=== PATIENT | male | born 1950 | race Caucasian/White ===

== ENCOUNTER 2018-10-03 06:08 | Inpatient (IN) ==
[2018-10-03] MEDS ORDERED: Etomidate Inj 40 MG/20 ML Vial IV.PUSH ONE ×2 (07:08→08:00)
[2018-10-03] MEDS ORDERED: Midazolam Inj 5 MG/ML 1 ML Vial ONE (07:09)
[2018-10-03] MEDS ORDERED: Propofol Inj 500 MG/50 ML Vial ONE ×2 (07:14→08:13)
[2018-10-03] MEDS ORDERED: Labetalol HCl Inj 100 MG/20 ML Vial ONE (07:17)
[2018-10-03] MEDS ORDERED: Morphine Sulfate Inj 2 MG/ML Vial IV.PUSH PRN ×2 (07:50→13:34)
[2018-10-03] MEDS ORDERED: Acetaminophen 325 MG Tablet PO PRN (07:50)
[2018-10-03] MEDS ORDERED: Midazolam Inj 5 MG/ML 1 ML Vial IV.PUSH ONE (08:00)
--- NOTE | 2018-10-03 08:07 | P.HPCC ---
History of Present Illness Service: Critical care Primary Care Physician: UNKNOWN Chief Complaint: Headache, intraparenchymal hemorrhage History of Present Illness: Patient is a 68-year-old morbidly obese male with past medical history significant for hypertension, diabetes, dyslipidemia, morbid obesity, thyroid disease, history of colon resection and colostomy, who presented to the [facility] with left-sided headache and poorly controlled hypertension. Apparently he woke up with severe left-sided headache was moderately confused and family brought him to the emergency department. The patient did take aspirin for his headache prior to presentation. A stat CT of the head showed large 6.9 x 3.6 x 3.2 cm acute intraparenchymal hemorrhage in the right temporoparietal region with approximate blood volume of 40 mL. There was surrounding edema and 2-3 mm leftward midline shift. Neurosurgery Dr. Hills was contacted and patient was transferred to [facility]. PT/INR/ platelet count was normal in the outside hospital. BUN was 43 creatinine was 2 I evaluated the patient in the ICU. Patient is awake but somnolent oriented only to person. He drifts to sleep while talking. His systolic blood pressure was 200 on arrival. Because of questionable airway protection and need for further imaging studies patient was intubated and placed on mechanical ventilation. Dr. Hills had been informed. I will start Cardene to control blood pressure, repeat stat CT head also CT angiogram of brain and neck will be performed. Also give 25 g of IV mannitol, start on 2% saline to keep sodium more than 150-155, also placed on Keppra for seizure prophylaxis - Diagnosis (1) Intraparenchymal hemorrhage of brain (2) Midline shift of brain (3) Acute encephalopathy (4) Hypertensive emergency (5) LLL pneumonia (6) Acute kidney injury (7) History of hypertension (8) Type 2 diabetes mellitus (9) Dyslipidemia (10) Morbid obesity Inpatient Certification: I certify that the inpatient services were ordered in accordance with Medicare regulations governing the order. This includes certification that hospital inpatient services are reasonable and necessary and in the case of services not specified as inpatient-only under 42 CFR 419.22(n), that they are appropriately provided as inpatient services in accordance to with the 2-midnight benchmark under 43 CFR 412.3(e) Estimated Total Length of Stay (Days): 7 Plans for Post Hospital Care: Not yet determined Review of Systems unobtainable due to mental status [facility] - Medical History Medical History: Medical History (Last Reviewed 10/03/18 @ 08:04 by Yeison Mack MD) Diabetes mellitus Hyperlipemia Hypertension - Surgical History Surgical History: Surgical History (Last Reviewed 10/03/18 @ 08:03 by Yeison Mack MD) History of total right knee replacement (TKR) Medications and Allergies Active Medications: Active Medications Acetaminophen (Tylenol) 650 mg PO Q6H PRN PRN Reason: PAIN 1-10 AND/OR FEVER >101F Albuterol (Duoneb Neb (Prn)) 1 ampul NEB Q4HR NEB PRN PRN Reason: SHORTNESS OF BREATH Albuterol (Duoneb Neb (Jud)) 1 ampul NEB Q6HR NEB JUD Chlorhexidine Gluconate (Chlorhexidine 2% Cloth) 3 pack TOPICAL DAILY@0400 JUD Stop: 10/09/18 03:59 Chlorhexidine Gluconate (Chlorhexidine 2% Cloth) 3 pack TOPICAL DAILY@0400 PRN PRN Reason: Extra cloth needed Stop: 10/09/18 03:59 Chlorhexidine Gluconate (Peridex 0.12% Oral Kit) 15 ml OROPHARYNG BID@0800, 2000 JUD Famotidine (Pepcid Pf Inj) 20 mg IV.PUSH Q12HR JUD Sodium Chloride (Ns Inj) 1,000 mls @ 75 mls/hr IV.CONT .[id number] JUD Miscellaneous Medication () 1 each OROPHARYNG 0000,0400,1200,1600 JUD Morphine Sulfate (Morphine Inj) 2 mg IV.PUSH Q2H PRN PRN Reason: PAIN SCALE 6 TO 10 Allergies Allergy/AdvReac Type Severity Reaction Status Date / Time No Known Allergies Allergy Verified 10/03/18 07:37 Results - Labs CBC & Chem 7: 10/03/18 08:45 10/03/18 08:45 Exam Vital signs: Intake & Output 10/02/18 10/03/18 10/03/18 18:59 06:59 18:59 Weight 178 kg Other: Weight On Admission 178 kg Narrative: GEN: Morbidly obese male somnolent but wakes up easily, profoundly hypotensive HEENT: Extraocular movements are grossly intact, VANCE+, airway widely patent, large tongue iNECK: Supple. LUNGS: Bilateral diminished breath sounds, few crackles heard at left base HEART: S1 and S2 normal, heart sounds distant. Profoundly hypertensive systolic blood pressure in 200s ABDOMEN: Soft. Nontender. Obese. Well-healed vertical scar. Right lower quadrant colostomy bag in place with stool EXTREMITIES: No pedal edema. NEUROLOGIC: Patient is somnolent but wakes up easily. He is able to tell me his name not oriented to place or time. He drifts back to sleep while talking. Follows commands x4, muscle strength appeared normal while awake Septic Shock Reassessment Septic shock perfusion: reassessment completed Caprini VTE Risk Assessment Caprini VTE Risk Assessment: No/Low Risk (score <= 1) VTE Pharmacological Exception Reason: Hemorrhage Caprini Risk Assessment Model: Point Value = 1 Point Value = 2 Point Value = 3 Point Value = 5 Age 41-60 Minor surgery BMI > 25 kg/m2 Swollen legs Varicose veins or History of unexplained or recurrent spontaneous Oral contraceptives or hormone replacement Sepsis (< 1 month) Serious lung disease, including pneumonia (< 1 month) Abnormal pulmonary function Acute myocardial infarction Congestive heart failure (< 1 month) History of inflammatory bowel disease Medical patient at bed rest Age 61-74 Arthroscopic surgery Major open surgery (> 45 min) Laparoscopic surgery (> 45 min) Malignancy Confined to bed (> 72 hours) Immobilizing plaster cast Central venous access Age >= 75 History of VTE Family history of VTE Factor V Leiden Prothrombin [id number] Lupus anticoagulant Anticardiolipin antibodies Elevated serum homocysteine Heparin-induced thrombocytopenia Other congenital or acquired thrombophilia Stroke (< 1 month) Elective arthroplasty Hip, pelvis, or leg fracture Acute spinal cord injury (< 1 month) Prophylaxis Regimen: Total Risk Factor Score Risk Level Prophylaxis Regimen 0-1 Low Early ambulation 2 Moderate Order ONE of the following: *Sequential Compression Device (SCD) *Heparin 5000 units SQ BID 3-4 Higher Order ONE of the following medications: *Heparin 5000 units SQ TID *Enoxaparin/Lovenox 40 mg SQ daily (WT < 150 kg, CrCl > 30 mL/min) *Enoxaparin/Lovenox 30 mg SQ daily (WT < 150 kg, CrCl > 10-29 mL/min) *Enoxaparin/Lovenox 30 mg SQ BID (WT < 150 kg, CrCl > 30 mL/min) AND/OR *Sequential Compression Device (SCD) 5 or more Highest Order ONE of the following medications: *Heparin 5000 units SQ TID (Preferred with Epidurals) *Enoxaparin/Lovenox 40 mg SQ daily (WT < 150 kg, CrCl > 30 mL/min) *Enoxaparin/Lovenox 30 mg SQ daily (WT < 150 kg, CrCl > 10-29 mL/min) *Enoxaparin/Lovenox 30 mg SQ BID (WT < 150 kg, CrCl > 30 mL/min) AND *Sequential Compression Device (SCD) Assessment and Plan - Problem List (1) Intraparenchymal hemorrhage of brain Code(s): I61.9 - Nontraumatic intracerebral hemorrhage, unspecified Status: Acute (2) Midline shift of brain Code(s): G93.9 - Disorder of brain, unspecified Status: Acute (3) Acute encephalopathy Code(s): G93.40 - Encephalopathy, unspecified Status: Acute (4) Hypertensive emergency Code(s): I16.1 - Hypertensive emergency Status: Acute (5) LLL pneumonia Code(s): J18.1 - Lobar pneumonia, unspecified organism Status: Acute (6) Acute kidney injury Code(s): N17.9 - Acute kidney failure, unspecified Status: Acute (7) History of hypertension Code(s): Z86.79 - Personal history of other diseases of the circulatory system Status: Chronic (8) Type 2 diabetes mellitus Code(s): E11.9 - Type 2 diabetes mellitus without complications Status: Chronic (9) Dyslipidemia Code(s): E78.5 - Hyperlipidemia, unspecified Status: Chronic (10) Morbid obesity Code(s): E66.01 - Morbid (severe) obesity due to excess calories Status: Chronic - Assessment and Plan Plan: NEURO: Acute right temporoparietal intraparenchymal hemorrhage Midline shift Acute encephalopathy -Propofol and fentanyl for sedation and ventilator synchrony after intubation -Repeat stat CT head without contrast, also CT angiogram of the brain and neck to rule out aneurysm -Start 2% saline at 100 mL/h to keep sodium between 150 and 155 -Mannitol 25 g IV x1 -Keppra 500 mg IV every 12 hours -Discussed with neurosurgery Dr. Hills RESP: Acute respiratory failure Left lower lobe pneumonia -Patient was intubated for airway protection, placed on PRVC/AC -Ventilator bundle -DuoNeb every 6 hours scheduled and as needed -Sputum culture CV: Hypertensive emergency Dyslipidemia -Normal saline IV fluids 1 L bolus and maintenance IV fluid 2% saline at 100 mL/ h -Cardene infusion to keep systolic blood pressure less than 140 -Arterial line placement -IV labetalol as needed for SBP more than 140 GI: Morbid obesity History of colon resection, status post colostomy -N.p.o., IV famotidine -Routine colostomy care : Acute kidney injury -Monitor renal function closely. Place Mendieta catheter. -IV hydration as above -Unclear whether patient has chronic knee disease -Check renal ultrasound ID: Left lower lobe pneumonia -Antibiotics with Unasyn 1.5 g IV every 6 hours, IV azithromycin -Blood and sputum cultures HEME: -Monitor CBC, coags ENDO: Type 2 diabetes Hypothyroidism -Electrolyte replacement per protocol -Sliding scale insulin -Check TSH PROPH: -Bilateral lower extremity SCDs/HIRAL. Chemical DVT prophylaxis contraindicated -IV famotidine LINES: -Utilize peripheral IVs, central line if needed CC time 77 min excluding procedures Code Status: Full Discussed Condition With: Dr. Hills
--- NOTE | 2018-10-03 08:08 | XR ---
EXAM DATE: 10/03/2018 8:06 AM EST AGE/SEX: 68 years / Male INDICATIONS: Post ET tube placement CLINICAL DATA: This is the patient's initial encounter. Patient reports that signs and symptoms have been present for 1 day and indicates a pain score of Nonresponsive. MEDICAL/SURGICAL HISTORY: . brain bleed Non-responsive. COMPARISON: No prior exams available for comparison. FINDINGS: The heart is enlarged. There are atelectatic changes at the left lung base. There is no pneumothorax. The endotracheal tubes in good position. There is a nasogastric tube present as well. The bony structures are grossly intact. CONCLUSION: 1. ET tube in satisfactory position. 2. Atelectatic changes in the left lower lobe. Electronically signed by: Rob Delaney MD 10/03/2018 8:06 AM EST
[2018-10-03] MEDS ORDERED: Dextrose 50% in Water 50 ML Vial IV.PUSH PRN (08:17)
[2018-10-03 08:43] LABS: ABG Base Excess 7.4 mmol/L (-2-2); ABG PCO2 62 mmHg (38-42); ABG PO2 177 mmHg (61-120)
[2018-10-03 09:00] LABS: Hematocrit 34.7 % (39.0-51.0); Hemoglobin 11.5 gm/dL (13.0-17.0); Mean Corpuscular HGB Conc 33.1 % (32.0-36.0); Mean Corpuscular Hemoglobin 27.9 pg (27.0-34.0); Mean Corpuscular Volume 84.4 fL (80.0-100.0); Mean Platelet Volume 7.8 fL (7.0-11.0); Platelet Count 144 th/mm3 (150-450); Red Blood Count 4.11 mil/mm3 (4.50-5.90); Red Cell Distribution Width 15.2 % (11.6-17.2); White Blood Count 3.9 th/mm3 (4.0-11.0)
[2018-10-03] MEDS ORDERED: RASS Change Order OTHER ONE (09:00)
--- NOTE | 2018-10-03 09:08 | P.CONNS ---
History of Present Illness Service: Neurosurgery Consult date: 10/03/18 Requesting Physician: Yeison Mack Reason for Consult: [facility] Primary Care Provider: UNKNOWN Chief Complaint: Headache, intraparenchymal hemorrhage History of Present Illness: This is a 68-year-old morbidly obese male with past history of arterial hypertension, diabetes, dyslipidemia, morbid obesity, thyroid disease, history of colon resection and colostomy, who presented to the [facility] with left-sided headache and poorly controlled hypertension. Apparently he woke up with severe left-sided headache was moderately confused and family brought him to the emergency department. Apparently he took aspirin for severe headaches prior to presentation. A CT of the head showed large 6.9 x 3.6 x 3.2 cm acute intraparenchymal hemorrhage in the right temporoparietal region. There was surrounding edema and 2-3 mm leftward midline shift. He had evidence of renal failure with BUN 43 creatinine 2 he was stuporose, oriented only to person. His systolic blood pressure was over 200 on arrival. The patient was intubated and placed on mechanical ventilation for airway protection.Started on Cardene drip for blood pressure Neurosurgery consultation was requested His family history is unobtainable due to his condition Review of Systems unobtainable due to endotracheal tube PMFSH - Medical History Medical History: Medical History (Last Reviewed 10/08/18 @ 19:38 by Shivam Hills MD) Diabetes mellitus Hyperlipemia Hypertension On home O2 - Surgical History Surgical History: Surgical History (Last Reviewed 10/08/18 @ 19:38 by Shivam Hills MD) History of total right knee replacement (TKR) Medications and Allergies Active Medications: Active Medications Acetaminophen (Tylenol) 650 mg PO Q6H PRN PRN Reason: PAIN 1-10 AND/OR FEVER >101F Albuterol (Duoneb Neb (Prn)) 1 ampul NEB Q4HR NEB PRN PRN Reason: SHORTNESS OF BREATH Albuterol (Duoneb Neb (Jud)) 1 ampul NEB Q6HR NEB JUD Chlorhexidine Gluconate (Chlorhexidine 2% Cloth) 3 pack TOPICAL DAILY@0400 JUD Stop: 10/09/18 03:59 Chlorhexidine Gluconate (Chlorhexidine 2% Cloth) 3 pack TOPICAL DAILY@0400 PRN PRN Reason: Extra cloth needed Stop: 10/09/18 03:59 Chlorhexidine Gluconate (Peridex 0.12% Oral Kit) 15 ml OROPHARYNG BID@0800, 2000 JUD Dextrose (D50w Vial) 50 ml IV.PUSH UNSCH PRN PRN Reason: PER HYPOGLYCEMIA PROTOCOL Famotidine (Pepcid Pf Inj) 20 mg IV.PUSH Q12HR JUD Glucagon (Glucagon Inj) 1 mg OTHER PRN PRN PRN Reason: for Hypoglycemia Protocol Sodium Chloride (Ns Inj) 1,000 mls @ 75 mls/hr IV.CONT .[id number] JUD Sodium Chloride 188 meq/ (Sodium Chloride) 1,047 mls @ 100 mls/hr IV.CONT .[id number] JUD Propofol (Diprivan 1000 Mg/100 Ml Inj) 1,000 mg in 100 mls @ 5.34 mls/hr IV.CONT TITRATE PRN; Protocol PRN Reason: Per Protocol Levetiracetam 500 mg/ Sodium (Chloride) 105 mls @ 400 mls/hr IV.SIG Q12H JUD Ampicillin Sodium/Sulbactam Sodium 1,500 mg/ Sodium Chloride 100 mls @ 200 mls/ hr IV.SIG Q6H JUD Azithromycin 500 mg/ Sodium (Chloride) 250 mls @ 250 mls/hr IV.SIG Q24H JUD Insulin Aspart (Novolog Insulin [place] Sugar Inj) 0 unit SQ Q6HR JUD; Protocol Mannitol (Mannitol Inj) 25 gm IV.PUSH ONCE ONE Stop: 10/03/18 08:15 Miscellaneous Medication () 1 each OROPHARYNG 0000,0400,1200,1600 JUD Morphine Sulfate (Morphine Inj) 2 mg IV.PUSH Q2H PRN PRN Reason: PAIN SCALE 6 TO 10 Allergies Allergy/AdvReac Type Severity Reaction Status Date / Time clear tape,plastic tape Allergy Severe Blister Uncoded 10/04/18 18:47 Home Medications Medication Instructions Recorded Confirmed Type RX: amlodipine 10 mg PO DAILY 10/03/18 10/03/18 History RX: aspirin 81 mg PO DAILY 10/03/18 10/03/18 History RX: fenofibrate 120 mg PO DAILY 10/03/18 10/03/18 History RX: glipizide 10 mg BID 10/03/18 10/03/18 History RX: irbesartan-hydrochlorothiazide 1 tab PO DAILY 10/03/18 10/03/18 History RX: lorazepam 0.5 mg PO BID PRN 10/03/18 10/03/18 History RX: pioglitazone 15 mg PO DAILY 10/03/18 10/03/18 History Synthroid 112 mcg PO DAILY 10/03/18 10/03/18 History escitalopram oxalate [Lexapro] 10 mg PO DAILY 10/03/18 10/03/18 History febuxostat [Uloric] 40 mg PO DAILY 10/03/18 10/03/18 History insulin degludec [Tresiba 48 units SUBCUT DAILY 10/03/18 10/03/18 History FlexTouch U-100] nebivolol [Bystolic] 10 mg PO DAILY 10/03/18 10/03/18 History sitagliptin [Januvia] 50 mg PO DAILY 10/03/18 10/03/18 History Exam Vital signs: Intake & Output 10/02/18 10/03/18 10/03/18 18:59 06:59 18:59 Weight 178 kg Other: Weight On Admission 178 kg Narrative: The patient is intubated and sedated. GCS 7 Cranial Nerves: Pupils equal, 3 mm round, reactive to light. Eyes appear conjugated. There was no nystagmus, right papilledema. Face musculature appeared symmetrical at rest. Face sensation, olfaction, and hearing cannot be adequately assessed due to the patient's neurological condition. The patient has a corneal reflex. The patient has a gag reflex. The sternocleidomastoid and trapezius were symmetrical. Cervical Spine: The patient's neck is soft, supple, without nuchal rigidity. Motor: His muscle tone and bulk are normal. He moves purposefully all right upper and lower extremities with left hemiparesis. Reflexes: Deep tendon reflexes are 2+ and symmetrical in the biceps, triceps, and brachioradialis, bilaterally, in the upper extremities. In the lower extremities, the patellar and ankles are 2+, bilaterally. There is a bilateral plantar flexion response. There is no clonus or other abnormal reflexes noted. Sensory: On examination there there is response to painful stimuli, localizing with right upper and lower extremities. Cerebellar: Examination cannot be adequately assessed due to the patient's neurological condition. Lungs: clear Heart: Regular rhythm and rate Skin: warm and dry Results - Laboratory Findings CBC and BMP: 10/04/18 05:10 10/08/18 05:50 Assessment and Plan - Plan I have reviewed the clinical and radiological findings from [place] Neuro: neuro checks in a serial fashion.This could be a ruptured aneurysm. Recommend stat CT of the brain with CTA. if there is a ruptured aneurysm, he may need an angiography with endovascular treatment. Start mannitol, hypertonic solutions keppra for seizure prophylaxis Hypertensive crisis. On cardene drip for BP control Pulmonary: on full mechanical ventilation on assist control mode of ventilation ; aggressive pulmonary toilette, nasotracheal suction, and breathing treatments with nebulizers. Daily PT and OT Renal: Continue to monitor closely urine output, BUN and creatinine Endocrine: Continue to Monitor serial Acu checks and SSI as needed in detail ID continue to monitor for signs of infection Continue Protonix for stress ulcer prophylaxis Continue Rober hose and SCD's for DVT prophylaxis Further recommendations will be provided depending on the patient's clinical evaluation and follow up studies. Addendum. CTA was negative. his clinical condition is deteriorating. I discussed with his family trhe alternativ es of treatment, and I recommend a surgical decompression via a craniotomy, in a desperated attempt to save his life. Michelle discussed with his family the [id number] details of the surgical procedure, its indications, alternatives, risks, and potential complications. Risks and potential complications include, but are not limited to, infection, blood loss, CSF leak, partial or complete loss of sight in one or both eyes, paresis, paralysis, permanent pain or difficulty swallowing, loss of bowel or bladder function, complications from anesthesia, blood clot, stroke, myocardial infarction, or even . The possibility of nonoperative treatment has been offered. \Discussed with Dr Yeison Mack
[2018-10-03 09:21] LABS: Albumin 3.3 g/dL (3.4-5.0); Anion Gap 9 meq/L (5-15); Aspartate Aminotransferase 17 U/L (15-37); Blood Urea Nitrogen 42 mg/dL (7-18); Calcium 9.2 mg/dL (8.5-10.1); Carbon Dioxide 31.9 meq/L (21.0-32.0); Chloride 100 meq/L (98-107); Glomerular Filtration Rate 29 mL/min (>89); Glucose,Random 196 mg/dL (74-106); Magnesium 2.1 mg/dL (1.5-2.5); Potassium 3.8 meq/L (3.5-5.1); Sodium 141 meq/L (136-145)
[2018-10-03 09:22] LABS: Alanine Aminotransferase 21 U/L (12-78)
[2018-10-03 09:24] LABS: Alkaline Phosphatase 44 U/L (45-117); Total Protein 6.1 g/dL (6.4-8.2)
--- NOTE | 2018-10-03 10:05 | CT ---
EXAM DATE: 10/03/2018 9:59 AM EST AGE/SEX: 68 years / Male INDICATIONS: Hemorrhage CLINICAL DATA: This is the patient's initial encounter. Patient reports that signs and symptoms have been present for 1 day and indicates a pain score of Nonresponsive. MEDICAL/SURGICAL HISTORY: Diabetes. Hypertension. Colon resection. Colostomy. RADIATION DOSE: 28.78 CTDI (mGy) COMPARISON: [facility] [place], CT HEAD W/O CONTRAST, 10/03/2018. . TECHNIQUE: Volumetric scanning was performed using a multi-row detector CT scanner during bolus infu sameer of 100 ml Visipaque 320 (iodixanol) nonionic water-soluble contrast as a cumulative dose for mu ltiple exams. The data was post processed with a variety of visualization algorithms including full volume maximum intensity projection, multi-planar sliding thin slab reformation, curved planar refor mation, and surface rendering techniques. Using automated exposure control and adjustment of the mA and/or kV according to patient size, radiation dose was kept as low as reasonably achievable to obtai n optimal diagnostic quality images. DICOM format image data is available electronically for review and comparison. FINDINGS: There is excellent visualization of the major intracranial arteries out to the second-order branch ve ssels. There is no evidence for aneurysm, vessel truncation or stenosis, and no evidence for vascula r malformation. Origin of the posterior cerebral arteries is on both sides. CONCLUSION: No acute [place] vascular findings . Electronically signed by: Frederick Kay MD 10/03/2018 10:03 AM EST
--- NOTE | 2018-10-03 10:08 | CT ---
EXAM DATE: 10/03/2018 10:00 AM EST AGE/SEX: 68 years / Male INDICATIONS: Hemorrhage CLINICAL DATA: This is the patient's initial encounter. Patient reports that signs and symptoms have been present for 1 day and indicates a pain score of Nonresponsive. MEDICAL/SURGICAL HISTORY: Diabetes. Hypertension. Colon resection. Colostomy. RADIATION DOSE: 50.18 CTDI (mGy) COMPARISON: [facility], CTA HEAD W CONTRAST W 3D, 10/03/2018. . TECHNIQUE: CT of the head without contrast. Using automated exposure control and adjustment of the mA and/or kV according to patient size, radiation dose was kept as low as reasonably achievable to ob tain optimal diagnostic quality images. DICOM format image data is available electronically for revi ew and comparison. FINDINGS: There is a 6.5 cm parenchymal hematoma in the right temporoparietal region with mild surrounding brianna a. There is moderate regional mass effect present with effacement of the cortical sulci in the pariet al and occipital regions and compression of the adjacent lateral ventricle. Minimal subfalcine midlin e shift on the order of several millimeters. The basal cisterns and foramen magnum are patent. There is mild baseline cortical atrophy. No focal parenchymal abnormalities in the contralateral left hemis phere. Posterior fossa and brainstem structures are unremarkable. There is mild mucosal sinus disease present. CONCLUSION: Large right temporoparietal parenchymal hematoma. . Electronically signed by: Frederick Kay MD 10/03/2018 10:06 AM EST
--- NOTE | 2018-10-03 10:34 | CT ---
EXAM DATE: 10/03/2018 10:28 AM EST AGE/SEX: 68 years / Male INDICATIONS: Hemorrhage CLINICAL DATA: This is the patient's initial encounter. Patient reports that signs and symptoms have been present for 1 day and indicates a pain score of Nonresponsive. MEDICAL/SURGICAL HISTORY: Diabetes. Hypertension. Colon resection. Colostomy. RADIATION DOSE: 28.78 CTDI (mGy) ; Combined studies COMPARISON: No prior exams available for comparison. TECHNIQUE: Volumetric scanning was performed using a multirow detector CT scanner during bolus infus ion of 100 ml Visipaque 320 (iodixanol) nonionic water-soluble contrast as a cumulative dose for mul tiple exams. The data was postprocessed with a variety of visualization algorithms including full-v olume maximum intensity projection, multiplanar sliding thin-slab reformation, curved-planar reformat ion, and surface-rendering techniques. Using automated exposure control and adjustment of the mA and /or kV according to patient size, radiation dose was kept as low as reasonably achievable to obtain o ptimal diagnostic quality images. DICOM format image data is available electronically for review and comparison. Percent stenosis is calculated using the diameter of the stenotic region over the diameter of the nor mal distal internal carotid artery. FINDINGS: Aortic arch: The left vertebral originates directly from the arch. The origins of the great vessels a re widely patent. Right carotid: The right common carotid is widely patent. There is mild calcified atherosclerotic [place] at the bifurcation. This results in minimal stenosis in the origin of the right internal caroti d this is estimated to be in the range of 10% by NASCET criteria. The more cephalad portion of caroti d is widely patent. Left carotid: The left common carotid is widely patent. There is calcified atherosclerotic plaquing a t the bifurcation. There is soft plaque present as well. There is no hemodynamically significant tubbs tid artery stenosis identified. Vertebral circulation: The left vertebral originates directly from the arch. It is symmetric in size with the right. Both are widely patent. CT source data: Note is again made of a large parenchymal hemorrhage involving the temporal cortex on the right. This will be further assessed by CTA of the brain. The ET tube appears in good position. The visualized lung apex is clear. CONCLUSION: 1. The left vert originates directly from the arch. 2. Atherosclerotic plaquing at the carotid bifurcation but no hemodynamically significant carotid ar adama stenosis identified. 3. CTA of the brain pending. Electronically signed by: Rob Delaney MD 10/03/2018 10:33 AM EST
[2018-10-03] MEDS: Famotidine PF Inj 20 MG/2 ML Vial IV.PUSH SCH ×2 (10:51→20:14)
[2018-10-03] MEDS: Ampicillin/Sulbactam Inj 1,500 MG in Sodium Chloride 0.9% Inj 100 ML IV.SIG SCH ×3 (10:52→21:17)
--- NOTE | 2018-10-03 11:11 | P.PCN ---
Date of procedure: 10/03/18 Pre-op diagnosis: Need for central access for pressors and hypertonic saline Post-op diagnosis: same Procedure: US guided right IJ central line Central line checklist completed, timeout completed. I wore a surgical cap, mask with protective eyewear, full gown and sterile gloves throughout the procedure. Right neck region was prepped using chlorhexidine scrub and draped in sterile fashion. The right IJ was identified using the ultrasound. Anesthesia was achieved over the vein using 1% lidocaine. The introducer needle was inserted into the right IJ under direct ultrasound visualization. Venous blood was withdrawn. The syringe was removed and a guidewire was advanced into the introducer needle. A small incision was made at the skin surface with a scalpel and the introducer needle was exchanged for a dilator over the guidewire. After appropriate dilation was obtained, the dilator was exchanged over the wire for a triple lumen, 7F, antibiotic coated central venous catheter. The wire was removed and the catheter was sutured in place at 19 cm. A sterile central line dressing was placed over the catheter at the insertion site. The patient tolerated the procedure without any hemodynamic compromise. At time of procedure completion, all ports aspirated and flushed properly. Post- procedure chest x-ray is pending at this time. Anesthesia: local Surgeon: Yeison Mack Estimated blood loss (mL): 1 Pathology: none sent Condition: critical Disposition: ICU
[2018-10-03] MEDS: Azithromycin Inj 500 MG in Sodium Chlor 0.9% Inj 250 ML IV.SIG SCH (11:12)
[2018-10-03] MEDS: Propofol 1000 mg/100 ml Inj 1,000 MG/100 ML BOTTLE IV.CONT PRN ×5 (11:13→23:19)
--- NOTE | 2018-10-03 11:13 | P.PCN ---
Date of procedure: 10/03/18 Pre-op diagnosis: Altered mentation, inability to protect airway Post-op diagnosis: same Procedure: Endotracheal intubation Rapid Sequence Intubation was conducted. The patient received 20 mg of IV etomidate, 10 mg of IV Versed, 50 mg of IV rocuronium.. Cricoid pressure was maintained from time induction agent was given to time of cuff balloon inflation. Using a direct laryngoscope MAC 4 blade a grade 1 view was obtained, and a size 8.0 endotracheal tube with stylet, the patient was intubated on the first attempt. The stylet was removed and cuff balloon was inflated. Appropriate endotracheal tube position was confirmed by direct visualization of vocal cord passage, fogging of the tube, CO2 colometric indicator and symmetric breath sounds. The tube was secured at 24 cm at the lips. Anesthesia: local Surgeon: Yeison Mack Estimated blood loss (mL): 0 Pathology: other (sputum culture) Condition: critical Disposition: ICU
--- NOTE | 2018-10-03 12:00 | XR ---
EXAM DATE: 10/03/2018 11:42 AM EST AGE/SEX: 68 years / Male INDICATIONS: Status post central line. CLINICAL DATA: This is the patient's initial encounter. Patient reports that signs and symptoms have been present for 1 day and indicates a pain score of Nonresponsive. MEDICAL/SURGICAL HISTORY: . Diabetes. Hypertension. . Colon resection. Colostomy. COMPARISON: [facility] [place] 1V SINGLE AP, 10/03/2018. . FINDINGS: The ET tube is in satisfactory position. The right IJ lines in good position. There is a nasogastric tube present. The heart is enlarged. There is left basilar consolidation and effusion. The right lung is clear. The bony structures are intact. CONCLUSION: Left lower lobe atelectasis and probable left basilar effusion similar to previous. Stable appearance of the support equipment. Electronically signed by: Rob Delaney MD 10/03/2018 11:59 AM EST
[2018-10-03] MEDS ORDERED: Gelatin Size 100 Topical Foam ONE (12:37)
[2018-10-03] MEDS ORDERED: Thrombin Topical Soln 5,000 UNIT Vial TOPICAL ONE (12:37)
[2018-10-03] MEDS ORDERED: Lidocaine 1%/Epinephrine 1:100,000 Inj 30 ML Vial ONE (12:37)
[2018-10-03] MEDS: Insulin NovoLOG Aspart Correctional Sugar Inj SQ SCH ×2 (12:42→17:37)
[2018-10-03] MEDS ORDERED: Norepinephrine Inj 4 MG in Sodium Chlor 0.9% Inj 246 ML IV.SIG PRN (12:50)
[2018-10-03] MEDS ORDERED: ceFAZolin 2 GM Premix Inj 2 GM/50 ML PIGGYBACK IV.SIG ONE (12:52)
[2018-10-03] MEDS: Sod Chloride 0.9% Inj 1,000 ML IV.CONT SCH (13:04)
[2018-10-03] MEDS: Chlorhexidine 0.12% Oral Kit 15 ML UDC OROPHARYNG SCH ×2 (13:10→20:14)
[2018-10-03] MEDS: Sodium Chloride 23.4% Inj 188 MEQ in Sod Chloride 0.9% Inj 1,000 ML IV.CONT SCH ×2 (13:10→20:56)
[2018-10-03] MEDS: Oral Hygiene Kit OROPHARYNG SCH ×2 (13:10→16:57)
[2018-10-03] MEDS ORDERED: Bisacodyl 10 MG Supp RECTAL PRN (13:34)
[2018-10-03] MEDS ORDERED: ceFAZolin 1 GM Premix Inj 1 GM/50 ML FROZ.PIGGY IV.SIG ONE (13:44)
[2018-10-03] MEDS ORDERED: niCARdipine Inj 25 MG/10 ML Vial ONE (14:12)
--- NOTE | 2018-10-03 15:09 | P.OP ---
Preoperative Diagnosis: Right temporal lobe intracerebral hematoma Postoperative Diagnosis: Right temporal lobe intracerebral hematoma Date of procedure: 10/03/18 Procedure: Right posterior temporal craniotomy, evacuation of [id number] hematoma. Microsurgical dissection Surgeon: Shivam Hills MD Operation and Findings: DETAILS OF THE SURGICAL PROCEDURE The patient was endotracheally intubated and mechanically ventilated. A Mendieta catheter, bilateral HIRAL hose and sequential compression devices were placed and kept throughout the procedure. The patient was positioned supine on a 3080 table over a soft mattress. The head was placed on a horseshoe chiseler head. All pressure points were carefully padded with egg crate mattress. The eyes were tapped shut after ointment was applied by the anesthesiologist to prevent corneal abrasion. A Margo hugger was placed over the exposed lower body to maintain control of the core body temperature. The right parietal temporal area was shaved, prepped and draped in the usual sterile fashion. A standard horseshoe incision was outlined on the scalp and infiltrated with 1% lidocaine with epinephrine. The skin incision was made with a #10 blade down to the level of the temporalis fascia in the temporal region. Natalya clips were applied to the scalp. Using a Bovie, the temporalis fascia and muscle were incised and a subperiosteal dissection was performed reflecting the myofascial scalp flap in a single layer anteriorly. The scalp was covered with a moist sponge and held in position using fish hooks. The TPS drill was brought to the field and a bur hole was made in the temporal region using the craniotome attachment. Then, using the footplate attachment, a temporal craniotomy flap was elevated. The dura was bulging, very tense with severe pressure due to the underlying mass effect. The dura was opened with a 15 blade and metzembaun sissors and retracted with 4-0 Neurolon sutures attached to the fascia. A large intracerebral hematoma was localized as it had ruptued through the cortical surface. A small corticotomy was performed at the site where the hematoma ruptured with the bipolar and the hematoma was readily found, causing significant mass effect. At this point of the procedure the operative microscope was draped in the usual sterile fashion and brought to the field. The rest of the surgical procedure was performed using microdissection technique with the exception of the closure. The hematoma was evacuated using microsurgical dissection, with the micro- bipolar forceps, microscissors, micro-suction, and gentle irrigation. The specimen was sent to the lab for histological analysis. Appropriate hemostasis was then secured using the bipolar bibliographic services specialist. Then the incision was irrigated with saline solution. The dural edges were tacked to the bone and the dura reconstructed using Duragen. The craniotomy flap was then repositioned and secured in place using Titanium plates and screws. A 7 millimeter Shin- Guillermo drain was then left in the cavity of the hematoma and in the subgaleal space and externalized through a separate stab incision. The incision was then closed in layers. 0 Vicryl in interrupted sutures were used to close the temporalis fascia. The galea was closed with interrupted 3- 0 Vicryl. [place] were applied to the skin. The drain was secured with a 3-0 nylon. At the end of the procedure, the sponge, needle and instrument counts were all correct. Estimated blood loss was less than 100 cc. No blood transfusion was given. No intraoperative complications occurred. The patient received prophylactic antibiotics. The patient was then transferred to the recovery room in stable condition.
--- NOTE | 2018-10-03 15:13 | P.OP ---
Preoperative Diagnosis: Right temporal lobe intracerebral hematoma Postoperative Diagnosis: Right temporal lobe intracerebral hematoma Date of procedure: 10/03/18 Procedure: Frontal Jazzy hole, placement of intracranial pressure monitor Anesthesia: GETA Surgeon: Shivam Hills MD Websphere Portal Architect: GUIDO Pathology: none sent Operation and Findings: INTRAOPERATIVE FINDINGS Intracranial pressures of 2 mmHg. INDICATIONS FOR THE PROCEDURE Mr Fox is a 68 year old male who was brought to [facility] with a temporal lobe intraparenchymal hemorrhage. his condition deteriorated requering enfdotracheal intubation and mechanical ventilation. A surgical evacuation of the hematoma was necessary as the CT of the brain showed a large acute hematoma with mass effect and midline shift. Placement of ICP monitor was indicated as recommended by the [employer] of [employer] DETAILS OF THE SURGICAL PROCEDURE The right frontal area was shaved, prepped and draped in the usual sterile fashion. An entry point was selected behind the hairline, approximately 30 mm lateral to the midline. The incision was infiltrated with 1% lidocaine with epinephrine 1:100,000 dilution. A small incision was made with a 15 blade down to the level of the periosteum. Using a drill, a jazzy hole was made. The dura was opened with a blunt stylet, and a [place] bolt was secured to the bone. A fiberoptic transducer was calibrated according to the hopper filler's instructions, and advanced into the parenchyma of the frontal lobe through the bolt. An intracranial pressure of 2 mmHg was achieved with a good waveform. A Betadine sterile dressing was applied. The patient tolerated the procedure well. There were no intraoperative complications. Blood loss was minimal.
[2018-10-03] MEDS ORDERED: fentaNYL Citrate Inj 100 MCG/2 ML Ampul ONE (15:50)
[2018-10-03 17:24] LABS: Alanine Aminotransferase 16 U/L (12-78); Albumin 2.9 g/dL (3.4-5.0); Anion Gap 9 meq/L (5-15); Aspartate Aminotransferase 14 U/L (15-37); Blood Urea Nitrogen 43 mg/dL (7-18); Calcium 8.7 mg/dL (8.5-10.1); Carbon Dioxide 30.4 meq/L (21.0-32.0); Chloride 103 meq/L (98-107); Glomerular Filtration Rate 26 mL/min (>89); Glucose,Random 138 mg/dL (74-106); Potassium 3.7 meq/L (3.5-5.1); Sodium 142 meq/L (136-145)
[2018-10-03 17:34] LABS: Alkaline Phosphatase 38 U/L (45-117); Total Protein 5.3 g/dL (6.4-8.2)
--- NOTE | 2018-10-03 17:39 | P.PNWCN ---
Wound Care Nurse Consult Additional information: Spoke with REYES Lord regarding wound management consult for patient to have a larger bed due to patient's size and weight. Bariatric bed has been delivered.
[2018-10-03] MEDS: niCARdipine 20mg/NS Premix 20 MG/200 ML PIGGYBACK IV.SIG PRN ×3 (18:24→23:40)
[2018-10-03] MEDS: Senna/Docusate Sodium 8.6/50 MG Tablet PO SCH (20:14)
[2018-10-03] MEDS: ceFAZolin 2 GM Premix Inj 2 GM/50 ML PIGGYBACK IV.SIG SCH (21:18)
[2018-10-04] MEDS: Sod Chloride 0.9% Inj 1,000 ML IV.CONT SCH (00:06)
[2018-10-04] MEDS: Insulin NovoLOG Aspart Correctional Sugar Inj SQ SCH ×4 (00:06→18:50)
[2018-10-04] MEDS: Oral Hygiene Kit OROPHARYNG SCH ×4 (00:07→16:20)
[2018-10-04] MEDS: niCARdipine 20mg/NS Premix 20 MG/200 ML PIGGYBACK IV.SIG PRN ×7 (01:40→20:50)
[2018-10-04] MEDS: Propofol 1000 mg/100 ml Inj 1,000 MG/100 ML BOTTLE IV.CONT PRN ×9 (02:00→22:48)
[2018-10-04] MEDS: Chlorhexidine Gluconate 2% 1 Pack (2 Cloths) TOPICAL SCH (03:27)
[2018-10-04] MEDS: Ampicillin/Sulbactam Inj 1,500 MG in Sodium Chloride 0.9% Inj 100 ML IV.SIG SCH ×4 (03:28→21:03)
[2018-10-04] MEDS ORDERED: Chlorhexidine Gluconate 2% 1 Pack (2 Cloths) TOPICAL PRN (04:00)
[2018-10-04] MEDS: ceFAZolin 2 GM Premix Inj 2 GM/50 ML PIGGYBACK IV.SIG SCH ×2 (05:14→14:10)
[2018-10-04 05:24] LABS: Baso % (Auto) 0.2 % (0.0-2.0); Eos % (Auto) 0.1 % (0.0-4.0); Hematocrit 33.8 % (39.0-51.0); Hemoglobin 10.9 gm/dL (13.0-17.0); Lymph # (Auto) 0.3 th/mm3 (1.0-4.8); Lymph % (Auto) 4.6 % (9.0-44.0); Mean Corpuscular HGB Conc 32.3 % (32.0-36.0); Mean Corpuscular Hemoglobin 27.9 pg (27.0-34.0); Mean Corpuscular Volume 86.4 fL (80.0-100.0); Mean Platelet Volume 7.8 fL (7.0-11.0); Mono # (Auto) 0.2 th/mm3 (0.0-0.9); Mono % (Auto) 3.6 % (0.0-8.0); Neut # (Auto) 5.2 th/mm3 (1.8-7.7); Neut % (Auto) 91.5 % (16.0-70.0); Platelet Count 149 th/mm3 (150-450); Red Blood Count 3.91 mil/mm3 (4.50-5.90); Red Cell Distribution Width 15.7 % (11.6-17.2); White Blood Count 5.6 th/mm3 (4.0-11.0)
[2018-10-04 06:06] LABS: Alanine Aminotransferase 18 U/L (12-78); Albumin 3.1 g/dL (3.4-5.0); Alkaline Phosphatase 42 U/L (45-117); Anion Gap 10 meq/L (5-15); Aspartate Aminotransferase 11 U/L (15-37); Blood Urea Nitrogen 45 mg/dL (7-18); Calcium 8.4 mg/dL (8.5-10.1); Carbon Dioxide 25.6 meq/L (21.0-32.0); Chloride 109 meq/L (98-107); Glomerular Filtration Rate 23 mL/min (>89); Glucose,Random 288 mg/dL (74-106); Potassium 4.3 meq/L (3.5-5.1); Sodium 145 meq/L (136-145); Total Protein 6.1 g/dL (6.4-8.2)
[2018-10-04] MEDS: Sodium Chloride 23.4% Inj 188 MEQ in Sod Chloride 0.9% Inj 1,000 ML IV.CONT SCH ×3 (06:46→18:56)
[2018-10-04] MEDS: Chlorhexidine 0.12% Oral Kit 15 ML UDC OROPHARYNG SCH ×2 (07:58→20:07)
[2018-10-04] MEDS: Senna/Docusate Sodium 8.6/50 MG Tablet PO SCH ×2 (08:26→20:06)
[2018-10-04] MEDS: Famotidine PF Inj 20 MG/2 ML Vial IV.PUSH SCH ×2 (08:26→20:06)
[2018-10-04] MEDS: Azithromycin Inj 500 MG in Sodium Chlor 0.9% Inj 250 ML IV.SIG SCH (08:27)
--- NOTE | 2018-10-04 08:46 | US ---
EXAM DATE: 10/04/2018 8:38 AM EST AGE/SEX: 68 years / Male INDICATIONS: Increased BUN/Creatinine. CLINICAL DATA: This is the patient's initial encounter. Patient reports that signs and symptoms have been present for 1 day and indicates a pain score of 0/10. MEDICAL/SURGICAL HISTORY: Diabetes mellitus type II. Hypertension. Hyperlipidemia. Thyroid dis ease. Intraparenchymal hemorrhage. LLL Pneumonia. Total knee replacement, right. Colon resection. Co lostomy. COMPARISON: No prior exams available for comparison. MEASUREMENTS: Right Kidney:__13.2 x 5.9 x 6.5 cm Left Kidney:__14.3 x 6.6 x 5.9 cm FINDINGS: Right Kidney: No mass or hydronephrosis. Left Kidney: No mass or hydronephrosis. Bladder: Not seen. Mendieta catheter in place Other: None. CONCLUSION: No hydronephrosis Electronically signed by: Frederick Kay MD 10/04/2018 8:45 AM EST
--- NOTE | 2018-10-04 09:30 | P.PNCC ---
Subjective Subjective Remarks/Hospital Course: Patient is a 68-year-old morbidly obese male with past medical history significant for hypertension, diabetes, dyslipidemia, morbid obesity, thyroid disease, history of colon resection and colostomy, who presented to the [facility] with left-sided headache and poorly controlled hypertension. Apparently he woke up with severe left-sided headache was moderately confused and family brought him to the emergency department. The patient did take aspirin for his headache prior to presentation. A stat CT of the head showed large 6.9 x 3.6 x 3.2 cm acute intraparenchymal hemorrhage in the right temporoparietal region with approximate blood volume of 40 mL. There was surrounding edema and 2-3 mm leftward midline shift. Neurosurgery Dr. Hills was contacted and patient was transferred to [place] ICU. PT/INR/ platelet count was normal in the outside hospital. BUN was 43 creatinine was 2. I evaluated the patient in the ICU. Patient is awake but somnolent oriented only to person. He drifts to sleep while talking. His systolic blood pressure was 200 on arrival. Because of questionable airway protection and need for further imaging studies patient was intubated and placed on mechanical ventilation. Dr. Hills had been informed. I will start Cardene to control blood pressure, repeat stat CT head also CT angiogram of brain and neck will be performed. Also give 25 g of IV mannitol, start on 2% saline to keep sodium more than 150-155, also placed on Keppra for seizure prophylaxis. 10/04: Will start oral BP meds down NG tube and attempt to wean cardene. CKD persists as expected. Glucose swing expected. Keep intubated and sedated for now. - Diagnosis (1) Intraparenchymal hemorrhage of brain (2) Midline shift of brain (3) Acute encephalopathy (4) Hypertensive emergency (5) LLL pneumonia (6) Acute kidney injury (7) History of hypertension (8) Type 2 diabetes mellitus (9) Dyslipidemia (10) Morbid obesity Objective Vital Signs / I&O: Vital Signs 10/03/18 09:53 10/03/18 10:00 10/03/18 10:11 Temperature Pulse Rate 64 Respiratory Rate 16 Blood Pressure 127/73 Pulse Oximetry 100 100 100 10/03/18 10:14 10/03/18 10:23 10/03/18 10:35 Temperature Pulse Rate 78 71 Respiratory Rate 17 61 H 16 Blood Pressure 158/89 H Pulse Oximetry 100 100 10/03/18 11:00 10/03/18 12:00 10/03/18 12:29 Temperature 98.2 F Pulse Rate 64 62 Respiratory Rate 16 16 17 Blood Pressure Pulse Oximetry 100 100 100 10/03/18 13:00 10/03/18 14:00 10/03/18 15:00 Temperature 96.1 F L 95.9 F L Pulse Rate 64 51 L 56 L Respiratory Rate 16 Blood Pressure Pulse Oximetry 100 100 92 L 10/03/18 15:39 10/03/18 15:51 10/03/18 16:00 Temperature Pulse Rate 56 L 57 L Respiratory Rate 18 16 16 Blood Pressure Pulse Oximetry 97 99 10/03/18 17:00 10/03/18 17:15 10/03/18 17:30 Temperature 95.5 F L 95.5 F L 95.7 F L Pulse Rate 59 L 59 L 59 L Respiratory Rate 16 16 16 Blood Pressure Pulse Oximetry 95 95 94 L 10/03/18 17:45 10/03/18 18:00 10/03/18 18:15 Temperature 95.7 F L 95.7 F L 95.9 F L Pulse Rate 60 65 70 Respiratory Rate 16 16 16 Blood Pressure Pulse Oximetry 95 94 L 92 L 10/03/18 18:30 10/03/18 18:45 10/03/18 19:00 Temperature 96.1 F L 96.1 F L 96.3 F L Pulse Rate 69 72 67 Respiratory Rate 16 16 16 Blood Pressure Pulse Oximetry 91 L 92 L 95 10/03/18 19:15 10/03/18 19:27 10/03/18 19:30 Temperature 96.3 F L 96.4 F L Pulse Rate 66 69 Respiratory Rate 16 16 17 Blood Pressure Pulse Oximetry 95 95 96 10/03/18 19:45 10/03/18 20:00 10/03/18 20:15 Temperature 96.4 F L 96.4 F L 96.4 F L Pulse Rate 72 73 72 Respiratory Rate 16 16 16 Blood Pressure Pulse Oximetry 96 96 96 10/03/18 20:30 10/03/18 20:45 10/03/18 21:00 Temperature 96.4 F L 96.4 F L 96.4 F L Pulse Rate 73 75 75 Respiratory Rate 16 16 16 Blood Pressure Pulse Oximetry 96 96 96 10/03/18 21:15 10/03/18 21:23 10/03/18 21:30 Temperature 96.4 F L 96.4 F L Pulse Rate 77 71 77 Respiratory Rate 16 16 16 Blood Pressure Pulse Oximetry 96 96 10/03/18 21:45 10/03/18 22:00 10/03/18 22:15 Temperature 96.4 F L 96.4 F L 96.4 F L Pulse Rate 77 72 75 Respiratory Rate 16 18 16 Blood Pressure Pulse Oximetry 97 96 96 10/03/18 22:30 10/03/18 22:45 10/03/18 23:00 Temperature 96.4 F L 96.4 F L 96.4 F L Pulse Rate 74 80 79 Respiratory Rate 16 16 16 Blood Pressure Pulse Oximetry 96 96 96 10/03/18 23:15 10/03/18 23:30 10/03/18 23:45 Temperature 96.4 F L 96.4 F L 96.4 F L Pulse Rate 80 82 83 Respiratory Rate 16 17 17 Blood Pressure Pulse Oximetry 96 96 96 10/04/18 00:00 10/04/18 00:15 10/04/18 00:30 Temperature 96.4 F L 96.4 F L 96.4 F L Pulse Rate 82 85 83 Respiratory Rate 17 16 17 Blood Pressure Pulse Oximetry 96 96 97 10/04/18 00:45 10/04/18 01:00 10/04/18 01:15 Temperature 96.6 F L 96.6 F L 96.6 F L Pulse Rate 84 84 83 Respiratory Rate 17 17 17 Blood Pressure Pulse Oximetry 97 97 97 10/04/18 01:30 10/04/18 01:45 10/04/18 02:00 Temperature 96.6 F L 96.6 F L 96.6 F L Pulse Rate 80 83 82 Respiratory Rate 18 17 18 Blood Pressure Pulse Oximetry 97 97 97 10/04/18 02:15 10/04/18 02:30 10/04/18 02:45 Temperature 96.6 F L 96.6 F L 96.4 F L Pulse Rate 83 79 78 Respiratory Rate 25 H 17 16 Blood Pressure Pulse Oximetry 97 100 99 10/04/18 03:00 10/04/18 03:15 10/04/18 03:30 Temperature 96.4 F L 96.3 F L 96.3 F L Pulse Rate 79 82 83 Respiratory Rate 18 18 17 Blood Pressure Pulse Oximetry 99 99 99 10/04/18 03:45 10/04/18 03:49 10/04/18 04:00 Temperature 96.3 F L 96.3 F L Pulse Rate 84 86 85 Respiratory Rate 18 18 15 Blood Pressure Pulse Oximetry 99 99 10/04/18 04:15 10/04/18 04:20 10/04/18 04:30 Temperature 96.3 F L 96.3 F L Pulse Rate 82 79 Respiratory Rate 16 16 16 Blood Pressure Pulse Oximetry 99 99 98 10/04/18 04:45 10/04/18 05:00 10/04/18 05:15 Temperature 96.3 F L 96.3 F L 96.3 F L Pulse Rate 78 78 79 Respiratory Rate 16 16 16 Blood Pressure Pulse Oximetry 97 97 97 10/04/18 05:30 10/04/18 05:45 10/04/18 06:00 Temperature 96.1 F L 96.3 F L Pulse Rate 81 81 79 Respiratory Rate 18 17 16 Blood Pressure Pulse Oximetry 98 98 98 10/04/18 06:15 10/04/18 06:30 10/04/18 06:45 Temperature 96.1 F L 96.1 F L 96.1 F L Pulse Rate 71 71 72 Respiratory Rate 17 16 16 Blood Pressure Pulse Oximetry 97 97 97 10/04/18 08:20 Temperature Pulse Rate 82 Respiratory Rate 17 Blood Pressure Pulse Oximetry 98 Intake & Output 10/03/18 10/04/18 10/04/18 18:59 06:59 18:59 Intake Total 3055 / 3055 3805 / 3805 300 / 300 Output Total 1989 1245 / 1245 Balance 1065 / 1065 2560 / 2560 300 / 300 Weight 178 kg 203.1 kg Intake: IV 755 / 755 3805 / 3805 300 / 300 Diprivan 1000 mg/100 ml Inj 1, 100 / 100 400 / 400 100 / 100 000 mg In 100 ml @ 5 MCG/KG/MIN 5.34 mls/hr IV.CONT TITRATE PRN Rx#:[id number] Sodium Chloride 23.4% Inj 188 2000 / 2000 MEQ In NS Inj 1,000 ML @ 100 mls/hr IV.CONT .[id number] [facility] Rx# :[id number] Unasyn Inj 1,500 MG In NS Inj 200 / 200 200 / 200 100 ML @ 200 mls/hr IV.SIG Q6H [facility] Rx#:[id number] Azithromycin Inj 500 MG In NS 250 / 250 Inj 250 ML @ 250 mls/hr IV.SIG Q24H [facility] Rx#:[id number] Ancef 1 GM Premix Inj 1 gm In 50 / 50 50 ml @ 0 mls/hr IV.SIG .K- MED ONE Rx#:[id number] Ancef 2 GM Premix Inj 2 gm In 50 / 50 100 / 100 50 ml @ 100 mls/hr IV.SIG Q8H [facility] Rx#:[id number] Keppra Inj 500 MG In NS Inj 100 105 / 105 105 / 105 ML @ 400 mls/hr IV.SIG Q12H [facility] Rx#:[id number] Cardene 20 mg/NS 200 ml Premix 1000 / 1000 200 / 200 20 mg In 200 ml @ 5 MG/HR 50 mls/hr IV.SIG TITRATE PRN Rx#: [id number] Anesthesia Amount 2300 / 2300 Output: Estimated Blood Loss 100 / 100 Urine Amount (Catheter) 1550 / 1550 775 / 775 Indwelling Temp Sensing 775 / 775 Catheter Indwelling Urethral Catheter 1550 / 1550 Stool Amount (Stoma) 250 / 250 100 / 100 Pre-Hospital: 250 / 250 100 / 100 Gastric Drainage 0 / 0 125 / 125 Oral Orogastric Tube 0 / 0 125 / 125 Wound Drainage 90 / 90 245 / 245 # 1 Right Frontal CLARIBEL Drain 50 / 50 85 / 85 # 2 Right Frontal CLARIBEL Drain 40 / 40 160 / 160 Other: Date of Last Bowel Movement 10/03/18 10/03/18 Weight On Admission 178 kg Result Diagrams: 10/04/18 05:10 10/04/18 05:10 Objective Remarks: Narrative: GEN: Morbidly obese male somnolent but wakes up easily, profoundly hypotensive HEENT: Extraocular movements are grossly intact, VANCE+, airway widely patent, large tongue iNECK: Supple. LUNGS: Bilateral diminished breath sounds, few crackles heard at left base HEART: S1 and S2 normal, heart sounds distant. Profoundly hypertensive systolic blood pressure in 200s ABDOMEN: Soft. Nontender. Obese. Well-healed vertical scar. Right lower quadrant colostomy bag in place with stool EXTREMITIES: No pedal edema. NEUROLOGIC: Intubated, sedated. Breathes over vent. Assessment and Plan - Problem List (1) Intraparenchymal hemorrhage of brain Code(s): I61.9 - Nontraumatic intracerebral hemorrhage, unspecified Status: Acute (2) Midline shift of brain Code(s): G93.9 - Disorder of brain, unspecified Status: Acute (3) Acute encephalopathy Code(s): G93.40 - Encephalopathy, unspecified Status: Acute (4) Hypertensive emergency Code(s): I16.1 - Hypertensive emergency Status: Acute (5) LLL pneumonia Code(s): J18.1 - Lobar pneumonia, unspecified organism Status: Acute (6) Acute kidney injury Code(s): N17.9 - Acute kidney failure, unspecified Status: Acute (7) History of hypertension Code(s): Z86.79 - Personal history of other diseases of the circulatory system Status: Chronic (8) Type 2 diabetes mellitus Code(s): E11.9 - Type 2 diabetes mellitus without complications Status: Chronic (9) Dyslipidemia Code(s): E78.5 - Hyperlipidemia, unspecified Status: Chronic (10) Morbid obesity Code(s): E66.01 - Morbid (severe) obesity due to excess calories Status: Chronic - Assessment and Plan Plan: NEURO: Acute right temporoparietal intraparenchymal hemorrhage Midline shift Acute encephalopathy -Propofol and fentanyl for sedation and ventilator synchrony after intubation -Repeat stat CT head without contrast, also CT angiogram of the brain and neck to rule out aneurysm -Start 2% saline at 100 mL/h to keep sodium between 150 and 155 -Mannitol 25 g IV x1 -Keppra 500 mg IV every 12 hours -S/P crani and evacuation 10/03 RESP: Acute respiratory failure Left lower lobe pneumonia -Patient was intubated for airway protection, placed on PRVC/AC -Ventilator bundle -DuoNeb every 6 hours scheduled and as needed -Sputum culture -Remain CV: Hypertensive emergency Dyslipidemia -Normal saline IV fluids 1 L bolus and maintenance IV fluid 2% saline at 100 mL/ h -Cardene infusion to keep systolic blood pressure less than 140 -Arterial line placement -IV labetalol as needed for SBP more than 140 GI: Morbid obesity History of colon resection, status post colostomy -N.p.o., IV famotidine -Routine colostomy care : Acute kidney injury -Monitor renal function closely. Place Mendieta catheter. -IV hydration as above -Unclear whether patient has chronic knee disease -Check renal ultrasound ID: Left lower lobe pneumonia -Antibiotics with Unasyn 1.5 g IV every 6 hours, IV azithromycin -Blood and sputum cultures HEME: -Monitor CBC, coags ENDO: Type 2 diabetes Hypothyroidism -Electrolyte replacement per protocol -Sliding scale insulin -Check TSH PROPH: -Bilateral lower extremity SCDs/HIRAL. Chemical DVT prophylaxis contraindicated -IV famotidine LINES: -Utilize peripheral IVs, central line if needed Overall impression: Critically ill and neurologically unstable. ICP acceptable, will decrease 2% saline to 50/hr Critical Care 40 mins
[2018-10-04] MEDS: amLODIPine 10 MG Tablet PO SCH (09:43)
[2018-10-04] MEDS ORDERED: RASS Change Order MISCELLANE ONE (10:00)
[2018-10-04] MEDS: fentaNYL 10 mcg/mL Premix Drip 2,500 MCG/250 ML BAG IV.SIG PRN (10:05)
--- NOTE | 2018-10-04 12:08 | P.PNNS ---
Subjective Interval history: intubated, well sedated, had to increase diprivan rate this morning due to elevated BP, on cardene drip. ICPs controlled <Ale Weinberg - Last Filed: 10/04/18 12:00> Physical Exam Vital signs: Vital Signs 10/03/18 12:29 10/03/18 13:00 10/03/18 14:00 Temperature 96.1 F L Pulse Rate 64 51 L Respiratory Rate 17 16 Pulse Oximetry 100 100 100 10/03/18 15:00 10/03/18 15:39 10/03/18 15:51 Temperature 95.9 F L Pulse Rate 56 L 56 L Respiratory Rate 18 16 Pulse Oximetry 92 L 97 10/03/18 16:00 10/03/18 17:00 10/03/18 17:15 Temperature 95.5 F L 95.5 F L Pulse Rate 57 L 59 L 59 L Respiratory Rate 16 16 16 Pulse Oximetry 99 95 95 10/03/18 17:30 10/03/18 17:45 10/03/18 18:00 Temperature 95.7 F L 95.7 F L 95.7 F L Pulse Rate 59 L 60 65 Respiratory Rate 16 16 16 Pulse Oximetry 94 L 95 94 L 10/03/18 18:15 10/03/18 18:30 10/03/18 18:45 Temperature 95.9 F L 96.1 F L 96.1 F L Pulse Rate 70 69 72 Respiratory Rate 16 16 16 Pulse Oximetry 92 L 91 L 92 L 10/03/18 19:00 10/03/18 19:15 10/03/18 19:27 Temperature 96.3 F L 96.3 F L Pulse Rate 67 66 Respiratory Rate 16 16 16 Pulse Oximetry 95 95 95 10/03/18 19:30 10/03/18 19:45 10/03/18 20:00 Temperature 96.4 F L 96.4 F L 96.4 F L Pulse Rate 69 72 73 Respiratory Rate 17 16 16 Pulse Oximetry 96 96 96 10/03/18 20:15 10/03/18 20:30 10/03/18 20:45 Temperature 96.4 F L 96.4 F L 96.4 F L Pulse Rate 72 73 75 Respiratory Rate 16 16 16 Pulse Oximetry 96 96 96 10/03/18 21:00 10/03/18 21:15 10/03/18 21:23 Temperature 96.4 F L 96.4 F L Pulse Rate 75 77 71 Respiratory Rate 16 16 16 Pulse Oximetry 96 96 10/03/18 21:30 10/03/18 21:45 10/03/18 22:00 Temperature 96.4 F L 96.4 F L 96.4 F L Pulse Rate 77 77 72 Respiratory Rate 16 16 18 Pulse Oximetry 96 97 96 10/03/18 22:15 10/03/18 22:30 10/03/18 22:45 Temperature 96.4 F L 96.4 F L 96.4 F L Pulse Rate 75 74 80 Respiratory Rate 16 16 16 Pulse Oximetry 96 96 96 10/03/18 23:00 10/03/18 23:15 10/03/18 23:30 Temperature 96.4 F L 96.4 F L 96.4 F L Pulse Rate 79 80 82 Respiratory Rate 16 16 17 Pulse Oximetry 96 96 96 10/03/18 23:45 10/04/18 00:00 10/04/18 00:15 Temperature 96.4 F L 96.4 F L 96.4 F L Pulse Rate 83 82 85 Respiratory Rate 17 17 16 Pulse Oximetry 96 96 96 10/04/18 00:30 10/04/18 00:45 10/04/18 01:00 Temperature 96.4 F L 96.6 F L 96.6 F L Pulse Rate 83 84 84 Respiratory Rate 17 17 17 Pulse Oximetry 97 97 97 10/04/18 01:15 10/04/18 01:30 10/04/18 01:45 Temperature 96.6 F L 96.6 F L 96.6 F L Pulse Rate 83 80 83 Respiratory Rate 17 18 17 Pulse Oximetry 97 97 97 10/04/18 02:00 10/04/18 02:15 10/04/18 02:30 Temperature 96.6 F L 96.6 F L 96.6 F L Pulse Rate 82 83 79 Respiratory Rate 18 25 H 17 Pulse Oximetry 97 97 100 10/04/18 02:45 10/04/18 03:00 10/04/18 03:15 Temperature 96.4 F L 96.4 F L 96.3 F L Pulse Rate 78 79 82 Respiratory Rate 16 18 18 Pulse Oximetry 99 99 99 10/04/18 03:30 10/04/18 03:45 10/04/18 03:49 Temperature 96.3 F L 96.3 F L Pulse Rate 83 84 86 Respiratory Rate 17 18 18 Pulse Oximetry 99 99 10/04/18 04:00 10/04/18 04:15 10/04/18 04:20 Temperature 96.3 F L 96.3 F L Pulse Rate 85 82 Respiratory Rate 15 16 16 Pulse Oximetry 99 99 99 10/04/18 04:30 10/04/18 04:45 10/04/18 05:00 Temperature 96.3 F L 96.3 F L 96.3 F L Pulse Rate 79 78 78 Respiratory Rate 16 16 16 Pulse Oximetry 98 97 97 10/04/18 05:15 10/04/18 05:30 10/04/18 05:45 Temperature 96.3 F L 96.1 F L Pulse Rate 79 81 81 Respiratory Rate 16 18 17 Pulse Oximetry 97 98 98 10/04/18 06:00 10/04/18 06:15 10/04/18 06:30 Temperature 96.3 F L 96.1 F L 96.1 F L Pulse Rate 79 71 71 Respiratory Rate 16 17 16 Pulse Oximetry 98 97 97 10/04/18 06:45 10/04/18 08:20 Temperature 96.1 F L Pulse Rate 72 82 Respiratory Rate 16 17 Pulse Oximetry 97 98 Intake & Output 10/03/18 10/04/18 10/04/18 18:59 06:59 18:59 Intake Total 3055 / 3055 3805 / 3805 955 / 955 Output Total 1989 1245 / 1245 Balance 1065 / 1065 2560 / 2560 955 / 955 Weight 178 kg 203.1 kg Intake: IV 755 / 755 3805 / 3805 955 / 955 Diprivan 1000 mg/100 ml Inj 1, 100 / 100 400 / 400 200 / 200 000 mg In 100 ml @ 5 MCG/KG/MIN 5.34 mls/hr IV.CONT TITRATE PRN Rx#:[id number] Sodium Chloride 23.4% Inj 188 2000 / 2000 MEQ In NS Inj 1,000 ML @ 100 mls/hr IV.CONT .[id number] [facility] Rx# :[id number] Unasyn Inj 1,500 MG In NS Inj 200 / 200 200 / 200 100 ML @ 200 mls/hr IV.SIG Q6H [facility] Rx#:[id number] Azithromycin Inj 500 MG In NS 250 / 250 250 / 250 Inj 250 ML @ 250 mls/hr IV.SIG Q24H [facility] Rx#:[id number] Ancef 1 GM Premix Inj 1 gm In 50 / 50 50 ml @ 0 mls/hr IV.SIG .STK- [facility] Rx#:[id number] Ancef 2 GM Premix Inj 2 gm In 50 / 50 100 / 100 50 ml @ 100 mls/hr IV.SIG Q8H [facility] Rx#:[id number] Keppra Inj 500 MG In NS Inj 100 105 / 105 105 / 105 105 / 105 ML @ 400 mls/hr IV.SIG Q12H [facility] Rx#:[id number] Cardene 20 mg/NS 200 ml Premix 1000 / 1000 400 / 400 20 mg In 200 ml @ 5 MG/HR 50 mls/hr IV.SIG TITRATE PRN Rx#: [id number] Anesthesia Amount 2300 / 2300 Output: Estimated Blood Loss 100 / 100 Urine Amount (Catheter) 1550 / 1550 775 / 775 Indwelling Temp Sensing 775 / 775 Catheter Indwelling Urethral Catheter 1550 / 1550 Stool Amount (Stoma) 250 / 250 100 / 100 Pre-Hospital: 250 / 250 100 / 100 Gastric Drainage 0 / 0 125 / 125 Oral Orogastric Tube 0 / 0 125 / 125 Wound Drainage 90 / 90 245 / 245 # 1 Right Frontal CLARIBEL Drain 50 / 50 85 / 85 # 2 Right Frontal CLARIBEL Drain 40 / 40 160 / 160 Other: Date of Last Bowel Movement 10/03/18 10/03/18 10/03/18 Weight On Admission 178 kg Narrative: intubated, well sedated pupil left 5mm, pupil right 4 mm reactive conjugate gaze wound clean and dry, CLARIBEL drains ICP monitor in place, ICPs = -15 not following commands for testing slight withdrawal to pain in both feet - Urinary Catheter Management Indwelling Temp Sensing Catheter Cath placed during this visit: yes Reason for continuing: Hourly intake/output Insertion date: 10/03/18 Insertion time: 08:10 Indwelling Urethral Catheter Cath placed during this visit: no <Ale Weinberg - Last Filed: 10/04/18 12:00> Vital signs: Vital Signs 10/07/18 19:45 10/07/18 19:54 10/07/18 20:00 Temperature 97.7 F 97.7 F Pulse Rate 72 72 Respiratory Rate 16 Pulse Oximetry 93 L 93 L 93 L 10/07/18 20:15 10/07/18 20:30 10/07/18 20:45 Temperature 97.7 F 97.7 F 97.9 F Pulse Rate 69 69 68 Respiratory Rate Pulse Oximetry 93 L 93 L 93 L 10/07/18 21:00 10/07/18 21:15 10/07/18 21:30 Temperature 97.9 F 97.9 F 97.9 F Pulse Rate 68 68 67 Respiratory Rate Pulse Oximetry 93 L 94 L 94 L 10/07/18 21:45 10/07/18 22:00 10/07/18 22:15 Temperature 98.1 F 98.1 F 98.1 F Pulse Rate 67 65 66 Respiratory Rate Pulse Oximetry 94 L 94 L 94 L 10/07/18 22:30 10/07/18 22:45 10/07/18 23:00 Temperature 98.1 F 98.1 F 98.1 F Pulse Rate 65 64 65 Respiratory Rate Pulse Oximetry 94 L 94 L 94 L 10/07/18 23:15 10/07/18 23:30 10/07/18 23:45 Temperature 98.1 F 98.1 F 98.1 F Pulse Rate 65 64 64 Respiratory Rate Pulse Oximetry 94 L 94 L 95 10/07/18 23:47 10/08/18 00:00 10/08/18 00:15 Temperature 98.1 F 98.1 F Pulse Rate 64 64 Respiratory Rate 16 Pulse Oximetry 95 95 94 L 10/08/18 00:30 10/08/18 00:45 10/08/18 01:00 Temperature 98.1 F 98.1 F 98.1 F Pulse Rate 63 64 63 Respiratory Rate Pulse Oximetry 94 L 93 L 94 L 10/08/18 01:15 10/08/18 01:30 10/08/18 01:45 Temperature 98.1 F 98.1 F 98.1 F Pulse Rate 63 63 63 Respiratory Rate Pulse Oximetry 95 94 L 94 L 10/08/18 02:00 10/08/18 02:15 10/08/18 02:30 Temperature 98.1 F 98.1 F 98.1 F Pulse Rate 63 63 63 Respiratory Rate Pulse Oximetry 95 94 L 94 L 10/08/18 02:45 10/08/18 03:00 10/08/18 03:15 Temperature 98.1 F 98.1 F 98.1 F Pulse Rate 63 63 63 Respiratory Rate Pulse Oximetry 94 L 95 94 L 10/08/18 03:30 10/08/18 03:45 10/08/18 04:00 Temperature 98.1 F 98.1 F 98.1 F Pulse Rate 62 62 62 Respiratory Rate Pulse Oximetry 94 L 95 94 L 10/08/18 04:15 10/08/18 04:27 10/08/18 04:30 Temperature 98.1 F 98.1 F Pulse Rate 62 62 Respiratory Rate 16 Pulse Oximetry 94 L 94 L 94 L 10/08/18 04:45 10/08/18 05:00 10/08/18 05:15 Temperature 98.1 F 98.1 F 97.9 F Pulse Rate 62 63 63 Respiratory Rate Pulse Oximetry 94 L 91 L 91 L 10/08/18 05:30 10/08/18 05:45 10/08/18 05:57 Temperature 97.9 F 97.9 F Pulse Rate 63 67 67 Respiratory Rate Pulse Oximetry 92 L 94 L 10/08/18 06:00 10/08/18 06:15 10/08/18 06:30 Temperature 97.9 F 97.9 F 97.9 F Pulse Rate 64 65 66 Respiratory Rate Pulse Oximetry 91 L 94 L 93 L 10/08/18 06:45 10/08/18 07:00 10/08/18 07:15 Temperature 97.9 F 97.9 F 97.9 F Pulse Rate 64 64 64 Respiratory Rate Pulse Oximetry 95 91 L 91 L 10/08/18 07:30 10/08/18 07:45 10/08/18 08:00 Temperature 97.9 F 97.9 F 97.9 F Pulse Rate 66 64 70 Respiratory Rate Pulse Oximetry 90 L 92 L 91 L 10/08/18 08:15 10/08/18 08:24 10/08/18 08:30 Temperature 97.9 F 97.9 F Pulse Rate 64 64 Respiratory Rate 13 Pulse Oximetry 91 L 91 L 92 L 10/08/18 08:45 10/08/18 09:00 10/08/18 09:15 Temperature 97.9 F 97.9 F 97.9 F Pulse Rate 65 65 65 Respiratory Rate Pulse Oximetry 92 L 93 L 93 L 10/08/18 09:30 10/08/18 09:45 10/08/18 10:00 Temperature 98.1 F 98.1 F 98.1 F Pulse Rate 64 63 63 Respiratory Rate Pulse Oximetry 95 95 95 10/08/18 10:15 10/08/18 10:30 10/08/18 10:32 Temperature 98.1 F 98.1 F Pulse Rate 63 64 Respiratory Rate 16 Pulse Oximetry 96 98 10/08/18 10:45 10/08/18 10:59 10/08/18 11:00 Temperature 98.1 F 97.9 F Pulse Rate 65 65 Respiratory Rate 11 L Pulse Oximetry 99 99 99 10/08/18 11:15 10/08/18 11:30 10/08/18 11:45 Temperature 97.9 F 97.9 F 97.9 F Pulse Rate 66 67 66 Respiratory Rate Pulse Oximetry 98 98 98 10/08/18 12:00 10/08/18 12:15 10/08/18 12:30 Temperature 97.9 F 97.9 F 97.9 F Pulse Rate 67 66 65 Respiratory Rate Pulse Oximetry 97 96 96 10/08/18 12:45 10/08/18 13:00 10/08/18 13:15 Temperature 98.1 F 98.1 F 98.1 F Pulse Rate 63 62 62 Respiratory Rate Pulse Oximetry 95 94 L 94 L 10/08/18 13:30 10/08/18 13:45 10/08/18 14:00 Temperature 98.1 F 98.1 F 98.1 F Pulse Rate 62 63 62 Respiratory Rate Pulse Oximetry 94 L 95 96 10/08/18 14:15 10/08/18 14:30 10/08/18 14:45 Temperature 98.1 F 98.1 F 98.1 F Pulse Rate 62 62 62 Respiratory Rate Pulse Oximetry 97 97 97 10/08/18 15:00 10/08/18 15:15 10/08/18 15:30 Temperature 98.1 F 98.1 F 98.1 F Pulse Rate 62 62 62 Respiratory Rate Pulse Oximetry 96 96 95 10/08/18 15:31 10/08/18 15:45 10/08/18 16:00 Temperature 98.1 F 98.1 F Pulse Rate 62 62 Respiratory Rate 11 L Pulse Oximetry 96 96 96 10/08/18 16:15 10/08/18 16:30 10/08/18 16:45 Temperature 98.1 F 98.1 F 98.1 F Pulse Rate 62 63 63 Respiratory Rate Pulse Oximetry 97 97 97 10/08/18 17:00 10/08/18 17:15 10/08/18 17:30 Temperature 98.1 F 98.1 F 98.1 F Pulse Rate 63 64 63 Respiratory Rate Pulse Oximetry 97 97 97 10/08/18 17:45 10/08/18 18:00 10/08/18 18:15 Temperature 98.1 F 98.1 F 98.1 F Pulse Rate 64 63 62 Respiratory Rate Pulse Oximetry 97 97 97 10/08/18 18:30 Temperature 98.1 F Pulse Rate 62 Respiratory Rate Pulse Oximetry 96 Intake & Output 10/08/18 10/08/18 10/09/18 06:59 18:59 06:59 Intake Total 1755 / 1755 2675 / 2675 Output Total 1570 / 1570 1000 / 1000 Balance 185 / 185 1675 / 1675 Weight 209.3 kg Intake: IV 1755 / 1755 2675 / 2675 Lasix Inj 100 MG In NS Inj 90 100 / 100 ML @ 10 mls/hr IV.CONT .Q10H [facility] Rx#:[id number] Diprivan 1000 mg/100 ml Inj 1, 400 / 400 400 / 400 000 mg In 100 ml @ 5 MCG/KG/MIN 5.34 mls/hr IV.CONT TITRATE PRN Rx#:[id number] Maxipime Inj 2,000 MG In NS Inj 100 / 100 100 ML @ 200 mls/hr IV.SIG Q12H [facility] Rx#:[id number] Vancomycin Inj 2,000 MG In NS 520 / 520 Inj 500 ML @ 250 mls/hr IV.SIG ONCE ONE Rx#:[id number] fentaNYL 10 mcg/mL Premix Drip 250 / 250 250 / 250 2,500 mcg In 250 ml @ 50 MCG/HR 5 mls/hr IV.SIG TITRATE PRN Rx #:[id number] Keppra Inj 500 MG In NS Inj 100 105 / 105 105 / 105 ML @ 400 mls/hr IV.SIG Q12H [facility] Rx#:[id number] Cardene 20 mg/NS 200 ml Premix 1000 / 1000 1200 / 1200 20 mg In 200 ml @ 5 MG/HR 50 mls/hr IV.SIG TITRATE PRN Rx#: [id number] Output: Stool 50 / 50 Urine Amount (Catheter) 1500 / 1500 950 / 950 Indwelling Temp Sensing 1500 / 1500 950 / 950 Catheter Stool Amount (Stoma) 50 / 50 Pre-Hospital: 50 / 50 Gastric Drainage 20 / 20 Oral Orogastric Tube 20 / 20 Other: Date of Last Bowel Movement 10/06/18 10/06/18 - Urinary Catheter Management Indwelling Temp Sensing Catheter Cath placed during this visit: no Indwelling Urethral Catheter Cath placed during this visit: no <Shivam Hills - Last Filed: 10/08/18 19:44> Assessment and Plan - Plan 68 year old male transferred for intraparenchymal hematoma, most likely due to hypertensive crisis CTA Brain negative for aneurysm or vascular malformation pt underwent emergent right posterior temporal craniotomy, evacuation of intracerebral hematoma, and placement of ICP monitor 10/03/18 Plan: cont neuro checks cont ICP monitoring kera for sz prophylaxis nonchemical dvt prophylaxis due to ICH critical care mgt - blood pressure control monitor CLARIBEL drain output <Ale Weinberg - Last Filed: 10/04/18 12:00>
[2018-10-05] MEDS: Oral Hygiene Kit OROPHARYNG SCH ×4 (00:01→18:36)
[2018-10-05] MEDS: Insulin NovoLOG Aspart Correctional Sugar Inj SQ SCH ×4 (00:01→18:36)
[2018-10-05] MEDS: niCARdipine 20mg/NS Premix 20 MG/200 ML PIGGYBACK IV.SIG PRN ×8 (00:01→23:27)
[2018-10-05] MEDS: Propofol 1000 mg/100 ml Inj 1,000 MG/100 ML BOTTLE IV.CONT PRN ×10 (00:53→23:10)
[2018-10-05] MEDS: Ampicillin/Sulbactam Inj 1,500 MG in Sodium Chloride 0.9% Inj 100 ML IV.SIG SCH ×3 (03:22→15:08)
[2018-10-05] MEDS: Chlorhexidine Gluconate 2% 1 Pack (2 Cloths) TOPICAL SCH (03:22)
[2018-10-05] MEDS: fentaNYL 10 mcg/mL Premix Drip 2,500 MCG/250 ML BAG IV.SIG PRN ×2 (03:42→20:08)
[2018-10-05 05:23] LABS: Calcium 8.3 mg/dL (8.5-10.1); Carbon Dioxide 26.5 meq/L (21.0-32.0)
[2018-10-05] MEDS: Azithromycin Inj 500 MG in Sodium Chlor 0.9% Inj 250 ML IV.SIG SCH (08:50)
[2018-10-05] MEDS: Senna/Docusate Sodium 8.6/50 MG Tablet PO SCH ×2 (08:52→20:08)
[2018-10-05] MEDS: amLODIPine 10 MG Tablet PO SCH (08:52)
[2018-10-05] MEDS: Famotidine PF Inj 20 MG/2 ML Vial IV.PUSH SCH ×2 (09:07→20:08)
[2018-10-05] MEDS: Chlorhexidine 0.12% Oral Kit 15 ML UDC OROPHARYNG SCH ×2 (11:34→20:09)
--- NOTE | 2018-10-05 15:15 | XR ---
EXAM DATE: 10/05/2018 3:08 PM EST AGE/SEX: 68 years / Male INDICATIONS: Pulmonary failure. CLINICAL DATA: This is the patient's initial encounter. Patient reports that signs and symptoms have been present for 1 week and indicates a pain score of Nonresponsive. MEDICAL/SURGICAL HISTORY: Hypertension. diabetes . colon resection COMPARISON: No prior exams available for comparison. FINDINGS: Single AP view the chest. Endotracheal tube, nasogastric tube, right IJ central venous catheter remai n in place. Persistent left lower lobe consolidation versus atelectasis. No significant interval izaguirre ge. Cardiac silhouette is enlarged but unchanged. CONCLUSION: No significant interval change with persistent left lower lobe consolidation versus atelectasis. Electronically signed by: Martin Lowery MD 10/05/2018 3:14 PM EST
[2018-10-05] MEDS: Sodium Chloride 23.4% Inj 188 MEQ in Sod Chloride 0.9% Inj 1,000 ML IV.CONT SCH (15:32)
--- NOTE | 2018-10-05 16:37 | P.PNCC ---
Subjective Subjective Remarks/Hospital Course: Patient is a 68-year-old morbidly obese male with past medical history significant for hypertension, diabetes, dyslipidemia, morbid obesity, thyroid disease, history of colon resection and colostomy, who presented to the [facility] with left-sided headache and poorly controlled hypertension. Apparently he woke up with severe left-sided headache was moderately confused and family brought him to the emergency department. The patient did take aspirin for his headache prior to presentation. A stat CT of the head showed large 6.9 x 3.6 x 3.2 cm acute intraparenchymal hemorrhage in the right temporoparietal region with approximate blood volume of 40 mL. There was surrounding edema and 2-3 mm leftward midline shift. Neurosurgery Dr. Hills was contacted and patient was transferred to [facility]. PT/INR/ platelet count was normal in the outside hospital. BUN was 43 creatinine was 2. I evaluated the patient in the ICU. Patient is awake but somnolent oriented only to person. He drifts to sleep while talking. His systolic blood pressure was 200 on arrival. Because of questionable airway protection and need for further imaging studies patient was intubated and placed on mechanical ventilation. Dr. Hills had been informed. I will start Cardene to control blood pressure, repeat stat CT head also CT angiogram of brain and neck will be performed. Also give 25 g of IV mannitol, start on 2% saline to keep sodium more than 150-155, also placed on Keppra for seizure prophylaxis. 10/04: Will start oral BP meds down NG tube and attempt to wean cardene. CKD persists as expected. Glucose swing expected. Keep intubated and sedated for now. 10/05: Better blood pressure control with by systolic and amlodipine restarted. Increased difficulty with oxygenation today, now requiring 100% FiO2 and 12 PEEP. Chest x-ray shows atelectasis involving the whole left lower lobe, cultures all negative for significant organism, no white blood cells. Will get repeat head CAT scan today. - Diagnosis (1) Intraparenchymal hemorrhage of brain (2) Midline shift of brain (3) Acute encephalopathy (4) Hypertensive emergency (5) LLL pneumonia (6) Acute kidney injury (7) History of hypertension (8) Type 2 diabetes mellitus (9) Dyslipidemia (10) Morbid obesity Objective Vital Signs / I&O: Vital Signs 10/04/18 16:45 10/04/18 17:00 10/04/18 17:15 Temperature 97.2 F L 97.2 F L 97.2 F L Pulse Rate 61 62 62 Respiratory Rate 16 16 16 Pulse Oximetry 94 L 94 L 94 L 10/04/18 17:30 10/04/18 17:45 10/04/18 18:00 Temperature 97.3 F L 97.3 F L 97.5 F L Pulse Rate 62 62 61 Respiratory Rate 16 16 16 Pulse Oximetry 94 L 94 L 92 L 10/04/18 18:15 10/04/18 18:30 10/04/18 18:45 Temperature 97.3 F L 97.3 F L 97.3 F L Pulse Rate 61 61 61 Respiratory Rate Pulse Oximetry 93 L 93 L 93 L 10/04/18 19:00 10/04/18 19:15 10/04/18 19:30 Temperature 97.3 F L 97.3 F L 97.5 F L Pulse Rate 62 62 61 Respiratory Rate 16 Pulse Oximetry 92 L 92 L 93 L 10/04/18 19:45 10/04/18 19:50 10/04/18 19:58 Temperature 97.5 F L Pulse Rate 63 63 Respiratory Rate 16 16 Pulse Oximetry 89 L 95 10/04/18 20:00 10/04/18 20:15 10/04/18 20:30 Temperature 97.5 F L 97.7 F 97.7 F Pulse Rate 63 64 65 Respiratory Rate 17 Pulse Oximetry 95 94 L 96 10/04/18 20:45 10/04/18 21:00 10/04/18 21:15 Temperature 97.7 F 97.7 F 97.7 F Pulse Rate 65 64 64 Respiratory Rate 16 Pulse Oximetry 95 93 L 95 10/04/18 21:30 10/04/18 21:45 10/04/18 22:00 Temperature 97.7 F 97.7 F 97.9 F Pulse Rate 64 64 64 Respiratory Rate 16 Pulse Oximetry 95 95 92 L 10/04/18 22:15 10/04/18 22:30 10/04/18 22:45 Temperature 97.9 F 97.9 F 97.9 F Pulse Rate 63 63 61 Respiratory Rate Pulse Oximetry 93 L 93 L 93 L 10/04/18 23:00 10/04/18 23:15 10/04/18 23:30 Temperature 97.9 F 97.9 F 97.9 F Pulse Rate 62 63 62 Respiratory Rate 16 Pulse Oximetry 94 L 94 L 94 L 10/04/18 23:35 10/04/18 23:45 10/05/18 00:00 Temperature 97.9 F 97.9 F Pulse Rate 63 63 Respiratory Rate 16 16 Pulse Oximetry 93 L 94 L 94 L 10/05/18 00:15 10/05/18 00:30 10/05/18 00:45 Temperature 97.9 F 97.9 F 97.9 F Pulse Rate 64 66 63 Respiratory Rate Pulse Oximetry 95 94 L 96 10/05/18 01:00 10/05/18 01:15 10/05/18 01:30 Temperature 97.9 F 97.9 F 97.9 F Pulse Rate 62 62 61 Respiratory Rate 16 Pulse Oximetry 96 96 96 10/05/18 01:45 10/05/18 02:00 10/05/18 02:15 Temperature 97.9 F 97.7 F 97.7 F Pulse Rate 62 61 61 Respiratory Rate 16 Pulse Oximetry 96 96 96 10/05/18 02:30 10/05/18 02:45 10/05/18 03:00 Temperature 97.7 F 97.7 F 97.7 F Pulse Rate 60 60 60 Respiratory Rate 16 Pulse Oximetry 95 95 96 10/05/18 03:15 10/05/18 03:30 10/05/18 03:45 Temperature 97.5 F L 97.5 F L 97.5 F L Pulse Rate 60 60 60 Respiratory Rate Pulse Oximetry 95 95 95 10/05/18 03:46 10/05/18 04:00 10/05/18 04:15 Temperature 97.5 F L 97.5 F L Pulse Rate 60 61 61 Respiratory Rate 16 17 17 Pulse Oximetry 96 95 10/05/18 04:30 10/05/18 04:45 10/05/18 05:00 Temperature 97.5 F L 97.5 F L 97.5 F L Pulse Rate 61 60 60 Respiratory Rate 16 Pulse Oximetry 96 96 96 10/05/18 05:15 10/05/18 05:30 10/05/18 05:45 Temperature 97.5 F L 97.5 F L 97.5 F L Pulse Rate 60 59 L 58 L Respiratory Rate Pulse Oximetry 96 96 96 10/05/18 06:00 10/05/18 06:15 10/05/18 06:30 Temperature 97.5 F L 97.5 F L 97.5 F L Pulse Rate 59 L 59 L 59 L Respiratory Rate 16 Pulse Oximetry 95 95 94 L 10/05/18 06:45 10/05/18 07:00 10/05/18 07:15 Temperature 97.5 F L 97.5 F L 97.3 F L Pulse Rate 58 L 59 L 59 L Respiratory Rate Pulse Oximetry 95 95 95 10/05/18 07:30 10/05/18 07:45 10/05/18 07:50 Temperature 97.3 F L 97.3 F L Pulse Rate 59 L 58 L 72 Respiratory Rate 16 Pulse Oximetry 95 95 96 10/05/18 08:00 10/05/18 08:15 10/05/18 08:30 Temperature 97.2 F L 97.2 F L 97.2 F L Pulse Rate 57 L 58 L 58 L Respiratory Rate Pulse Oximetry 90 L 91 L 92 L 10/05/18 08:45 10/05/18 09:00 10/05/18 09:15 Temperature 97.2 F L 97.2 F L 97.2 F L Pulse Rate 58 L 58 L 58 L Respiratory Rate Pulse Oximetry 92 L 92 L 92 L 10/05/18 09:30 10/05/18 09:45 10/05/18 10:00 Temperature 97.2 F L 97.2 F L 97.2 F L Pulse Rate 60 59 L 59 L Respiratory Rate Pulse Oximetry 93 L 93 L 93 L 10/05/18 10:15 10/05/18 10:30 10/05/18 10:45 Temperature 97.2 F L 97.2 F L 97.2 F L Pulse Rate 57 L 56 L 56 L Respiratory Rate Pulse Oximetry 93 L 94 L 95 10/05/18 11:00 10/05/18 11:15 10/05/18 11:29 Temperature 97.2 F L 97.2 F L Pulse Rate 55 L 55 L Respiratory Rate 16 Pulse Oximetry 95 96 100 10/05/18 11:30 10/05/18 11:45 10/05/18 12:00 Temperature 97.0 F L 97.0 F L 97.0 F L Pulse Rate 54 L 55 L 54 L Respiratory Rate Pulse Oximetry 96 96 95 10/05/18 12:15 10/05/18 12:30 10/05/18 12:45 Temperature 97.0 F L 97.0 F L 97.0 F L Pulse Rate 54 L 55 L 55 L Respiratory Rate Pulse Oximetry 95 95 95 10/05/18 13:00 10/05/18 13:15 10/05/18 13:30 Temperature 97.0 F L 97.0 F L 97.0 F L Pulse Rate 55 L 55 L 55 L Respiratory Rate Pulse Oximetry 95 95 95 10/05/18 13:45 10/05/18 14:00 10/05/18 14:15 Temperature 97.0 F L 97.0 F L 97.0 F L Pulse Rate 55 L 55 L 55 L Respiratory Rate Pulse Oximetry 95 95 93 L 10/05/18 14:30 10/05/18 14:45 10/05/18 15:00 Temperature 97.0 F L 96.8 F L 96.8 F L Pulse Rate 55 L 55 L 55 L Respiratory Rate Pulse Oximetry 92 L 92 L 92 L 10/05/18 15:15 10/05/18 15:27 10/05/18 15:30 Temperature 97.0 F L 97.0 F L Pulse Rate 55 L 54 L Respiratory Rate 16 Pulse Oximetry 92 L 92 L 93 L 10/05/18 15:45 10/05/18 16:00 10/05/18 16:15 Temperature 97.0 F L 97.0 F L 97.0 F L Pulse Rate 54 L 55 L 55 L Respiratory Rate Pulse Oximetry 93 L 92 L 93 L Intake & Output 10/04/18 10/05/18 10/05/18 18:59 06:59 18:59 Intake Total 2775 / 2775 2702 / 2702 1455 / 1455 Output Total 965 / 965 960 / 960 Balance 1810 / 1810 1742 / 1742 1455 / 1455 Weight 208.3 kg Intake: IV 2655 / 2655 2702 / 2702 1455 / 1455 Diprivan 1000 mg/100 ml Inj 1, 500 / 500 500 / 500 400 / 400 000 mg In 100 ml @ 5 MCG/KG/MIN 5.34 mls/hr IV.CONT TITRATE PRN Rx#:[id number] Sodium Chloride 23.4% Inj 188 1000 / 1000 1047 / 1047 MEQ In NS Inj 1,000 ML @ 50 mls /hr IV.CONT .[id number] [facility] Rx#: [id number] Unasyn Inj 1,500 MG In NS Inj 200 / 200 200 / 200 100 / 100 100 ML @ 200 mls/hr IV.SIG Q6H [facility] Rx#:[id number] Azithromycin Inj 500 MG In NS 250 / 250 250 / 250 Inj 250 ML @ 250 mls/hr IV.SIG Q24H [facility] Rx#:[id number] fentaNYL 10 mcg/mL Premix Drip 250 / 250 2,500 mcg In 250 ml @ 50 MCG/HR 5 mls/hr IV.SIG TITRATE PRN Rx #:[id number] Keppra Inj 500 MG In NS Inj 100 105 / 105 105 / 105 105 / 105 ML @ 400 mls/hr IV.SIG Q12H [facility] Rx#:[id number] Cardene 20 mg/NS 200 ml Premix 600 / 600 600 / 600 600 / 600 20 mg In 200 ml @ 5 MG/HR 50 mls/hr IV.SIG TITRATE PRN Rx#: [id number] Water Bolus Amount 120 / 120 Output: Stool 25 / 25 Urine Amount (Catheter) 700 / 700 725 / 725 Indwelling Temp Sensing 700 / 700 725 / 725 Catheter Stool Amount (Stoma) 25 / 25 Pre-Hospital: 25 / 25 Gastric Drainage 0 / 0 25 / 25 Oral Orogastric Tube 0 / 0 25 / 25 Wound Drainage 240 / 240 185 / 185 # 1 Right Frontal CLARIBEL Drain 25 / 25 5 / 5 # 2 Right Frontal CLARIBEL Drain 215 / 215 180 / 180 Other: Date of Last Bowel Movement 10/04/18 10/04/18 10/04/18 Result Diagrams: 10/04/18 05:10 10/05/18 14:00 Objective Remarks: Narrative: GEN: Morbidly obese male, intubated on mechanical ventilation HEENT: Dry circumferential dressing in place iNECK: Supple. Orotracheal intubation LUNGS: Bilateral diminished breath sounds, few crackles persist at left base HEART: S1 and S2 normal, heart sounds distant. Neck veins full, not distended ABDOMEN: Soft. Nontender. Obese. Well-healed vertical scar. Right lower quadrant colostomy bag in place with stool EXTREMITIES: No pedal edema. Knee repair scar left side NEUROLOGIC: Intubated, heavily sedated. Breathes over vent. Assessment and Plan - Problem List (1) Intraparenchymal hemorrhage of brain Code(s): I61.9 - Nontraumatic intracerebral hemorrhage, unspecified Status: Acute (2) Midline shift of brain Code(s): G93.9 - Disorder of brain, unspecified Status: Acute (3) Acute encephalopathy Code(s): G93.40 - Encephalopathy, unspecified Status: Acute (4) Hypertensive emergency Code(s): I16.1 - Hypertensive emergency Status: Acute (5) LLL pneumonia Code(s): J18.1 - Lobar pneumonia, unspecified organism Status: Acute (6) Acute kidney injury Code(s): N17.9 - Acute kidney failure, unspecified Status: Acute (7) History of hypertension Code(s): Z86.79 - Personal history of other diseases of the circulatory system Status: Chronic (8) Type 2 diabetes mellitus Code(s): E11.9 - Type 2 diabetes mellitus without complications Status: Chronic (9) Dyslipidemia Code(s): E78.5 - Hyperlipidemia, unspecified Status: Chronic (10) Morbid obesity Code(s): E66.01 - Morbid (severe) obesity due to excess calories Status: Chronic - Assessment and Plan Plan: NEURO: Acute right temporoparietal intraparenchymal hemorrhage Midline shift Acute encephalopathy -Propofol and fentanyl for sedation and ventilator synchrony after intubation -Repeat stat CT head without contrast, also CT angiogram of the brain and neck to rule out aneurysm -Reduce 2% saline to 25 mL/h to keep sodium between 150 and 155 -Mannitol 25 g IV x1 -Keppra 500 mg IV every 12 hours -S/P crani and evacuation 10/03 RESP: Acute respiratory failure Left lower lobe pneumonia -Patient was intubated for airway protection, placed on PRVC/AC -Ventilator bundle -DuoNeb every 6 hours scheduled and as needed -Sputum culture negative -Worsening gas exchange, increased PEEP to 12 CV: Hypertensive emergency Dyslipidemia -Normal saline IV fluids 1 L bolus and maintenance IV fluid 2% saline at 100 mL/ h -Cardene infusion to keep systolic blood pressure less than 140 -Arterial line placement -IV labetalol as needed for SBP more than 140 -By systolic and amlodipine restarted down NG tube. GI: Morbid obesity History of colon resection, status post colostomy -N.p.o., IV famotidine -Routine colostomy care : Acute kidney injury -Monitor renal function closely. Place Mendieta catheter. -IV hydration as above -Unclear whether patient has chronic kidney disease -Check renal ultrasound ID: Left lower lobe pneumonia/atelectasis -Discontinue antibiotics, sputum culture benign -Blood and sputum cultures HEME: -Monitor CBC, coags ENDO: Type 2 diabetes Hypothyroidism -Electrolyte replacement per protocol -Sliding scale insulin PROPH: -Bilateral lower extremity SCDs/HIRAL. Chemical DVT prophylaxis contraindicated -IV famotidine LINES: -Utilize peripheral IVs, central line if needed Overall impression: Patient remains critically ill and neurologically unstable. ICP control acceptable, will decrease 2% saline to 25/hr. continue to follow ICP very closely and maintain elevated osmolality. Critical Care 44 mins
--- NOTE | 2018-10-05 16:41 | P.PNNS ---
Subjective Interval history: intubated, sedated. ICPs -7 <Ale Weinberg - Last Filed: 10/05/18 16:39> Physical Exam Vital signs: Vital Signs 10/04/18 16:45 10/04/18 17:00 10/04/18 17:15 Temperature 97.2 F L 97.2 F L 97.2 F L Pulse Rate 61 62 62 Respiratory Rate 16 16 16 Pulse Oximetry 94 L 94 L 94 L 10/04/18 17:30 10/04/18 17:45 10/04/18 18:00 Temperature 97.3 F L 97.3 F L 97.5 F L Pulse Rate 62 62 61 Respiratory Rate 16 16 16 Pulse Oximetry 94 L 94 L 92 L 10/04/18 18:15 10/04/18 18:30 10/04/18 18:45 Temperature 97.3 F L 97.3 F L 97.3 F L Pulse Rate 61 61 61 Respiratory Rate Pulse Oximetry 93 L 93 L 93 L 10/04/18 19:00 10/04/18 19:15 10/04/18 19:30 Temperature 97.3 F L 97.3 F L 97.5 F L Pulse Rate 62 62 61 Respiratory Rate 16 Pulse Oximetry 92 L 92 L 93 L 10/04/18 19:45 10/04/18 19:50 10/04/18 19:58 Temperature 97.5 F L Pulse Rate 63 63 Respiratory Rate 16 16 Pulse Oximetry 89 L 95 10/04/18 20:00 10/04/18 20:15 10/04/18 20:30 Temperature 97.5 F L 97.7 F 97.7 F Pulse Rate 63 64 65 Respiratory Rate 17 Pulse Oximetry 95 94 L 96 10/04/18 20:45 10/04/18 21:00 10/04/18 21:15 Temperature 97.7 F 97.7 F 97.7 F Pulse Rate 65 64 64 Respiratory Rate 16 Pulse Oximetry 95 93 L 95 10/04/18 21:30 10/04/18 21:45 10/04/18 22:00 Temperature 97.7 F 97.7 F 97.9 F Pulse Rate 64 64 64 Respiratory Rate 16 Pulse Oximetry 95 95 92 L 10/04/18 22:15 10/04/18 22:30 10/04/18 22:45 Temperature 97.9 F 97.9 F 97.9 F Pulse Rate 63 63 61 Respiratory Rate Pulse Oximetry 93 L 93 L 93 L 10/04/18 23:00 10/04/18 23:15 10/04/18 23:30 Temperature 97.9 F 97.9 F 97.9 F Pulse Rate 62 63 62 Respiratory Rate 16 Pulse Oximetry 94 L 94 L 94 L 10/04/18 23:35 10/04/18 23:45 10/05/18 00:00 Temperature 97.9 F 97.9 F Pulse Rate 63 63 Respiratory Rate 16 16 Pulse Oximetry 93 L 94 L 94 L 10/05/18 00:15 10/05/18 00:30 10/05/18 00:45 Temperature 97.9 F 97.9 F 97.9 F Pulse Rate 64 66 63 Respiratory Rate Pulse Oximetry 95 94 L 96 10/05/18 01:00 10/05/18 01:15 10/05/18 01:30 Temperature 97.9 F 97.9 F 97.9 F Pulse Rate 62 62 61 Respiratory Rate 16 Pulse Oximetry 96 96 96 10/05/18 01:45 10/05/18 02:00 10/05/18 02:15 Temperature 97.9 F 97.7 F 97.7 F Pulse Rate 62 61 61 Respiratory Rate 16 Pulse Oximetry 96 96 96 10/05/18 02:30 10/05/18 02:45 10/05/18 03:00 Temperature 97.7 F 97.7 F 97.7 F Pulse Rate 60 60 60 Respiratory Rate 16 Pulse Oximetry 95 95 96 10/05/18 03:15 10/05/18 03:30 10/05/18 03:45 Temperature 97.5 F L 97.5 F L 97.5 F L Pulse Rate 60 60 60 Respiratory Rate Pulse Oximetry 95 95 95 10/05/18 03:46 10/05/18 04:00 10/05/18 04:15 Temperature 97.5 F L 97.5 F L Pulse Rate 60 61 61 Respiratory Rate 16 17 17 Pulse Oximetry 96 95 10/05/18 04:30 10/05/18 04:45 10/05/18 05:00 Temperature 97.5 F L 97.5 F L 97.5 F L Pulse Rate 61 60 60 Respiratory Rate 16 Pulse Oximetry 96 96 96 10/05/18 05:15 10/05/18 05:30 10/05/18 05:45 Temperature 97.5 F L 97.5 F L 97.5 F L Pulse Rate 60 59 L 58 L Respiratory Rate Pulse Oximetry 96 96 96 10/05/18 06:00 10/05/18 06:15 10/05/18 06:30 Temperature 97.5 F L 97.5 F L 97.5 F L Pulse Rate 59 L 59 L 59 L Respiratory Rate 16 Pulse Oximetry 95 95 94 L 10/05/18 06:45 10/05/18 07:00 10/05/18 07:15 Temperature 97.5 F L 97.5 F L 97.3 F L Pulse Rate 58 L 59 L 59 L Respiratory Rate Pulse Oximetry 95 95 95 10/05/18 07:30 10/05/18 07:45 10/05/18 07:50 Temperature 97.3 F L 97.3 F L Pulse Rate 59 L 58 L 72 Respiratory Rate 16 Pulse Oximetry 95 95 96 10/05/18 08:00 10/05/18 08:15 10/05/18 08:30 Temperature 97.2 F L 97.2 F L 97.2 F L Pulse Rate 57 L 58 L 58 L Respiratory Rate Pulse Oximetry 90 L 91 L 92 L 10/05/18 08:45 10/05/18 09:00 10/05/18 09:15 Temperature 97.2 F L 97.2 F L 97.2 F L Pulse Rate 58 L 58 L 58 L Respiratory Rate Pulse Oximetry 92 L 92 L 92 L 10/05/18 09:30 10/05/18 09:45 10/05/18 10:00 Temperature 97.2 F L 97.2 F L 97.2 F L Pulse Rate 60 59 L 59 L Respiratory Rate Pulse Oximetry 93 L 93 L 93 L 10/05/18 10:15 10/05/18 10:30 10/05/18 10:45 Temperature 97.2 F L 97.2 F L 97.2 F L Pulse Rate 57 L 56 L 56 L Respiratory Rate Pulse Oximetry 93 L 94 L 95 10/05/18 11:00 10/05/18 11:15 10/05/18 11:29 Temperature 97.2 F L 97.2 F L Pulse Rate 55 L 55 L Respiratory Rate 16 Pulse Oximetry 95 96 100 10/05/18 11:30 10/05/18 11:45 10/05/18 12:00 Temperature 97.0 F L 97.0 F L 97.0 F L Pulse Rate 54 L 55 L 54 L Respiratory Rate Pulse Oximetry 96 96 95 10/05/18 12:15 10/05/18 12:30 10/05/18 12:45 Temperature 97.0 F L 97.0 F L 97.0 F L Pulse Rate 54 L 55 L 55 L Respiratory Rate Pulse Oximetry 95 95 95 10/05/18 13:00 10/05/18 13:15 10/05/18 13:30 Temperature 97.0 F L 97.0 F L 97.0 F L Pulse Rate 55 L 55 L 55 L Respiratory Rate Pulse Oximetry 95 95 95 10/05/18 13:45 10/05/18 14:00 10/05/18 14:15 Temperature 97.0 F L 97.0 F L 97.0 F L Pulse Rate 55 L 55 L 55 L Respiratory Rate Pulse Oximetry 95 95 93 L 10/05/18 14:30 10/05/18 14:45 10/05/18 15:00 Temperature 97.0 F L 96.8 F L 96.8 F L Pulse Rate 55 L 55 L 55 L Respiratory Rate Pulse Oximetry 92 L 92 L 92 L 10/05/18 15:15 10/05/18 15:27 10/05/18 15:30 Temperature 97.0 F L 97.0 F L Pulse Rate 55 L 54 L Respiratory Rate 16 Pulse Oximetry 92 L 92 L 93 L 10/05/18 15:45 10/05/18 16:00 10/05/18 16:15 Temperature 97.0 F L 97.0 F L 97.0 F L Pulse Rate 54 L 55 L 55 L Respiratory Rate Pulse Oximetry 93 L 92 L 93 L Intake & Output 10/04/18 10/05/18 10/05/18 18:59 06:59 18:59 Intake Total 2775 / 2775 2702 / 2702 1455 / 1455 Output Total 965 / 965 960 / 960 Balance 1810 / 1810 1742 / 1742 1455 / 1455 Weight 208.3 kg Intake: IV 2655 / 2655 2702 / 2702 1455 / 1455 Diprivan 1000 mg/100 ml Inj 1, 500 / 500 500 / 500 400 / 400 000 mg In 100 ml @ 5 MCG/KG/MIN 5.34 mls/hr IV.CONT TITRATE PRN Rx#:[id number] Sodium Chloride 23.4% Inj 188 1000 / 1000 1047 / 1047 MEQ In NS Inj 1,000 ML @ 50 mls /hr IV.CONT .[id number] [facility] Rx#: [id number] Unasyn Inj 1,500 MG In NS Inj 200 / 200 200 / 200 100 / 100 100 ML @ 200 mls/hr IV.SIG Q6H [facility] Rx#:[id number] Azithromycin Inj 500 MG In NS 250 / 250 250 / 250 Inj 250 ML @ 250 mls/hr IV.SIG Q24H [facility] Rx#:[id number] fentaNYL 10 mcg/mL Premix Drip 250 / 250 2,500 mcg In 250 ml @ 50 MCG/HR 5 mls/hr IV.SIG TITRATE PRN Rx #:[id number] Keppra Inj 500 MG In NS Inj 100 105 / 105 105 / 105 105 / 105 ML @ 400 mls/hr IV.SIG Q12H [facility] Rx#:[id number] Cardene 20 mg/NS 200 ml Premix 600 / 600 600 / 600 600 / 600 20 mg In 200 ml @ 5 MG/HR 50 mls/hr IV.SIG TITRATE PRN Rx#: [id number] Water Bolus Amount 120 / 120 Output: Stool 25 / 25 Urine Amount (Catheter) 700 / 700 725 / 725 Indwelling Temp Sensing 700 / 700 725 / 725 Catheter Stool Amount (Stoma) 25 / 25 Pre-Hospital: 25 / 25 Gastric Drainage 0 / 0 25 / 25 Oral Orogastric Tube 0 / 0 25 / 25 Wound Drainage 240 / 240 185 / 185 # 1 Right Frontal CLARIBEL Drain 25 / 25 5 / 5 # 2 Right Frontal CLARIBEL Drain 215 / 215 180 / 180 Other: Date of Last Bowel Movement 10/04/18 10/04/18 10/04/18 Narrative: intubated, well sedated pupil left 5mm, pupil right 4 mm reactive conjugate gaze wound clean and dry, CLARIBEL drains intact ICP monitor in place, ICPs = -7 not following commands for testing slight withdrawal to pain in both feet - Urinary Catheter Management Indwelling Temp Sensing Catheter Cath placed during this visit: yes Reason for continuing: Hourly intake/output Insertion date: 10/03/18 Insertion time: 08:10 Indwelling Urethral Catheter Cath placed during this visit: no <Ale Weinberg - Last Filed: 10/05/18 16:39> Vital signs: Vital Signs 10/07/18 19:45 10/07/18 19:54 10/07/18 20:00 Temperature 97.7 F 97.7 F Pulse Rate 72 72 Respiratory Rate 16 Pulse Oximetry 93 L 93 L 93 L 10/07/18 20:15 10/07/18 20:30 10/07/18 20:45 Temperature 97.7 F 97.7 F 97.9 F Pulse Rate 69 69 68 Respiratory Rate Pulse Oximetry 93 L 93 L 93 L 10/07/18 21:00 10/07/18 21:15 10/07/18 21:30 Temperature 97.9 F 97.9 F 97.9 F Pulse Rate 68 68 67 Respiratory Rate Pulse Oximetry 93 L 94 L 94 L 10/07/18 21:45 10/07/18 22:00 10/07/18 22:15 Temperature 98.1 F 98.1 F 98.1 F Pulse Rate 67 65 66 Respiratory Rate Pulse Oximetry 94 L 94 L 94 L 10/07/18 22:30 10/07/18 22:45 10/07/18 23:00 Temperature 98.1 F 98.1 F 98.1 F Pulse Rate 65 64 65 Respiratory Rate Pulse Oximetry 94 L 94 L 94 L 10/07/18 23:15 10/07/18 23:30 10/07/18 23:45 Temperature 98.1 F 98.1 F 98.1 F Pulse Rate 65 64 64 Respiratory Rate Pulse Oximetry 94 L 94 L 95 10/07/18 23:47 10/08/18 00:00 10/08/18 00:15 Temperature 98.1 F 98.1 F Pulse Rate 64 64 Respiratory Rate 16 Pulse Oximetry 95 95 94 L 10/08/18 00:30 10/08/18 00:45 10/08/18 01:00 Temperature 98.1 F 98.1 F 98.1 F Pulse Rate 63 64 63 Respiratory Rate Pulse Oximetry 94 L 93 L 94 L 10/08/18 01:15 10/08/18 01:30 10/08/18 01:45 Temperature 98.1 F 98.1 F 98.1 F Pulse Rate 63 63 63 Respiratory Rate Pulse Oximetry 95 94 L 94 L 10/08/18 02:00 10/08/18 02:15 10/08/18 02:30 Temperature 98.1 F 98.1 F 98.1 F Pulse Rate 63 63 63 Respiratory Rate Pulse Oximetry 95 94 L 94 L 10/08/18 02:45 10/08/18 03:00 10/08/18 03:15 Temperature 98.1 F 98.1 F 98.1 F Pulse Rate 63 63 63 Respiratory Rate Pulse Oximetry 94 L 95 94 L 10/08/18 03:30 10/08/18 03:45 10/08/18 04:00 Temperature 98.1 F 98.1 F 98.1 F Pulse Rate 62 62 62 Respiratory Rate Pulse Oximetry 94 L 95 94 L 10/08/18 04:15 10/08/18 04:27 10/08/18 04:30 Temperature 98.1 F 98.1 F Pulse Rate 62 62 Respiratory Rate 16 Pulse Oximetry 94 L 94 L 94 L 10/08/18 04:45 10/08/18 05:00 10/08/18 05:15 Temperature 98.1 F 98.1 F 97.9 F Pulse Rate 62 63 63 Respiratory Rate Pulse Oximetry 94 L 91 L 91 L 10/08/18 05:30 10/08/18 05:45 10/08/18 05:57 Temperature 97.9 F 97.9 F Pulse Rate 63 67 67 Respiratory Rate Pulse Oximetry 92 L 94 L 10/08/18 06:00 10/08/18 06:15 10/08/18 06:30 Temperature 97.9 F 97.9 F 97.9 F Pulse Rate 64 65 66 Respiratory Rate Pulse Oximetry 91 L 94 L 93 L 10/08/18 06:45 10/08/18 07:00 10/08/18 07:15 Temperature 97.9 F 97.9 F 97.9 F Pulse Rate 64 64 64 Respiratory Rate Pulse Oximetry 95 91 L 91 L 10/08/18 07:30 10/08/18 07:45 10/08/18 08:00 Temperature 97.9 F 97.9 F 97.9 F Pulse Rate 66 64 70 Respiratory Rate Pulse Oximetry 90 L 92 L 91 L 10/08/18 08:15 10/08/18 08:24 10/08/18 08:30 Temperature 97.9 F 97.9 F Pulse Rate 64 64 Respiratory Rate 13 Pulse Oximetry 91 L 91 L 92 L 10/08/18 08:45 10/08/18 09:00 10/08/18 09:15 Temperature 97.9 F 97.9 F 97.9 F Pulse Rate 65 65 65 Respiratory Rate Pulse Oximetry 92 L 93 L 93 L 10/08/18 09:30 10/08/18 09:45 10/08/18 10:00 Temperature 98.1 F 98.1 F 98.1 F Pulse Rate 64 63 63 Respiratory Rate Pulse Oximetry 95 95 95 10/08/18 10:15 10/08/18 10:30 10/08/18 10:32 Temperature 98.1 F 98.1 F Pulse Rate 63 64 Respiratory Rate 16 Pulse Oximetry 96 98 10/08/18 10:45 10/08/18 10:59 10/08/18 11:00 Temperature 98.1 F 97.9 F Pulse Rate 65 65 Respiratory Rate 11 L Pulse Oximetry 99 99 99 10/08/18 11:15 10/08/18 11:30 10/08/18 11:45 Temperature 97.9 F 97.9 F 97.9 F Pulse Rate 66 67 66 Respiratory Rate Pulse Oximetry 98 98 98 10/08/18 12:00 10/08/18 12:15 10/08/18 12:30 Temperature 97.9 F 97.9 F 97.9 F Pulse Rate 67 66 65 Respiratory Rate Pulse Oximetry 97 96 96 10/08/18 12:45 10/08/18 13:00 10/08/18 13:15 Temperature 98.1 F 98.1 F 98.1 F Pulse Rate 63 62 62 Respiratory Rate Pulse Oximetry 95 94 L 94 L 10/08/18 13:30 10/08/18 13:45 10/08/18 14:00 Temperature 98.1 F 98.1 F 98.1 F Pulse Rate 62 63 62 Respiratory Rate Pulse Oximetry 94 L 95 96 10/08/18 14:15 10/08/18 14:30 10/08/18 14:45 Temperature 98.1 F 98.1 F 98.1 F Pulse Rate 62 62 62 Respiratory Rate Pulse Oximetry 97 97 97 10/08/18 15:00 10/08/18 15:15 10/08/18 15:30 Temperature 98.1 F 98.1 F 98.1 F Pulse Rate 62 62 62 Respiratory Rate Pulse Oximetry 96 96 95 10/08/18 15:31 10/08/18 15:45 10/08/18 16:00 Temperature 98.1 F 98.1 F Pulse Rate 62 62 Respiratory Rate 11 L Pulse Oximetry 96 96 96 10/08/18 16:15 10/08/18 16:30 10/08/18 16:45 Temperature 98.1 F 98.1 F 98.1 F Pulse Rate 62 63 63 Respiratory Rate Pulse Oximetry 97 97 97 10/08/18 17:00 10/08/18 17:15 10/08/18 17:30 Temperature 98.1 F 98.1 F 98.1 F Pulse Rate 63 64 63 Respiratory Rate Pulse Oximetry 97 97 97 10/08/18 17:45 10/08/18 18:00 10/08/18 18:15 Temperature 98.1 F 98.1 F 98.1 F Pulse Rate 64 63 62 Respiratory Rate Pulse Oximetry 97 97 97 10/08/18 18:30 Temperature 98.1 F Pulse Rate 62 Respiratory Rate Pulse Oximetry 96 Intake & Output 10/08/18 10/08/18 10/09/18 06:59 18:59 06:59 Intake Total 1755 / 1755 2675 / 2675 200 / 200 Output Total 1570 / 1570 1000 / 1000 Balance 185 / 185 1675 / 1675 200 / 200 Weight 209.3 kg Intake: IV 1755 / 1755 2675 / 2675 200 / 200 Lasix Inj 100 MG In NS Inj 90 100 / 100 ML @ 10 mls/hr IV.CONT .Q10H [facility] Rx#:[id number] Diprivan 1000 mg/100 ml Inj 1, 400 / 400 400 / 400 000 mg In 100 ml @ 5 MCG/KG/MIN 5.34 mls/hr IV.CONT TITRATE PRN Rx#:[id number] Maxipime Inj 2,000 MG In NS Inj 100 / 100 100 ML @ 200 mls/hr IV.SIG Q12H [facility] Rx#:[id number] Vancomycin Inj 2,000 MG In NS 520 / 520 Inj 500 ML @ 250 mls/hr IV.SIG ONCE ONE Rx#:[id number] fentaNYL 10 mcg/mL Premix Drip 250 / 250 250 / 250 2,500 mcg In 250 ml @ 50 MCG/HR 5 mls/hr IV.SIG TITRATE PRN Rx #:[id number] Keppra Inj 500 MG In NS Inj 100 105 / 105 105 / 105 ML @ 400 mls/hr IV.SIG Q12H [facility] Rx#:[id number] Cardene 20 mg/NS 200 ml Premix 1000 / 1000 1200 / 1200 200 / 200 20 mg In 200 ml @ 5 MG/HR 50 mls/hr IV.SIG TITRATE PRN Rx#: [id number] Output: Stool 50 / 50 Urine Amount (Catheter) 1500 / 1500 950 / 950 Indwelling Temp Sensing 1500 / 1500 950 / 950 Catheter Stool Amount (Stoma) 50 / 50 Pre-Hospital: 50 / 50 Gastric Drainage 20 / 20 Oral Orogastric Tube Other: Date of Last Bowel Movement 10/06/18 10/06/18 - Urinary Catheter Management Indwelling Temp Sensing Catheter Cath placed during this visit: no Indwelling Urethral Catheter Cath placed during this visit: no <Shivam Hills - Last Filed: 10/08/18 19:44> Assessment and Plan - Plan 68 year old male transferred for intraparenchymal hematoma, most likely due to hypertensive crisis CTA Brain negative for aneurysm or vascular malformation pt underwent emergent right posterior temporal craniotomy, evacuation of intracerebral hematoma, and placement of ICP monitor 10/03/18 Plan: cont neuro checks cont ICP monitoring keppra for sz prophylaxis nonchemical dvt prophylaxis due to ICH critical care mgt - blood pressure control cont monitor CLARIBEL drain output f/u CT Brain today <Ale Weinberg - Last Filed: 10/05/18 16:39>
--- NOTE | 2018-10-05 16:51 | CT ---
EXAM DATE: 10/05/2018 4:48 PM EST AGE/SEX: 68 years / Male INDICATIONS: Post operative cranial bolt placement. CLINICAL DATA: This is the patient's initial encounter. Patient reports that signs and symptoms have been present for 2 days and indicates a pain score of Nonresponsive. MEDICAL/SURGICAL HISTORY: Diabetes. Hypertension. None. RADIATION DOSE: 53.22 CTDI (mGy) [place] [facility] [place] 10/03/2018. . TECHNIQUE: CT of the head without contrast. Using automated exposure control and adjustment of the mA and/or kV according to patient size, radiation dose was kept as low as reasonably achievable to ob tain optimal diagnostic quality images. DICOM format image data is available electronically for revi ew and comparison. FINDINGS: There is an ICP bolt is present in the right frontal region. There has been interval evacuation of a right temporoparietal hematoma with a surgical drain in the operative bed. Minimal residual spontaneo us hemorrhagic density remains. Mild cytotoxic edema. Mild hemispheric mass effect with effacement of cortical sulci, ventricular compression and minimal subfalcine shift. Contralateral left hemisphere is stable and benign. CONCLUSION: Satisfactory postop appearance . Electronically signed by: Frederick Kay MD 10/05/2018 4:50 PM EST
[2018-10-06] MEDS: Insulin NovoLOG Aspart Correctional Sugar Inj SQ SCH ×4 (00:45→17:44)
[2018-10-06] MEDS: Oral Hygiene Kit OROPHARYNG SCH ×4 (00:45→17:20)
[2018-10-06] MEDS: Propofol 1000 mg/100 ml Inj 1,000 MG/100 ML BOTTLE IV.CONT PRN ×8 (02:08→21:46)
[2018-10-06] MEDS: niCARdipine 20mg/NS Premix 20 MG/200 ML PIGGYBACK IV.SIG PRN ×3 (02:25→09:53)
[2018-10-06] MEDS: Chlorhexidine Gluconate 2% 1 Pack (2 Cloths) TOPICAL SCH (04:05)
[2018-10-06 05:48] LABS: Calcium 8.6 mg/dL (8.5-10.1); Potassium 3.7 meq/L (3.5-5.1)
[2018-10-06] MEDS: Famotidine PF Inj 20 MG/2 ML Vial IV.PUSH SCH ×2 (08:11→20:33)
[2018-10-06] MEDS: amLODIPine 10 MG Tablet PO SCH (08:11)
[2018-10-06] MEDS: Senna/Docusate Sodium 8.6/50 MG Tablet PO SCH ×2 (08:12→20:33)
[2018-10-06] MEDS: Chlorhexidine 0.12% Oral Kit 15 ML UDC OROPHARYNG SCH ×2 (08:12→20:21)
--- NOTE | 2018-10-06 10:11 | P.PNCC ---
Subjective Subjective Remarks/Hospital Course: Patient is a 68-year-old morbidly obese male with past medical history significant for hypertension, diabetes, dyslipidemia, morbid obesity, thyroid disease, history of colon resection and colostomy, who presented to the [facility] with left-sided headache and poorly controlled hypertension. Apparently he woke up with severe left-sided headache was moderately confused and family brought him to the emergency department. The patient did take aspirin for his headache prior to presentation. A stat CT of the head showed large 6.9 x 3.6 x 3.2 cm acute intraparenchymal hemorrhage in the right temporoparietal region with approximate blood volume of 40 mL. There was surrounding edema and 2-3 mm leftward midline shift. Neurosurgery Dr. Hills was contacted and patient was transferred to [facility]. PT/INR/ platelet count was normal in the outside hospital. BUN was 43 creatinine was 2. I evaluated the patient in the ICU. Patient is awake but somnolent oriented only to person. He drifts to sleep while talking. His systolic blood pressure was 200 on arrival. Because of questionable airway protection and need for further imaging studies patient was intubated and placed on mechanical ventilation. Dr. Hills had been informed. I will start Cardene to control blood pressure, repeat stat CT head also CT angiogram of brain and neck will be performed. Also give 25 g of IV mannitol, start on 2% saline to keep sodium more than 150-155, also placed on Keppra for seizure prophylaxis. 10/04: Will start oral BP meds down NG tube and attempt to wean cardene. CKD persists as expected. Glucose swing expected. Keep intubated and sedated for now. 10/05: Better blood pressure control with by systolic and amlodipine restarted. Increased difficulty with oxygenation today, now requiring 100% FiO2 and 12 PEEP. Chest x-ray shows atelectasis involving the whole left lower lobe, cultures all negative for significant organism, no white blood cells. Will get repeat head CAT scan today. 10/06: Repeat head CT look good. Worsening difficulties with oxygenation related to the left lower lobe atelectasis. Converted to airway pressure release ventilation this morning. ICP continues to be very well controlled. - Diagnosis (1) Intraparenchymal hemorrhage of brain (2) Midline shift of brain (3) Acute encephalopathy (4) Hypertensive emergency (5) LLL pneumonia (6) Acute kidney injury (7) History of hypertension (8) Type 2 diabetes mellitus (9) Dyslipidemia (10) Morbid obesity Objective Vital Signs / I&O: Vital Signs 10/05/18 10:15 10/05/18 10:30 10/05/18 10:45 Temperature 97.2 F L 97.2 F L 97.2 F L Pulse Rate 57 L 56 L 56 L Respiratory Rate Pulse Oximetry 93 L 94 L 95 10/05/18 11:00 10/05/18 11:15 10/05/18 11:29 Temperature 97.2 F L 97.2 F L Pulse Rate 55 L 55 L Respiratory Rate 16 Pulse Oximetry 95 96 100 10/05/18 11:30 10/05/18 11:45 10/05/18 12:00 Temperature 97.0 F L 97.0 F L 97.0 F L Pulse Rate 54 L 55 L 54 L Respiratory Rate Pulse Oximetry 96 96 95 10/05/18 12:15 10/05/18 12:30 10/05/18 12:45 Temperature 97.0 F L 97.0 F L 97.0 F L Pulse Rate 54 L 55 L 55 L Respiratory Rate Pulse Oximetry 95 95 95 10/05/18 13:00 10/05/18 13:15 10/05/18 13:30 Temperature 97.0 F L 97.0 F L 97.0 F L Pulse Rate 55 L 55 L 55 L Respiratory Rate Pulse Oximetry 95 95 95 10/05/18 13:45 10/05/18 14:00 10/05/18 14:15 Temperature 97.0 F L 97.0 F L 97.0 F L Pulse Rate 55 L 55 L 55 L Respiratory Rate Pulse Oximetry 95 95 93 L 10/05/18 14:30 10/05/18 14:45 10/05/18 15:00 Temperature 97.0 F L 96.8 F L 96.8 F L Pulse Rate 55 L 55 L 55 L Respiratory Rate Pulse Oximetry 92 L 92 L 92 L 10/05/18 15:15 10/05/18 15:27 10/05/18 15:30 Temperature 97.0 F L 97.0 F L Pulse Rate 55 L 54 L Respiratory Rate 16 Pulse Oximetry 92 L 92 L 93 L 10/05/18 15:45 10/05/18 16:00 10/05/18 16:15 Temperature 97.0 F L 97.0 F L 97.0 F L Pulse Rate 54 L 55 L 55 L Respiratory Rate Pulse Oximetry 93 L 92 L 93 L 10/05/18 16:30 10/05/18 16:45 10/05/18 17:00 Temperature 97.2 F L 97.0 F L Pulse Rate 67 57 L 63 Respiratory Rate Pulse Oximetry 90 L 91 L 92 L 10/05/18 17:15 10/05/18 17:30 10/05/18 17:45 Temperature 97.0 F L 97.0 F L 97.0 F L Pulse Rate 59 L 56 L 55 L Respiratory Rate Pulse Oximetry 96 95 95 10/05/18 18:00 10/05/18 18:15 10/05/18 18:30 Temperature 97.0 F L 97.0 F L 97.0 F L Pulse Rate 55 L 55 L 55 L Respiratory Rate Pulse Oximetry 95 96 95 10/05/18 18:45 10/05/18 19:00 10/05/18 19:15 Temperature 97.0 F L 97.0 F L 97.0 F L Pulse Rate 55 L 54 L 55 L Respiratory Rate 16 Pulse Oximetry 95 96 96 10/05/18 19:30 10/05/18 19:45 10/05/18 20:00 Temperature 97.0 F L 97.0 F L 97.0 F L Pulse Rate 55 L 56 L 57 L Respiratory Rate 16 Pulse Oximetry 96 95 93 L 10/05/18 20:13 10/05/18 20:15 10/05/18 20:30 Temperature 97.0 F L 97.0 F L Pulse Rate 64 55 L 56 L Respiratory Rate 16 Pulse Oximetry 96 96 95 10/05/18 20:45 10/05/18 21:00 10/05/18 21:15 Temperature 97.2 F L 97.2 F L 97.2 F L Pulse Rate 56 L 56 L 56 L Respiratory Rate 16 Pulse Oximetry 97 96 96 10/05/18 21:30 10/05/18 21:45 10/05/18 22:00 Temperature 97.2 F L 97.2 F L 97.3 F L Pulse Rate 56 L 57 L 58 L Respiratory Rate 16 Pulse Oximetry 97 95 96 10/05/18 22:15 10/05/18 22:30 10/05/18 22:45 Temperature 97.3 F L 97.3 F L 97.5 F L Pulse Rate 66 58 L 58 L Respiratory Rate Pulse Oximetry 97 96 97 10/05/18 23:00 10/05/18 23:15 10/05/18 23:30 Temperature 97.5 F L 97.5 F L 97.7 F Pulse Rate 59 L 59 L 60 Respiratory Rate 16 Pulse Oximetry 97 97 97 10/05/18 23:45 10/06/18 00:00 10/06/18 00:15 Temperature 97.7 F 97.7 F 97.7 F Pulse Rate 61 62 62 Respiratory Rate 16 Pulse Oximetry 97 97 97 10/06/18 00:20 10/06/18 00:30 10/06/18 00:45 Temperature 97.7 F 97.5 F L Pulse Rate 62 59 L Respiratory Rate 16 Pulse Oximetry 97 96 97 10/06/18 01:00 10/06/18 01:15 10/06/18 01:30 Temperature 97.7 F 97.7 F 97.7 F Pulse Rate 58 L 58 L 57 L Respiratory Rate 16 Pulse Oximetry 97 97 97 10/06/18 01:45 10/06/18 02:00 10/06/18 02:15 Temperature 97.7 F 97.7 F 97.7 F Pulse Rate 57 L 63 58 L Respiratory Rate Pulse Oximetry 97 96 98 10/06/18 02:30 10/06/18 02:45 10/06/18 03:00 Temperature 97.7 F 97.5 F L 97.5 F L Pulse Rate 58 L 58 L 58 L Respiratory Rate 16 Pulse Oximetry 98 98 99 10/06/18 03:15 10/06/18 03:30 10/06/18 03:45 Temperature 97.5 F L 97.5 F L 97.5 F L Pulse Rate 58 L 58 L 57 L Respiratory Rate Pulse Oximetry 99 99 99 10/06/18 03:57 10/06/18 04:00 10/06/18 04:15 Temperature 97.5 F L 97.5 F L Pulse Rate 58 L 59 L 59 L Respiratory Rate 16 16 Pulse Oximetry 99 97 96 10/06/18 04:30 10/06/18 04:45 10/06/18 05:00 Temperature 97.3 F L 97.3 F L 97.3 F L Pulse Rate 61 59 L 59 L Respiratory Rate 16 Pulse Oximetry 94 L 96 96 10/06/18 05:15 10/06/18 05:30 10/06/18 05:45 Temperature 97.3 F L 97.3 F L 97.3 F L Pulse Rate 58 L 58 L 57 L Respiratory Rate Pulse Oximetry 96 96 96 10/06/18 06:00 10/06/18 06:15 10/06/18 06:30 Temperature 97.2 F L 97.2 F L 97.2 F L Pulse Rate 57 L 56 L 56 L Respiratory Rate 16 Pulse Oximetry 96 96 96 10/06/18 06:45 10/06/18 07:00 10/06/18 07:15 Temperature 97.2 F L 97.0 F L 97.0 F L Pulse Rate 56 L 56 L 56 L Respiratory Rate Pulse Oximetry 96 96 96 10/06/18 07:30 10/06/18 07:45 10/06/18 08:00 Temperature 97.0 F L 97.0 F L 97.0 F L Pulse Rate 58 L 57 L 60 Respiratory Rate Pulse Oximetry 95 96 97 10/06/18 08:15 10/06/18 08:30 10/06/18 08:45 Temperature 97.0 F L 97.2 F L 97.2 F L Pulse Rate 59 L 59 L 66 Respiratory Rate Pulse Oximetry 97 97 97 10/06/18 09:00 10/06/18 09:15 10/06/18 09:25 Temperature 97.0 F L 97.0 F L Pulse Rate 63 60 59 L Respiratory Rate 12 Pulse Oximetry 98 98 97 10/06/18 09:30 Temperature 97.0 F L Pulse Rate 58 L Respiratory Rate Pulse Oximetry 97 Intake & Output 10/05/18 10/06/18 10/06/18 18:59 06:59 18:59 Intake Total 1904 / 5 1715 / 1715 405 / 405 Output Total 895 / 895 835 / 835 Balance 1010 / 1010 880 / 880 405 / 405 Weight 206.6 kg Intake: IV 1904 / 1904 1655 / 1655 405 / 405 Diprivan 1000 mg/100 ml Inj 1, 500 / 500 500 / 500 100 / 100 000 mg In 100 ml @ 5 MCG/KG/MIN 5.34 mls/hr IV.CONT TITRATE PRN Rx#:[id number] Unasyn Inj 1,500 MG In NS Inj 200 / 200 100 ML @ 200 mls/hr IV.SIG Q6H ISABEL Rx#:[id number] Azithromycin Inj 500 MG In NS 250 / 250 Inj 250 ML @ 250 mls/hr IV.SIG Q24H ISABEL Rx#:[id number] fentaNYL 10 mcg/mL Premix Drip 250 / 250 2,500 mcg In 250 ml @ 50 MCG/HR 5 mls/hr IV.SIG TITRATE PRN Rx #:[id number] Keppra Inj 500 MG In NS Inj 100 105 / 105 105 / 105 105 / 105 ML @ 400 mls/hr IV.SIG Q12H ISABEL Rx#:[id number] Cardene 20 mg/NS 200 ml Premix 800 / 800 800 / 800 200 / 200 20 mg In 200 ml @ 5 MG/HR 50 mls/hr IV.SIG TITRATE PRN Rx#: [id number] Tube Irrigant 60 / 60 Output: Stool 20 / 20 Urine Amount (Catheter) 750 / 750 625 / 625 Indwelling Temp Sensing 750 / 750 625 / 625 Catheter Stool Amount (Stoma) 50 / 50 Pre-Hospital: 50 / 50 Gastric Drainage 0 / 0 Oral Orogastric Tube 0 / 0 Wound Drainage 125 / 125 160 / 160 # 1 Right Frontal CLARIBEL Drain 5 / 5 0 / 0 # 2 Right Frontal CLARIBEL Drain 120 / 120 160 / 160 Other: Date of Last Bowel Movement 10/04/18 10/05/18 10/05/18 Result Diagrams: 10/04/18 05:10 10/06/18 05:00 Objective Remarks: Narrative: GEN: Morbidly obese male, intubated on mechanical ventilation HEENT: Dry circumferential dressing in place iNECK: Supple. Orotracheal intubation LUNGS: Improved bilateral breath sounds, weak sounds persist at left base HEART: S1 and S2 normal, heart sounds distant. Neck veins full, not distended ABDOMEN: Soft. Nontender. Obese. Well-healed vertical scar. Right lower quadrant colostomy bag in place with stool EXTREMITIES: No pedal edema. Knee repair scar left side NEUROLOGIC: Intubated, heavily sedated. Breathes over vent. Assessment and Plan - Problem List (1) Intraparenchymal hemorrhage of brain Code(s): I61.9 - Nontraumatic intracerebral hemorrhage, unspecified Status: Acute (2) Midline shift of brain Code(s): G93.9 - Disorder of brain, unspecified Status: Acute (3) Acute encephalopathy Code(s): G93.40 - Encephalopathy, unspecified Status: Acute (4) Hypertensive emergency Code(s): I16.1 - Hypertensive emergency Status: Acute (5) LLL pneumonia Code(s): J18.1 - Lobar pneumonia, unspecified organism Status: Acute (6) Acute kidney injury Code(s): N17.9 - Acute kidney failure, unspecified Status: Acute (7) History of hypertension Code(s): Z86.79 - Personal history of other diseases of the circulatory system Status: Chronic (8) Type 2 diabetes mellitus Code(s): E11.9 - Type 2 diabetes mellitus without complications Status: Chronic (9) Dyslipidemia Code(s): E78.5 - Hyperlipidemia, unspecified Status: Chronic (10) Morbid obesity Code(s): E66.01 - Morbid (severe) obesity due to excess calories Status: Chronic - Assessment and Plan Plan: NEURO: Acute right temporoparietal intraparenchymal hemorrhage Midline shift Acute encephalopathy -Propofol and fentanyl for sedation and ventilator synchrony after intubation -Repeat stat CT head without contrast, also CT angiogram of the brain and neck to rule out aneurysm -Reduce 2% saline to 25 mL/h to keep sodium between 150 and 155 -Mannitol 25 g IV x1 -Keppra 500 mg IV every 12 hours -S/P crani and evacuation 10/03 -Repeat CAT scan of head with minimal edema and no shift 10/05 RESP: Acute respiratory failure Left lower lobe pneumonia -Patient was intubated for airway protection, placed on PRVC/AC -Ventilator bundle -DuoNeb every 6 hours scheduled and as needed -Sputum culture negative -Converted to airway pressure release ventilation CV: Hypertensive emergency Dyslipidemia -Normal saline IV fluids 1 L bolus and maintenance IV fluid 2% saline at 25 mL/h -Cardene infusion to keep systolic blood pressure less than 140 -Arterial line placement -IV labetalol as needed for SBP more than 140 -Bysystolic and amlodipine restarted down NG tube. -Still requiring Cardene drip, will add third oral agent down the NG tube. GI: Morbid obesity History of colon resection, status post colostomy -N.p.o., IV famotidine -Routine colostomy care : Acute kidney injury -Monitor renal function closely. Place Mendi[place] catheter. -IV hydration as above -Unclear whether patient has chronic kidney disease -Check renal ultrasound ID: Left lower lobe pneumonia/atelectasis -Discontinue antibiotics, sputum culture benign -Blood and sputum cultures HEME: -Monitor CBC, coags ENDO: Type 2 diabetes Hypothyroidism -Electrolyte replacement per protocol -Sliding scale insulin PROPH: -Bilateral lower extremity SCDs/HIRAL. Chemical DVT prophylaxis contraindicated -IV famotidine LINES: -Utilize peripheral IVs, central line if needed Overall impression: Patient remains critically ill and neurologically unstable. ICP control acceptable. Persistent respiratory problems with large oxygen gradients. Now requiring 100% FiO2 and I have had to convert to airway pressure release ventilation for recruitment. He remains critically ill. Critical care time 40 minutes aside from procedures.
--- NOTE | 2018-10-06 10:41 | P.PNNS ---
Subjective Interval history: intubated, sedated. f/u CT Brain completed yesterday with evacuation of IPH, no mass effect or midline shift. ICPs controlled overnight. <Ale Weinberg - Last Filed: 10/06/18 12:30> Physical Exam Vital signs: Vital Signs 10/05/18 10:45 10/05/18 11:00 10/05/18 11:15 Temperature 97.2 F L 97.2 F L 97.2 F L Pulse Rate 56 L 55 L 55 L Respiratory Rate Pulse Oximetry 95 95 96 10/05/18 11:29 10/05/18 11:30 10/05/18 11:45 Temperature 97.0 F L 97.0 F L Pulse Rate 54 L 55 L Respiratory Rate 16 Pulse Oximetry 100 96 96 10/05/18 12:00 10/05/18 12:15 10/05/18 12:30 Temperature 97.0 F L 97.0 F L 97.0 F L Pulse Rate 54 L 54 L 55 L Respiratory Rate Pulse Oximetry 95 95 95 10/05/18 12:45 10/05/18 13:00 10/05/18 13:15 Temperature 97.0 F L 97.0 F L 97.0 F L Pulse Rate 55 L 55 L 55 L Respiratory Rate Pulse Oximetry 95 95 95 10/05/18 13:30 10/05/18 13:45 10/05/18 14:00 Temperature 97.0 F L 97.0 F L 97.0 F L Pulse Rate 55 L 55 L 55 L Respiratory Rate Pulse Oximetry 95 95 95 10/05/18 14:15 10/05/18 14:30 10/05/18 14:45 Temperature 97.0 F L 97.0 F L 96.8 F L Pulse Rate 55 L 55 L 55 L Respiratory Rate Pulse Oximetry 93 L 92 L 92 L 10/05/18 15:00 10/05/18 15:15 10/05/18 15:27 Temperature 96.8 F L 97.0 F L Pulse Rate 55 L 55 L Respiratory Rate 16 Pulse Oximetry 92 L 92 L 92 L 10/05/18 15:30 10/05/18 15:45 10/05/18 16:00 Temperature 97.0 F L 97.0 F L 97.0 F L Pulse Rate 54 L 54 L 55 L Respiratory Rate Pulse Oximetry 93 L 93 L 92 L 11/15/18 16:15 10/05/18 16:30 10/05/18 16:45 Temperature 97.0 F L 97.2 F L Pulse Rate 55 L 67 57 L Respiratory Rate Pulse Oximetry 93 L 90 L 91 L 10/05/18 17:00 10/05/18 17:15 10/05/18 17:30 Temperature 97.0 F L 97.0 F L 97.0 F L Pulse Rate 63 59 L 56 L Respiratory Rate Pulse Oximetry 92 L 96 95 10/05/18 17:45 10/05/18 18:00 10/05/18 18:15 Temperature 97.0 F L 97.0 F L 97.0 F L Pulse Rate 55 L 55 L 55 L Respiratory Rate Pulse Oximetry 95 95 96 10/05/18 18:30 10/05/18 18:45 10/05/18 19:00 Temperature 97.0 F L 97.0 F L 97.0 F L Pulse Rate 55 L 55 L 54 L Respiratory Rate 16 Pulse Oximetry 95 95 96 10/05/18 19:15 10/05/18 19:30 10/05/18 19:45 Temperature 97.0 F L 97.0 F L 97.0 F L Pulse Rate 55 L 55 L 56 L Respiratory Rate Pulse Oximetry 96 96 95 10/05/18 20:00 10/05/18 20:13 10/05/18 20:15 Temperature 97.0 F L 97.0 F L Pulse Rate 57 L 64 55 L Respiratory Rate 16 16 Pulse Oximetry 93 L 96 96 10/05/18 20:30 10/05/18 20:45 10/05/18 21:00 Temperature 97.0 F L 97.2 F L 97.2 F L Pulse Rate 56 L 56 L 56 L Respiratory Rate 16 Pulse Oximetry 95 97 96 10/05/18 21:15 10/05/18 21:30 10/05/18 21:45 Temperature 97.2 F L 97.2 F L 97.2 F L Pulse Rate 56 L 56 L 57 L Respiratory Rate Pulse Oximetry 96 97 95 10/05/18 22:00 10/05/18 22:15 10/05/18 22:30 Temperature 97.3 F L 97.3 F L 97.3 F L Pulse Rate 58 L 66 58 L Respiratory Rate 16 Pulse Oximetry 96 97 96 10/05/18 22:45 10/05/18 23:00 10/05/18 23:15 Temperature 97.5 F L 97.5 F L 97.5 F L Pulse Rate 58 L 59 L 59 L Respiratory Rate 16 Pulse Oximetry 97 97 97 10/05/18 23:30 10/05/18 23:45 10/06/18 00:00 Temperature 97.7 F 97.7 F 97.7 F Pulse Rate 60 61 62 Respiratory Rate 16 Pulse Oximetry 97 97 97 10/06/18 00:15 10/06/18 00:20 10/06/18 00:30 Temperature 97.7 F 97.7 F Pulse Rate 62 62 Respiratory Rate 16 Pulse Oximetry 97 97 96 10/06/18 00:45 10/06/18 01:00 10/06/18 01:15 Temperature 97.5 F L 97.7 F 97.7 F Pulse Rate 59 L 58 L 58 L Respiratory Rate 16 Pulse Oximetry 97 97 97 10/06/18 01:30 10/06/18 01:45 10/06/18 02:00 Temperature 97.7 F 97.7 F 97.7 F Pulse Rate 57 L 57 L 63 Respiratory Rate Pulse Oximetry 97 97 96 10/06/18 02:15 10/06/18 02:30 10/06/18 02:45 Temperature 97.7 F 97.7 F 97.5 F L Pulse Rate 58 L 58 L 58 L Respiratory Rate Pulse Oximetry 98 98 98 10/06/18 03:00 10/06/18 03:15 10/06/18 03:30 Temperature 97.5 F L 97.5 F L 97.5 F L Pulse Rate 58 L 58 L 58 L Respiratory Rate 16 Pulse Oximetry 99 99 99 10/06/18 03:45 10/06/18 03:57 10/06/18 04:00 Temperature 97.5 F L 97.5 F L Pulse Rate 57 L 58 L 59 L Respiratory Rate 16 16 Pulse Oximetry 99 99 97 10/06/18 04:15 10/06/18 04:30 10/06/18 04:45 Temperature 97.5 F L 97.3 F L 97.3 F L Pulse Rate 59 L 61 59 L Respiratory Rate Pulse Oximetry 96 94 L 96 10/06/18 05:00 10/06/18 05:15 10/06/18 05:30 Temperature 97.3 F L 97.3 F L 97.3 F L Pulse Rate 59 L 58 L 58 L Respiratory Rate 16 Pulse Oximetry 96 96 96 10/06/18 05:45 10/06/18 06:00 10/06/18 06:15 Temperature 97.3 F L 97.2 F L 97.2 F L Pulse Rate 57 L 57 L 56 L Respiratory Rate 16 Pulse Oximetry 96 96 96 10/06/18 06:30 10/06/18 06:45 10/06/18 07:00 Temperature 97.2 F L 97.2 F L 97.0 F L Pulse Rate 56 L 56 L 56 L Respiratory Rate Pulse Oximetry 96 96 96 10/06/18 07:15 10/06/18 07:30 10/06/18 07:45 Temperature 97.0 F L 97.0 F L 97.0 F L Pulse Rate 56 L 58 L 57 L Respiratory Rate Pulse Oximetry 96 95 96 10/06/18 08:00 10/06/18 08:15 10/06/18 08:30 Temperature 97.0 F L 97.0 F L 97.2 F L Pulse Rate 60 59 L 59 L Respiratory Rate Pulse Oximetry 97 97 97 10/06/18 08:45 10/06/18 09:00 10/06/18 09:15 Temperature 97.2 F L 97.0 F L 97.0 F L Pulse Rate 66 63 60 Respiratory Rate Pulse Oximetry 97 98 98 10/06/18 09:25 10/06/18 09:30 Temperature 97.0 F L Pulse Rate 59 L 58 L Respiratory Rate 12 Pulse Oximetry 97 97 Intake & Output 10/05/18 10/06/18 10/06/18 18:59 06:59 18:59 Intake Total 1905 / 1905 1715 / 1715 405 / 405 Output Total 895 / 895 835 / 835 Balance 1010 / 1010 880 / 880 405 / 405 Weight 206.6 kg Intake: IV 1905 / 1905 1655 / 1655 405 / 405 Diprivan 1000 mg/100 ml Inj 1, 500 / 500 500 / 500 100 / 100 000 mg In 100 ml @ 5 MCG/KG/MIN 5.34 mls/hr IV.CONT TITRATE PRN Rx#:[id number] Unasyn Inj 1,500 MG In NS Inj 200 / 200 100 ML @ 200 mls/hr IV.SIG Q6H ISABEL Rx#:[id number] Azithromycin Inj 500 MG In NS 250 / 250 Inj 250 ML @ 250 mls/hr IV.SIG Q24H ISABEL Rx#:[id number] fentaNYL 10 mcg/mL Premix Drip 250 / 250 2,500 mcg In 250 ml @ 50 MCG/HR 5 mls/hr IV.SIG TITRATE PRN Rx #:[id number] Keppra Inj 500 MG In NS Inj 100 105 / 105 105 / 105 105 / 105 ML @ 400 mls/hr IV.SIG Q12H ISABEL Rx#:[id number] Cardene 20 mg/NS 200 ml Premix 800 / 800 800 / 800 200 / 200 20 mg In 200 ml @ 5 MG/HR 50 mls/hr IV.SIG TITRATE PRN Rx#: [id number] Tube Irrigant 60 / 60 Output: Stool 20 / 20 Urine Amount (Catheter) 750 / 750 625 / 625 Indwelling Temp Sensing 750 / 750 625 / 625 Catheter Stool Amount (Stoma) 50 / 50 Pre-Hospital: 50 / 50 Gastric Drainage 0 / 0 Oral Orogastric Tube 0 / 0 Wound Drainage 125 / 125 160 / 160 # 1 Right Frontal CLARIBEL Drain 5 / 5 0 / 0 # 2 Right Frontal CLARIBEL Drain 120 / 120 160 / 160 Other: Date of Last Bowel Movement 10/04/18 10/05/18 10/05/18 Narrative: intubated, well sedated pupil left 5mm, pupil right 4 mm reactive conjugate gaze wound healing well, clean and dry, CLARIBEL drains intact ICP monitor in place not following commands for testing slight withdrawal to pain in both feet - Urinary Catheter Management Indwelling Temp Sensing Catheter Cath placed during this visit: yes Reason for continuing: Hourly intake/output Insertion date: 10/03/18 Insertion time: 08:10 Indwelling Urethral Catheter Cath placed during this visit: no <Ale Weinberg - Last Filed: 10/06/18 12:30> Vital signs: Vital Signs 10/07/18 19:45 10/07/18 19:54 10/07/18 20:00 Temperature 97.7 F 97.7 F Pulse Rate 72 72 Respiratory Rate 16 Pulse Oximetry 93 L 93 L 93 L 10/07/18 20:15 10/07/18 20:30 10/07/18 20:45 Temperature 97.7 F 97.7 F 97.9 F Pulse Rate 69 69 68 Respiratory Rate Pulse Oximetry 93 L 93 L 93 L 10/07/18 21:00 10/07/18 21:15 10/07/18 21:30 Temperature 97.9 F 97.9 F 97.9 F Pulse Rate 68 68 67 Respiratory Rate Pulse Oximetry 93 L 94 L 94 L 10/07/18 21:45 10/07/18 22:00 10/07/18 22:15 Temperature 98.1 F 98.1 F 98.1 F Pulse Rate 67 65 66 Respiratory Rate Pulse Oximetry 94 L 94 L 94 L 10/07/18 22:30 10/07/18 22:45 10/07/18 23:00 Temperature 98.1 F 98.1 F 98.1 F Pulse Rate 65 64 65 Respiratory Rate Pulse Oximetry 94 L 94 L 94 L 10/07/18 23:15 10/07/18 23:30 10/07/18 23:45 Temperature 98.1 F 98.1 F 98.1 F Pulse Rate 65 64 64 Respiratory Rate Pulse Oximetry 94 L 94 L 95 10/07/18 23:47 10/08/18 00:00 10/08/18 00:15 Temperature 98.1 F 98.1 F Pulse Rate 64 64 Respiratory Rate 16 Pulse Oximetry 95 95 94 L 10/08/18 00:30 10/08/18 00:45 10/08/18 01:00 Temperature 98.1 F 98.1 F 98.1 F Pulse Rate 63 64 63 Respiratory Rate Pulse Oximetry 94 L 93 L 94 L 10/08/18 01:15 10/08/18 01:30 10/08/18 01:45 Temperature 98.1 F 98.1 F 98.1 F Pulse Rate 63 63 63 Respiratory Rate Pulse Oximetry 95 94 L 94 L 10/08/18 02:00 10/08/18 02:15 10/08/18 02:30 Temperature 98.1 F 98.1 F 98.1 F Pulse Rate 63 63 63 Respiratory Rate Pulse Oximetry 95 94 L 94 L 10/08/18 02:45 10/08/18 03:00 10/08/18 03:15 Temperature 98.1 F 98.1 F 98.1 F Pulse Rate 63 63 63 Respiratory Rate Pulse Oximetry 94 L 95 94 L 10/08/18 03:30 10/08/18 03:45 10/08/18 04:00 Temperature 98.1 F 98.1 F 98.1 F Pulse Rate 62 62 62 Respiratory Rate Pulse Oximetry 94 L 95 94 L 10/08/18 04:15 10/08/18 04:27 10/08/18 04:30 Temperature 98.1 F 98.1 F Pulse Rate 62 62 Respiratory Rate 16 Pulse Oximetry 94 L 94 L 94 L 10/08/18 04:45 10/08/18 05:00 10/08/18 05:15 Temperature 98.1 F 98.1 F 97.9 F Pulse Rate 62 63 63 Respiratory Rate Pulse Oximetry 94 L 91 L 91 L 10/08/18 05:30 10/08/18 05:45 10/08/18 05:57 Temperature 97.9 F 97.9 F Pulse Rate 63 67 67 Respiratory Rate Pulse Oximetry 92 L 94 L 10/08/18 06:00 10/08/18 06:15 10/08/18 06:30 Temperature 97.9 F 97.9 F 97.9 F Pulse Rate 64 65 66 Respiratory Rate Pulse Oximetry 91 L 94 L 93 L 10/08/18 06:45 10/08/18 07:00 10/08/18 07:15 Temperature 97.9 F 97.9 F 97.9 F Pulse Rate 64 64 64 Respiratory Rate Pulse Oximetry 95 91 L 91 L 10/08/18 07:30 10/08/18 07:45 10/08/18 08:00 Temperature 97.9 F 97.9 F 97.9 F Pulse Rate 66 64 70 Respiratory Rate Pulse Oximetry 90 L 92 L 91 L 10/08/18 08:15 10/08/18 08:24 10/08/18 08:30 Temperature 97.9 F 97.9 F Pulse Rate 64 64 Respiratory Rate 13 Pulse Oximetry 91 L 91 L 92 L 10/08/18 08:45 10/08/18 09:00 10/08/18 09:15 Temperature 97.9 F 97.9 F 97.9 F Pulse Rate 65 65 65 Respiratory Rate Pulse Oximetry 92 L 93 L 93 L 10/08/18 09:30 10/08/18 09:45 10/08/18 10:00 Temperature 98.1 F 98.1 F 98.1 F Pulse Rate 64 63 63 Respiratory Rate Pulse Oximetry 95 95 95 10/08/18 10:15 10/08/18 10:30 10/08/18 10:32 Temperature 98.1 F 98.1 F Pulse Rate 63 64 Respiratory Rate 16 Pulse Oximetry 96 98 10/08/18 10:45 10/08/18 10:59 10/08/18 11:00 Temperature 98.1 F 97.9 F Pulse Rate 65 65 Respiratory Rate 11 L Pulse Oximetry 99 99 99 10/08/18 11:15 10/08/18 11:30 10/08/18 11:45 Temperature 97.9 F 97.9 F 97.9 F Pulse Rate 66 67 66 Respiratory Rate Pulse Oximetry 98 98 98 10/08/18 12:00 10/08/18 12:15 10/08/18 12:30 Temperature 97.9 F 97.9 F 97.9 F Pulse Rate 67 66 65 Respiratory Rate Pulse Oximetry 97 96 96 10/08/18 12:45 10/08/18 13:00 10/08/18 13:15 Temperature 98.1 F 98.1 F 98.1 F Pulse Rate 63 62 62 Respiratory Rate Pulse Oximetry 95 94 L 94 L 10/08/18 13:30 10/08/18 13:45 10/08/18 14:00 Temperature 98.1 F 98.1 F 98.1 F Pulse Rate 62 63 62 Respiratory Rate Pulse Oximetry 94 L 95 96 10/08/18 14:15 10/08/18 14:30 10/08/18 14:45 Temperature 98.1 F 98.1 F 98.1 F Pulse Rate 62 62 62 Respiratory Rate Pulse Oximetry 97 97 97 10/08/18 15:00 10/08/18 15:15 10/08/18 15:30 Temperature 98.1 F 98.1 F 98.1 F Pulse Rate 62 62 62 Respiratory Rate Pulse Oximetry 96 96 95 10/08/18 15:31 10/08/18 15:45 10/08/18 16:00 Temperature 98.1 F 98.1 F Pulse Rate 62 62 Respiratory Rate 11 L Pulse Oximetry 96 96 96 10/08/18 16:15 10/08/18 16:30 10/08/18 16:45 Temperature 98.1 F 98.1 F 98.1 F Pulse Rate 62 63 63 Respiratory Rate Pulse Oximetry 97 97 97 10/08/18 17:00 10/08/18 17:15 10/08/18 17:30 Temperature 98.1 F 98.1 F 98.1 F Pulse Rate 63 64 63 Respiratory Rate Pulse Oximetry 97 97 97 10/08/18 17:45 10/08/18 18:00 10/08/18 18:15 Temperature 98.1 F 98.1 F 98.1 F Pulse Rate 64 63 62 Respiratory Rate Pulse Oximetry 97 97 97 10/08/18 18:30 Temperature 98.1 F Pulse Rate 62 Respiratory Rate Pulse Oximetry 96 Intake & Output 10/08/18 10/08/18 10/09/18 06:59 18:59 06:59 Intake Total 1755 / 1755 2675 / 2675 200 / 200 Output Total 1570 / 1570 1000 / 1000 Balance 185 / 185 1675 / 1675 200 / 200 Weight 209.3 kg Intake: IV 1755 / 1755 2675 / 2675 200 / 200 Lasix Inj 100 MG In NS Inj 90 100 / 100 ML @ 10 mls/hr IV.CONT .Q10H ISABEL Rx#:[id number] Diprivan 1000 mg/100 ml Inj 1, 400 / 400 400 / 400 000 mg In 100 ml @ 5 MCG/KG/MIN 5.34 mls/hr IV.CONT TITRATE PRN Rx#:[id number] Maxipime Inj 2,000 MG In NS Inj 100 / 100 100 ML @ 200 mls/hr IV.SIG Q12H ISABEL Rx#:[id number] Vancomycin Inj 2,000 MG In NS 520 / 520 Inj 500 ML @ 250 mls/hr IV.SIG ONCE ONE Rx#:[id number] fentaNYL 10 mcg/mL Premix Drip 250 / 250 250 / 250 2,500 mcg In 250 ml @ 50 MCG/HR 5 mls/hr IV.SIG TITRATE PRN Rx #:[id number] Keppra Inj 500 MG In NS Inj 100 105 / 105 105 / 105 ML @ 400 mls/hr IV.SIG Q12H ISABEL Rx#:[id number] Cardene 20 mg/NS 200 ml Premix 1000 / 1000 1200 / 1200 200 / 200 20 mg In 200 ml @ 5 MG/HR 50 mls/hr IV.SIG TITRATE PRN Rx#: [id number] Output: Stool 50 / 50 Urine Amount (Catheter) 1500 / 1500 950 / 950 Indwelling Temp Sensing 1500 / 1500 950 / 950 Catheter Stool Amount (Stoma) 50 / 50 Pre-Hospital: 50 / 50 Gastric Drainage Oral Orogastric Tube Other: Date of Last Bowel Movement 10/06/18 10/06/18 - Urinary Catheter Management Indwelling Temp Sensing Catheter Cath placed during this visit: no Indwelling Urethral Catheter Cath placed during this visit: no <Shivam Hills - Last Filed: 10/08/18 19:45> Assessment and Plan - Plan 68 year old male transferred for intraparenchymal hematoma, most likely due to hypertensive crisis CTA Brain negative for aneurysm or vascular malformation pt underwent emergent right posterior temporal craniotomy, evacuation of intracerebral hematoma, and placement of ICP monitor 10/03/18 Plan: Dr. Hills reviewed f/u CT Brain, dw family members today ICP monitor and CLARIBEL drains x 2 removed CLARIBEL drain site requiring placement of stitch due to CSF leaking- using sterile techniques single stitch placed on both CLARIBEL drain site using 4-0 silk suture. steri-strips placed over bolt site. cont sedation weaning as tolerated and f/u exam cont critical care mgt barrett for sz prophylaxis nonchemical dvt prophylaxis due to ICH <Ale Weinberg - Last Filed: 10/06/18 12:30> - Plan The exam, history, and the medical decision-making described in the above note were completed with the assistance of the mid-level provider. I reviewed and agree with the findings presented. I attest that I had a [id number] encounter with the patient on the same day, and personally performed and documented my assessment and findings in the medical record. <Shivam Hills - Last Filed: 10/08/18 19:45>
[2018-10-06] MEDS: fentaNYL 10 mcg/mL Premix Drip 2,500 MCG/250 ML BAG IV.SIG PRN (11:48)
[2018-10-06 12:10] LABS: ABG Base Excess -1.6 mmol/L (-2-2); ABG PCO2 43 mmHg (38-42); ABG PO2 199 mmHg (61-120)
[2018-10-06] MEDS: Sodium Chloride 23.4% Inj 188 MEQ in Sod Chloride 0.9% Inj 1,000 ML IV.CONT SCH (13:40)
--- NOTE | 2018-10-06 14:01 | P.DIET ---
Nutritional Evaluation Type of nutrition evaluation: initial Screening comments: NPO Alert. Pt NPO x 3 days. TFing recommendations provided. Pt assessed per [employer] and ASPEN guidelines ofr critically ill pts with a BMI >50. Objective - Diagnosis Brain Bleed - Objective Body Mass Index: 65.4 % IBW: 284 (IBW = 166#) Body Weight Used for Calculations: IBW (75.5 kg) Energy Needs - Lower Range (kCal/kg): 22 Energy Needs - Upper Range (kCal/kg): 25 Lower Limit kCal/kg (kCals): 1,661 Upper Limit kCal/kg (kCals): 1,888 Lower Limit Protein Factor (Grams per Kg): 2.0 Upper Limit Protein Factor (Grams per Kg): 2.5 Lower Protein Needs (Protein): 151 Upper Protein Needs (Protein): 189 Dietitian Reviewed in Medical Record: Curent medications, Intake & Output, Labs , Medical history Diet Order: NPO Assessment Assessment: Pt is intubated and sedated with high rate propofol. If TF is needed, recommend Vital High Protein @ 55 mls/hr goal to provide 1320 kcals, 116 gms protein and 1104 mls of free water. Also recommend the addition of Beneprotein 2 packs tid for an additional 32 gms of protein. Additional kcals will come from propofol ( 1.1 kcal/ml and currently providing 1183 kcals/day). Recommendations: Vital High Protein @ 55 mls/hr goal Beneprotein 2 packs tid Dietitian to Monitor: Lab values, Intake & Output, Tube feeding tolerance, Weight change, Medical course
[2018-10-06] MEDS ORDERED: Sod Chloride 0.9% Inj 1,000 ML IV.SIG SCH (19:30)
[2018-10-07] MEDS: Oral Hygiene Kit OROPHARYNG SCH ×4 (00:05→15:04)
[2018-10-07] MEDS: Propofol 1000 mg/100 ml Inj 1,000 MG/100 ML BOTTLE IV.CONT PRN ×8 (01:17→23:38)
[2018-10-07] MEDS: Insulin NovoLOG Aspart Correctional Sugar Inj SQ SCH ×4 (01:19→17:54)
[2018-10-07] MEDS: Chlorhexidine Gluconate 2% 1 Pack (2 Cloths) TOPICAL SCH (03:47)
[2018-10-07] MEDS: fentaNYL 10 mcg/mL Premix Drip 2,500 MCG/250 ML BAG IV.SIG PRN ×2 (03:47→20:10)
[2018-10-07 04:26] LABS: ABG Base Excess -2.9 mmol/L (-2-2); ABG PCO2 48 mmHg (38-42); ABG PO2 103 mmHg (61-120)
[2018-10-07 06:26] LABS: Calcium 8.7 mg/dL (8.5-10.1); Carbon Dioxide 24.9 meq/L (21.0-32.0); Potassium 4.1 meq/L (3.5-5.1)
[2018-10-07] MEDS: Chlorhexidine 0.12% Oral Kit 15 ML UDC OROPHARYNG SCH (08:16)
[2018-10-07] MEDS: Senna/Docusate Sodium 8.6/50 MG Tablet PO SCH ×2 (08:16→20:40)
[2018-10-07] MEDS: Famotidine PF Inj 20 MG/2 ML Vial IV.PUSH SCH ×2 (08:17→20:39)
[2018-10-07] MEDS: amLODIPine 10 MG Tablet PO SCH (08:17)
--- NOTE | 2018-10-07 08:48 | P.PNCC ---
Subjective Subjective Remarks/Hospital Course: Patient is a 68-year-old morbidly obese male with past medical history significant for hypertension, diabetes, dyslipidemia, morbid obesity, thyroid disease, history of colon resection and colostomy, who presented to the [facility] with left-sided headache and poorly controlled hypertension. Apparently he woke up with severe left-sided headache was moderately confused and family brought him to the emergency department. The patient did take aspirin for his headache prior to presentation. A stat CT of the head showed large 6.9 x 3.6 x 3.2 cm acute intraparenchymal hemorrhage in the right temporoparietal region with approximate blood volume of 40 mL. There was surrounding edema and 2-3 mm leftward midline shift. Neurosurgery Dr. Hills was contacted and patient was transferred to [place] ICU. PT/INR/ platelet count was normal in the outside hospital. BUN was 43 creatinine was 2. I evaluated the patient in the ICU. Patient is awake but somnolent oriented only to person. He drifts to sleep while talking. His systolic blood pressure was 200 on arrival. Because of questionable airway protection and need for further imaging studies patient was intubated and placed on mechanical ventilation. Dr. Hills had been informed. I will start Cardene to control blood pressure, repeat stat CT head also CT angiogram of brain and neck will be performed. Also give 25 g of IV mannitol, start on 2% saline to keep sodium more than 150-155, also placed on Keppra for seizure prophylaxis. 10/04: Will start oral BP meds down NG tube and attempt to wean cardene. CKD persists as expected. Glucose swing expected. Keep intubated and sedated for now. 10/05: Better blood pressure control with by systolic and amlodipine restarted. Increased difficulty with oxygenation today, now requiring 100% FiO2 and 12 PEEP. Chest x-ray shows atelectasis involving the whole left lower lobe, cultures all negative for significant organism, no white blood cells. Will get repeat head CAT scan today. 10/06: Repeat head CT look good. Worsening difficulties with oxygenation related to the left lower lobe atelectasis. Converted to airway pressure release ventilation this morning. ICP continues to be very well controlled. 10/07: Lightening sedation today. ICP bolt has been removed. Oxygenation has improved. Continue airway pressure release ventilation. Renal function worse today, hydrate gently with isotonic saline and follow closely. - Diagnosis (1) Intraparenchymal hemorrhage of brain (2) Midline shift of brain (3) Acute encephalopathy (4) Hypertensive emergency (5) LLL pneumonia (6) Acute kidney injury (7) History of hypertension (8) Type 2 diabetes mellitus (9) Dyslipidemia (10) Morbid obesity Objective Vital Signs / I&O: Vital Signs 10/06/18 08:45 10/06/18 09:00 10/06/18 09:15 Temperature 97.2 F L 97.0 F L 97.0 F L Pulse Rate 66 63 60 Respiratory Rate Pulse Oximetry 97 98 98 10/06/18 09:25 10/06/18 09:30 10/06/18 09:45 Temperature 97.0 F L 97.0 F L Pulse Rate 59 L 58 L 57 L Respiratory Rate 12 Pulse Oximetry 97 97 97 10/06/18 10:00 10/06/18 10:15 10/06/18 10:30 Temperature 97.0 F L 97.2 F L 97.2 F L Pulse Rate 56 L 57 L 57 L Respiratory Rate Pulse Oximetry 99 98 98 10/06/18 10:45 10/06/18 11:00 10/06/18 11:15 Temperature 97.2 F L 97.2 F L 97.2 F L Pulse Rate 57 L 56 L 56 L Respiratory Rate Pulse Oximetry 98 98 98 10/06/18 11:30 10/06/18 11:45 10/06/18 12:00 Temperature 97.2 F L 97.2 F L 97.2 F L Pulse Rate 55 L 54 L 55 L Respiratory Rate Pulse Oximetry 98 98 98 10/06/18 12:15 10/06/18 12:30 10/06/18 12:45 Temperature 97.2 F L 97.2 F L 97.2 F L Pulse Rate 54 L 55 L 55 L Respiratory Rate Pulse Oximetry 98 98 96 10/06/18 13:00 10/06/18 13:15 10/06/18 13:21 Temperature 97.2 F L 97.3 F L Pulse Rate 56 L 56 L Respiratory Rate Pulse Oximetry 96 97 97 10/06/18 13:30 10/06/18 13:45 10/06/18 14:00 Temperature 97.3 F L 97.3 F L 97.3 F L Pulse Rate 57 L 57 L 56 L Respiratory Rate Pulse Oximetry 97 97 97 10/06/18 14:15 10/06/18 14:30 10/06/18 14:45 Temperature 97.3 F L 97.5 F L 97.5 F L Pulse Rate 58 L 57 L 56 L Respiratory Rate Pulse Oximetry 97 98 96 10/06/18 15:00 10/06/18 15:15 10/06/18 15:30 Temperature 97.5 F L 97.5 F L 97.5 F L Pulse Rate 56 L 56 L 57 L Respiratory Rate Pulse Oximetry 97 96 97 10/06/18 15:45 10/06/18 16:00 10/06/18 16:15 Temperature 97.5 F L 97.5 F L 97.5 F L Pulse Rate 56 L 57 L 59 L Respiratory Rate Pulse Oximetry 97 97 95 10/06/18 16:16 10/06/18 16:30 10/06/18 16:45 Temperature 97.5 F L 97.5 F L Pulse Rate 59 L 59 L 59 L Respiratory Rate 11 L Pulse Oximetry 95 95 94 L 10/06/18 17:00 10/06/18 17:15 10/06/18 17:30 Temperature 97.7 F 97.7 F 97.7 F Pulse Rate 60 61 62 Respiratory Rate Pulse Oximetry 94 L 94 L 94 L 10/06/18 17:45 10/06/18 18:00 10/06/18 18:15 Temperature 97.5 F L 97.5 F L 97.5 F L Pulse Rate 61 62 62 Respiratory Rate Pulse Oximetry 95 95 95 10/06/18 18:30 10/06/18 18:45 10/06/18 19:00 Temperature 97.5 F L 97.5 F L 97.5 F L Pulse Rate 62 63 63 Respiratory Rate Pulse Oximetry 95 95 95 10/06/18 19:15 10/06/18 19:30 10/06/18 19:45 Temperature 97.5 F L 97.5 F L 97.7 F Pulse Rate 63 63 63 Respiratory Rate Pulse Oximetry 95 95 95 10/06/18 20:00 10/06/18 20:15 10/06/18 20:30 Temperature 97.7 F 97.7 F 97.7 F Pulse Rate 63 63 63 Respiratory Rate 16 Pulse Oximetry 95 94 L 95 10/06/18 20:35 10/06/18 20:45 10/06/18 21:00 Temperature 97.7 F 97.7 F Pulse Rate 63 63 66 Respiratory Rate 11 L Pulse Oximetry 96 95 95 10/06/18 21:15 10/06/18 21:30 10/06/18 21:45 Temperature 97.5 F L 97.5 F L 97.5 F L Pulse Rate 68 72 71 Respiratory Rate Pulse Oximetry 95 94 L 94 L 10/06/18 22:00 10/06/18 22:15 10/06/18 22:30 Temperature 97.5 F L 97.5 F L 97.5 F L Pulse Rate 69 69 68 Respiratory Rate Pulse Oximetry 94 L 94 L 94 L 10/06/18 22:45 10/06/18 23:00 10/06/18 23:15 Temperature 97.5 F L 97.5 F L 97.5 F L Pulse Rate 66 65 64 Respiratory Rate Pulse Oximetry 94 L 95 93 L 10/06/18 23:30 10/06/18 23:45 10/06/18 23:58 Temperature 97.5 F L 97.5 F L Pulse Rate 63 63 Respiratory Rate 11 L Pulse Oximetry 94 L 94 L 94 L 10/07/18 00:00 10/07/18 00:15 10/07/18 00:30 Temperature 97.5 F L 97.7 F 97.7 F Pulse Rate 62 62 62 Respiratory Rate Pulse Oximetry 94 L 93 L 94 L 10/07/18 00:45 10/07/18 01:00 10/07/18 01:15 Temperature 97.7 F 97.5 F L 97.5 F L Pulse Rate 62 62 62 Respiratory Rate Pulse Oximetry 94 L 95 95 10/07/18 01:30 10/07/18 01:45 10/07/18 02:00 Temperature 97.5 F L 97.5 F L 97.5 F L Pulse Rate 62 62 62 Respiratory Rate Pulse Oximetry 95 95 95 10/07/18 02:15 10/07/18 02:30 10/07/18 02:45 Temperature 97.5 F L 97.5 F L 97.5 F L Pulse Rate 60 60 59 L Respiratory Rate Pulse Oximetry 94 L 98 100 10/07/18 03:00 10/07/18 03:08 10/07/18 03:38 Temperature 97.5 F L Pulse Rate 61 61 Respiratory Rate 11 L 11 L Pulse Oximetry 97 96 10/07/18 04:00 10/07/18 05:00 10/07/18 05:15 Temperature 97.5 F L 97.3 F L 97.3 F L Pulse Rate 62 63 61 Respiratory Rate Pulse Oximetry 97 96 96 10/07/18 05:30 10/07/18 05:45 10/07/18 06:00 Temperature 97.2 F L 97.2 F L 97.2 F L Pulse Rate 60 61 62 Respiratory Rate Pulse Oximetry 95 95 95 10/07/18 06:15 10/07/18 06:30 10/07/18 06:45 Temperature 97.2 F L 97.2 F L 97.2 F L Pulse Rate 61 61 61 Respiratory Rate 11 L Pulse Oximetry 95 97 10/07/18 07:00 10/07/18 07:15 10/07/18 07:30 Temperature 97.0 F L 97.2 F L 97.2 F L Pulse Rate 61 60 60 Respiratory Rate Pulse Oximetry 97 98 98 10/07/18 07:38 10/07/18 07:45 Temperature 97.2 F L Pulse Rate 62 63 Respiratory Rate 13 Pulse Oximetry 98 99 Intake & Output 10/06/18 10/07/18 10/07/18 18:59 06:59 18:59 Intake Total 955 / 955 655 / 655 100 / 100 Output Total 455 / 455 345 / 345 Balance 500 / 500 310 / 310 100 / 100 Weight 201.8 kg Intake: IV 955 / 955 655 / 655 100 / 100 Diprivan 1000 mg/100 ml Inj 1, 400 / 400 300 / 300 100 / 100 000 mg In 100 ml @ 5 MCG/KG/MIN 5.34 mls/hr IV.CONT TITRATE PRN Rx#:[id number] fentaNYL 10 mcg/mL Premix Drip 250 / 250 250 / 250 2,500 mcg In 250 ml @ 50 MCG/HR 5 mls/hr IV.SIG TITRATE PRN Rx #:[id number] Keppra Inj 500 MG In NS Inj 100 105 / 105 105 / 105 ML @ 400 mls/hr IV.SIG Q12H ISABEL Rx#:[id number] Cardene 20 mg/NS 200 ml Premix 200 / 200 20 mg In 200 ml @ 5 MG/HR 50 mls/hr IV.SIG TITRATE PRN Rx#: [id number] Output: Stool 50 / 50 Urine Amount (Catheter) 350 / 350 300 / 300 Indwelling Temp Sensing 350 / 350 300 / 300 Catheter Stool Amount (Stoma) 45 / 45 Pre-Hospital: 45 / 45 Wound Drainage 55 / 55 # 1 Right Frontal CLARIBEL Drain 5 / 5 # 2 Right Frontal CLARIBEL Drain 50 / 50 Other: Date of Last Bowel Movement 10/05/18 10/07/18 Result Diagrams: 10/04/18 05:10 10/07/18 05:30 Objective Remarks: Narrative: GEN: Morbidly obese male, intubated, on mechanical ventilation HEENT: Scalp incision open to air, dry and clean. iNECK: Supple. Orotracheal intubation LUNGS: Improved bilateral breath sounds, especially in the left base. HEART: S1 and S2 normal, heart sounds distant. No JVD. ABDOMEN: Soft. Nontender. Obese. Well-healed vertical scar. Right lower quadrant colostomy bag in place with dark stool EXTREMITIES: No pedal edema. Knee repair scar left side NEUROLOGIC: Intubated, lightly sedated. Breathes over vent. Assessment and Plan - Problem List (1) Intraparenchymal hemorrhage of brain Code(s): I61.9 - Nontraumatic intracerebral hemorrhage, unspecified Status: Acute (2) Midline shift of brain Code(s): G93.9 - Disorder of brain, unspecified Status: Acute (3) Acute encephalopathy Code(s): G93.40 - Encephalopathy, unspecified Status: Acute (4) Hypertensive emergency Code(s): I16.1 - Hypertensive emergency Status: Acute (5) LLL pneumonia Code(s): J18.1 - Lobar pneumonia, unspecified organism Status: Acute (6) Acute kidney injury Code(s): N17.9 - Acute kidney failure, unspecified Status: Acute (7) History of hypertension Code(s): Z86.79 - Personal history of other diseases of the circulatory system Status: Chronic (8) Type 2 diabetes mellitus Code(s): E11.9 - Type 2 diabetes mellitus without complications Status: Chronic (9) Dyslipidemia Code(s): E78.5 - Hyperlipidemia, unspecified Status: Chronic (10) Morbid obesity Code(s): E66.01 - Morbid (severe) obesity due to excess calories Status: Chronic - Assessment and Plan Plan: NEURO: Acute right temporoparietal intraparenchymal hemorrhage Midline shift Acute encephalopathy -Propofol and fentanyl for sedation and ventilator synchrony after intubation -Repeat stat CT head without contrast, also CT angiogram of the brain and neck to rule out aneurysm -Reduce 2% saline to 25 mL/h to keep sodium between 150 and 155 -Mannitol 25 g IV x1 -Keppra 500 mg IV every 12 hours -S/P crani and evacuation 10/03 -Repeat CAT scan of head with minimal edema and no shift 10/05 -Osmolality elevated nicely but renal function worse. We will have to hydrate gently with isotonic crystalloid RESP: Acute respiratory failure Left lower lobe pneumonia -Patient was intubated for airway protection, placed on PRVC/AC -Ventilator bundle -DuoNeb every 6 hours scheduled and as needed -Sputum culture negative -Converted to airway pressure release ventilation, after 24 hours FiO2 is reduced from 100% -> 40% CV: Hypertensive emergency Dyslipidemia -Normal saline IV fluids 1 L bolus and maintenance IV fluid 2% saline at 25 mL/h -Cardene infusion to keep systolic blood pressure less than 140 -Arterial line placement -IV labetalol as needed for SBP more than 140 -Bysystolic and amlodipine restarted down NG tube. -Still requiring Cardene drip, will add third oral agent down the NG tube. -May need to hold losartan if renal function deteriorates anymore GI: Morbid obesity History of colon resection, status post colostomy -N.p.o., IV famotidine -Routine colostomy care : Acute kidney injury -Monitor renal function closely. Place Mendieta catheter. -IV hydration as above -Unclear whether patient has chronic kidney disease ID: Left lower lobe pneumonia/atelectasis -Discontinue antibiotics, sputum culture benign -Blood and sputum cultures HEME: -Monitor CBC, coags ENDO: Type 2 diabetes Hypothyroidism -Electrolyte replacement per protocol -Sliding scale insulin PROPH: -Bilateral lower extremity SCDs/HIRAL. Chemical DVT prophylaxis contraindicated -IV famotidine LINES: -Utilize peripheral IVs, central line if needed Overall impression: Patient remains critically ill and neurologically unstable. Persistent respiratory problems due to morbid obesity and supine position. Now requiring airway pressure release ventilation for recruitment. He remains critically ill. Critical care time 38 minutes aside from procedures.
[2018-10-07] MEDS: niCARdipine 20mg/NS Premix 20 MG/200 ML PIGGYBACK IV.SIG PRN ×5 (14:00→23:03)
[2018-10-07] MEDS ORDERED: niCARdipine 20mg/NS Premix 20 MG/200 ML PIGGYBACK IV.SIG PRN (15:49)
[2018-10-08] MEDS: niCARdipine 20mg/NS Premix 20 MG/200 ML PIGGYBACK IV.SIG PRN ×9 (02:18→19:43)
[2018-10-08] MEDS: Chlorhexidine 0.12% Oral Kit 15 ML UDC OROPHARYNG SCH ×2 (02:19→07:39)
[2018-10-08] MEDS: Insulin NovoLOG Aspart Correctional Sugar Inj SQ SCH ×4 (02:59→17:31)
[2018-10-08] MEDS: Propofol 1000 mg/100 ml Inj 1,000 MG/100 ML BOTTLE IV.CONT PRN ×7 (03:15→22:19)
[2018-10-08] MEDS: Oral Hygiene Kit OROPHARYNG SCH ×4 (03:20→16:08)
[2018-10-08] MEDS: Chlorhexidine Gluconate 2% 1 Pack (2 Cloths) TOPICAL SCH (05:34)
[2018-10-08 06:31] LABS: Calcium 8.7 mg/dL (8.5-10.1); Carbon Dioxide 25.2 meq/L (21.0-32.0); Magnesium 2.2 mg/dL (1.5-2.5); Potassium 3.7 meq/L (3.5-5.1)
--- NOTE | 2018-10-08 06:36 | XR ---
EXAM DATE: 10/08/2018 5:56 AM EST AGE/SEX: 68 years / Male INDICATIONS: Hypoxemia. CLINICAL DATA: This is the patient's subsequent encounter. Patient reports that signs and symptoms h ave been present for 4 - 6 days and indicates a pain score of Nonresponsive. MEDICAL/SURGICAL HISTORY: Diabetes mellitus type II. Hypertension. Intraparenchymal hemorrhage Colon resection. COMPARISON: [facility] [place], CHEST 1V SINGLE AP, 10/05/2018. . FINDINGS: Single view the chest demonstrates the ET tube, NG tube and right IJ central venous catheter in excel lent position. There is bilateral perihilar vascular congestion. There are bilateral pleural effusion s present. Small lung volumes. Heart is borderline enlarged. CONCLUSION: Stable single view the chest. Small lung volumes with pulmonary vascular congestion and pleural effus ions. Electronically signed by: Kilo Cedeno MD 10/08/2018 6:35 AM EST
[2018-10-08] MEDS: Senna/Docusate Sodium 8.6/50 MG Tablet PO SCH ×2 (08:25→20:14)
[2018-10-08] MEDS: Famotidine PF Inj 20 MG/2 ML Vial IV.PUSH SCH ×2 (08:26→20:14)
[2018-10-08] MEDS: amLODIPine 10 MG Tablet PO SCH (08:26)
[2018-10-08] MEDS ORDERED: Vancomycin Consult Pharmacy OTHER PRN (08:29)
--- NOTE | 2018-10-08 08:29 | P.PNCC ---
Subjective Subjective Remarks/Hospital Course: Patient is a 68-year-old morbidly obese male with past medical history significant for hypertension, diabetes, dyslipidemia, morbid obesity, thyroid disease, history of colon resection and colostomy, who presented to the [facility] with left-sided headache and poorly controlled hypertension. Apparently he woke up with severe left-sided headache was moderately confused and family brought him to the emergency department. The patient did take aspirin for his headache prior to presentation. A stat CT of the head showed large 6.9 x 3.6 x 3.2 cm acute intraparenchymal hemorrhage in the right temporoparietal region with approximate blood volume of 40 mL. There was surrounding edema and 2-3 mm leftward midline shift. Neurosurgery Dr. Hills was contacted and patient was transferred to [facility]. PT/INR/ platelet count was normal in the outside hospital. BUN was 43 creatinine was 2. I evaluated the patient in the ICU. Patient is awake but somnolent oriented only to person. He drifts to sleep while talking. His systolic blood pressure was 200 on arrival. Because of questionable airway protection and need for further imaging studies patient was intubated and placed on mechanical ventilation. Dr. Hills had been informed. I will start Cardene to control blood pressure, repeat stat CT head also CT angiogram of brain and neck will be performed. Also give 25 g of IV mannitol, start on 2% saline to keep sodium more than 150-155, also placed on Keppra for seizure prophylaxis. 10/04: Will start oral BP meds down NG tube and attempt to wean cardene. CKD persists as expected. Glucose swing expected. Keep intubated and sedated for now. 10/05: Better blood pressure control with by systolic and amlodipine restarted. Increased difficulty with oxygenation today, now requiring 100% FiO2 and 12 PEEP. Chest x-ray shows atelectasis involving the whole left lower lobe, cultures all negative for significant organism, no white blood cells. Will get repeat head CAT scan today. 10/06: Repeat head CT look good. Worsening difficulties with oxygenation related to the left lower lobe atelectasis. Converted to airway pressure release ventilation this morning. ICP continues to be very well controlled. 10/07: Lightening sedation today. ICP bolt has been removed. Oxygenation has improved. Continue airway pressure release ventilation. Renal function worse today, hydrate gently with isotonic saline and follow closely. 10/08: Continued difficulties with oxygenation related to preoperative lung injury from his pneumonia, body habitus, fluid overload associated with his chronic kidney disease. We will be forced to go back to airway pressure release ventilation because he de-recruited severely after converting to conventional ventilation yesterday despite PEEP of 18. - Diagnosis (1) Intraparenchymal hemorrhage of brain (2) Midline shift of brain (3) Acute encephalopathy (4) Hypertensive emergency (5) LLL pneumonia (6) Acute kidney injury (7) History of hypertension (8) Type 2 diabetes mellitus (9) Dyslipidemia (10) Morbid obesity Objective Vital Signs / I&O: Vital Signs 10/07/18 09:00 10/07/18 10:00 10/07/18 10:43 Temperature 97.2 F L 97.3 F L Pulse Rate 71 65 Respiratory Rate Pulse Oximetry 98 97 97 10/07/18 11:00 10/07/18 12:00 10/07/18 12:15 Temperature 97.2 F L 97.0 F L 97.0 F L Pulse Rate 69 81 87 Respiratory Rate 16 Pulse Oximetry 92 L 93 L 93 L 10/07/18 12:30 10/07/18 12:45 10/07/18 13:00 Temperature 97.0 F L 97.0 F L 97.0 F L Pulse Rate 83 80 81 Respiratory Rate Pulse Oximetry 93 L 93 L 93 L 10/07/18 13:15 10/07/18 13:30 10/07/18 13:45 Temperature 97.0 F L 97.0 F L 97.0 F L Pulse Rate 80 81 80 Respiratory Rate Pulse Oximetry 93 L 92 L 92 L 10/07/18 14:00 10/07/18 14:15 10/07/18 14:30 Temperature 96.8 F L 96.8 F L 96.8 F L Pulse Rate 77 80 79 Respiratory Rate Pulse Oximetry 92 L 92 L 91 L 10/07/18 14:45 10/07/18 15:00 10/07/18 15:15 Temperature 96.8 F L 96.8 F L 96.8 F L Pulse Rate 76 77 77 Respiratory Rate Pulse Oximetry 97 97 98 10/07/18 15:30 10/07/18 15:39 10/07/18 15:45 Temperature 97.0 F L 97.0 F L Pulse Rate 70 76 Respiratory Rate 17 Pulse Oximetry 97 96 100 10/07/18 16:00 10/07/18 16:15 10/07/18 16:30 Temperature 97.0 F L 97.2 F L 97.2 F L Pulse Rate 69 68 69 Respiratory Rate 17 18 Pulse Oximetry 94 L 94 L 95 10/07/18 16:45 10/07/18 17:00 10/07/18 17:15 Temperature 97.2 F L 97.3 F L 97.3 F L Pulse Rate 69 70 70 Respiratory Rate 16 18 17 Pulse Oximetry 94 L 94 L 95 10/07/18 17:30 10/07/18 17:45 10/07/18 18:00 Temperature 97.3 F L 97.5 F L 97.5 F L Pulse Rate 72 70 69 Respiratory Rate Pulse Oximetry 96 93 L 91 L 10/07/18 18:15 10/07/18 18:30 18 18:45 Temperature 97.5 F L 97.5 F L 97.5 F L Pulse Rate 67 66 66 Respiratory Rate Pulse Oximetry 90 L 90 L 95 10/07/18 19:00 10/07/18 19:15 10/07/18 19:30 Temperature 97.7 F 97.7 F 97.7 F Pulse Rate 66 66 69 Respiratory Rate Pulse Oximetry 93 L 93 L 93 L 10/07/18 19:45 18 19:54 10/07/18 20:00 Temperature 97.7 F 97.7 F Pulse Rate 72 72 Respiratory Rate 16 Pulse Oximetry 93 L 93 L 93 L 10/07/18 20:15 10/07/18 20:30 10/07/18 20:45 Temperature 97.7 F 97.7 F 97.9 F Pulse Rate 69 69 68 Respiratory Rate Pulse Oximetry 93 L 93 L 93 L 10/07/18 21:00 10/07/18 21:15 10/07/18 21:30 Temperature 97.9 F 97.9 F 97.9 F Pulse Rate 68 68 67 Respiratory Rate Pulse Oximetry 93 L 94 L 94 L 10/07/18 21:45 10/07/18 22:00 10/07/18 22:15 Temperature 98.1 F 98.1 F 98.1 F Pulse Rate 67 65 66 Respiratory Rate Pulse Oximetry 94 L 94 L 94 L 10/07/18 22:30 10/07/18 22:45 10/07/18 23:00 Temperature 98.1 F 98.1 F 98.1 F Pulse Rate 65 64 65 Respiratory Rate Pulse Oximetry 94 L 94 L 94 L 10/07/18 23:15 10/07/18 23:30 10/07/18 23:45 Temperature 98.1 F 98.1 F 98.1 F Pulse Rate 65 64 64 Respiratory Rate Pulse Oximetry 94 L 94 L 95 10/07/18 23:47 10/08/18 00:00 10/08/18 00:15 Temperature 98.1 F 98.1 F Pulse Rate 64 64 Respiratory Rate 16 Pulse Oximetry 95 95 94 L 10/08/18 00:30 10/08/18 00:45 10/08/18 01:00 Temperature 98.1 F 98.1 F 98.1 F Pulse Rate 63 64 63 Respiratory Rate Pulse Oximetry 94 L 93 L 94 L 10/08/18 01:15 10/08/18 01:30 10/08/18 01:45 Temperature 98.1 F 98.1 F 98.1 F Pulse Rate 63 63 63 Respiratory Rate Pulse Oximetry 95 94 L 94 L 10/08/18 02:00 10/08/18 02:15 10/08/18 02:30 Temperature 98.1 F 98.1 F 98.1 F Pulse Rate 63 63 63 Respiratory Rate Pulse Oximetry 95 94 L 94 L 10/08/18 02:45 10/08/18 03:00 10/08/18 03:15 Temperature 98.1 F 98.1 F 98.1 F Pulse Rate 63 63 63 Respiratory Rate Pulse Oximetry 94 L 95 94 L 10/08/18 03:30 10/08/18 03:45 10/08/18 04:00 Temperature 98.1 F 98.1 F 98.1 F Pulse Rate 62 62 62 Respiratory Rate Pulse Oximetry 94 L 95 94 L 10/08/18 04:15 10/08/18 04:27 10/08/18 04:30 Temperature 98.1 F 98.1 F Pulse Rate 62 62 Respiratory Rate 16 Pulse Oximetry 94 L 94 L 94 L 10/08/18 04:45 10/08/18 05:00 10/08/18 05:15 Temperature 98.1 F 98.1 F 97.9 F Pulse Rate 62 63 63 Respiratory Rate Pulse Oximetry 94 L 91 L 91 L 10/08/18 05:30 10/08/18 05:45 10/08/18 05:57 Temperature 97.9 F 97.9 F Pulse Rate 63 67 67 Respiratory Rate Pulse Oximetry 92 L 94 L 10/08/18 06:00 10/08/18 06:15 10/08/18 06:30 Temperature 97.9 F 97.9 F 97.9 F Pulse Rate 64 65 66 Respiratory Rate Pulse Oximetry 91 L 94 L 93 L 10/08/18 06:45 10/08/18 07:00 10/08/18 07:15 Temperature 97.9 F 97.9 F 97.9 F Pulse Rate 64 64 64 Respiratory Rate Pulse Oximetry 95 91 L 91 L 10/08/18 07:30 10/08/18 07:45 10/08/18 08:00 Temperature 97.9 F 97.9 F 97.9 F Pulse Rate 66 64 70 Respiratory Rate Pulse Oximetry 90 L 92 L 91 L Intake & Output 10/07/18 10/08/18 10/08/18 18:59 06:59 18:59 Intake Total 705 / 705 1755 / 1755 200 / 200 Output Total 1055 / 1055 1570 / 1570 Balance -350 / -350 185 / 185 200 / 200 Weight 209.3 kg Intake: IV 705 / 705 1755 / 1755 200 / 200 Diprivan 1000 mg/100 ml Inj 1, 400 / 400 400 / 400 000 mg In 100 ml @ 5 MCG/KG/MIN 5.34 mls/hr IV.CONT TITRATE PRN Rx#:[id number] fentaNYL 10 mcg/mL Premix Drip 250 / 250 2,500 mcg In 250 ml @ 50 MCG/HR 5 mls/hr IV.SIG TITRATE PRN Rx #:[id number] Keppra Inj 500 MG In NS Inj 100 105 / 105 105 / 105 ML @ 400 mls/hr IV.SIG Q12H ISABEL Rx#:[id number] Cardene 20 mg/NS 200 ml Premix 200 / 200 1000 / 1000 200 / 200 20 mg In 200 ml @ 5 MG/HR 50 mls/hr IV.SIG TITRATE PRN Rx#: [id number] Output: Stool 50 / 50 Urine Amount (Catheter) 1000 / 1000 1500 / 1500 Indwelling Temp Sensing 1000 / 1000 1500 / 1500 Catheter Stool Amount (Stoma) Pre-Hospital: Gastric Drainage Oral Orogastric Tube Other: Date of Last Bowel Movement 10/06/18 10/06/18 10/06/18 Result Diagrams: 10/04/18 05:10 10/08/18 05:50 Objective Remarks: Narrative: GEN: Morbidly obese male, intubated, on mechanical ventilation. Generally edematous. HEENT: Scalp incision open to air, dry and clean. iNECK: Supple. Orotracheal intubation LUNGS: Decreased basal bilateral breath sounds. HEART: S1 and S2 normal, heart sounds distant. No JVD. ABDOMEN: Soft. Nontender. Obese. Well-healed vertical scar. Right lower quadrant colostomy bag in place with dark stool EXTREMITIES: No pedal edema. Knee repair scar left side NEUROLOGIC: Intubated, lightly sedated. Breathes over vent. Assessment and Plan - Problem List (1) Intraparenchymal hemorrhage of brain Code(s): I61.9 - Nontraumatic intracerebral hemorrhage, unspecified Status: Acute (2) Midline shift of brain Code(s): G93.9 - Disorder of brain, unspecified Status: Acute (3) Acute encephalopathy Code(s): G93.40 - Encephalopathy, unspecified Status: Acute (4) Hypertensive emergency Code(s): I16.1 - Hypertensive emergency Status: Acute (5) LLL pneumonia Code(s): J18.1 - Lobar pneumonia, unspecified organism Status: Acute (6) Acute kidney injury Code(s): N17.9 - Acute kidney failure, unspecified Status: Acute (7) History of hypertension Code(s): Z86.79 - Personal history of other diseases of the circulatory system Status: Chronic (8) Type 2 diabetes mellitus Code(s): E11.9 - Type 2 diabetes mellitus without complications Status: Chronic (9) Dyslipidemia Code(s): E78.5 - Hyperlipidemia, unspecified Status: Chronic (10) Morbid obesity Code(s): E66.01 - Morbid (severe) obesity due to excess calories Status: Chronic - Assessment and Plan Plan: NEURO: Acute right temporoparietal intraparenchymal hemorrhage Midline shift Acute encephalopathy -Propofol and fentanyl for sedation and ventilator synchrony after intubation -Repeat stat CT head without contrast, also CT angiogram of the brain and neck to rule out aneurysm -Reduce 2% saline to 25 mL/h to keep sodium between 150 and 155 -Mannitol 25 g IV x1 -Keppra 500 mg IV every 12 hours -S/P crani and evacuation 10/03 -Repeat CAT scan of head with minimal edema and no shift 10/05 -Osmolality elevated nicely but renal function worse. We will have to hydrate gently with isotonic crystalloid RESP: Acute respiratory failure Left lower lobe pneumonia -Patient was intubated for airway protection, placed on PRVC/AC -Ventilator bundle -DuoNeb every 6 hours scheduled and as needed -Sputum culture negative -Converted to airway pressure release ventilation, after 24 hours FiO2 is reduced from 100% -> 40% -Back up to 80% oxygen requirements and will need to convert back to airway pressure release ventilation. -Left lower lobe infiltrate possibly related to his pre-existing pneumonia before surgery CV: Hypertensive emergency Dyslipidemia -Normal saline IV fluids 1 L bolus and maintenance IV fluid 2% saline at 25 mL/h -Cardene infusion to keep systolic blood pressure less than 140 -Arterial line placement -IV labetalol as needed for SBP more than 140 -Bysystolic and amlodipine restarted down NG tube. -Still requiring Cardene drip, will add third oral agent down the NG tube. -May need to hold losartan if renal function deteriorates anymore GI: Morbid obesity History of colon resection, status post colostomy -N.p.o., IV famotidine -Routine colostomy care : Acute kidney injury -Monitor renal function closely. Place Mendieta catheter. -IV hydration as above -Unclear whether patient has chronic kidney disease ID: Left lower lobe pneumonia/atelectasis -Discontinue antibiotics, sputum culture benign -Blood and sputum cultures -Repeat sputum cultures. HEME: -Monitor CBC, coags ENDO: Type 2 diabetes Hypothyroidism -Electrolyte replacement per protocol -Sliding scale insulin PROPH: -Bilateral lower extremity SCDs/HIRAL. Chemical DVT prophylaxis contraindicated -IV famotidine LINES: -Utilize peripheral IVs, central line if needed Overall impression: Patient remains critically ill and neurologically unstable. Persistent respiratory problems due to morbid obesity and supine position. Chronic kidney disease is hampering our attempts at fluid removal. Now again requiring airway pressure release ventilation for recruitment. He remains critically ill and his respiratory status has deteriorated overnight. Critical care time 45 minutes aside from procedures.
[2018-10-08] MEDS: Furosemide Inj 100 MG in Sodium Chlor 0.9% Inj 90 ML IV.CONT SCH ×2 (09:57→18:47)
[2018-10-08] MEDS: fentaNYL 10 mcg/mL Premix Drip 2,500 MCG/250 ML BAG IV.SIG PRN (10:05)
--- NOTE | 2018-10-08 11:15 | P.PNNS ---
Subjective Interval history: == Physical Exam Vital signs: Vital Signs 10/07/18 12:00 10/07/18 12:15 10/07/18 12:30 Temperature 97.0 F L 97.0 F L 97.0 F L Pulse Rate 81 87 83 Respiratory Rate 16 Pulse Oximetry 93 L 93 L 93 L 10/07/18 12:45 10/07/18 13:00 10/07/18 13:15 Temperature 97.0 F L 97.0 F L 97.0 F L Pulse Rate 80 81 80 Respiratory Rate Pulse Oximetry 93 L 93 L 93 L 10/07/18 13:30 10/07/18 13:45 10/07/18 14:00 Temperature 97.0 F L 97.0 F L 96.8 F L Pulse Rate 81 80 77 Respiratory Rate Pulse Oximetry 92 L 92 L 92 L 10/07/18 14:15 10/07/18 14:30 10/07/18 14:45 Temperature 96.8 F L 96.8 F L 96.8 F L Pulse Rate 80 79 76 Respiratory Rate Pulse Oximetry 92 L 91 L 97 10/07/18 15:00 10/07/18 15:15 10/07/18 15:30 Temperature 96.8 F L 96.8 F L 97.0 F L Pulse Rate 77 77 70 Respiratory Rate Pulse Oximetry 97 98 97 10/07/18 15:39 10/07/18 15:45 10/07/18 16:00 Temperature 97.0 F L 97.0 F L Pulse Rate 76 69 Respiratory Rate 17 Pulse Oximetry 96 100 94 L 10/07/18 16:15 10/07/18 16:30 10/07/18 16:45 Temperature 97.2 F L 97.2 F L 97.2 F L Pulse Rate 68 69 69 Respiratory Rate 17 18 16 Pulse Oximetry 94 L 95 94 L 10/07/18 17:00 10/07/18 17:15 10/07/18 17:30 Temperature 97.3 F L 97.3 F L 97.3 F L Pulse Rate 70 70 72 Respiratory Rate 18 17 Pulse Oximetry 94 L 95 96 10/07/18 17:45 10/07/18 18:00 10/07/18 18:15 Temperature 97.5 F L 97.5 F L 97.5 F L Pulse Rate 70 69 67 Respiratory Rate Pulse Oximetry 93 L 91 L 90 L 11/17/18 18:30 10/07/18 18:45 10/07/18 19:00 Temperature 97.5 F L 97.5 F L 97.7 F Pulse Rate 66 66 66 Respiratory Rate Pulse Oximetry 90 L 95 93 L 10/07/18 19:15 10/07/18 19:30 10/07/18 19:45 Temperature 97.7 F 97.7 F 97.7 F Pulse Rate 66 69 72 Respiratory Rate Pulse Oximetry 93 L 93 L 93 L 10/07/18 19:54 10/07/18 20:00 10/07/18 20:15 Temperature 97.7 F 97.7 F Pulse Rate 72 69 Respiratory Rate 16 Pulse Oximetry 93 L 93 L 93 L 10/07/18 20:30 10/07/18 20:45 10/07/18 21:00 Temperature 97.7 F 97.9 F 97.9 F Pulse Rate 69 68 68 Respiratory Rate Pulse Oximetry 93 L 93 L 93 L 10/07/18 21:15 10/07/18 21:30 10/07/18 21:45 Temperature 97.9 F 97.9 F 98.1 F Pulse Rate 68 67 67 Respiratory Rate Pulse Oximetry 94 L 94 L 94 L 10/07/18 22:00 10/07/18 22:15 10/07/18 22:30 Temperature 98.1 F 98.1 F 98.1 F Pulse Rate 65 66 65 Respiratory Rate Pulse Oximetry 94 L 94 L 94 L 10/07/18 22:45 10/07/18 23:00 10/07/18 23:15 Temperature 98.1 F 98.1 F 98.1 F Pulse Rate 64 65 65 Respiratory Rate Pulse Oximetry 94 L 94 L 94 L 10/07/18 23:30 10/07/18 23:45 10/07/18 23:47 Temperature 98.1 F 98.1 F Pulse Rate 64 64 Respiratory Rate 16 Pulse Oximetry 94 L 95 95 10/08/18 00:00 10/08/18 00:15 10/08/18 00:30 Temperature 98.1 F 98.1 F 98.1 F Pulse Rate 64 64 63 Respiratory Rate Pulse Oximetry 95 94 L 94 L 10/08/18 00:45 10/08/18 01:00 10/08/18 01:15 Temperature 98.1 F 98.1 F 98.1 F Pulse Rate 64 63 63 Respiratory Rate Pulse Oximetry 93 L 94 L 95 10/08/18 01:30 10/08/18 01:45 10/08/18 02:00 Temperature 98.1 F 98.1 F 98.1 F Pulse Rate 63 63 63 Respiratory Rate Pulse Oximetry 94 L 94 L 95 10/08/18 02:15 10/08/18 02:30 10/08/18 02:45 Temperature 98.1 F 98.1 F 98.1 F Pulse Rate 63 63 63 Respiratory Rate Pulse Oximetry 94 L 94 L 94 L 10/08/18 03:00 10/08/18 03:15 10/08/18 03:30 Temperature 98.1 F 98.1 F 98.1 F Pulse Rate 63 63 62 Respiratory Rate Pulse Oximetry 95 94 L 94 L 10/08/18 03:45 10/08/18 04:00 10/08/18 04:15 Temperature 98.1 F 98.1 F 98.1 F Pulse Rate 62 62 62 Respiratory Rate Pulse Oximetry 95 94 L 94 L 10/08/18 04:27 10/08/18 04:30 10/08/18 04:45 Temperature 98.1 F 98.1 F Pulse Rate 62 62 Respiratory Rate 16 Pulse Oximetry 94 L 94 L 94 L 10/08/18 05:00 10/08/18 05:15 10/08/18 05:30 Temperature 98.1 F 97.9 F 97.9 F Pulse Rate 63 63 63 Respiratory Rate Pulse Oximetry 91 L 91 L 92 L 10/08/18 05:45 10/08/18 05:57 10/08/18 06:00 Temperature 97.9 F 97.9 F Pulse Rate 67 67 64 Respiratory Rate Pulse Oximetry 94 L 91 L 10/08/18 06:15 10/08/18 06:30 10/08/18 06:45 Temperature 97.9 F 97.9 F 97.9 F Pulse Rate 65 66 64 Respiratory Rate Pulse Oximetry 94 L 93 L 95 10/08/18 07:00 10/08/18 07:15 10/08/18 07:30 Temperature 97.9 F 97.9 F 97.9 F Pulse Rate 64 64 66 Respiratory Rate Pulse Oximetry 91 L 91 L 90 L 10/08/18 07:45 10/08/18 08:00 10/08/18 08:15 Temperature 97.9 F 97.9 F 97.9 F Pulse Rate 64 70 64 Respiratory Rate Pulse Oximetry 92 L 91 L 91 L 10/08/18 08:24 10/08/18 08:30 10/08/18 08:45 Temperature 97.9 F 97.9 F Pulse Rate 64 65 Respiratory Rate 13 Pulse Oximetry 91 L 92 L 92 L 10/08/18 09:00 10/08/18 09:15 10/08/18 09:30 Temperature 97.9 F 97.9 F 98.1 F Pulse Rate 65 65 64 Respiratory Rate Pulse Oximetry 93 L 93 L 95 10/08/18 09:45 10/08/18 10:00 10/08/18 10:15 Temperature 98.1 F 98.1 F 98.1 F Pulse Rate 63 63 63 Respiratory Rate Pulse Oximetry 95 95 96 10/08/18 10:30 10/08/18 10:32 10/08/18 10:45 Temperature 98.1 F 98.1 F Pulse Rate 64 65 Respiratory Rate 16 Pulse Oximetry 98 99 10/08/18 10:59 10/08/18 11:00 Temperature 97.9 F Pulse Rate 65 Respiratory Rate 11 L Pulse Oximetry 99 99 Intake & Output 10/07/18 10/08/18 10/08/18 18:59 06:59 18:59 Intake Total 705 / 705 1755 / 1755 955 / 955 Output Total 1055 / 1055 1570 / 1570 Balance -350 / -350 185 / 185 955 / 955 Weight 209.3 kg Intake: IV 705 / 705 1755 / 1755 955 / 955 Diprivan 1000 mg/100 ml Inj 1, 400 / 400 400 / 400 100 / 100 000 mg In 100 ml @ 5 MCG/KG/MIN 5.34 mls/hr IV.CONT TITRATE PRN Rx#:[id number] Maxipime Inj 2,000 MG In NS Inj 100 / 100 100 ML @ 200 mls/hr IV.SIG Q12H ISABEL Rx#:[id number] fentaNYL 10 mcg/mL Premix Drip 250 / 250 250 / 250 2,500 mcg In 250 ml @ 50 MCG/HR 5 mls/hr IV.SIG TITRATE PRN Rx #:[id number] Keppra Inj 500 MG In NS Inj 100 105 / 105 105 / 105 105 / 105 ML @ 400 mls/hr IV.SIG Q12H ISABEL Rx#:[id number] Cardene 20 mg/NS 200 ml Premix 200 / 200 1000 / 1000 400 / 400 20 mg In 200 ml @ 5 MG/HR 50 mls/hr IV.SIG TITRATE PRN Rx#: [id number] Output: Stool 50 / 50 Urine Amount (Catheter) 1000 / 1000 1500 / 1500 Indwelling Temp Sensing 1000 / 1000 1500 / 1500 Catheter Stool Amount (Stoma) Pre-Hospital: Gastric Drainage Oral Orogastric Tube Other: Date of Last Bowel Movement 10/06/18 10/06/18 10/06/18 Narrative: intubated, well sedated pupil left 5mm, pupil right 4 mm reactive conjugate gaze wound healing well, clean and dry, CLARIBEL drains intact ICP monitor in place not following commands for testing slight withdrawal to pain in both feet not really moving upper extremities at all - Urinary Catheter Management Indwelling Temp Sensing Catheter Cath placed during this visit: yes Reason for continuing: Hourly intake/output Insertion date: 10/03/18 Insertion time: 08:10 Indwelling Urethral Catheter Cath placed during this visit: no Assessment and Plan - Plan 68 year old male transferred for intraparenchymal hematoma, most likely due to hypertensive crisis CTA Brain negative for aneurysm or vascular malformation pt underwent emergent right posterior temporal craniotomy, evacuation of intracerebral hematoma, and placement of ICP monitor 10/03/18 Plan: Dr. Hills reviewed f/u CT Brain, dw family members today ICP monitor and CLARIBEL drains x 2 removed CLARIBEL drain site requiring placement of stitch due to CSF leaking- using sterile techniques single stitch placed on both CLARIBEL drain site using 4-0 silk suture. steri-strips placed over bolt site. cont sedation weaning as tolerated and f/u exam cont critical care mgt keppra for sz prophylaxis nonchemical dvt prophylaxis due to ICH 10/[address] Liu, patient fluid up/pulmonary but difficult to diurese neuro stable
[2018-10-08] MEDS ORDERED: Oral Hygiene Kit OROPHARYNG SCH (12:00)
[2018-10-08] MEDS ORDERED: Vancomycin Inj 2,000 MG in Sodium Chlor 0.9% Inj 500 ML IV.SIG ONE (14:00)
[2018-10-08 15:30] LABS: ABG Base Excess -4.5 mmol/L (-2-2); ABG PCO2 39 mmHg (38-42); ABG PO2 101 mmHg (61-120)
--- NOTE | 2018-10-08 15:34 | P.PCN ---
Procedure: Diagnosis: Hypoxemic respiratory failure Procedure: Insertion right radial artery monitoring line Narrative: Timeout performed patient properly identified. Indwelling radial artery line in place and not working. Hand is warm and viable. Unable to perform Clark test completely but with compression of the ulnar artery the hand remains well-perfused. Dressing removed from the indwelling arterial. Prepped with Chloraseptic. A floppy wire was delivered through the indwelling arterial line and brisk bleeding was observed. The indwelling catheter was removed and a new 10 cm 20-gauge arterial line was placed over the wire. A good waveform was observed in the line aspirated blood easily. A sterile dressing was applied. Perfusion to the right hand was intact following the procedure.
[2018-10-08] MEDS ORDERED: Chlorhexidine 0.12% Oral Kit 15 ML UDC OROPHARYNG SCH (20:00)
[2018-10-09] MEDS: Propofol 1000 mg/100 ml Inj 1,000 MG/100 ML BOTTLE IV.CONT PRN ×4 (00:46→22:43)
[2018-10-09] MEDS: Furosemide Inj 100 MG in Sodium Chlor 0.9% Inj 90 ML IV.CONT SCH ×2 (04:35→15:33)
[2018-10-09] MEDS: Chlorhexidine 0.12% Oral Kit 15 ML UDC OROPHARYNG SCH ×3 (04:35→21:59)
[2018-10-09] MEDS: Oral Hygiene Kit OROPHARYNG SCH ×4 (04:35→15:34)
[2018-10-09] MEDS: Insulin NovoLOG Aspart Correctional Sugar Inj SQ SCH ×4 (04:39→17:45)
--- NOTE | 2018-10-09 04:49 | XR ---
EXAM DATE: 10/09/2018 4:16 AM EST AGE/SEX: 68 years / Male INDICATIONS: Hypoxemia. CLINICAL DATA: This is the patient's subsequent encounter. Patient reports that signs and symptoms h ave been present for 1 week and indicates a pain score of Nonresponsive. MEDICAL/SURGICAL HISTORY: Diabetes. Hypertension. Intraparenchymal hemorrhage. . Colon resect ion. COMPARISON: [facility], CHEST 1V SINGLE AP, 10/08/2018. . FINDINGS: 2 AP views of the chest. Endotracheal tube, nasogastric tube, right IJ central venous catheter remain in place. Persistent bilateral pulmonary patchy with lower lung zone predominance. Persistent cardia c silhouette enlargement. No significant interval change. No evidence of pneumothorax. CONCLUSION: No significant interval change with persistent prominent bilateral lower lung zone pulmonary parenchy mal opacity and likely bilateral pleural effusions. Electronically signed by: Martin Lowery MD 10/09/2018 4:48 AM EST
[2018-10-09 06:07] LABS: Calcium 8.9 mg/dL (8.5-10.1); Carbon Dioxide 22.5 meq/L (21.0-32.0); Potassium 3.7 meq/L (3.5-5.1); Vancomycin,Random 15.2 Comment
--- NOTE | 2018-10-09 07:23 | P.PNCC ---
Subjective Subjective Remarks/Hospital Course: Patient is a 68-year-old morbidly obese male with past medical history significant for hypertension, diabetes, dyslipidemia, morbid obesity, thyroid disease, history of colon resection and colostomy, who presented to the [facility] with left-sided headache and poorly controlled hypertension. Apparently he woke up with severe left-sided headache was moderately confused and family brought him to the emergency department. The patient did take aspirin for his headache prior to presentation. A stat CT of the head showed large 6.9 x 3.6 x 3.2 cm acute intraparenchymal hemorrhage in the right temporoparietal region with approximate blood volume of 40 mL. There was surrounding edema and 2-3 mm leftward midline shift. Neurosurgery Dr. Hills was contacted and patient was transferred to [place] ICU. PT/INR/ platelet count was normal in the outside hospital. BUN was 43 creatinine was 2. I evaluated the patient in the ICU. Patient is awake but somnolent oriented only to person. He drifts to sleep while talking. His systolic blood pressure was 200 on arrival. Because of questionable airway protection and need for further imaging studies patient was intubated and placed on mechanical ventilation. Dr. Hills had been informed. I will start Cardene to control blood pressure, repeat stat CT head also CT angiogram of brain and neck will be performed. Also give 25 g of IV mannitol, start on 2% saline to keep sodium more than 150-155, also placed on Keppra for seizure prophylaxis. 10/04: Will start oral BP meds down NG tube and attempt to wean cardene. CKD persists as expected. Glucose swing expected. Keep intubated and sedated for now. 10/05: Better blood pressure control with by systolic and amlodipine restarted. Increased difficulty with oxygenation today, now requiring 100% FiO2 and 12 PEEP. Chest x-ray shows atelectasis involving the whole left lower lobe, cultures all negative for significant organism, no white blood cells. Will get repeat head CAT scan today. 10/06: Repeat head CT look good. Worsening difficulties with oxygenation related to the left lower lobe atelectasis. Converted to airway pressure release ventilation this morning. ICP continues to be very well controlled. 10/07: Lightening sedation today. ICP bolt has been removed. Oxygenation has improved. Continue airway pressure release ventilation. Renal function worse today, hydrate gently with isotonic saline and follow closely. 10/08: Continued difficulties with oxygenation related to preoperative lung injury from his pneumonia, body habitus, fluid overload associated with his chronic kidney disease. We will be forced to go back to airway pressure release ventilation because he de-recruited severely after converting to conventional ventilation yesterday despite PEEP of 18. 10/09: Starting to claw our way back to better oxygenation. He recruited severely on conventional ventilation despite markedly elevated PEEP. Hefty diuresis accomplished with Lasix drip however volume load from vancomycin and Cardene infusions makes it hard to get a significant reduction in total body water. This gentleman had pneumonia prior to his surgery and his persistent left lower lobe infiltrate impaired oxygenation early on. His chest x-ray still demonstrates consolidated areas in the left lower lung. - Diagnosis (1) Intraparenchymal hemorrhage of brain (2) Midline shift of brain (3) Acute encephalopathy (4) Hypertensive emergency (5) LLL pneumonia (6) Acute kidney injury (7) History of hypertension (8) Type 2 diabetes mellitus (9) Dyslipidemia (10) Morbid obesity Objective Vital Signs / I&O: Vital Signs 10/08/18 07:30 10/08/18 07:45 10/08/18 08:00 Temperature 97.9 F 97.9 F 97.9 F Pulse Rate 66 64 70 Respiratory Rate Pulse Oximetry 90 L 92 L 91 L 10/08/18 08:15 10/08/18 08:24 10/08/18 08:30 Temperature 97.9 F 97.9 F Pulse Rate 64 64 Respiratory Rate 13 Pulse Oximetry 91 L 91 L 92 L 10/08/18 08:45 10/08/18 09:00 10/08/18 09:15 Temperature 97.9 F 97.9 F 97.9 F Pulse Rate 65 65 65 Respiratory Rate Pulse Oximetry 92 L 93 L 93 L 10/08/18 09:30 10/08/18 09:45 10/08/18 10:00 Temperature 98.1 F 98.1 F 98.1 F Pulse Rate 64 63 63 Respiratory Rate Pulse Oximetry 95 95 95 10/08/18 10:15 10/08/18 10:30 10/08/18 10:32 Temperature 98.1 F 98.1 F Pulse Rate 63 64 Respiratory Rate 16 Pulse Oximetry 96 98 10/08/18 10:45 10/08/18 10:59 10/08/18 11:00 Temperature 98.1 F 97.9 F Pulse Rate 65 65 Respiratory Rate 11 L Pulse Oximetry 99 99 99 10/08/18 11:15 10/08/18 11:30 10/08/18 11:45 Temperature 97.9 F 97.9 F 97.9 F Pulse Rate 66 67 66 Respiratory Rate Pulse Oximetry 98 98 98 10/08/18 12:00 10/08/18 12:15 10/08/18 12:30 Temperature 97.9 F 97.9 F 97.9 F Pulse Rate 67 66 65 Respiratory Rate Pulse Oximetry 97 96 96 10/08/18 12:45 10/08/18 13:00 10/08/18 13:15 Temperature 98.1 F 98.1 F 98.1 F Pulse Rate 63 62 62 Respiratory Rate Pulse Oximetry 95 94 L 94 L 10/08/18 13:30 10/08/18 13:45 10/08/18 14:00 Temperature 98.1 F 98.1 F 98.1 F Pulse Rate 62 63 62 Respiratory Rate Pulse Oximetry 94 L 95 96 10/08/18 14:15 10/08/18 14:30 10/08/18 14:45 Temperature 98.1 F 98.1 F 98.1 F Pulse Rate 62 62 62 Respiratory Rate Pulse Oximetry 97 97 97 10/08/18 15:00 10/08/18 15:15 10/08/18 15:30 Temperature 98.1 F 98.1 F 98.1 F Pulse Rate 62 62 62 Respiratory Rate Pulse Oximetry 96 96 95 10/08/18 15:31 10/08/18 15:45 10/08/18 16:00 Temperature 98.1 F 98.1 F Pulse Rate 62 62 Respiratory Rate 11 L Pulse Oximetry 96 96 96 10/08/18 16:15 10/08/18 16:30 10/08/18 16:45 Temperature 98.1 F 98.1 F 98.1 F Pulse Rate 62 63 63 Respiratory Rate Pulse Oximetry 97 97 97 10/08/18 17:00 10/08/18 17:15 10/08/18 17:30 Temperature 98.1 F 98.1 F 98.1 F Pulse Rate 63 64 63 Respiratory Rate Pulse Oximetry 97 97 97 10/08/18 17:45 10/08/18 18:00 10/08/18 18:15 Temperature 98.1 F 98.1 F 98.1 F Pulse Rate 64 63 62 Respiratory Rate Pulse Oximetry 97 97 97 10/08/18 18:30 10/08/18 18:45 10/08/18 19:00 Temperature 98.1 F 98.1 F 98.1 F Pulse Rate 62 64 64 Respiratory Rate Pulse Oximetry 96 99 99 10/08/18 19:15 10/08/18 19:30 10/08/18 19:45 Temperature 98.1 F 97.9 F 97.9 F Pulse Rate 64 65 66 Respiratory Rate Pulse Oximetry 99 100 99 10/08/18 20:00 10/08/18 20:05 10/08/18 20:15 Temperature 97.9 F 97.9 F Pulse Rate 65 64 Respiratory Rate 11 L Pulse Oximetry 99 98 97 10/08/18 20:30 10/08/18 20:45 10/08/18 21:00 Temperature 97.9 F 97.9 F 97.9 F Pulse Rate 64 63 63 Respiratory Rate Pulse Oximetry 96 96 97 10/08/18 21:15 10/08/18 21:30 10/08/18 21:45 Temperature 97.9 F 97.9 F 97.9 F Pulse Rate 65 65 64 Respiratory Rate Pulse Oximetry 98 98 97 10/08/18 22:00 10/08/18 22:15 10/08/18 22:30 Temperature 97.9 F 97.7 F 97.7 F Pulse Rate 64 65 65 Respiratory Rate Pulse Oximetry 97 97 98 10/08/18 22:45 10/08/18 23:00 10/08/18 23:04 Temperature 97.7 F 97.5 F L Pulse Rate 65 66 Respiratory Rate 11 L Pulse Oximetry 98 98 98 10/08/18 23:15 10/08/18 23:30 10/08/18 23:45 Temperature 97.5 F L 97.7 F 97.7 F Pulse Rate 67 68 69 Respiratory Rate Pulse Oximetry 97 97 96 10/09/18 00:00 10/09/18 00:15 10/09/18 00:30 Temperature 97.7 F 97.9 F 97.9 F Pulse Rate 68 70 68 Respiratory Rate Pulse Oximetry 97 97 96 10/09/18 00:45 10/09/18 01:00 10/09/18 01:15 Temperature 97.9 F 98.1 F 98.2 F Pulse Rate 69 68 69 Respiratory Rate Pulse Oximetry 95 95 94 L 10/09/18 01:30 10/09/18 01:45 10/09/18 02:00 Temperature 98.2 F 98.2 F 98.2 F Pulse Rate 66 67 66 Respiratory Rate 11 L Pulse Oximetry 95 95 95 10/09/18 02:15 10/09/18 02:30 10/09/18 02:45 Temperature 98.2 F 98.2 F 98.2 F Pulse Rate 66 65 66 Respiratory Rate Pulse Oximetry 96 96 95 10/09/18 03:00 10/09/18 03:15 10/09/18 03:30 Temperature 98.2 F 98.2 F 98.2 F Pulse Rate 65 65 65 Respiratory Rate Pulse Oximetry 97 96 96 10/09/18 03:45 10/09/18 04:00 10/09/18 04:07 Temperature 98.2 F 98.2 F Pulse Rate 65 66 Respiratory Rate 11 L Pulse Oximetry 96 95 96 10/09/18 04:15 10/09/18 04:30 10/09/18 04:45 Temperature 98.4 F 98.4 F 98.4 F Pulse Rate 66 66 66 Respiratory Rate Pulse Oximetry 94 L 93 L 92 L 10/09/18 05:00 10/09/18 05:15 10/09/18 05:30 Temperature 98.4 F 98.4 F 98.4 F Pulse Rate 65 65 65 Respiratory Rate Pulse Oximetry 92 L 92 L 94 L 10/09/18 05:45 10/09/18 06:00 Temperature 98.4 F 98.4 F Pulse Rate 65 65 Respiratory Rate Pulse Oximetry 94 L 94 L Intake & Output 10/08/18 10/09/18 10/09/18 18:59 06:59 18:59 Intake Total 2675 / 2675 1005 / 1005 Output Total 1000 / 1000 1999 / 1999 Balance 1675 / 1675 -995 / -995 Weight 211.7 kg Intake: IV 2675 / 2675 1005 / 1005 Lasix Inj 100 MG In NS Inj 90 100 / 100 100 / 100 ML @ 10 mls/hr IV.CONT .Q10H [facility] Rx#:[id number] Diprivan 1000 mg/100 ml Inj 1, 400 / 400 300 / 300 000 mg In 100 ml @ 5 MCG/KG/MIN 5.34 mls/hr IV.CONT TITRATE PRN Rx#:[id number] Maxipime Inj 2,000 MG In NS Inj 100 / 100 100 / 100 100 ML @ 200 mls/hr IV.SIG Q12H [facility] Rx#:[id number] Vancomycin Inj 2,000 MG In NS 520 / 520 Inj 500 ML @ 250 mls/hr IV.SIG ONCE ONE Rx#:[id number] fentaNYL 10 mcg/mL Premix Drip 250 / 250 2,500 mcg In 250 ml @ 50 MCG/HR 5 mls/hr IV.SIG TITRATE PRN Rx #:[id number] Keppra Inj 500 MG In NS Inj 100 105 / 105 105 / 105 ML @ 400 mls/hr IV.SIG Q12H [facility] Rx#:[id number] Cardene 20 mg/NS 200 ml Premix 1200 / 1200 400 / 400 20 mg In 200 ml @ 5 MG/HR 50 mls/hr IV.SIG TITRATE PRN Rx#: [id number] Output: Urine Amount (Catheter) 950 / 950 1999 / 2000 Indwelling Temp Sensing 950 / 950 1999 / 2000 Catheter Stool Amount (Stoma) 50 / 50 Pre-Hospital: 50 / 50 Other: Date of Last Bowel Movement 10/06/18 10/06/18 Result Diagrams: 10/04/18 05:10 10/09/18 05:20 Objective Remarks: Narrative: GEN: Morbidly obese male, intubated, on mechanical ventilation. Generally edematous. HEENT: Scalp incision open to air, dry and clean. NECK: Supple. Orotracheal intubation. Orogastric tube in place LUNGS: Decreased basal bilateral breath sounds. Muffled sounds posteriorly both bases. Good chest wall movement. HEART: S1 and S2 normal, heart sounds distant. No JVD. ABDOMEN: Soft. Nontender. Obese. Well-healed vertical scar. Right lower quadrant colostomy bag in place with dark stool EXTREMITIES: No pedal edema. Knee repair scar left side. Limbs generally edematous. NEUROLOGIC: Intubated, lightly sedated. Breathes over vent. Assessment and Plan - Problem List (1) Intraparenchymal hemorrhage of brain Code(s): I61.9 - Nontraumatic intracerebral hemorrhage, unspecified Status: Acute (2) Midline shift of brain Code(s): G93.9 - Disorder of brain, unspecified Status: Acute (3) Acute encephalopathy Code(s): G93.40 - Encephalopathy, unspecified Status: Acute (4) Hypertensive emergency Code(s): I16.1 - Hypertensive emergency Status: Acute (5) LLL pneumonia Code(s): J18.1 - Lobar pneumonia, unspecified organism Status: Acute (6) Acute kidney injury Code(s): N17.9 - Acute kidney failure, unspecified Status: Acute (7) History of hypertension Code(s): Z86.79 - Personal history of other diseases of the circulatory system Status: Chronic (8) Type 2 diabetes mellitus Code(s): E11.9 - Type 2 diabetes mellitus without complications Status: Chronic (9) Dyslipidemia Code(s): E78.5 - Hyperlipidemia, unspecified Status: Chronic (10) Morbid obesity Code(s): E66.01 - Morbid (severe) obesity due to excess calories Status: Chronic - Assessment and Plan Plan: NEURO: Acute right temporoparietal intraparenchymal hemorrhage Midline shift Acute encephalopathy -Propofol and fentanyl for sedation and ventilator synchrony after intubation -Repeat stat CT head without contrast, also CT angiogram of the brain and neck to rule out aneurysm -Reduce 2% saline to 25 mL/h to keep sodium between 150 and 155 -Mannitol 25 g IV x1 -Keppra 500 mg IV every 12 hours -S/P crani and evacuation 10/03 -Repeat CAT scan of head with minimal edema and no shift 10/05 -Osmolality elevated nicely but renal function worse. -Discontinued 2% saline, continue Lasix drip. RESP: Acute respiratory failure Left lower lobe pneumonia -Patient was intubated for airway protection, placed on PRVC/AC -Ventilator bundle -DuoNeb every 6 hours scheduled and as needed -Sputum culture negative -Converted to airway pressure release ventilation, after 24 hours FiO2 is reduced from 100% -> 40% -Back up to 80% oxygen requirements and will need to convert back to airway pressure release ventilation. -Left lower lobe infiltrate has persisted, related to his pre-existing pneumonia before surgery CV: Hypertensive emergency Dyslipidemia -Normal saline IV fluids 1 L bolus and maintenance IV fluid 2% saline at 25 mL/h -Cardene infusion to keep systolic blood pressure less than 140 -Arterial line placement -IV labetalol as needed for SBP more than 140 -Bysystolic and amlodipine restarted down NG tube. -Still requiring Cardene drip, will add third oral agent down the NG tube. -May need to hold losartan if renal function deteriorates anymore GI: Morbid obesity History of colon resection, status post colostomy -N.p.o., IV famotidine -Routine colostomy care : Acute kidney injury -Monitor renal function closely. Place Mendieta catheter. -IV hydration as above -Unclear whether patient has chronic kidney disease ID: Left lower lobe pneumonia/atelectasis -Discontinue antibiotics, sputum culture benign -Blood and sputum cultures -Repeat sputum cultures. HEME: -Monitor CBC, coags ENDO: Type 2 diabetes Hypothyroidism -Electrolyte replacement per protocol -Sliding scale insulin PROPH: -Bilateral lower extremity SCDs/HIRAL. Chemical DVT prophylaxis contraindicated status post parenchymal brain bleed -IV famotidine LINES: -Utilize peripheral IVs, central line if needed Overall impression: Patient remains critically ill and pulmonary status is unstable. Persistent respiratory problems due to morbid obesity, pre-existing pneumonia, and supine position. Chronic kidney disease is hampering our attempts at fluid removal. Now again requiring airway pressure release ventilation for recruitment. He remains critically ill. Discussed with his on several occasions. Critical care time 40 minutes aside from procedures.
[2018-10-09 07:52] LABS: ABG Base Excess -3.6 mmol/L (-2-2); ABG PCO2 48 mmHg (38-42); ABG PO2 93 mmHg (61-120)
[2018-10-09 08:19] LABS: Baso % (Auto) 0.7 % (0.0-2.0); Eos # (Auto) 0.2 th/mm3 (0.0-0.4); Eos % (Auto) 5.4 % (0.0-4.0); Hematocrit 33.9 % (39.0-51.0); Hemoglobin 10.7 gm/dL (13.0-17.0); Lymph # (Auto) 0.7 th/mm3 (1.0-4.8); Lymph % (Auto) 18.8 % (9.0-44.0); Mean Corpuscular HGB Conc 31.7 % (32.0-36.0); Mean Corpuscular Hemoglobin 27.8 pg (27.0-34.0); Mean Corpuscular Volume 87.7 fL (80.0-100.0); Mean Platelet Volume 8.7 fL (7.0-11.0); Mono # (Auto) 0.3 th/mm3 (0.0-0.9); Mono % (Auto) 8.7 % (0.0-8.0); Neut # (Auto) 2.5 th/mm3 (1.8-7.7); Neut % (Auto) 66.4 % (16.0-70.0); Platelet Count 165 th/mm3 (150-450); Red Blood Count 3.86 mil/mm3 (4.50-5.90); Red Cell Distribution Width 16.1 % (11.6-17.2); White Blood Count 3.8 th/mm3 (4.0-11.0)
[2018-10-09] MEDS: fentaNYL 10 mcg/mL Premix Drip 2,500 MCG/250 ML BAG IV.SIG PRN (08:53)
[2018-10-09] MEDS: Famotidine PF Inj 20 MG/2 ML Vial IV.PUSH SCH ×2 (08:55→21:59)
[2018-10-09] MEDS: amLODIPine 10 MG Tablet PO SCH (08:55)
[2018-10-09] MEDS: Senna/Docusate Sodium 8.6/50 MG Tablet PO SCH ×2 (08:57→22:00)
[2018-10-09] MEDS: Norepinephrine Inj 4 MG in Sodium Chlor 0.9% Inj 246 ML IV.SIG PRN ×2 (09:00→19:11)
[2018-10-09 09:08] LABS: Ovalocytes 1+; Platelet Estimate Normal (Normal); Platelet Morphology Normal (Normal)
[2018-10-09] MEDS ORDERED: Vancomycin Inj 2,000 MG in Sodium Chlor 0.9% Inj 500 ML IV.SIG ONE (11:00)
--- NOTE | 2018-10-09 11:47 | P.PNNS ---
Subjective Interval history: intubated, sedated. on caredene for bp control Physical Exam Vital signs: Vital Signs 10/08/18 11:30 10/08/18 11:45 10/08/18 12:00 Temperature 97.9 F 97.9 F 97.9 F Pulse Rate 67 66 67 Respiratory Rate Pulse Oximetry 98 98 97 10/08/18 12:15 10/08/18 12:30 10/08/18 12:45 Temperature 97.9 F 97.9 F 98.1 F Pulse Rate 66 65 63 Respiratory Rate Pulse Oximetry 96 96 95 10/08/18 13:00 10/08/18 13:15 10/08/18 13:30 Temperature 98.1 F 98.1 F 98.1 F Pulse Rate 62 62 62 Respiratory Rate Pulse Oximetry 94 L 94 L 94 L 10/08/18 13:45 10/08/18 14:00 10/08/18 14:15 Temperature 98.1 F 98.1 F 98.1 F Pulse Rate 63 62 62 Respiratory Rate Pulse Oximetry 95 96 97 10/08/18 14:30 10/08/18 14:45 10/08/18 15:00 Temperature 98.1 F 98.1 F 98.1 F Pulse Rate 62 62 62 Respiratory Rate Pulse Oximetry 97 97 96 10/08/18 15:15 10/08/18 15:30 10/08/18 15:31 Temperature 98.1 F 98.1 F Pulse Rate 62 62 Respiratory Rate 11 L Pulse Oximetry 96 95 96 10/08/18 15:45 10/08/18 16:00 10/08/18 16:15 Temperature 98.1 F 98.1 F 98.1 F Pulse Rate 62 62 62 Respiratory Rate Pulse Oximetry 96 96 97 10/08/18 16:30 10/08/18 16:45 10/08/18 17:00 Temperature 98.1 F 98.1 F 98.1 F Pulse Rate 63 63 63 Respiratory Rate Pulse Oximetry 97 97 97 10/08/18 17:15 10/08/18 17:30 10/08/18 17:45 Temperature 98.1 F 98.1 F 98.1 F Pulse Rate 64 63 64 Respiratory Rate Pulse Oximetry 97 97 97 10/08/18 18:00 10/08/18 18:15 10/08/18 18:30 Temperature 98.1 F 98.1 F 98.1 F Pulse Rate 63 62 62 Respiratory Rate Pulse Oximetry 97 97 96 10/08/18 18:45 10/08/18 19:00 10/08/18 19:15 Temperature 98.1 F 98.1 F 98.1 F Pulse Rate 64 64 64 Respiratory Rate Pulse Oximetry 99 99 99 10/08/18 19:30 10/08/18 19:45 10/08/18 20:00 Temperature 97.9 F 97.9 F 97.9 F Pulse Rate 65 66 65 Respiratory Rate Pulse Oximetry 100 99 99 10/08/18 20:05 10/08/18 20:15 10/08/18 20:30 Temperature 97.9 F 97.9 F Pulse Rate 64 64 Respiratory Rate 11 L Pulse Oximetry 98 97 96 10/08/18 20:45 10/08/18 21:00 10/08/18 21:15 Temperature 97.9 F 97.9 F 97.9 F Pulse Rate 63 63 65 Respiratory Rate Pulse Oximetry 96 97 98 10/08/18 21:30 10/08/18 21:45 10/08/18 22:00 Temperature 97.9 F 97.9 F 97.9 F Pulse Rate 65 64 64 Respiratory Rate Pulse Oximetry 98 97 97 10/08/18 22:15 10/08/18 22:30 10/08/18 22:45 Temperature 97.7 F 97.7 F 97.7 F Pulse Rate 65 65 65 Respiratory Rate Pulse Oximetry 97 98 98 10/08/18 23:00 10/08/18 23:04 10/08/18 23:15 Temperature 97.5 F L 97.5 F L Pulse Rate 66 67 Respiratory Rate 11 L Pulse Oximetry 98 98 97 10/08/18 23:30 10/08/18 23:45 10/09/18 00:00 Temperature 97.7 F 97.7 F 97.7 F Pulse Rate 68 69 68 Respiratory Rate Pulse Oximetry 97 96 97 10/09/18 00:15 10/09/18 00:30 10/09/18 00:45 Temperature 97.9 F 97.9 F 97.9 F Pulse Rate 70 68 69 Respiratory Rate Pulse Oximetry 97 96 95 10/09/18 01:00 10/09/18 01:15 10/09/18 01:30 Temperature 98.1 F 98.2 F 98.2 F Pulse Rate 68 69 66 Respiratory Rate Pulse Oximetry 95 94 L 95 10/09/18 01:45 10/09/18 02:00 10/09/18 02:15 Temperature 98.2 F 98.2 F 98.2 F Pulse Rate 67 66 66 Respiratory Rate 11 L Pulse Oximetry 95 95 96 10/09/18 02:30 10/09/18 02:45 10/09/18 03:00 Temperature 98.2 F 98.2 F 98.2 F Pulse Rate 65 66 65 Respiratory Rate Pulse Oximetry 96 95 97 10/09/18 03:15 10/09/18 03:30 10/09/18 03:45 Temperature 98.2 F 98.2 F 98.2 F Pulse Rate 65 65 65 Respiratory Rate Pulse Oximetry 96 96 96 10/09/18 04:00 10/09/18 04:07 10/09/18 04:15 Temperature 98.2 F 98.4 F Pulse Rate 66 66 Respiratory Rate 11 L Pulse Oximetry 95 96 94 L 10/09/18 04:30 10/09/18 04:45 10/09/18 05:00 Temperature 98.4 F 98.4 F 98.4 F Pulse Rate 66 66 65 Respiratory Rate Pulse Oximetry 93 L 92 L 92 L 10/09/18 05:15 10/09/18 05:30 10/09/18 05:45 Temperature 98.4 F 98.4 F 98.4 F Pulse Rate 65 65 65 Respiratory Rate Pulse Oximetry 92 L 94 L 94 L 10/09/18 06:00 10/09/18 06:15 10/09/18 06:30 Temperature 98.4 F 98.4 F 98.4 F Pulse Rate 65 65 65 Respiratory Rate Pulse Oximetry 94 L 94 L 94 L 10/09/18 06:45 10/09/18 07:00 10/09/18 07:15 Temperature 98.4 F 98.4 F 98.4 F Pulse Rate 66 67 66 Respiratory Rate Pulse Oximetry 94 L 94 L 94 L 10/09/18 07:30 10/09/18 07:45 10/09/18 08:00 Temperature 98.4 F 98.4 F 98.2 F Pulse Rate 67 78 78 Respiratory Rate Pulse Oximetry 94 L 93 L 93 L 10/09/18 08:15 10/09/18 08:22 10/09/18 08:30 Temperature 98.2 F 98.2 F Pulse Rate 84 77 Respiratory Rate 13 Pulse Oximetry 92 L 93 L 94 L 10/09/18 08:45 10/09/18 09:00 10/09/18 09:15 Temperature 98.4 F 98.4 F 98.4 F Pulse Rate 79 74 72 Respiratory Rate Pulse Oximetry 92 L 92 L 89 L Intake & Output 10/08/18 10/09/18 10/09/18 18:59 06:59 18:59 Intake Total 2675 / 2675 1255 / 1255 100 / 100 Output Total 1000 / 1000 1999 Balance 1675 / 1675 -745 / -745 100 / 100 Weight 211.7 kg Intake: IV 2675 / 2675 1255 / 1255 100 / 100 Lasix Inj 100 MG In NS Inj 90 100 / 100 100 / 100 ML @ 10 mls/hr IV.CONT .Q10H [facility] Rx#:[id number] Diprivan 1000 mg/100 ml Inj 1, 400 / 400 300 / 300 100 / 100 000 mg In 100 ml @ 5 MCG/KG/MIN 5.34 mls/hr IV.CONT TITRATE PRN Rx#:[id number] Maxipime Inj 2,000 MG In NS Inj 100 / 100 100 / 100 100 ML @ 200 mls/hr IV.SIG Q12H [facility] Rx#:[id number] Vancomycin Inj 2,000 MG In NS 520 / 520 Inj 500 ML @ 250 mls/hr IV.SIG ONCE ONE Rx#:[id number] fentaNYL 10 mcg/mL Premix Drip 250 / 250 250 / 250 2,500 mcg In 250 ml @ 50 MCG/HR 5 mls/hr IV.SIG TITRATE PRN Rx #:[id number] Keppra Inj 500 MG In NS Inj 100 105 / 105 105 / 105 ML @ 400 mls/hr IV.SIG Q12H [facility] Rx#:[id number] Cardene 20 mg/NS 200 ml Premix 1200 / 1200 400 / 400 20 mg In 200 ml @ 5 MG/HR 50 mls/hr IV.SIG TITRATE PRN Rx#: [id number] Output: Urine Amount (Catheter) 950 / 950 1999 Indwelling Temp Sensing 950 / 950 1999 Catheter Stool Amount (Stoma) 50 / 50 Pre-Hospital: 50 / 50 Other: Date of Last Bowel Movement 10/06/18 10/06/18 Narrative: intubated, well sedated pupil left 5mm, pupil right 4 mm reactive conjugate gaze wound healing well, clean and dry not following commands for testing slight withdrawal to pain in both feet not really moving upper extremities at all - Urinary Catheter Management Indwelling Temp Sensing Catheter Cath placed during this visit: yes Reason for continuing: Hourly intake/output Insertion date: 10/03/18 Insertion time: 08:10 Indwelling Urethral Catheter Cath placed during this visit: no Assessment and Plan - Plan 68 year old male transferred for intraparenchymal hematoma, most likely due to hypertensive crisis CTA Brain negative for aneurysm or vascular malformation pt underwent emergent right posterior temporal craniotomy, evacuation of intracerebral hematoma, and placement of ICP monitor 10/03/18 Plan: Dr. Hills reviewed f/u CT Brain, dw family members today ICP monitor and CLARIBEL drains x 2 removed CLARIBEL drain site requiring placement of stitch due to CSF leaking- using sterile techniques single stitch placed on both CLARIBEL drain site using 4-0 silk suture. steri-strips placed over bolt site. cont sedation weaning as tolerated and f/u exam cont critical care mgt barrett for sz prophylaxis nonchemical dvt prophylaxis due to ICH 10/[address] Liu, patient fluid up/pulmonary but difficult to diurese neuro stable 10/09: cont sedation and vent weaning per critical care follow up neuro exam
--- NOTE | 2018-10-09 15:38 | MB ---
cc: Varun Ayala MD DATE: 10/09/2018 REQUESTING PHYSICIAN: Fercho Liu MD REASON FOR CONSULTATION: This is a 68-year-old man with pneumonia 2 weeks prior to admission and left lung infiltrate on admission. Now with respiratory failure after craniotomy. Left consolidation persists. HISTORY OF PRESENT ILLNESS: This is a 68-year-old white male who was admitted to the hospital 10/03/2018 on transfer from [facility] with headache. The patient was noted to have an acute intraparenchymal hemorrhage in the right temporal region. He underwent surgery in the form of right posterior temporal craniotomy and evacuation of intracerebral hematoma. A Shin-Guillermo drain was left in the cavity of the hematoma in the subgaleal space. The patient is noted to have bilateral lung infiltrates on chest x-ray performed today. On admission, he had left lung infiltrate. He has had sputum culture on 10/05/2018 which showed normal joselin. Because of the persistence of the lung infiltrates and continuation of ventilation with difficulty weaning off the ventilator, this consultation is requested for infectious disease evaluation. The patient has been afebrile since admission. His white blood cell count has been normal, but on the low side. He is unresponsive on the ventilator. He is on 4 mcg of Levophed and the blood pressure is currently 92 systolic. Information is obtained from the medical record since the patient is unresponsive on the ventilator. Patient has beige secretions suctioned via the endotracheal tube. PAST MEDICAL HISTORY: Hypertension, hyperlipidemia, diabetes mellitus. Total right knee replacement. ALLERGIES: CLEAR TAPE AND PLASTIC TAPE. NO KNOWN DRUG ALLERGIES. MEDICATIONS: 1. Vancomycin. 2. Norepinephrine. 3. Nicardipine. 4. Cozaar. 5. Apresoline. 6. Pepcid. 7. Cefepime. 8. Norvasc. SOCIAL HISTORY: Unable to obtain. REVIEW OF SYSTEMS: Unable to obtain. FAMILY HISTORY: Unable to obtain. PHYSICAL EXAMINATION: GENERAL: This is a morbidly obese male who is on the ventilator and he is unresponsive. VITAL SIGNS: Includes temperature 98.4, BP 99/68, heart rate 72. HEENT: Unable to fully assess. There is a dressing at the vertex of the head where the CLARIBEL drain was located. The area is dry. Conjunctivae have edema. Oropharynx is intubated. NECK: No adenopathy. LUNGS: Markedly diminished breath sounds. HEART: Regular S1, S2, without murmurs. ABDOMEN: Bowel sounds diminished, obese, unable to appreciate tenderness. RECTAL: Not performed. EXTREMITIES: No clubbing or cyanosis. There is 2+ nonpitting edema. SKIN: No diffuse rash. NEUROLOGIC: Unable to assess because the patient is unresponsive and intubated. PSYCHIATRIC: Unable to assess. LABORATORY DATA: WBC 3.8 with 66% neutrophils, hemoglobin 10.7, platelet count 165. Creatinine 2.40, BUN 56, sodium 156. Estimated GFR 27. RADIOGRAPHIC STUDIES: Chest x-ray showing bilateral lower lung zone pulmonary parenchymal opacity. IMPRESSION: 1. Pneumonia versus atelectasis in a patient with persistent infiltrates despite diuresis. 2. Acute respiratory failure. 3. Intraparenchymal hematoma, status post intracranial pressure monitor and evacuation. RECOMMENDATIONS: 1. Continue vancomycin. 2. Continue cefepime. 3. Follow repeat sputum culture. 4. Monitor clinical response. 5. If the sputum culture is positive, then we will have a bacterial organism for focused antibiotic treatment. It is difficult to tell whether this is purely pneumonia versus combination of atelectasis and infection; however, the patient did have an infiltrate only in the left lung on admission and now he has both lungs involved. Thank you for this consultation. I will follow the patient's progress with you and will make further recommendations upon followup if necessary. MD SEMAJ Gong/bharati , 02:51 PM , 03:03 PM CESILIA
[2018-10-09] MEDS ORDERED: Artificial Tears Opth Drops 15 ML Bottle EACH EYE PRN (17:58)
[2018-10-09 18:09] LABS: ABG Base Excess -4.3 mmol/L (-2-2); ABG PCO2 44 mmHg (38-42); ABG PO2 70 mmHg (61-120)
[2018-10-09] MEDS: Albumin Human 25% Inj 100 ML IV.SIG SCH (22:02)
[2018-10-10] MEDS: fentaNYL 10 mcg/mL Premix Drip 2,500 MCG/250 ML BAG IV.SIG PRN ×2 (01:30→17:00)
[2018-10-10] MEDS: Furosemide Inj 100 MG in Sodium Chlor 0.9% Inj 90 ML IV.CONT SCH ×2 (01:33→12:00)
[2018-10-10] MEDS: Insulin NovoLOG Aspart Correctional Sugar Inj SQ SCH ×4 (01:46→17:03)
[2018-10-10] MEDS: Oral Hygiene Kit OROPHARYNG SCH ×4 (01:47→16:30)
[2018-10-10] MEDS: Propofol 1000 mg/100 ml Inj 1,000 MG/100 ML BOTTLE IV.CONT PRN ×4 (03:49→21:22)
[2018-10-10] MEDS: Albumin Human 25% Inj 100 ML IV.SIG SCH ×3 (06:13→20:05)
[2018-10-10 06:19] LABS: Baso % (Auto) 0.7 % (0.0-2.0); Eos # (Auto) 0.2 th/mm3 (0.0-0.4); Eos % (Auto) 5.1 % (0.0-4.0); Hematocrit 31.7 % (39.0-51.0); Hemoglobin 10.2 gm/dL (13.0-17.0); Lymph # (Auto) 0.4 th/mm3 (1.0-4.8); Lymph % (Auto) 11.8 % (9.0-44.0); Mean Corpuscular HGB Conc 32.2 % (32.0-36.0); Mean Corpuscular Hemoglobin 28.1 pg (27.0-34.0); Mean Platelet Volume 8.8 fL (7.0-11.0); Mono # (Auto) 0.4 th/mm3 (0.0-0.9); Mono % (Auto) 11.3 % (0.0-8.0); Neut # (Auto) 2.4 th/mm3 (1.8-7.7); Neut % (Auto) 71.1 % (16.0-70.0); Platelet Count 173 th/mm3 (150-450); Red Blood Count 3.65 mil/mm3 (4.50-5.90); White Blood Count 3.4 th/mm3 (4.0-11.0)
[2018-10-10 06:49] LABS: Calcium 9.4 mg/dL (8.5-10.1); Carbon Dioxide 22.2 meq/L (21.0-32.0); Potassium 3.9 meq/L (3.5-5.1)
[2018-10-10 07:52] LABS: ABG Base Excess -4.5 mmol/L (-2-2); ABG PCO2 42 mmHg (38-42); ABG PO2 68 mmHg (61-120)
[2018-10-10] MEDS: Chlorhexidine 0.12% Oral Kit 15 ML UDC OROPHARYNG SCH ×2 (09:09→20:26)
[2018-10-10] MEDS: Famotidine PF Inj 20 MG/2 ML Vial IV.PUSH SCH ×2 (09:21→20:07)
[2018-10-10] MEDS: Senna/Docusate Sodium 8.6/50 MG Tablet PO SCH (09:21)
[2018-10-10] MEDS: amLODIPine 10 MG Tablet PO SCH (09:21)
--- NOTE | 2018-10-10 10:20 | P.PNNS ---
Subjective Interval history: intubated, sedated. <Ale Weinberg - Last Filed: 10/10/18 10:20> Physical Exam Vital signs: Vital Signs 10/09/18 10:30 10/09/18 10:45 10/09/18 11:00 Temperature 98.6 F 98.8 F 98.8 F Pulse Rate 73 76 68 Respiratory Rate Blood Pressure 97/54 L 108/57 L 110/55 L Pulse Oximetry 92 L 93 L 94 L 10/09/18 11:15 10/09/18 11:30 10/09/18 11:33 Temperature 98.8 F 99.0 F Pulse Rate 69 68 Respiratory Rate 20 Blood Pressure 109/55 L 116/56 L Pulse Oximetry 94 L 94 L 94 L 10/09/18 11:45 10/09/18 12:00 10/09/18 12:15 Temperature 99.0 F 99.0 F 99.1 F Pulse Rate 70 70 70 Respiratory Rate Blood Pressure 106/59 L 111/56 L 114/58 L Pulse Oximetry 94 L 96 96 10/09/18 12:30 10/09/18 12:45 10/09/18 13:00 Temperature 99.1 F 99.1 F 99.1 F Pulse Rate 70 78 77 Respiratory Rate Blood Pressure 105/55 L 111/56 L 110/55 L Pulse Oximetry 96 96 97 10/09/18 13:15 10/09/18 13:30 10/09/18 13:45 Temperature 99.1 F 99.1 F 99.0 F Pulse Rate 77 76 66 Respiratory Rate Blood Pressure 110/55 L 106/58 L 108/56 L Pulse Oximetry 96 96 96 10/09/18 14:00 10/09/18 14:15 10/09/18 14:30 Temperature 99.0 F 99.0 F 99.0 F Pulse Rate 67 71 68 Respiratory Rate Blood Pressure 116/56 L 123/58 L 113/56 L Pulse Oximetry 97 97 97 10/09/18 14:45 10/09/18 15:00 10/09/18 15:15 Temperature 99.0 F 98.8 F 98.8 F Pulse Rate 68 73 67 Respiratory Rate Blood Pressure 116/56 L 117/58 L 116/60 Pulse Oximetry 97 97 97 10/09/18 15:30 10/09/18 15:45 10/09/18 16:00 Temperature 98.8 F 98.8 F 98.8 F Pulse Rate 68 68 73 Respiratory Rate Blood Pressure 107/55 L 109/58 L 114/59 L Pulse Oximetry 96 97 98 10/09/18 16:15 10/09/18 16:30 10/09/18 16:45 Temperature 98.8 F 98.8 F 98.8 F Pulse Rate 67 71 67 Respiratory Rate Blood Pressure 105/55 L 108/59 L 110/59 L Pulse Oximetry 98 99 98 10/09/18 17:00 10/09/18 17:15 10/09/18 17:30 Temperature 98.8 F 98.8 F 98.8 F Pulse Rate 72 68 66 Respiratory Rate Blood Pressure 109/65 114/56 L 124/79 Pulse Oximetry 99 99 95 10/09/18 17:45 10/09/18 17:55 10/09/18 18:00 Temperature 98.8 F 98.8 F Pulse Rate 69 67 Respiratory Rate 11 L Blood Pressure 120/61 113/57 L Pulse Oximetry 92 L 91 L 92 L 10/09/18 18:15 10/09/18 18:30 10/09/18 19:00 Temperature 98.8 F 98.8 F 98.8 F Pulse Rate 67 67 75 Respiratory Rate Blood Pressure 109/56 L 123/64 128/60 Pulse Oximetry 91 L 92 L 91 L 10/09/18 19:15 10/09/18 19:30 10/09/18 19:34 Temperature 98.8 F 98.8 F Pulse Rate 68 74 Respiratory Rate 12 Blood Pressure 131/65 122/72 Pulse Oximetry 92 L 93 L 92 L 10/09/18 19:45 10/09/18 20:00 10/09/18 20:15 Temperature 98.8 F 98.8 F 98.8 F Pulse Rate 68 68 76 Respiratory Rate Blood Pressure 131/69 125/64 132/67 Pulse Oximetry 96 90 L 92 L 10/09/18 20:30 10/09/18 20:45 10/09/18 21:00 Temperature 99.0 F 99.0 F 99.0 F Pulse Rate 75 74 68 Respiratory Rate Blood Pressure 137/63 133/63 129/66 Pulse Oximetry 91 L 91 L 91 L 10/09/18 21:15 10/09/18 21:30 10/09/18 21:45 Temperature 99.0 F 99.0 F 99.0 F Pulse Rate 68 76 75 Respiratory Rate Blood Pressure 125/68 125/71 128/71 Pulse Oximetry 91 L 91 L 91 L 10/09/18 22:00 10/09/18 22:15 10/09/18 22:30 Temperature 99.0 F 99.0 F 99.0 F Pulse Rate 75 68 78 Respiratory Rate Blood Pressure 129/72 132/73 160/73 H Pulse Oximetry 90 L 91 L 92 L 10/09/18 22:45 10/09/18 22:51 10/09/18 23:00 Temperature 99.0 F 99.0 F 99.0 F Pulse Rate 77 77 77 Respiratory Rate Blood Pressure 152/66 H 136/63 137/66 Pulse Oximetry 92 L 93 L 93 L 10/09/18 23:15 10/09/18 23:30 10/09/18 23:45 Temperature 99.0 F 99.0 F 99.0 F Pulse Rate 78 77 70 Respiratory Rate Blood Pressure 149/70 H 135/67 123/63 Pulse Oximetry 93 L 93 L 92 L 10/10/18 00:00 10/10/18 00:04 10/10/18 00:15 Temperature 99.1 F 99.1 F Pulse Rate 77 78 Respiratory Rate 12 Blood Pressure 123/65 139/70 Pulse Oximetry 92 L 92 L 93 L 10/10/18 00:30 10/10/18 00:45 10/10/18 01:00 Temperature 99.1 F 99.1 F 99.1 F Pulse Rate 77 76 77 Respiratory Rate Blood Pressure 141/63 H 137/63 125/67 Pulse Oximetry 92 L 93 L 92 L 10/10/18 01:15 10/10/18 01:30 10/10/18 01:45 Temperature Pulse Rate 76 75 75 Respiratory Rate Blood Pressure 127/66 121/64 136/67 Pulse Oximetry 92 L 93 L 93 L 10/10/18 02:00 10/10/18 02:15 10/10/18 02:21 Temperature Pulse Rate 70 88 87 Respiratory Rate Blood Pressure 169/77 H 133/73 Pulse Oximetry 74 L 83 L 85 L 10/10/18 02:30 10/10/18 02:45 10/10/18 03:00 Temperature Pulse Rate 88 88 87 Respiratory Rate Blood Pressure 126/62 125/57 L 117/61 Pulse Oximetry 89 L 90 L 91 L 10/10/18 03:15 10/10/18 03:30 10/10/18 03:45 Temperature Pulse Rate 86 85 85 Respiratory Rate Blood Pressure 117/59 L 116/72 116/73 Pulse Oximetry 91 L 90 L 90 L 10/10/18 04:00 10/10/18 04:03 10/10/18 04:15 Temperature 98.8 F Pulse Rate 85 83 Respiratory Rate 12 Blood Pressure 110/68 110/68 Pulse Oximetry 90 L 90 L 90 L 10/10/18 04:30 10/10/18 04:45 10/10/18 05:00 Temperature Pulse Rate 82 81 80 Respiratory Rate Blood Pressure 114/70 116/61 122/65 Pulse Oximetry 89 L 89 L 89 L 10/10/18 05:15 10/10/18 05:30 10/10/18 05:45 Temperature Pulse Rate 80 80 80 Respiratory Rate Blood Pressure 109/70 112/73 Pulse Oximetry 88 L 89 L 90 L 10/10/18 06:00 10/10/18 06:15 10/10/18 06:30 Temperature Pulse Rate 79 79 79 Respiratory Rate Blood Pressure 99/66 L 102/72 Pulse Oximetry 90 L 90 L 91 L 10/10/18 06:45 10/10/18 07:00 10/10/18 07:15 Temperature 98.6 F 98.6 F 98.6 F Pulse Rate 79 79 79 Respiratory Rate Blood Pressure Pulse Oximetry 90 L 90 L 90 L 10/10/18 07:30 10/10/18 07:41 10/10/18 07:45 Temperature 98.6 F 98.6 F Pulse Rate 79 79 Respiratory Rate 11 L Blood Pressure Pulse Oximetry 90 L 90 L 89 L 10/10/18 08:00 10/10/18 08:15 10/10/18 08:30 Temperature 98.6 F 98.6 F 98.6 F Pulse Rate 79 78 78 Respiratory Rate Blood Pressure Pulse Oximetry 89 L 88 L 88 L 10/10/18 08:45 10/10/18 09:00 10/10/18 09:15 Temperature 98.6 F 98.6 F 98.6 F Pulse Rate 78 78 79 Respiratory Rate Blood Pressure Pulse Oximetry 88 L 88 L 88 L 10/10/18 09:30 10/10/18 09:45 Temperature 98.4 F 98.4 F Pulse Rate 79 78 Respiratory Rate Blood Pressure Pulse Oximetry 88 L 88 L Intake & Output 10/09/18 10/10/18 10/10/18 18:59 06:59 18:59 Intake Total 755 / 755 815 / 815 Output Total 600 / 600 160 / 160 Balance 155 / 155 655 / 655 Weight 210.3 kg Intake: IV 755 / 755 755 / 755 Lasix Inj 100 MG In NS Inj 90 100 / 100 100 / 100 ML @ 10 mls/hr IV.CONT .Q10H [facility] Rx#:[id number] Diprivan 1000 mg/100 ml Inj 1, 200 / 200 100 / 100 000 mg In 100 ml @ 5 MCG/KG/MIN 5.34 mls/hr IV.CONT TITRATE PRN Rx#:[id number] Flexbumin 25% Inj 100 ML @ 60 100 / 100 mls/hr IV.SIG Q12H [facility] Rx#: [id number] Maxipime Inj 2,000 MG In NS Inj 100 / 100 100 / 100 100 ML @ 200 mls/hr IV.SIG Q12H [facility] Rx#:[id number] Levophed Inj 4 MG In NS Inj 246 250 / 250 ML @ 2 MCG/MIN 7.5 mls/hr IV. SIG TITRATE PRN Rx#:[id number] fentaNYL 10 mcg/mL Premix Drip 250 / 250 2,500 mcg In 250 ml @ 50 MCG/HR 5 mls/hr IV.SIG TITRATE PRN Rx #:[id number] Keppra Inj 500 MG In NS Inj 100 105 / 105 105 / 105 ML @ 400 mls/hr IV.SIG Q12H [facility] Rx#:[id number] Tube Irrigant 60 / 60 Output: Stool 100 / 100 Urine Amount (Catheter) 600 / 600 Indwelling Temp Sensing 600 / 600 Catheter Gastric Drainage 60 / 60 Oral Orogastric Tube 60 / 60 Other: Date of Last Bowel Movement 10/10/18 Narrative: intubated, well sedated opens eyes but not tracking or following commands pupils equal wound healing well, clean and dry not following commands for testing slight withdrawal LEs to noxious stimuli not really moving upper extremities at all diffuse extremity swelling - Urinary Catheter Management Indwelling Temp Sensing Catheter Cath placed during this visit: yes Reason for continuing: Hourly intake/output Insertion date: 10/03/18 Insertion time: 08:10 Indwelling Urethral Catheter Cath placed during this visit: no <Ale Weinberg - Last Filed: 10/10/18 10:20> Vital signs: Vital Signs 10/14/18 21:30 10/14/18 21:45 10/14/18 22:00 Temperature 99.9 F H 99.9 F H 99.9 F H Pulse Rate 87 87 89 Respiratory Rate 15 15 15 Blood Pressure Pulse Oximetry 91 L 91 L 91 L 10/14/18 22:15 10/14/18 22:30 10/14/18 22:45 Temperature 100.0 F H 100.0 F H 100.2 F H Pulse Rate 87 89 86 Respiratory Rate 15 15 15 Blood Pressure Pulse Oximetry 91 L 91 L 91 L 10/14/18 23:00 10/14/18 23:05 10/14/18 23:15 Temperature 100.2 F H 100.2 F H 100.2 F H Pulse Rate 86 88 90 Respiratory Rate 15 15 15 Blood Pressure 126/61 Pulse Oximetry 92 L 94 L 92 L 10/14/18 23:30 10/14/18 23:34 10/14/18 23:45 Temperature 100.2 F H 100.2 F H Pulse Rate 90 91 H 92 H Respiratory Rate 15 15 15 Blood Pressure Pulse Oximetry 93 L 90 L 10/15/18 00:00 10/15/18 00:15 10/15/18 00:30 Temperature 100.4 F H 100.4 F H 100.4 F H Pulse Rate 92 H 96 H 92 H Respiratory Rate 15 15 15 Blood Pressure Pulse Oximetry 89 L 89 L 90 L 10/15/18 00:45 10/15/18 01:00 10/15/18 01:15 Temperature 100.4 F H 100.4 F H 100.6 F H Pulse Rate 96 H 96 H 95 H Respiratory Rate 15 15 15 Blood Pressure Pulse Oximetry 90 L 90 L 90 L 10/15/18 01:30 10/15/18 01:45 10/15/18 02:00 Temperature 100.6 F H 100.6 F H 100.6 F H Pulse Rate 95 H 93 H 89 Respiratory Rate 15 15 15 Blood Pressure Pulse Oximetry 90 L 90 L 90 L 10/15/18 02:15 10/15/18 02:30 10/15/18 02:45 Temperature 100.8 F H 100.8 F H 100.8 F H Pulse Rate 94 H 96 H 95 H Respiratory Rate 15 15 15 Blood Pressure Pulse Oximetry 91 L 91 L 90 L 10/15/18 03:00 10/15/18 03:15 10/15/18 03:19 Temperature 100.8 F H 100.8 F H Pulse Rate 96 H 95 H 95 H Respiratory Rate 15 15 14 Blood Pressure Pulse Oximetry 90 L 90 L 10/15/18 03:30 10/15/18 03:45 10/15/18 03:59 Temperature 100.9 F H 100.9 F H Pulse Rate 93 H 94 H Respiratory Rate 15 15 14 Blood Pressure Pulse Oximetry 90 L 90 L 92 L 10/15/18 04:00 10/15/18 04:15 10/15/18 04:30 Temperature 100.9 F H 100.9 F H 100.9 F H Pulse Rate 94 H 94 H 92 H Respiratory Rate 15 15 15 Blood Pressure Pulse Oximetry 90 L 90 L 91 L 10/15/18 04:45 10/15/18 05:00 10/15/18 05:15 Temperature 100.9 F H 101.1 F H 101.1 F H Pulse Rate 93 H 92 H 91 H Respiratory Rate 15 15 15 Blood Pressure Pulse Oximetry 90 L 90 L 90 L 10/15/18 05:30 10/15/18 05:45 10/15/18 06:00 Temperature 101.1 F H 101.1 F H 101.1 F H Pulse Rate 92 H 92 H 93 H Respiratory Rate 15 15 15 Blood Pressure Pulse Oximetry 91 L 91 L 88 L 10/15/18 06:15 10/15/18 06:30 10/15/18 06:45 Temperature 101.1 F H 101.1 F H 101.1 F H Pulse Rate 94 H 94 H 93 H Respiratory Rate 15 15 15 Blood Pressure Pulse Oximetry 91 L 91 L 91 L 10/15/18 07:00 10/15/18 07:15 10/15/18 07:30 Temperature 100.9 F H 100.9 F H 100.9 F H Pulse Rate 93 H 92 H 94 H Respiratory Rate 15 15 15 Blood Pressure Pulse Oximetry 90 L 90 L 90 L 10/15/18 07:45 10/15/18 08:00 10/15/18 08:12 Temperature 100.9 F H 100.9 F H Pulse Rate 94 H 90 93 H Respiratory Rate 15 15 14 Blood Pressure Pulse Oximetry 90 L 86 L 90 L 10/15/18 08:15 10/15/18 08:30 10/15/18 08:45 Temperature 100.9 F H 100.8 F H 100.8 F H Pulse Rate 92 H 94 H 93 H Respiratory Rate 15 15 15 Blood Pressure Pulse Oximetry 90 L 90 L 90 L 10/15/18 09:00 10/15/18 09:15 10/15/18 09:30 Temperature 100.8 F H 100.8 F H 100.8 F H Pulse Rate 92 H 91 H 91 H Respiratory Rate 15 15 21 Blood Pressure Pulse Oximetry 90 L 90 L 90 L 10/15/18 09:45 10/15/18 10:00 10/15/18 10:15 Temperature 100.8 F H 100.8 F H 100.8 F H Pulse Rate 92 H 91 H 92 H Respiratory Rate 15 15 15 Blood Pressure Pulse Oximetry 90 L 90 L 90 L 10/15/18 10:30 10/15/18 10:45 10/15/18 11:00 Temperature 100.8 F H 100.8 F H 100.8 F H Pulse Rate 91 H 92 H 92 H Respiratory Rate 15 15 15 Blood Pressure Pulse Oximetry 91 L 91 L 91 L 10/15/18 11:15 10/15/18 11:30 10/15/18 11:45 Temperature 100.8 F H 100.8 F H 100.6 F H Pulse Rate 92 H 92 H 90 Respiratory Rate 15 15 15 Blood Pressure Pulse Oximetry 91 L 90 L 90 L 10/15/18 12:00 10/15/18 12:15 10/15/18 12:30 Temperature 100.6 F H 100.6 F H 100.6 F H Pulse Rate 92 H 93 H 92 H Respiratory Rate 15 15 15 Blood Pressure Pulse Oximetry 89 L 90 L 90 L 10/15/18 12:45 10/15/18 13:00 10/15/18 13:15 Temperature 100.6 F H 100.6 F H 100.6 F H Pulse Rate 91 H 93 H 92 H Respiratory Rate 15 15 15 Blood Pressure Pulse Oximetry 90 L 89 L 89 L 10/15/18 13:30 10/15/18 13:45 10/15/18 14:00 Temperature 100.6 F H 100.6 F H 100.4 F H Pulse Rate 92 H 91 H 93 H Respiratory Rate 15 15 15 Blood Pressure Pulse Oximetry 89 L 89 L 89 L 10/15/18 14:15 10/15/18 14:30 10/15/18 14:45 Temperature 100.4 F H 100.4 F H 100.4 F H Pulse Rate 95 H 91 H 90 Respiratory Rate 15 15 15 Blood Pressure Pulse Oximetry 89 L 88 L 91 L 10/15/18 15:00 10/15/18 15:15 10/15/18 15:30 Temperature 100.4 F H 100.4 F H 100.4 F H Pulse Rate 91 H 87 82 Respiratory Rate 15 15 15 Blood Pressure Pulse Oximetry 91 L 88 L 90 L 10/15/18 15:45 10/15/18 16:00 10/15/18 16:15 Temperature 100.2 F H 100.2 F H 100.2 F H Pulse Rate 81 89 91 H Respiratory Rate 15 15 15 Blood Pressure Pulse Oximetry 91 L 89 L 88 L 10/15/18 16:30 10/15/18 16:45 10/15/18 17:00 Temperature 100.2 F H 100.2 F H 100.2 F H Pulse Rate 91 H 91 H 92 H Respiratory Rate 15 15 15 Blood Pressure Pulse Oximetry 87 L 86 L 88 L 10/15/18 17:15 10/15/18 17:30 10/15/18 17:35 Temperature 100.2 F H 100.0 F H Pulse Rate 92 H 88 94 H Respiratory Rate 15 15 14 Blood Pressure Pulse Oximetry 88 L 88 L 90 L 10/15/18 17:45 10/15/18 18:00 10/15/18 18:15 Temperature 100.0 F H 100.0 F H 100.0 F H Pulse Rate 91 H 91 H 90 Respiratory Rate 15 15 15 Blood Pressure Pulse Oximetry 90 L 90 L 90 L 10/15/18 19:30 Temperature Pulse Rate 88 Respiratory Rate 15 Blood Pressure Pulse Oximetry 90 L Intake & Output 10/15/18 10/15/18 10/16/18 06:59 18:59 06:59 Intake Total 2039 / 2039 2467 / 2467 100 / 100 Output Total 200 / 200 100 / 100 Balance 1840 / 1840 2367 / 2367 100 / 100 Weight 214.4 kg Intake: IV 1805 / 1805 2255 / 2255 100 / 100 DOBUTamine 250 MG/250 ML Premix 250 / 250 500 / 500 250 mg In 250 ml @ 2.5 MCG/KG/ MIN 32.055 mls/hr IV.CONT . Q7H48M [facility] Rx#:[id number] Versed Inj 100 mg In 100 ml @ 6 100 / 100 MG/HR 6 mls/hr IV.CONT TITRATE PRN Rx#:[id number] Pitressin Inj 40 UNIT In D5W 100 / 100 Inj 98 ML @ 0.01 UNITS/MIN 1.5 mls/hr IV.CONT TITRATE PRN Rx#: [id number] Flexbumin 25% Inj 100 ML @ 60 100 / 100 100 / 100 mls/hr IV.SIG Q12H [facility] Rx#: [id number] Maxipime Inj 2,000 MG In NS Inj 100 / 100 100 ML @ 200 mls/hr IV.SIG Q24H [facility] Rx#:[id number] Levophed Inj 4 MG In NS Inj 246 250 / 250 ML @ 2 MCG/MIN 7.5 mls/hr IV. SIG TITRATE PRN Rx#:[id number] Sodium Bicarbonate 8.4% Inj 150 1000 / 1000 1000 / 1000 MEQ In Sterile Water for Inj 850 ML @ 100 mls/hr IV.SIG . Q10H [facility] Rx#:[id number] fentaNYL 10 mcg/mL Premix Drip 250 / 250 2,500 mcg In 250 ml @ 50 MCG/HR 5 mls/hr IV.SIG TITRATE PRN Rx #:[id number] Keppra Inj 500 MG In NS Inj 100 105 / 105 105 / 105 ML @ 400 mls/hr IV.SIG Q12H [facility] Rx#:[id number] Flolan (30,000 ng/mL) Neb 52.5 100 / 100 100 / 100 ML In NS Inj 47.5 ML @ 5 mls/hr NEB Q8H [facility] Rx#:[id number] Tube Feeding 175 / 175 182 / 182 Water Bolus Amount 60 / 60 30 / 30 Output: Urine 100 / 100 Stool 100 / 100 Urine Amount (Catheter) 75 / 75 Indwelling Temp Sensing 75 / 75 Catheter Stool Amount (Stoma) Pre-Hospital: - Urinary Catheter Management Indwelling Temp Sensing Catheter Cath placed during this visit: no Indwelling Urethral Catheter Cath placed during this visit: no <Shivam Hills - Last Filed: 10/15/18 21:24> Assessment and Plan - Plan 68 year old male transferred for intraparenchymal hematoma, most likely due to hypertensive crisis CTA Brain negative for aneurysm or vascular malformation pt underwent emergent right posterior temporal craniotomy, evacuation of intracerebral hematoma, and placement of ICP monitor 10/03/18 Plan: Dr. Hills reviewed f/u CT Brain, dw family members today ICP monitor and CLARIBEL drains x 2 removed CLARIBEL drain site requiring placement of stitch due to CSF leaking- using sterile techniques single stitch placed on both CLARIBEL drain site using 4-0 silk suture. steri-strips placed over bolt site. cont sedation weaning as tolerated and f/u exam cont critical care mgt keppra for sz prophylaxis nonchemical dvt prophylaxis due to ICH 10/[address] Liu, patient fluid up/pulmonary but difficult to diurese neuro stable 10/09: cont sedation and vent weaning per critical care follow up neuro exam 10/10: no changes to neuro exam, sedated cont sedation and vent weaning per critical care ok for trach/PEG from NRS standpoint <Ale Weinberg - Last Filed: 10/10/18 10:20> - Assessment (1) Intraparenchymal hemorrhage of brain Code(s): I61.9 - Nontraumatic intracerebral hemorrhage, unspecified Status: Acute (2) Midline shift of brain Code(s): G93.9 - Disorder of brain, unspecified Status: Acute (3) Acute encephalopathy Code(s): G93.40 - Encephalopathy, unspecified Status: Acute (4) Hypertensive emergency Code(s): I16.1 - Hypertensive emergency Status: Acute (5) History of hypertension Code(s): Z86.79 - Personal history of other diseases of the circulatory system Status: Chronic (6) Type 2 diabetes mellitus Code(s): E11.9 - Type 2 diabetes mellitus without complications Status: Chronic (7) Dyslipidemia Code(s): E78.5 - Hyperlipidemia, unspecified Status: Chronic (8) Morbid obesity Code(s): E66.01 - Morbid (severe) obesity due to excess calories Status: Chronic <Shivam Hills - Last Filed: 10/15/18 21:24>
--- NOTE | 2018-10-10 11:15 | P.CONPAL ---
Consult Service: Palliative Care Requesting Physician: Freddy Hermosillo Reason for Consult: a. To assist with evaluation and management of symptoms including: dyspnea, pain, anxiety b. To assist medical decision maker(s) with: better understanding of current medical conditions; weighing benefits/burdens of medical treatment options; making medical treatment decisions. Primary Care Provider: UNKNOWN History of Present Illness History of Present Illness: Mr. Fox is a 68-year-old male who was transported to [facility] on 10/03/18 he originally presented to [facility] with left-sided headache and poorly controlled hypertension. He reportedly took aspirin for the headache prior to his presentation. Imaging done at that facility showed a large 6.9 x 3.6 x 3.2 acute intraparenchymal hemorrhage on the right temporal parietal region with midline shift. Dr. Hills (neurosurgery) was contacted and the patient was transferred to [place] [facility]. He has a significant past medical history for hypertension, diabetes, dyslipidemia, morbid obesity, thyroid disease, ulcerative colitis,and history of colon resection with colostomy placement. Upon his arrival to the SICU the patient was extremely somnolent and difficult to arouse. He was oriented only to self. His blood pressure was 200 systolic. At that point the decision was made to intubate for continued airway protection. He was started on a Cardene drip for blood pressure control and repeat imaging was ordered. He was also given mannitol and started on hypertonic saline solution as well as placed on Keppra for seizure prophylaxis. Initial clinical data revealed: * WBC 3.9, Hgb 11.5, HCT 34.7, platelets 144 * NA 141, K+ 3.8, CL 100, CO2 31.9, BUN 42, creatinine 2.27, glucose 186 * CA 9.2, MG 2.1, total bili 0.6, AST 17, ALT 21 * ABG: PH 7.35, PCO2 62, PO2 177, HCO3 33, settings LA VC 16/500/100%/5/1.0 * CTA of neck:The left vert originates directly from the arch. 2. Atherosclerotic plaquing at the carotid bifurcation but no hemodynamically significant carotid artery stenosis identified * CT of head: Large right temporoparietal parenchymal hematoma * CTA of head: No acute [place] vascular findings * CXR: Atelectatic changes in left lower lobe Upon review of clinical data Dr. Hills suggested emergent right-sided surgical decompression and evacuation via craniotomy. The patient originally tolerated the procedure fairly well with ICP monitoring remaining stable. Repeat CT of head on 10/05/18 revealed minimal residual density with mild cytotoxic edema. Throughout his hospital course the patient had increasing difficulty with oxygenation requiring large amounts of FiO2 and PEEP. Chest x-ray showed persistent atelectasis. Sputum culture remain negative though the patient remained difficult to ventilate. Repeat chest x-ray imaging showed bilateral lower lung pulmonary parenchymal opacities. Because of this infectious disease was consulted. The patient also exhibited persistent renal insufficiency which was somewhat difficult to control due to his required IV antibiotics, Cardene drip, and hypertonic solutions. His renal disease also hampered attempts at fluid removal. Palliative care was consulted to assist with symptom management and to address goals of care. Upon examination, the patient is intubated and appears critically ill. He is on dynamic vent settings, biphasic with 100% FiO2. Flolan was recently started and the patient continues with SPO2 between 87 - 88% . Minimal air movement is heard with auscultation. Neurologically the patient attempts to open eyes with noxious stimulation. Pupils 2 mm equal round and reactive. Significant amount of periorbital edema is noted particularly on the right side. Right sided horse shoe incision clean dry and intact bone flap is soft. Patient withdraws bilateral lower extremities to noxious stimuli. Flaccid bilateral upper extremities. Positive cough questionable gag. Per nursing reports patient desaturated overnight after he was turned and has not been able to recouped. He waxes and wanes between hyper and hypotension. Currently Levophed has been weaned off. Remains sedated with Diprivan and fentanyl. Renal function continues to rise. Patient has been placed on furosemide drip. Function/Cognitive Trajectory: Prior to his hospitalization the patient was independent of ambulation and all ADLs. He was previously admitted to [facility] approximately 3-4 weeks ago with a pneumonia which required him going home with oxygen. Per patient's , the patient was poorly oxygenated at home on 3 L NC. Review of Systems unobtainable due to endotracheal tube PMFSH - History History Provided By: Significant Other, Medical Record - Medical History Medical History: Medical History (Last Updated 10/10/18 @ 14:47 by FAINA Henderson) Diabetes mellitus Hyperlipemia Hypertension Morbid obesity with BMI of 60.0-69.9, adult On home O2 Ulcerative colitis - Surgical History Surgical History: Surgical History (Last Updated 10/10/18 @ 14:47 by FAINA Henderson) Colostomy present on admission History of total right knee replacement (TKR) - Family History Family History: Family History (Last Updated 10/10/18 @ 14:47 by FAINA Henderson) Other Patient's brother is still living - Social History I have reviewed the patient's Social History: Yes - Tobacco History Second Hand Smoke Exposure: No Tobacco Use In Past 30 Days: No Smoking Status: Former smoker Tobacco Type: Cigarettes - Alcohol History How Often Do You Have a Drink Containing Alcohol: Never - Substance Use History Substance History: No History of Abuse - Travel History History of Recent Travel: No Recent Travel in the [place] Within the Last 8 Weeks: No Recent Travel Out of the Country Within the Last 8 Weeks: No - Immunization History Hx Influenza Vaccine This Season: Yes Medications and Allergies Active Medications: Active Medications Acetaminophen (Tylenol) 650 mg PO Q6H PRN PRN Reason: PAIN 1-10 AND/OR FEVER >101F Al Hydroxide/Mg Hydroxide (Milk Of Francheska Raymundo) 30 ml PO Q12H PRN PRN Reason: Mild Constipation Albuterol (Duoneb Neb (Prn)) 1 ampul NEB Q4HR NEB PRN PRN Reason: SHORTNESS OF BREATH Amlodipine Besylate (Norvasc) 10 mg PO DAILY [facility] Last Admin: 10/10/18 09:21 Dose: Not Given Artificial Tears (Tears Naturale Opth Drops) 1 drop EACH EYE Q4H PRN PRN Reason: DRY EYE(S) Bisacodyl (Dulcolax Supp) 10 mg RECTAL DAILY PRN PRN Reason: SEVERE CONSITIPATION Chlorhexidine Gluconate (Peridex 0.12% Oral Kit) 15 ml OROPHARYNG BID@0800, 2000 [facility] Last Admin: 10/10/18 09:09 Dose: 15 ml Dextrose (D50w Vial) 50 ml IV.PUSH UNSCH PRN PRN Reason: PER HYPOGLYCEMIA PROTOCOL Famotidine (Pepcid Pf Inj) 10 mg IV.PUSH Q12HR [facility] Last Admin: 10/10/18 09:21 Dose: 10 mg Fentanyl Citrate (Fentanyl Inj) 100 mcg IV.PUSH Q2H PRN PRN Reason: any agitation Glucagon (Glucagon Inj) 1 mg OTHER PRN PRN PRN Reason: for Hypoglycemia Protocol Hydralazine HCl (Apresoline) 100 mg PO TID [facility] Last Admin: 10/10/18 09:08 Dose: Not Given Propofol (Diprivan 1000 Mg/100 Ml Inj) 1,000 mg in 100 mls @ 5.34 mls/hr IV.CONT TITRATE PRN; Protocol PRN Reason: Per Protocol Last Admin: 10/10/18 03:49 Dose: 20 mcg/kg/min, 21.36 mls/hr Levetiracetam 500 mg/ Sodium (Chloride) 105 mls @ 400 mls/hr IV.SIG Q12H [facility] Last Infusion: 10/10/18 09:31 Dose: Infused Nicardipine/Sodium Chloride (Cardene 20 Mg/Ns 200 Ml Premix) 20 mg in 200 mls @ 50 mls/hr IV.SIG TITRATE PRN; Protocol PRN Reason: PER PROTOCOL Last Titration: 10/08/18 21:43 Dose: Infused Fentanyl (Fentanyl 10 Mcg/Ml Premix Drip) 2,500 mcg in 250 mls @ 5 mls/hr IV.SIG TITRATE PRN; Protocol PRN Reason: Per Protocol Last Admin: 10/10/18 01:30 Dose: 175 mcg/hr, 17.5 mls/hr Sodium Chloride (Ns Inj) 1,000 mls @ 75 mls/hr IV.SIG .[id number] [facility] Last Infusion: 10/07/18 09:08 Dose: 75 mls/hr Furosemide 100 mg/ Sodium (Chloride) 100 mls @ 10 mls/hr IV.CONT .Q10H [facility] Last Admin: 10/10/18 01:33 Dose: 10 mls/hr Cefepime HCl 2,000 mg/ Sodium (Chloride) 100 mls @ 200 mls/hr IV.SIG Q12H [facility] Last Infusion: 10/10/18 09:50 Dose: Infused Norepinephrine Bitartrate 4 mg (/ Sodium Chloride) 250 mls @ 7.5 mls/hr IV.SIG TITRATE PRN; Protocol PRN Reason: Per Protocol Last Titration: 10/10/18 01:30 Dose: 0 mcg/min, 0 mls/hr Albumin Human (Flexbumin 25% Inj) 100 mls @ 60 mls/hr IV.SIG Q12H [facility] Stop: 10/11/18 23:59 Last Infusion: 10/10/18 07:24 Dose: Infused Epoprostenol Sodium 52.5 ml/ (Sodium Chloride) 100 mls @ 5 mls/hr NEB Q8H [facility] Insulin Aspart (Novolog Insulin Correctional Sugar Inj) 0 unit SQ Q6HR [facility]; Protocol Last Admin: 10/10/18 06:27 Dose: Not Given Lactulose (Lactulose Liq) 30 ml PO DAILY PRN PRN Reason: SEVERE CONSITIPATION Losartan Potassium (Cozaar) 50 mg PO BID [facility] Last Admin: 10/10/18 09:09 Dose: Not Given Miscellaneous Medication () 1 each OROPHARYNG 0000,0400,1200,1600 [facility] Last Admin: 10/10/18 04:01 Dose: 1 each Morphine Sulfate (Morphine Inj) 2 mg IV.PUSH Q2H PRN PRN Reason: PAIN SCALE 6 TO 10 Last Admin: 10/04/18 08:39 Dose: 2 mg Morphine Sulfate (Morphine Inj) 2 mg IV.PUSH Q2H PRN PRN Reason: Pain Scale 1 to 6 Pharmacy Profile Note (Vancomycin Consult Pharmacy) 1 each OTHER UNSCH PRN PRN Reason: Pharmacy to dose Senna/Docusate Sodium (Humera-Colace) 1 tab PO BID [facility] Last Admin: 10/10/18 09:21 Dose: Not Given Sennosides (Senokot) 17.2 mg PO Q12H PRN PRN Reason: Moderate Constipation Terbutaline Sulfate (Brethine Inj) 1 mg SQ UNSCH PRN PRN Reason: For Extravasation Allergies Allergy/AdvReac Type Severity Reaction Status Date / Time clear tape,plastic tape Allergy Severe Blister Uncoded 10/04/18 18:47 Home Medications Medication Instructions Recorded Confirmed Type Synthroid 112 mcg PO DAILY 10/03/18 10/03/18 History amlodipine 10 mg PO DAILY 10/03/18 10/03/18 History aspirin 81 mg PO DAILY 10/03/18 10/03/18 History escitalopram oxalate [Lexapro] 10 mg PO DAILY 10/03/18 10/03/18 History febuxostat [Uloric] 40 mg PO DAILY 10/03/18 10/03/18 History fenofibrate 120 mg PO DAILY 10/03/18 10/03/18 History glipizide 10 mg BID 10/03/18 10/03/18 History insulin degludec [Tresiba 48 units SUBCUT DAILY 10/03/18 10/03/18 History FlexTouch U-100] irbesartan-hydrochlorothiazide 1 tab PO DAILY 10/03/18 10/03/18 History lorazepam 0.5 mg PO BID PRN 10/03/18 10/03/18 History nebivolol [Bystolic] 10 mg PO DAILY 10/03/18 10/03/18 History pioglitazone 15 mg PO DAILY 10/03/18 10/03/18 History sitagliptin [Januvia] 50 mg PO DAILY 10/03/18 10/03/18 History Advance Directives Living Will: No Healthcare Surrogate: No Power of Lock Up Worker: No Documented care wishes: The patient does not have any written advanced directives Today's verbally stated goals: The patient is currently intubated, sedated, and critically ill. He is unable to participate in his own healthcare decision making. Family/friends goals: In discussion with the patient's Yareli Fox and daughter Desiree, they continue to wish for aggressive measures. We discussed that the patient is critically ill and has high ventilator settings with not much room left for change. Should he decompensate further there may not be much else that could be added. We also discussed should he need further cardiopulmonary resuscitation, he most likely will not have a favorable outcome. Risk, benefits , alternatives for fluid removal were discussed and it was felt that at this time the patient would not be a good candidate for any type of chest tubes given his body habitus and dynamic vent settings. Nephrology will be consulted to see if patient is a candidate for any type of fluid removal via hemodialysis. Family understands that the patient is critically ill and his clinical status can change hour to hour. They continue to wish for aggressive treatment and want the patient to remain in FULL CODE. Ethical and Legal Issues: The patient is currently incapacitated and cannot participate in his own healthcare decision making. In the absence of any written advanced directives, per [place] statutes decision making would fall to his Yareli Fox by proxy. The patient's requests that all information be relayed to their daughter Desiree [facility] [phone] and then Desiree will relay this information to her mother Physical Exam Vital Signs: Vital Signs - 24 hr 10/09/18 11:15 10/09/18 11:30 10/09/18 11:33 Temperature 98.8 F 99.0 F Pulse Rate 69 68 Respiratory Rate 20 Blood Pressure 109/55 L 116/56 L Pulse Oximetry 94 L 94 L 94 L 10/09/18 11:45 10/09/18 12:00 10/09/18 12:15 Temperature 99.0 F 99.0 F 99.1 F Pulse Rate 70 70 70 Respiratory Rate Blood Pressure 106/59 L 111/56 L 114/58 L Pulse Oximetry 94 L 96 96 10/09/18 12:30 10/09/18 12:45 10/09/18 13:00 Temperature 99.1 F 99.1 F 99.1 F Pulse Rate 70 78 77 Respiratory Rate Blood Pressure 105/55 L 111/56 L 110/55 L Pulse Oximetry 96 96 97 10/09/18 13:15 10/09/18 13:30 10/09/18 13:45 Temperature 99.1 F 99.1 F 99.0 F Pulse Rate 77 76 66 Respiratory Rate Blood Pressure 110/55 L 106/58 L 108/56 L Pulse Oximetry 96 96 96 10/09/18 14:00 10/09/18 14:15 10/09/18 14:30 Temperature 99.0 F 99.0 F 99.0 F Pulse Rate 67 71 68 Respiratory Rate Blood Pressure 116/56 L 123/58 L 113/56 L Pulse Oximetry 97 97 97 10/09/18 14:45 10/09/18 15:00 10/09/18 15:15 Temperature 99.0 F 98.8 F 98.8 F Pulse Rate 68 73 67 Respiratory Rate Blood Pressure 116/56 L 117/58 L 116/60 Pulse Oximetry 97 97 97 10/09/18 15:30 10/09/18 15:45 10/09/18 16:00 Temperature 98.8 F 98.8 F 98.8 F Pulse Rate 68 68 73 Respiratory Rate Blood Pressure 107/55 L 109/58 L 114/59 L Pulse Oximetry 96 97 98 10/09/18 16:15 10/09/18 16:30 10/09/18 16:45 Temperature 98.8 F 98.8 F 98.8 F Pulse Rate 67 71 67 Respiratory Rate Blood Pressure 105/55 L 108/59 L 110/59 L Pulse Oximetry 98 99 98 10/09/18 17:00 10/09/18 17:15 10/09/18 17:30 Temperature 98.8 F 98.8 F 98.8 F Pulse Rate 72 68 66 Respiratory Rate Blood Pressure 109/65 114/56 L 124/79 Pulse Oximetry 99 99 95 10/09/18 17:45 10/09/18 17:55 10/09/18 18:00 Temperature 98.8 F 98.8 F Pulse Rate 69 67 Respiratory Rate 11 L Blood Pressure 120/61 113/57 L Pulse Oximetry 92 L 91 L 92 L 10/09/18 18:15 10/09/18 18:30 10/09/18 19:00 Temperature 98.8 F 98.8 F 98.8 F Pulse Rate 67 67 75 Respiratory Rate Blood Pressure 109/56 L 123/64 128/60 Pulse Oximetry 91 L 92 L 91 L 10/09/18 19:15 10/09/18 19:30 10/09/18 19:34 Temperature 98.8 F 98.8 F Pulse Rate 68 74 Respiratory Rate 12 Blood Pressure 131/65 122/72 Pulse Oximetry 92 L 93 L 92 L 10/09/18 19:45 10/09/18 20:00 10/09/18 20:15 Temperature 98.8 F 98.8 F 98.8 F Pulse Rate 68 68 76 Respiratory Rate Blood Pressure 131/69 125/64 132/67 Pulse Oximetry 96 90 L 92 L 10/09/18 20:30 10/09/18 20:45 10/09/18 21:00 Temperature 99.0 F 99.0 F 99.0 F Pulse Rate 75 74 68 Respiratory Rate Blood Pressure 137/63 133/63 129/66 Pulse Oximetry 91 L 91 L 91 L 10/09/18 21:15 10/09/18 21:30 10/09/18 21:45 Temperature 99.0 F 99.0 F 99.0 F Pulse Rate 68 76 75 Respiratory Rate Blood Pressure 125/68 125/71 128/71 Pulse Oximetry 91 L 91 L 91 L 10/09/18 22:00 10/09/18 22:15 10/09/18 22:30 Temperature 99.0 F 99.0 F 99.0 F Pulse Rate 75 68 78 Respiratory Rate Blood Pressure 129/72 132/73 160/73 H Pulse Oximetry 90 L 91 L 92 L 10/09/18 22:45 10/09/18 22:51 10/09/18 23:00 Temperature 99.0 F 99.0 F 99.0 F Pulse Rate 77 77 77 Respiratory Rate Blood Pressure 152/66 H 136/63 137/66 Pulse Oximetry 92 L 93 L 93 L 10/09/18 23:15 10/09/18 23:30 10/09/18 23:45 Temperature 99.0 F 99.0 F 99.0 F Pulse Rate 78 77 70 Respiratory Rate Blood Pressure 149/70 H 135/67 123/63 Pulse Oximetry 93 L 93 L 92 L 10/10/18 00:00 10/10/18 00:04 10/10/18 00:15 Temperature 99.1 F 99.1 F Pulse Rate 77 78 Respiratory Rate 12 Blood Pressure 123/65 139/70 Pulse Oximetry 92 L 92 L 93 L 10/10/18 00:30 10/10/18 00:45 10/10/18 01:00 Temperature 99.1 F 99.1 F 99.1 F Pulse Rate 77 76 77 Respiratory Rate Blood Pressure 141/63 H 137/63 125/67 Pulse Oximetry 92 L 93 L 92 L 10/10/18 01:15 10/10/18 01:30 10/10/18 01:45 Temperature Pulse Rate 76 75 75 Respiratory Rate Blood Pressure 127/66 121/64 136/67 Pulse Oximetry 92 L 93 L 93 L 10/10/18 02:00 10/10/18 02:15 10/10/18 02:21 Temperature Pulse Rate 70 88 87 Respiratory Rate Blood Pressure 169/77 H 133/73 Pulse Oximetry 74 L 83 L 85 L 10/10/18 02:30 10/10/18 02:45 10/10/18 03:00 Temperature Pulse Rate 88 88 87 Respiratory Rate Blood Pressure 126/62 125/57 L 117/61 Pulse Oximetry 89 L 90 L 91 L 10/10/18 03:15 10/10/18 03:30 10/10/18 03:45 Temperature Pulse Rate 86 85 85 Respiratory Rate Blood Pressure 117/59 L 116/72 116/73 Pulse Oximetry 91 L 90 L 90 L 10/10/18 04:00 10/10/18 04:03 10/10/18 04:15 Temperature 98.8 F Pulse Rate 85 83 Respiratory Rate 12 Blood Pressure 110/68 110/68 Pulse Oximetry 90 L 90 L 90 L 10/10/18 04:30 10/10/18 04:45 10/10/18 05:00 Temperature Pulse Rate 82 81 80 Respiratory Rate Blood Pressure 114/70 116/61 122/65 Pulse Oximetry 89 L 89 L 89 L 10/10/18 05:15 10/10/18 05:30 10/10/18 05:45 Temperature Pulse Rate 80 80 80 Respiratory Rate Blood Pressure 109/70 112/73 Pulse Oximetry 88 L 89 L 90 L 10/10/18 06:00 10/10/18 06:15 10/10/18 06:30 Temperature Pulse Rate 79 79 79 Respiratory Rate Blood Pressure 99/66 L 102/72 Pulse Oximetry 90 L 90 L 91 L 10/10/18 06:45 10/10/18 07:00 10/10/18 07:15 Temperature 98.6 F 98.6 F 98.6 F Pulse Rate 79 79 79 Respiratory Rate Blood Pressure Pulse Oximetry 90 L 90 L 90 L 10/10/18 07:30 10/10/18 07:41 10/10/18 07:45 Temperature 98.6 F 98.6 F Pulse Rate 79 79 Respiratory Rate 11 L Blood Pressure Pulse Oximetry 90 L 90 L 89 L 10/10/18 08:00 10/10/18 08:15 10/10/18 08:30 Temperature 98.6 F 98.6 F 98.6 F Pulse Rate 79 78 78 Respiratory Rate Blood Pressure Pulse Oximetry 89 L 88 L 88 L 10/10/18 08:45 10/10/18 09:00 10/10/18 09:15 Temperature 98.6 F 98.6 F 98.6 F Pulse Rate 78 78 79 Respiratory Rate Blood Pressure Pulse Oximetry 88 L 88 L 88 L 10/10/18 09:30 10/10/18 09:45 10/10/18 10:00 Temperature 98.4 F 98.4 F 98.4 F Pulse Rate 79 78 77 Respiratory Rate Blood Pressure Pulse Oximetry 88 L 88 L 88 L 10/10/18 10:15 Temperature 98.4 F Pulse Rate 77 Respiratory Rate Blood Pressure Pulse Oximetry 88 L I&O: Intake & Output 10/08/18 10/09/18 10/10/18 10/11/18 06:59 06:59 06:59 06:59 Intake Total 2460 / 2460 3930 / 3930 1570 / 1570 305 / 305 Output Total 2625 / 2625 3000 / 3000 760 / 760 Balance -165 / -165 930 / 930 810 / 810 305 / 305 Weight 209.3 kg 211.7 kg 210.3 kg Physical Exam: CONSTITUTIONAL/GENERAL: Intubated and sedated, likely ill TUBES/LINES/DRAINS: RR AL, RIJ, PIV, Mendieta, bilateral soft wrist restraints SKIN: No jaundice, rashes, or lesions. Appears ashen . Right horseshoe surgical incision in and dry. No wounds seen anteriorly. Skin temperature appropriate. Not diaphoretic. Bullae noted to the left upper externally HEAD: Right bone flap appears soft nonedematous. EYES: Pupils equal and round and reactive, 2 mm. Moderate amount of periorbital edema right greater than left. No scleral icterus. No injection or drainage. Fundi not examined. ENT: Unable to assess due to clinical condition. Nose without bleeding or purulent drainage. Throat without visible erythema, exudates, masses, or lesions. Tongue is somewhat protruding and dry NECK: Trachea midline. Supple, nontender. No palpable thyroid enlargement or nodularity. Next as a somewhat enlarged CARDIOVASCULAR: Regular rate and rhythm without murmurs, gallops, or rubs. Peripheral pulses symmetric. RESPIRATORY/CHEST: Mechanically ventilated. Currently on biphasic settings with 100% FiO2. Recently started on Flolan SPO2 ranges between 87% and 94% minimal air movement heard throughout all lung fine GASTROINTESTINAL: Abdomen soft, non-tender, nondistended. No hepato-splenomegaly , or palpable masses. No guarding. Bowel sounds present. GENITOURINARY: Without palpable bladder distension. Mendieta catheter in place. MUSCULOSKELETAL: Extremities tight and edematous. No joint effusion noted. No mottling or clubbing. LYMPHATICS: No palpable cervical or supraclavicular adenopathy. NEUROLOGICAL: Sedated. Withdraws bilateral lower extremities to noxious stimuli to periphery. Flaccid bilateral upper extremities. Positive cough questionable gag. pupils equal round reactive PSYCHIATRIC: Unable to assess due to clinical condition Diagnostic Tests Laboratory: Laboratory Results - last 72 hr 10/07/18 10/07/18 10/07/18 11:28 17:01 17:41 WBC RBC Hgb Hct MCV MCH MCHC RDW Plt Count MPV Prelim Diff (Auto) Neut % (Auto) Lymph % (Auto) Ector % (Auto) Eos % (Auto) Baso % (Auto) Neut # (Auto) Lymph # (Auto) Ector # (Auto) Eos # (Auto) Baso # (Auto) WBC Differential Diff Scan Differential Comment Platelet Estimate Platelet Morphology Ovalocytes Puncture Site Patient Temperature O2 Saturation ABG pH ABG pCO2 ABG pO2 ABG HCO3 ABG O2 Content ABG Base Excess ABG Methemoglobin Hemoglobin Carboxyhemoglobin O2 Delivery Device Vent Setting Inspired O2 Critical Value Sodium 155 H Potassium Chloride Carbon Dioxide Anion Gap BUN Creatinine Estimated GFR POC Glucose 158 H 145 H Random Glucose Calcium Magnesium B-Natriuretic Peptide Procalcitonin Random Vancomycin 10/07/18 10/08/18 10/08/18 23:09 05:19 05:50 WBC RBC Hgb Hct MCV MCH MCHC RDW Plt Count MPV Prelim Diff (Auto) Neut % (Auto) Lymph % (Auto) Ector % (Auto) Eos % (Auto) Baso % (Auto) Neut # (Auto) Lymph # (Auto) Ector # (Auto) Eos # (Auto) Baso # (Auto) WBC Differential Diff Scan Differential Comment Platelet Estimate Platelet Morphology Ovalocytes Puncture Site Patient Temperature O2 Saturation ABG pH ABG pCO2 ABG pO2 ABG HCO3 ABG O2 Content ABG Base Excess ABG Methemoglobin Hemoglobin Carboxyhemoglobin O2 Delivery Device Vent Setting Inspired O2 Critical Value Sodium 156 H* Potassium 3.7 Chloride 122 H Carbon Dioxide 25.2 Anion Gap 9 BUN 49 H Creatinine 2.32 H Estimated GFR 28 L POC Glucose 141 H 137 H Random Glucose 142 H Calcium 8.7 Magnesium 2.2 B-Natriuretic Peptide Procalcitonin Random Vancomycin 10/08/18 10/08/18 10/08/18 12:06 15:23 17:02 WBC RBC Hgb Hct MCV MCH MCHC RDW Plt Count MPV Prelim Diff (Auto) Neut % (Auto) Lymph % (Auto) Ector % (Auto) Eos % (Auto) Baso % (Auto) Neut # (Auto) Lymph # (Auto) Ector # (Auto) Eos # (Auto) Baso # (Auto) WBC Differential Diff Scan Differential Comment Platelet Estimate Platelet Morphology Ovalocytes Puncture Site Art line Patient Temperature 98.6 O2 Saturation 96 ABG pH 7.34 L ABG pCO2 39 ABG pO2 101 ABG HCO3 20 L ABG O2 Content 12.9 ABG Base Excess -4.5 L ABG Methemoglobin 1.0 Hemoglobin 9.5 L Carboxyhemoglobin 1.5 O2 Delivery Device Ventilator Vent Setting Bilevel Inspired O2 80 Critical Value No Sodium Potassium Chloride Carbon Dioxide Anion Gap BUN Creatinine Estimated GFR POC Glucose 179 H 159 H Random Glucose Calcium Magnesium B-Natriuretic Peptide Procalcitonin Random Vancomycin 10/08/18 10/08/18 10/09/18 23:49 23:50 05:20 WBC RBC Hgb Hct MCV MCH MCHC RDW Plt Count MPV Prelim Diff (Auto) Neut % (Auto) Lymph % (Auto) Ector % (Auto) Eos % (Auto) Baso % (Auto) Neut # (Auto) Lymph # (Auto) Ector # (Auto) Eos # (Auto) Baso # (Auto) WBC Differential Diff Scan Differential Comment Platelet Estimate Platelet Morphology Ovalocytes Puncture Site Patient Temperature O2 Saturation ABG pH ABG pCO2 ABG pO2 ABG HCO3 ABG O2 Content ABG Base Excess ABG Methemoglobin Hemoglobin Carboxyhemoglobin O2 Delivery Device Vent Setting Inspired O2 Critical Value Sodium 155 H 156 H* Potassium 3.7 Chloride 123 H Carbon Dioxide 22.5 Anion Gap 11 BUN 56 H Creatinine 2.40 H Estimated GFR 27 L POC Glucose 149 H Random Glucose 158 H Calcium 8.9 Magnesium B-Natriuretic Peptide Procalcitonin Random Vancomycin 15.2 10/09/18 10/09/18 10/09/18 05:20 07:44 08:00 WBC 3.8 L RBC 3.86 L Hgb 10.7 L Hct 33.9 L MCV 87.7 MCH 27.8 MCHC 31.7 L RDW 16.1 Plt Count 165 MPV 8.7 Prelim Diff (Auto) Slide review pending Neut % (Auto) 66.4 Lymph % (Auto) 18.8 Ector % (Auto) 8.7 H Eos % (Auto) 5.4 H Baso % (Auto) 0.7 Neut # (Auto) 2.5 Lymph # (Auto) 0.7 L Ector # (Auto) 0.3 Eos # (Auto) 0.2 Baso # (Auto) 0.0 WBC Differential . Diff Scan Auto diff confirmed Differential Comment . Platelet Estimate Normal Platelet Morphology Normal Ovalocytes 1+ H Puncture Site Stephanie Patient Temperature 98.6 O2 Saturation 94 ABG pH 7.28 L* ABG pCO2 48 H ABG pO2 93 ABG HCO3 22 ABG O2 Content 14.1 ABG Base Excess -3.6 L ABG Methemoglobin 1.3 Hemoglobin 10.6 L Carboxyhemoglobin 1.3 O2 Delivery Device Vent Vent Setting Aprv/4.5/34/0.6/0/5/ Inspired O2 60 Critical Value Yes Sodium Potassium Chloride Carbon Dioxide Anion Gap BUN Creatinine Estimated GFR POC Glucose Random Glucose Calcium Magnesium B-Natriuretic Peptide 74 Procalcitonin Random Vancomycin 10/09/18 10/09/18 10/09/18 11:42 17:40 17:41 WBC RBC Hgb Hct MCV MCH MCHC RDW Plt Count MPV Prelim Diff (Auto) Neut % (Auto) Lymph % (Auto) Ector % (Auto) Eos % (Auto) Baso % (Auto) Neut # (Auto) Lymph # (Auto) Ector # (Auto) Eos # (Auto) Baso # (Auto) WBC Differential Diff Scan Differential Comment Platelet Estimate Platelet Morphology Ovalocytes Puncture Site Art line Patient Temperature 98.6 O2 Saturation 90 ABG pH 7.30 L ABG pCO2 44 H ABG pO2 70 ABG HCO3 21 L ABG O2 Content 13.7 ABG Base Excess -4.3 L ABG Methemoglobin 1.2 Hemoglobin 10.8 L Carboxyhemoglobin 1.4 O2 Delivery Device Ventilator Vent Setting Bilevel Inspired O2 60 Critical Value No Sodium Potassium Chloride Carbon Dioxide Anion Gap BUN Creatinine Estimated GFR POC Glucose 155 H 144 H Random Glucose Calcium Magnesium B-Natriuretic Peptide Procalcitonin Random Vancomycin 10/09/18 10/09/18 10/10/18 17:50 17:50 00:52 WBC RBC Hgb Hct MCV MCH MCHC RDW Plt Count MPV Prelim Diff (Auto) Neut % (Auto) Lymph % (Auto) Ector % (Auto) Eos % (Auto) Baso % (Auto) Neut # (Auto) Lymph # (Auto) Ector # (Auto) Eos # (Auto) Baso # (Auto) WBC Differential Diff Scan Differential Comment Platelet Estimate Platelet Morphology Ovalocytes Puncture Site Patient Temperature O2 Saturation ABG pH ABG pCO2 ABG pO2 ABG HCO3 ABG O2 Content ABG Base Excess ABG Methemoglobin Hemoglobin Carboxyhemoglobin O2 Delivery Device Vent Setting Inspired O2 Critical Value Sodium 156 H* Potassium Chloride Carbon Dioxide Anion Gap BUN Creatinine Estimated GFR POC Glucose 153 H Random Glucose Calcium Magnesium B-Natriuretic Peptide Procalcitonin 0.30 H Random Vancomycin 10/10/18 10/10/18 10/10/18 05:15 05:15 06:21 WBC 3.4 L RBC 3.65 L Hgb 10.2 L Hct 31.7 L MCV 87.0 MCH 28.1 MCHC 32.2 RDW 16.0 Plt Count 173 MPV 8.8 Prelim Diff (Auto) Neut % (Auto) 71.1 H Lymph % (Auto) 11.8 Ector % (Auto) 11.3 H Eos % (Auto) 5.1 H Baso % (Auto) 0.7 Neut # (Auto) 2.4 Lymph # (Auto) 0.4 L Ector # (Auto) 0.4 Eos # (Auto) 0.2 Baso # (Auto) 0.0 WBC Differential . Diff Scan Differential Comment Auto diff final Platelet Estimate Platelet Morphology Ovalocytes Puncture Site Patient Temperature O2 Saturation ABG pH ABG pCO2 ABG pO2 ABG HCO3 ABG O2 Content ABG Base Excess ABG Methemoglobin Hemoglobin Carboxyhemoglobin O2 Delivery Device Vent Setting Inspired O2 Critical Value Sodium 156 H* Potassium 3.9 Chloride 122 H Carbon Dioxide 22.2 Anion Gap 12 BUN 69 H Creatinine 2.60 H Estimated GFR 25 L POC Glucose 146 H Random Glucose 148 H Calcium 9.4 Magnesium B-Natriuretic Peptide Procalcitonin Random Vancomycin 24.0 10/10/18 07:42 WBC RBC Hgb Hct MCV MCH MCHC RDW Plt Count MPV Prelim Diff (Auto) Neut % (Auto) Lymph % (Auto) Ector % (Auto) Eos % (Auto) Baso % (Auto) Neut # (Auto) Lymph # (Auto) Ector # (Auto) Eos # (Auto) Baso # (Auto) WBC Differential Diff Scan Differential Comment Platelet Estimate Platelet Morphology Ovalocytes Puncture Site Art line Patient Temperature 98.6 O2 Saturation 89 L* ABG pH 7.31 L ABG pCO2 42 ABG pO2 68 ABG HCO3 21 L ABG O2 Content 12.9 ABG Base Excess -4.5 L ABG Methemoglobin 1.2 Hemoglobin 10.3 L Carboxyhemoglobin 1.3 O2 Delivery Device Ventilator Vent Setting Bilevel Inspired O2 100 Critical Value Yes Sodium Potassium Chloride Carbon Dioxide Anion Gap BUN Creatinine Estimated GFR POC Glucose Random Glucose Calcium Magnesium B-Natriuretic Peptide Procalcitonin Random Vancomycin Result Diagrams: 10/10/18 05:15 10/10/18 05:15 Microbiology: Microbiology 10/09/18 09:00 Gram Stain - Final Sputum - Endotracheal 10/03/18 10:05 Aerobic Blood Culture - Final Blood - Peripheral No growth in 5 days Anaerobic Blood Culture - Final No growth in 5 days 10/03/18 10:10 Aerobic Blood Culture - Final Blood - Peripheral No growth in 5 days Anaerobic Blood Culture - Final No growth in 5 days Imaging: Impressions Chest X-Ray 10/09/18 04:00 CONCLUSION: No significant interval change with persistent prominent bilateral lower lung zone pulmonary parenchymal opacity and likely bilateral pleural effusions. Procedures: 10/03/18 * Right-sided craniotomy with evacuation and ICP monitor placement * Endotracheal intubation 10/04/18 * RRAL * RIJ Patient/Family Conference Present at Family Conference: Was able to speak with patient's daughter Desiree, . She asked that we did not contact the patient's at this time as she feels she is to emotionally unstable. She originally requested that we meet at bedside at 4 PM today, but after we discussed CODE STATUS she felt it was important to get her mother and had out to the hospital within the hour. Dr. Hermosillo was informed and he will attempt to be present for this meeting as well. Tentatively set for 1:30 PM today Update: Family meeting held in [facility] conference room at approximately 2 PM today, 10/10/18 Present and meeting were: Yasir Haas palliative care CHAIN HOOKER, a [employer] DIET [employer], patient's Yareli Fox, patient's daughter Desiree Nolan Family Conference Location: Consult Room Issues Discussed: * Palliative care role, purpose, approach * Additional medical, psychosocial, and spiritual history * Patients general health, functional status, and cognitive changes in the months leading up to the current hospitalization * Patient/family understanding of the current medical problems * Patient/family understanding of prognosis * Current medical treatment options and benefits/burdens of those options * Questions answered to the best of my ability * Palliative care contact information provided We discussed at length with patient's and daughter the patient's clinical status and recent decline. We discussed risks of, benefits, and alternatives to further aggressive treatments. It was decided that due to the patient's dynamic vent settings and body habitus chest tubes may be too great a risk at this time. Nephrology will be consulted to see if patient is a candidate for fluid removal via hemodialysis. Concerning his neurological status, the family understands that this point the patient is too critically ill from a respiratory standpoint to begin sedation vacations. They understand that at this time we do not have a clear way of knowing what the patient's neurological status is and how much recovery he will have. They understand that should the patient require further cardiopulmonary resuscitation he most likely will not have a positive outcome. They wish for the patient to remain FULL CODE and continue with aggressive treatment. Should the medical team notice the patient' s clinical status declining further family wishes to be contacted immediately so they can be present. Assessment and Plan - Disease Oriented Problem List (1) Intraparenchymal hemorrhage of brain - Symptom Scale (1) Dyspnea 0-10 Scale: Unable to quantify Comment: patient currently on dynamic vent settings with 100% FiO2 and Flolan (2) Pain 0-10 Scale: Unable to quantify Comment: currently managed with Fentanyl gtt (3) Anxiety 0-10 Scale: Unable to quantify Comment: currently managed with IV sedation Pertinent Non-Medical Issues: Psychosocial: The patient is currently . He recently moved to [facility] from [place]. He has 2 children a son and daughter both involved in his care. Spiritual: Scientologist Legal: The patient is currently incapacitated and cannot participate in his own healthcare decision making at this time. In the absence of documented advanced directives, per [place] statutes decision making would fall to his Yareli Fox [phone] by proxy. The patient's asked that we relate all information to her daughter Desiree Nolan [phone] and in turn she will relay the information to her mother. Ethical issues impacting care: There are currently no known ethical issues impacting care at this time Important Contacts: Yareli Fox, /HCP - [phone] Desiree Nolan, daughter *please call her 1st, per 's request. She will relay the information to * [phone] Prognosis: Approximately 3 weeks prior to this admission the patient was hospitalized for previous bout of pneumonia requiring the use of home oxygen. He suffered an intracranial hemorrhage thought to be related to poorly controlled hypertension. He continues to be difficult to oxygenate requiring increasing ventilatory support. The patient's previous level of function was somewhat debilitated given his multiple comorbidities. Considering the nature of his injuries and continued downward trajectory he remains at increased risk for further decompensation, respiratory compromise, cardiac complications, infection , further neurologic sequelae, and Code Status: Full Code Plan: * LEGAL DECISION MAKER - The patient is currently incapacitated and cannot participate in his own healthcare decision making. In the absence of any written advanced directives, per [place] statutes decision making would fall to his Yareli Fox [phone] by proxy. The patient's requests that all information be relayed to their daughter Desiree Nolan [phone] and then Desiree will relay this information to her mother * GOALS - In discussion with the patient's Yareli Fox and daughter Desiree , they continue to wish for aggressive measures. We discussed that the patient is critically ill and has high ventilator settings with not much room left for change. Should he decompensate further there may not be much else that could be added. We also discussed should he need further cardiopulmonary resuscitation, he most likely will not have a favorable outcome. Risk, benefits , alternatives for fluid removal were discussed and it was felt that at this time the patient would not be a good candidate for any type of chest tubes given his body habitus and dynamic vent settings. Nephrology will be consulted to see if patient is a candidate for any type of fluid removal via hemodialysis. Family understands that the patient is critically ill and his clinical status can change hour to hour. They continue to wish for aggressive treatment and want the patient to remain in FULL CODE. * CODE STATUS -FULL CODE * SYMPTOMS Pain - multifactorial including, recent surgical status bedbound status, blood draws, invasive lines, tubes, procedures, etc. patient currently managed with IV fentanyl GTT. Remains very critically ill with delicate clinical status. If/when patient is able to be weaned from vent will make further pain recommendations at that time. Dyspnea -patient remains difficult to oxygenate despite dynamic vent settings. Not currently in a candidate for chest tube placement. Has been difficult to diurese due to chronic kidney disease. Nephrology was consulted to see if patient is candidate for fluid removal via hemodialysis. Was recently started on Flolan. Defer to critical care at this time. Anxiety -patient at risk for anxiety due to recent surgical status, clinical status, and intubation. Currently managed with IV sedation. Appears calm at this time. Will make further recommendations as clinical case evolves. Palliative care will continue to follow during hospital course as condition evolves, to assist patient/decision maker with understanding of medical conditions, weighing benefits/burdens of treatment options, for clarification of goals of treatment. Additionally will assist with any symptoms of palliative concern. Case discussed with Dr. Casarez and RN (Aminta) at bedside. Appreciation Thank you for the opportunity to participate in the care of Daniel Fox. Attestation Attestation: To help prompt me to consider important information that might be impacting today's encounter and assessment, information from prior notes written by myself or my colleagues may have been "brought forward" into today's note. My signature on this note, however, is an attestation that I personally performed the exam, history, and/or decision-making noted today, and, unless otherwise indicated, the interactions with patient, family, and staff as well as the review of records all occurred today. I also attest that the listed assessment and stated plan reflect my best clinical judgment today based on the combination of historical information, prior notes, and today's exam/ interactions. When time spent is documented, it refers only to time spent today by the signer, or if indicated, combined time spent today by collaborating physician/nurse practitioner.
[2018-10-10] MEDS: EPOPROSTENOL NEB SCH ×2 (11:22→20:07)
[2018-10-10] MEDS: SODIUM CHLOR NEB SCH ×2 (11:22→20:07)
--- NOTE | 2018-10-10 17:36 | P.PNID ---
Subjective Remarks: Patient is unresponsive on the ventilator. Currently on 100% FiO2. RN reports that he desaturated when oxygen was weaned. RN reports less ETT secretions. Started on Flolan. Afebrile. Sputum culture has no growth. This is a 68-year-old white male who was admitted to the hospital 10/03/2018 on transfer from [facility] with headache. The patient was noted to have an acute intraparenchymal hemorrhage in the right temporal region. He underwent surgery in the form of right posterior temporal craniotomy and evacuation of intracerebral hematoma. Because of the persistence of the lung infiltrates and continuation of ventilation with difficulty weaning off the ventilator, this consultation is requested for infectious disease evaluation. Past Medical History: PAST MEDICAL HISTORY: Hypertension, hyperlipidemia, diabetes mellitus. Total right knee replacement. Allergies/Adverse Reactions: Allergies clear tape,plastic tape Allergy (Severe, Uncoded 10/04/18 18:47) Blister Objective Vital Signs 10/09/18 17:30 10/09/18 17:45 10/09/18 17:55 Temperature 98.8 F 98.8 F Pulse Rate 66 69 Respiratory Rate 11 L Blood Pressure 124/79 120/61 Pulse Oximetry 95 92 L 91 L 10/09/18 18:00 10/09/18 18:15 10/09/18 18:30 Temperature 98.8 F 98.8 F 98.8 F Pulse Rate 67 67 67 Respiratory Rate Blood Pressure 113/57 L 109/56 L 123/64 Pulse Oximetry 92 L 91 L 92 L 10/09/18 19:00 10/09/18 19:15 10/09/18 19:30 Temperature 98.8 F 98.8 F 98.8 F Pulse Rate 75 68 74 Respiratory Rate Blood Pressure 128/60 131/65 122/72 Pulse Oximetry 91 L 92 L 93 L 10/09/18 19:34 10/09/18 19:45 10/09/18 20:00 Temperature 98.8 F 98.8 F Pulse Rate 68 68 Respiratory Rate 12 Blood Pressure 131/69 125/64 Pulse Oximetry 92 L 96 90 L 10/09/18 20:15 10/09/18 20:30 10/09/18 20:45 Temperature 98.8 F 99.0 F 99.0 F Pulse Rate 76 75 74 Respiratory Rate Blood Pressure 132/67 137/63 133/63 Pulse Oximetry 92 L 91 L 91 L 10/09/18 21:00 10/09/18 21:15 10/09/18 21:30 Temperature 99.0 F 99.0 F 99.0 F Pulse Rate 68 68 76 Respiratory Rate Blood Pressure 129/66 125/68 125/71 Pulse Oximetry 91 L 91 L 91 L 10/09/18 21:45 10/09/18 22:00 10/09/18 22:15 Temperature 99.0 F 99.0 F 99.0 F Pulse Rate 75 75 68 Respiratory Rate Blood Pressure 128/71 129/72 132/73 Pulse Oximetry 91 L 90 L 91 L 10/09/18 22:30 10/09/18 22:45 10/09/18 22:51 Temperature 99.0 F 99.0 F 99.0 F Pulse Rate 78 77 77 Respiratory Rate Blood Pressure 160/73 H 152/66 H 136/63 Pulse Oximetry 92 L 92 L 93 L 10/09/18 23:00 10/09/18 23:15 10/09/18 23:30 Temperature 99.0 F 99.0 F 99.0 F Pulse Rate 77 78 77 Respiratory Rate Blood Pressure 137/66 149/70 H 135/67 Pulse Oximetry 93 L 93 L 93 L 10/09/18 23:45 10/10/18 00:00 10/10/18 00:04 Temperature 99.0 F 99.1 F Pulse Rate 70 77 Respiratory Rate 12 Blood Pressure 123/63 123/65 Pulse Oximetry 92 L 92 L 92 L 10/10/18 00:15 10/10/18 00:30 10/10/18 00:45 Temperature 99.1 F 99.1 F 99.1 F Pulse Rate 78 77 76 Respiratory Rate Blood Pressure 139/70 141/63 H 137/63 Pulse Oximetry 93 L 92 L 93 L 10/10/18 01:00 10/10/18 01:15 10/10/18 01:30 Temperature 99.1 F Pulse Rate 77 76 75 Respiratory Rate Blood Pressure 125/67 127/66 121/64 Pulse Oximetry 92 L 92 L 93 L 10/10/18 01:45 10/10/18 02:00 10/10/18 02:15 Temperature Pulse Rate 75 70 88 Respiratory Rate Blood Pressure 136/67 169/77 H Pulse Oximetry 93 L 74 L 83 L 10/10/18 02:21 10/10/18 02:30 10/10/18 02:45 Temperature Pulse Rate 87 88 88 Respiratory Rate Blood Pressure 133/73 126/62 125/57 L Pulse Oximetry 85 L 89 L 90 L 10/10/18 03:00 10/10/18 03:15 10/10/18 03:30 Temperature Pulse Rate 87 86 85 Respiratory Rate Blood Pressure 117/61 117/59 L 116/72 Pulse Oximetry 91 L 91 L 90 L 10/10/18 03:45 10/10/18 04:00 10/10/18 04:03 Temperature 98.8 F Pulse Rate 85 85 Respiratory Rate 12 Blood Pressure 116/73 110/68 Pulse Oximetry 90 L 90 L 90 L 10/10/18 04:15 10/10/18 04:30 10/10/18 04:45 Temperature Pulse Rate 83 82 81 Respiratory Rate Blood Pressure 110/68 114/70 116/61 Pulse Oximetry 90 L 89 L 89 L 10/10/18 05:00 10/10/18 05:15 10/10/18 05:30 Temperature Pulse Rate 80 80 80 Respiratory Rate Blood Pressure 122/65 109/70 112/73 Pulse Oximetry 89 L 88 L 89 L 10/10/18 05:45 10/10/18 06:00 10/10/18 06:15 Temperature Pulse Rate 80 79 79 Respiratory Rate Blood Pressure 99/66 L 102/72 Pulse Oximetry 90 L 90 L 90 L 10/10/18 06:30 10/10/18 06:45 10/10/18 07:00 Temperature 98.6 F 98.6 F Pulse Rate 79 79 79 Respiratory Rate Blood Pressure Pulse Oximetry 91 L 90 L 90 L 10/10/18 07:15 10/10/18 07:30 10/10/18 07:41 Temperature 98.6 F 98.6 F Pulse Rate 79 79 Respiratory Rate 11 L Blood Pressure Pulse Oximetry 90 L 90 L 90 L 10/10/18 07:45 10/10/18 08:00 10/10/18 08:15 Temperature 98.6 F 98.6 F 98.6 F Pulse Rate 79 79 78 Respiratory Rate Blood Pressure Pulse Oximetry 89 L 89 L 88 L 10/10/18 08:30 10/10/18 08:45 10/10/18 09:00 Temperature 98.6 F 98.6 F 98.6 F Pulse Rate 78 78 78 Respiratory Rate Blood Pressure Pulse Oximetry 88 L 88 L 88 L 10/10/18 09:15 10/10/18 09:30 10/10/18 09:45 Temperature 98.6 F 98.4 F 98.4 F Pulse Rate 79 79 78 Respiratory Rate Blood Pressure Pulse Oximetry 88 L 88 L 88 L 10/10/18 10:00 10/10/18 10:15 10/10/18 10:30 Temperature 98.4 F 98.4 F Pulse Rate 77 77 77 Respiratory Rate Blood Pressure Pulse Oximetry 88 L 88 L 88 L 10/10/18 10:45 10/10/18 11:00 10/10/18 11:15 Temperature Pulse Rate 77 77 77 Respiratory Rate Blood Pressure Pulse Oximetry 88 L 88 L 88 L 10/10/18 11:16 10/10/18 11:30 10/10/18 11:45 Temperature Pulse Rate 77 77 Respiratory Rate 17 Blood Pressure Pulse Oximetry 88 L 88 L 88 L 10/10/18 12:00 10/10/18 12:15 10/10/18 12:30 Temperature 99.0 F Pulse Rate 77 78 77 Respiratory Rate Blood Pressure Pulse Oximetry 89 L 96 96 10/10/18 12:45 10/10/18 13:00 10/10/18 13:15 Temperature Pulse Rate 77 77 77 Respiratory Rate Blood Pressure Pulse Oximetry 95 94 L 94 L 10/10/18 13:30 10/10/18 13:45 10/10/18 15:51 Temperature Pulse Rate 77 76 Respiratory Rate 14 Blood Pressure Pulse Oximetry 94 L 94 L 91 L Intake & Output 10/09/18 10/10/18 10/10/18 18:59 06:59 18:59 Intake Total 755 / 755 815 / 815 755 / 755 Output Total 600 / 600 160 / 160 Balance 155 / 155 655 / 655 755 / 755 Weight 210.3 kg Intake: IV 755 / 755 755 / 755 755 / 755 Lasix Inj 100 MG In NS Inj 90 100 / 100 100 / 100 100 / 100 ML @ 10 mls/hr IV.CONT .Q10H [facility] Rx#:[id number] Diprivan 1000 mg/100 ml Inj 1, 200 / 200 100 / 100 100 / 100 000 mg In 100 ml @ 5 MCG/KG/MIN 5.34 mls/hr IV.CONT TITRATE PRN Rx#:[id number] Flexbumin 25% Inj 100 ML @ 60 100 / 100 100 / 100 mls/hr IV.SIG Q12H [facility] Rx#: [id number] Maxipime Inj 2,000 MG In NS Inj 100 / 100 100 / 100 100 / 100 100 ML @ 200 mls/hr IV.SIG Q12H [facility] Rx#:[id number] Levophed Inj 4 MG In NS Inj 246 250 / 250 ML @ 2 MCG/MIN 7.5 mls/hr IV. SIG TITRATE PRN Rx#:[id number] fentaNYL 10 mcg/mL Premix Drip 250 / 250 250 / 250 2,500 mcg In 250 ml @ 50 MCG/HR 5 mls/hr IV.SIG TITRATE PRN Rx #:[id number] Keppra Inj 500 MG In NS Inj 100 105 / 105 105 / 105 105 / 105 ML @ 400 mls/hr IV.SIG Q12H [facility] Rx#:[id number] Tube Irrigant 60 / 60 Output: Stool 100 / 100 Urine Amount (Catheter) 600 / 600 Indwelling Temp Sensing 600 / 600 Catheter Gastric Drainage 60 / 60 Oral Orogastric Tube 60 / 60 Other: Date of Last Bowel Movement 10/10/18 10/09/18 09:00 Sputum - Endotracheal Gram Stain - Final 10/09/18 09:00 Sputum - Endotracheal Sputum Culture - Preliminary No growth in 24 hours 10/03/18 10:05 Blood - Peripheral Aerobic Blood Culture - Final No growth in 5 days 10/03/18 10:05 Blood - Peripheral Anaerobic Blood Culture - Final No growth in 5 days 10/03/18 10:10 Blood - Peripheral Aerobic Blood Culture - Final No growth in 5 days 10/03/18 10:10 Blood - Peripheral Anaerobic Blood Culture - Final No growth in 5 days Lab - Hematology Results 10/09/18 10/10/18 08:00 05:15 WBC 3.8 L 3.4 L RBC 3.86 L 3.65 L Hgb 10.7 L 10.2 L Hct 33.9 L 31.7 L MCV 87.7 87.0 MCH 27.8 28.1 MCHC 31.7 L 32.2 RDW 16.1 16.0 Plt Count 165 173 MPV 8.7 8.8 Prelim Diff (Auto) Slide review pending Neut % (Auto) 66.4 71.1 H Lymph % (Auto) 18.8 11.8 [place] % (Auto) 8.7 H 11.3 H Eos % (Auto) 5.4 H 5.1 H Baso % (Auto) 0.7 0.7 Neut # (Auto) 2.5 2.4 Lymph # (Auto) 0.7 L 0.4 L [place] # (Auto) 0.3 0.4 Eos # (Auto) 0.2 0.2 Baso # (Auto) 0.0 0.0 WBC Differential . . Diff Scan Auto diff confirmed Differential Comment . Auto diff final Platelet Estimate Normal Platelet Morphology Normal Ovalocytes 1+ H Lab - Chemistry Results 10/08/18 10/08/18 10/09/18 23:49 23:50 05:20 Sodium 155 H 156 H* Potassium 3.7 Chloride 123 H Carbon Dioxide 22.5 Anion Gap 11 BUN 56 H Creatinine 2.40 H Estimated GFR 27 L POC Glucose 149 H Random Glucose 158 H Calcium 8.9 B-Natriuretic Peptide Procalcitonin 10/09/18 10/09/18 10/09/18 05:20 11:42 17:41 Sodium Potassium Chloride Carbon Dioxide Anion Gap BUN Creatinine Estimated GFR POC Glucose 155 H 144 H Random Glucose Calcium B-Natriuretic Peptide 74 Procalcitonin 10/09/18 10/09/18 10/10/18 17:50 17:50 00:52 Sodium 156 H* Potassium Chloride Carbon Dioxide Anion Gap BUN Creatinine Estimated GFR POC Glucose 153 H Random Glucose Calcium B-Natriuretic Peptide Procalcitonin 0.30 H 10/10/18 10/10/18 10/10/18 05:15 05:15 06:21 Sodium 156 H* Potassium 3.9 Chloride 122 H Carbon Dioxide 22.2 Anion Gap 12 BUN 69 H Creatinine 2.60 H Estimated GFR 25 L POC Glucose 146 H Random Glucose 148 H Calcium 9.4 B-Natriuretic Peptide 48 Procalcitonin 10/10/18 10/10/18 11:28 17:02 Sodium Potassium Chloride Carbon Dioxide Anion Gap BUN Creatinine Estimated GFR POC Glucose 130 H 162 H Random Glucose Calcium B-Natriuretic Peptide Procalcitonin Imaging: ITS Impressions Neck CTA 10/03/18 00:00 CONCLUSION: 1. The left vert originates directly from the arch. 2. Atherosclerotic plaquing at the carotid bifurcation but no hemodynamically significant carotid artery stenosis identified. 3. CTA of the brain pending. Head CTA 10/03/18 07:56 CONCLUSION: No acute [place] of [place] vascular findings . Abdomen/Bladder Ultrasound 10/04/18 00:00 CONCLUSION: No hydronephrosis Head CT 10/05/18 00:00 CONCLUSION: Satisfactory postop appearance . Chest X-Ray 10/09/18 04:00 CONCLUSION: No significant interval change with persistent prominent bilateral lower lung zone pulmonary parenchymal opacity and likely bilateral pleural effusions. Physical Exam: PHYSICAL EXAMINATION: GENERAL: Unresponsive on the ventilator. HEENT: Unable to fully assess. There is a dressing at the vertex of the head where the CLARIBEL drain was located. The area is dry. Conjunctivae have edema. Oropharynx is intubated. NECK: No adenopathy. LUNGS: Markedly diminished breath sounds. HEART: Regular S1, S2, without murmurs. ABDOMEN: Bowel sounds diminished, obese, unable to appreciate tenderness. EXTREMITIES: No clubbing or cyanosis. 2+ nonpitting edema. SKIN: No diffuse rash. NEUROLOGIC: Unable to assess because the patient is unresponsive and intubated. PSYCHIATRIC: Unable to assess. Assessment and Plan - Plan IMPRESSION: 1. Pneumonia versus atelectasis in a patient with persistent infiltrates despite diuresis. Sputum culture has no growth. 2. Acute respiratory failure. 3. Intraparenchymal hematoma, status post intracranial pressure monitor and evacuation. RECOMMENDATIONS: 1. Continue vancomycin. 2. Continue cefepime. 3. Follow repeat sputum culture. 4. Monitor clinical response.
--- NOTE | 2018-10-10 18:30 | P.PNCC ---
Subjective Subjective Remarks/Hospital Course: Patient is a 68-year-old morbidly obese male with past medical history significant for hypertension, diabetes, dyslipidemia, morbid obesity, thyroid disease, history of colon resection and colostomy, who presented to the [facility] with left-sided headache and poorly controlled hypertension. Apparently he woke up with severe left-sided headache was moderately confused and family brought him to the emergency department. The patient did take aspirin for his headache prior to presentation. A stat CT of the head showed large 6.9 x 3.6 x 3.2 cm acute intraparenchymal hemorrhage in the right temporoparietal region with approximate blood volume of 40 mL. There was surrounding edema and 2-3 mm leftward midline shift. Neurosurgery Dr. Hills was contacted and patient was transferred to [place] ICU. PT/INR/ platelet count was normal in the outside hospital. BUN was 43 creatinine was 2. I evaluated the patient in the ICU. Patient is awake but somnolent oriented only to person. He drifts to sleep while talking. His systolic blood pressure was 200 on arrival. Because of questionable airway protection and need for further imaging studies patient was intubated and placed on mechanical ventilation. Dr. Hills had been informed. I will start Cardene to control blood pressure, repeat stat CT head also CT angiogram of brain and neck will be performed. Also give 25 g of IV mannitol, start on 2% saline to keep sodium more than 150-155, also placed on Keppra for seizure prophylaxis. 10/04: Will start oral BP meds down NG tube and attempt to wean cardene. CKD persists as expected. Glucose swing expected. Keep intubated and sedated for now. 10/05: Better blood pressure control with by systolic and amlodipine restarted. Increased difficulty with oxygenation today, now requiring 100% FiO2 and 12 PEEP. Chest x-ray shows atelectasis involving the whole left lower lobe, cultures all negative for significant organism, no white blood cells. Will get repeat head CAT scan today. 10/06: Repeat head CT look good. Worsening difficulties with oxygenation related to the left lower lobe atelectasis. Converted to airway pressure release ventilation this morning. ICP continues to be very well controlled. 10/07: Lightening sedation today. ICP bolt has been removed. Oxygenation has improved. Continue airway pressure release ventilation. Renal function worse today, hydrate gently with isotonic saline and follow closely. 10/08: Continued difficulties with oxygenation related to preoperative lung injury from his pneumonia, body habitus, fluid overload associated with his chronic kidney disease. We will be forced to go back to airway pressure release ventilation because he de-recruited severely after converting to conventional ventilation yesterday despite PEEP of 18. 10/09: Starting to claw our way back to better oxygenation. He recruited severely on conventional ventilation despite markedly elevated PEEP. Hefty diuresis accomplished with Lasix drip however volume load from vancomycin and Cardene infusions makes it hard to get a significant reduction in total body water. This gentleman had pneumonia prior to his surgery and his persistent left lower lobe infiltrate impaired oxygenation early on. His chest x-ray still demonstrates consolidated areas in the left lower lung. 10/10: Increasing FiO2 requirement overnight. On 100% FiO2, AP RV mode mechanical ventilation this morning. Started on inhaled Flolan with which her O2 sats came up from high 80s to 93%. On Lasix drip however not really diuresing. BNP 57 on 10/09. - Diagnosis (1) Intraparenchymal hemorrhage of brain (2) Midline shift of brain (3) Acute encephalopathy (4) Hypertensive emergency (5) LLL pneumonia (6) Acute kidney injury (7) History of hypertension (8) Type 2 diabetes mellitus (9) Dyslipidemia (10) Morbid obesity Objective Vital Signs / I&O: Vital Signs 10/09/18 18:15 10/09/18 18:30 10/09/18 19:00 Temperature 98.8 F 98.8 F 98.8 F Pulse Rate 67 67 75 Respiratory Rate Blood Pressure 109/56 L 123/64 128/60 Pulse Oximetry 91 L 92 L 91 L 10/09/18 19:15 10/09/18 19:30 10/09/18 19:34 Temperature 98.8 F 98.8 F Pulse Rate 68 74 Respiratory Rate 12 Blood Pressure 131/65 122/72 Pulse Oximetry 92 L 93 L 92 L 10/09/18 19:45 10/09/18 20:00 10/09/18 20:15 Temperature 98.8 F 98.8 F 98.8 F Pulse Rate 68 68 76 Respiratory Rate Blood Pressure 131/69 125/64 132/67 Pulse Oximetry 96 90 L 92 L 10/09/18 20:30 10/09/18 20:45 10/09/18 21:00 Temperature 99.0 F 99.0 F 99.0 F Pulse Rate 75 74 68 Respiratory Rate Blood Pressure 137/63 133/63 129/66 Pulse Oximetry 91 L 91 L 91 L 10/09/18 21:15 10/09/18 21:30 10/09/18 21:45 Temperature 99.0 F 99.0 F 99.0 F Pulse Rate 68 76 75 Respiratory Rate Blood Pressure 125/68 125/71 128/71 Pulse Oximetry 91 L 91 L 91 L 10/09/18 22:00 10/09/18 22:15 10/09/18 22:30 Temperature 99.0 F 99.0 F 99.0 F Pulse Rate 75 68 78 Respiratory Rate Blood Pressure 129/72 132/73 160/73 H Pulse Oximetry 90 L 91 L 92 L 10/09/18 22:45 10/09/18 22:51 10/09/18 23:00 Temperature 99.0 F 99.0 F 99.0 F Pulse Rate 77 77 77 Respiratory Rate Blood Pressure 152/66 H 136/63 137/66 Pulse Oximetry 92 L 93 L 93 L 10/09/18 23:15 10/09/18 23:30 10/09/18 23:45 Temperature 99.0 F 99.0 F 99.0 F Pulse Rate 78 77 70 Respiratory Rate Blood Pressure 149/70 H 135/67 123/63 Pulse Oximetry 93 L 93 L 92 L 10/10/18 00:00 10/10/18 00:04 10/10/18 00:15 Temperature 99.1 F 99.1 F Pulse Rate 77 78 Respiratory Rate 12 Blood Pressure 123/65 139/70 Pulse Oximetry 92 L 92 L 93 L 10/10/18 00:30 10/10/18 00:45 10/10/18 01:00 Temperature 99.1 F 99.1 F 99.1 F Pulse Rate 77 76 77 Respiratory Rate Blood Pressure 141/63 H 137/63 125/67 Pulse Oximetry 92 L 93 L 92 L 10/10/18 01:15 10/10/18 01:30 10/10/18 01:45 Temperature Pulse Rate 76 75 75 Respiratory Rate Blood Pressure 127/66 121/64 136/67 Pulse Oximetry 92 L 93 L 93 L 10/10/18 02:00 10/10/18 02:15 10/10/18 02:21 Temperature Pulse Rate 70 88 87 Respiratory Rate Blood Pressure 169/77 H 133/73 Pulse Oximetry 74 L 83 L 85 L 10/10/18 02:30 10/10/18 02:45 10/10/18 03:00 Temperature Pulse Rate 88 88 87 Respiratory Rate Blood Pressure 126/62 125/57 L 117/61 Pulse Oximetry 89 L 90 L 91 L 10/10/18 03:15 10/10/18 03:30 10/10/18 03:45 Temperature Pulse Rate 86 85 85 Respiratory Rate Blood Pressure 117/59 L 116/72 116/73 Pulse Oximetry 91 L 90 L 90 L 10/10/18 04:00 10/10/18 04:03 10/10/18 04:15 Temperature 98.8 F Pulse Rate 85 83 Respiratory Rate 12 Blood Pressure 110/68 110/68 Pulse Oximetry 90 L 90 L 90 L 10/10/18 04:30 10/10/18 04:45 10/10/18 05:00 Temperature Pulse Rate 82 81 80 Respiratory Rate Blood Pressure 114/70 116/61 122/65 Pulse Oximetry 89 L 89 L 89 L 10/10/18 05:15 10/10/18 05:30 10/10/18 05:45 Temperature Pulse Rate 80 80 80 Respiratory Rate Blood Pressure 109/70 112/73 Pulse Oximetry 88 L 89 L 90 L 10/10/18 06:00 10/10/18 06:15 10/10/18 06:30 Temperature Pulse Rate 79 79 79 Respiratory Rate Blood Pressure 99/66 L 102/72 Pulse Oximetry 90 L 90 L 91 L 10/10/18 06:45 10/10/18 07:00 10/10/18 07:15 Temperature 98.6 F 98.6 F 98.6 F Pulse Rate 79 79 79 Respiratory Rate Blood Pressure Pulse Oximetry 90 L 90 L 90 L 10/10/18 07:30 10/10/18 07:41 10/10/18 07:45 Temperature 98.6 F 98.6 F Pulse Rate 79 79 Respiratory Rate 11 L Blood Pressure Pulse Oximetry 90 L 90 L 89 L 10/10/18 08:00 10/10/18 08:15 10/10/18 08:30 Temperature 98.6 F 98.6 F 98.6 F Pulse Rate 79 78 78 Respiratory Rate Blood Pressure Pulse Oximetry 89 L 88 L 88 L 10/10/18 08:45 10/10/18 09:00 10/10/18 09:15 Temperature 98.6 F 98.6 F 98.6 F Pulse Rate 78 78 79 Respiratory Rate Blood Pressure Pulse Oximetry 88 L 88 L 88 L 10/10/18 09:30 10/10/18 09:45 10/10/18 10:00 Temperature 98.4 F 98.4 F 98.4 F Pulse Rate 79 78 77 Respiratory Rate Blood Pressure Pulse Oximetry 88 L 88 L 88 L 10/10/18 10:15 10/10/18 10:30 10/10/18 10:45 Temperature 98.4 F Pulse Rate 77 77 77 Respiratory Rate Blood Pressure Pulse Oximetry 88 L 88 L 88 L 10/10/18 11:00 10/10/18 11:15 10/10/18 11:16 Temperature Pulse Rate 77 77 Respiratory Rate 17 Blood Pressure Pulse Oximetry 88 L 88 L 88 L 10/10/18 11:30 10/10/18 11:45 10/10/18 12:00 Temperature Pulse Rate 77 77 77 Respiratory Rate Blood Pressure Pulse Oximetry 88 L 88 L 89 L 10/10/18 12:15 10/10/18 12:30 10/10/18 12:45 Temperature 99.0 F Pulse Rate 78 77 77 Respiratory Rate Blood Pressure Pulse Oximetry 96 96 95 10/10/18 13:00 10/10/18 13:15 10/10/18 13:30 Temperature Pulse Rate 77 77 77 Respiratory Rate Blood Pressure Pulse Oximetry 94 L 94 L 94 L 10/10/18 13:45 10/10/18 15:51 Temperature Pulse Rate 76 Respiratory Rate 14 Blood Pressure Pulse Oximetry 94 L 91 L Intake & Output 10/09/18 10/10/18 10/10/18 18:59 06:59 18:59 Intake Total 755 / 755 815 / 815 855 / 855 Output Total 600 / 600 160 / 160 Balance 155 / 155 655 / 655 855 / 855 Weight 210.3 kg Intake: IV 755 / 755 755 / 755 855 / 855 Lasix Inj 100 MG In NS Inj 90 100 / 100 100 / 100 100 / 100 ML @ 10 mls/hr IV.CONT .Q10H [facility] Rx#:[id number] Diprivan 1000 mg/100 ml Inj 1, 200 / 200 100 / 100 200 / 200 000 mg In 100 ml @ 5 MCG/KG/MIN 5.34 mls/hr IV.CONT TITRATE PRN Rx#:[id number] Flexbumin 25% Inj 100 ML @ 60 100 / 100 100 / 100 mls/hr IV.SIG Q12H [facility] Rx#: [id number] Maxipime Inj 2,000 MG In NS Inj 100 / 100 100 / 100 100 / 100 100 ML @ 200 mls/hr IV.SIG Q12H [facility] Rx#:[id number] Levophed Inj 4 MG In NS Inj 246 250 / 250 ML @ 2 MCG/MIN 7.5 mls/hr IV. SIG TITRATE PRN Rx#:[id number] fentaNYL 10 mcg/mL Premix Drip 250 / 250 250 / 250 2,500 mcg In 250 ml @ 50 MCG/HR 5 mls/hr IV.SIG TITRATE PRN Rx #:[id number] Keppra Inj 500 MG In NS Inj 100 105 / 105 105 / 105 105 / 105 ML @ 400 mls/hr IV.SIG Q12H [facility] Rx#:[id number] Tube Irrigant 60 / 60 Output: Stool 100 / 100 Urine Amount (Catheter) 600 / 600 Indwelling Temp Sensing 600 / 600 Catheter Gastric Drainage 60 / 60 Oral Orogastric Tube 60 / 60 Other: Date of Last Bowel Movement 10/10/18 Result Diagrams: 10/10/18 05:15 10/10/18 05:15 Imaging: Impressions Chest X-Ray 10/09/18 04:00 CONCLUSION: No significant interval change with persistent prominent bilateral lower lung zone pulmonary parenchymal opacity and likely bilateral pleural effusions. Objective Remarks: Narrative: GEN: Morbidly obese male, intubated, on mechanical ventilation. Generally edematous. HEENT: Scalp incision open to air, dry and clean. NECK: Supple. Orotracheal intubation. Orogastric tube in place LUNGS: On mechanical ventilation, AP RV mode, 100% FiO2, decreased basal bilateral breath sounds. Muffled sounds posteriorly both bases. Good chest wall movement. HEART: S1 and S2 normal, heart sounds distant. No JVD. ABDOMEN: Soft. Nontender. Obese. Well-healed vertical scar. Right lower quadrant colostomy bag in place with dark stool EXTREMITIES: No pedal edema. Knee repair scar left side. Limbs generally edematous. NEUROLOGIC: Intubated, sedated. Assessment and Plan - Problem List (1) Intraparenchymal hemorrhage of brain Code(s): I61.9 - Nontraumatic intracerebral hemorrhage, unspecified Status: Acute (2) Midline shift of brain Code(s): G93.9 - Disorder of brain, unspecified Status: Acute (3) Acute encephalopathy Code(s): G93.40 - Encephalopathy, unspecified Status: Acute (4) Hypertensive emergency Code(s): I16.1 - Hypertensive emergency Status: Acute (5) LLL pneumonia Code(s): J18.1 - Lobar pneumonia, unspecified organism Status: Acute (6) Acute kidney injury Code(s): N17.9 - Acute kidney failure, unspecified Status: Acute (7) History of hypertension Code(s): Z86.79 - Personal history of other diseases of the circulatory system Status: Chronic (8) Type 2 diabetes mellitus Code(s): E11.9 - Type 2 diabetes mellitus without complications Status: Chronic (9) Dyslipidemia Code(s): E78.5 - Hyperlipidemia, unspecified Status: Chronic (10) Morbid obesity Code(s): E66.01 - Morbid (severe) obesity due to excess calories Status: Chronic - Assessment and Plan Plan: NEURO: Acute right temporoparietal intraparenchymal hemorrhage Midline shift Acute encephalopathy -Propofol and fentanyl for sedation and ventilator synchrony after intubation -Repeat stat CT head without contrast, also CT angiogram of the brain and neck to rule out aneurysm -Reduce 2% saline to 25 mL/h to keep sodium between 150 and 155 -Mannitol 25 g IV x1 -Keppra 500 mg IV every 12 hours -S/P crani and evacuation 10/03 -Repeat CAT scan of head with minimal edema and no shift 10/05 -Osmolality elevated nicely but renal function worse. -Off 2% saline, continue Lasix drip. RESP: Acute respiratory failure Left lower lobe pneumonia ARDS Bilateral effusions -Patient was intubated for airway protection, placed on PRVC/AC -Ventilator bundle -DuoNeb every 6 hours scheduled and as needed -Sputum culture negative -Converted to airway pressure release ventilation -FiO2 of 200% on 10/10. Added inhaled Flolan. -Left lower lobe infiltrate has persisted, related to his pre-existing pneumonia before surgery CV: Hypertensive emergency Dyslipidemia -Cardene infusion as needed to keep systolic blood pressure less than 140 -Arterial line placement -IV labetalol as needed for SBP more than 140 -Bysystolic, hydralazine and amlodipine restarted down NG tube. -holding losartan due to rising creatinine GI: Morbid obesity History of colon resection, status post colostomy -N.p.o., IV famotidine -Routine colostomy care : Acute kidney injury/ CKD -Monitor renal function closely. Place Mendieta catheter. -Being diuresed with Lasix drip. Not much response. RECEIVING MANAGER 57 on 10/09. I am not sure if fluid overload is his primary problem. -Consulted nephrology for his TARA/CKD and to see if fluid removal with hemodialysis will benefit respiratory status. ID: Left lower lobe pneumonia/atelectasis -On antibiotics per ID. On IV cefepime. IV vancomycin stopped on 10/09 due to worsening creatinine. -All cultures negative so far. Repeat smith cultures ordered on 10/10 HEME: -Monitor CBC, coags ENDO: Type 2 diabetes Hypothyroidism -Electrolyte replacement per protocol -Sliding scale insulin PROPH: -Bilateral lower extremity SCDs/HIRAL. Chemical DVT prophylaxis contraindicated status post parenchymal brain bleed -IV famotidine LINES: -Utilize peripheral IVs, central line if needed Overall impression: Patient remains critically ill and pulmonary status is unstable. Persistent respiratory problems due to morbid obesity, pre-existing pneumonia, and supine position. Chronic kidney disease is hampering our attempts at fluid removal. Now again requiring airway pressure release ventilation for recruitment. He remains critically ill. Consulted palliative care to assist with deciding goals of therapy as respiratory status appears to be worsening. D/W Dr. Gasca from nephrology who was consulted to evaluate TARA/ CKD and need for HD for fluid removal. Family meeting held with palliative care and discuss current clinical status including severe acute respiratory failure. Discussed CODE STATUS which at this point remains full code. Explained patient at high risk for hemodynamic instability of respiratory status declines further. Also explained that patient may go into cardiac arrest is unable to maintain O2 sats despite maximal ventilatory support. Critical care time 50 minutes aside from procedures.
--- NOTE | 2018-10-10 18:52 | P.CONNP ---
History of Present Illness Service: Nephrology Consult date: 10/10/18 Requesting Physician: Freddy Hermosillo Reason for Consult: Acute renal failure Primary Care Provider: UNKNOWN Chief Complaint: Headache, intraparenchymal hemorrhage History of Present Illness: Patient is a 68-year-old white male with history of diabetes, hypertension, morbid obesity, ulcerative colitis status post ileostomy hyperlipidemia who has left-sided headaches and presented with confusion found to have large right- sided temporoparietal area hematoma 6.9 x3.6 x 3.2 cm, patient was transferring from the [facility] for surgical intervention, neurosurgery is saw and performed craniotomy to relieve the pressure, patient has been on ventilator and requiring more oxygen, he is on 100% FiO2, he has peripheral edema and renal functions are getting worse, he was given Lasix with modest response, he is passing urine, he was earlier on 2% hypertonic saline and then this was discontinued and his last sodium was 156, he was given albumin and free water as well. Review of Systems unobtainable due to endotracheal tube PMFSH - History History Provided By: Significant Other, Medical Record - Medical History Medical History: Medical History (Last Reviewed 10/10/18 @ 18:48 by Reena Gasca MD) Diabetes mellitus Hyperlipemia Hypertension Morbid obesity with BMI of 60.0-69.9, adult On home O2 Ulcerative colitis - Surgical History Surgical History: Surgical History (Last Reviewed 10/10/18 @ 18:48 by Reena Gasca MD) Colostomy present on admission History of total right knee replacement (TKR) - Family History Family History: Family History (Last Reviewed 10/10/18 @ 18:48 by Reena Gasca MD) Other Patient's brother is still living - Social History I have reviewed the patient's Social History: Yes - Tobacco History Second Hand Smoke Exposure: No Tobacco Use In Past 30 Days: No Smoking Status: Former smoker Tobacco Type: Cigarettes - Alcohol History How Often Do You Have a Drink Containing Alcohol: Never - Substance Use History Substance History: No History of Abuse - Travel History History of Recent Travel: No Recent Travel in the [place] Within the Last 8 Weeks: No Recent Travel Out of the Country Within the Last 8 Weeks: No - Immunization History Hx Influenza Vaccine This Season: Yes Medications and Allergies Active Medications: Active Medications Acetaminophen (Tylenol) 650 mg PO Q6H PRN PRN Reason: PAIN 1-10 AND/OR FEVER >101F Al Hydroxide/Mg Hydroxide (Milk Of Francheska Raymundo) 30 ml PO Q12H PRN PRN Reason: Mild Constipation Albuterol (Duoneb Neb (Prn)) 1 ampul NEB Q4HR NEB PRN PRN Reason: SHORTNESS OF BREATH Amlodipine Besylate (Norvasc) 10 mg PO DAILY [facility] Last Admin: 10/10/18 09:21 Dose: Not Given Artificial Tears (Tears Naturale Opth Drops) 1 drop EACH EYE Q4H PRN PRN Reason: DRY EYE(S) Bisacodyl (Dulcolax Supp) 10 mg RECTAL DAILY PRN PRN Reason: SEVERE CONSITIPATION Chlorhexidine Gluconate (Peridex 0.12% Oral Kit) 15 ml OROPHARYNG BID@0800, 2000 [facility] Last Admin: 10/10/18 09:09 Dose: 15 ml Dextrose (D50w Vial) 50 ml IV.PUSH UNSCH PRN PRN Reason: PER HYPOGLYCEMIA PROTOCOL Famotidine (Pepcid Pf Inj) 10 mg IV.PUSH Q12HR [facility] Last Admin: 10/10/18 09:21 Dose: 10 mg Fentanyl Citrate (Fentanyl Inj) 100 mcg IV.PUSH Q2H PRN PRN Reason: any agitation Glucagon (Glucagon Inj) 1 mg OTHER PRN PRN PRN Reason: for Hypoglycemia Protocol Hydralazine HCl (Apresoline) 100 mg PO TID [facility] Last Admin: 10/10/18 17:01 Dose: Not Given Propofol (Diprivan 1000 Mg/100 Ml Inj) 1,000 mg in 100 mls @ 5.34 mls/hr IV.CONT TITRATE PRN; Protocol PRN Reason: Per Protocol Last Admin: 10/10/18 17:33 Dose: 20 mcg/kg/min, 21.36 mls/hr Levetiracetam 500 mg/ Sodium (Chloride) 105 mls @ 400 mls/hr IV.SIG Q12H [facility] Last Infusion: 10/10/18 09:31 Dose: Infused Nicardipine/Sodium Chloride (Cardene 20 Mg/Ns 200 Ml Premix) 20 mg in 200 mls @ 50 mls/hr IV.SIG TITRATE PRN; Protocol PRN Reason: PER PROTOCOL Last Titration: 10/08/18 21:43 Dose: Infused Fentanyl (Fentanyl 10 Mcg/Ml Premix Drip) 2,500 mcg in 250 mls @ 5 mls/hr IV.SIG TITRATE PRN; Protocol PRN Reason: Per Protocol Last Admin: 10/10/18 17:00 Dose: 175 mcg/hr, 17.5 mls/hr Sodium Chloride (Ns Inj) 1,000 mls @ 75 mls/hr IV.SIG .[id number] [facility] Last Infusion: 10/07/18 09:08 Dose: 75 mls/hr Furosemide 100 mg/ Sodium (Chloride) 100 mls @ 10 mls/hr IV.CONT .Q10H [facility] Last Admin: 10/10/18 12:00 Dose: 10 mls/hr Cefepime HCl 2,000 mg/ Sodium (Chloride) 100 mls @ 200 mls/hr IV.SIG Q12H [facility] Last Infusion: 10/10/18 09:50 Dose: Infused Norepinephrine Bitartrate 4 mg (/ Sodium Chloride) 250 mls @ 7.5 mls/hr IV.SIG TITRATE PRN; Protocol PRN Reason: Per Protocol Last Titration: 10/10/18 01:30 Dose: 0 mcg/min, 0 mls/hr Epoprostenol Sodium 52.5 ml/ (Sodium Chloride) 100 mls @ 5 mls/hr NEB Q8H [facility] Last Admin: 10/10/18 11:22 Dose: 5 mls/hr Bumetanide (Bumex Inj) 25 mg in 100 mls @ 4 mls/hr IV.CONT .Q24H [facility] Albumin Human (Flexbumin 25% Inj) 100 mls @ 60 mls/hr IV.SIG Q6H [facility] Stop: 10/11/18 23:59 Insulin Aspart (Novolog Insulin Correctional Sugar Inj) 0 unit SQ Q6HR [facility]; Protocol Last Admin: 10/10/18 17:03 Dose: 1 unit Lactulose (Lactulose Liq) 30 ml PO DAILY PRN PRN Reason: SEVERE CONSITIPATION Losartan Potassium (Cozaar) 50 mg PO BID [facility] Last Admin: 10/10/18 09:09 Dose: Not Given Miscellaneous Medication () 1 each OROPHARYNG 0000,0400,1200,1600 [facility] Last Admin: 10/10/18 16:30 Dose: 1 each Morphine Sulfate (Morphine Inj) 2 mg IV.PUSH Q2H PRN PRN Reason: PAIN SCALE 6 TO 10 Last Admin: 10/04/18 08:39 Dose: 2 mg Morphine Sulfate (Morphine Inj) 2 mg IV.PUSH Q2H PRN PRN Reason: Pain Scale 1 to 6 Senna/Docusate Sodium (Humera-Colace) 1 tab PO BID [facility] Last Admin: 10/10/18 09:21 Dose: Not Given Sennosides (Senokot) 17.2 mg PO Q12H PRN PRN Reason: Moderate Constipation Terbutaline Sulfate (Brethine Inj) 1 mg SQ UNSCH PRN PRN Reason: For Extravasation Allergies Allergy/AdvReac Type Severity Reaction Status Date / Time clear tape,plastic tape Allergy Severe Blister Uncoded 10/04/18 18:47 Home Medications Medication Instructions Recorded Confirmed Type Synthroid 112 mcg PO DAILY 10/03/18 10/03/18 History amlodipine 10 mg PO DAILY 10/03/18 10/03/18 History aspirin 81 mg PO DAILY 10/03/18 10/03/18 History escitalopram oxalate [Lexapro] 10 mg PO DAILY 10/03/18 10/03/18 History febuxostat [Uloric] 40 mg PO DAILY 10/03/18 10/03/18 History fenofibrate 120 mg PO DAILY 10/03/18 10/03/18 History glipizide 10 mg BID 10/03/18 10/03/18 History insulin degludec [Tresiba 48 units SUBCUT DAILY 10/03/18 10/03/18 History FlexTouch U-100] irbesartan-hydrochlorothiazide 1 tab PO DAILY 10/03/18 10/03/18 History lorazepam 0.5 mg PO BID PRN 10/03/18 10/03/18 History nebivolol [Bystolic] 10 mg PO DAILY 10/03/18 10/03/18 History pioglitazone 15 mg PO DAILY 10/03/18 10/03/18 History sitagliptin [Januvia] 50 mg PO DAILY 10/03/18 10/03/18 History Exam Vital signs: Vital Signs 10/09/18 19:00 10/09/18 19:15 10/09/18 19:30 Temperature 98.8 F 98.8 F 98.8 F Pulse Rate 75 68 74 Respiratory Rate Blood Pressure 128/60 131/65 122/72 Pulse Oximetry 91 L 92 L 93 L 10/09/18 19:34 10/09/18 19:45 10/09/18 20:00 Temperature 98.8 F 98.8 F Pulse Rate 68 68 Respiratory Rate 12 Blood Pressure 131/69 125/64 Pulse Oximetry 92 L 96 90 L 10/09/18 20:15 10/09/18 20:30 10/09/18 20:45 Temperature 98.8 F 99.0 F 99.0 F Pulse Rate 76 75 74 Respiratory Rate Blood Pressure 132/67 137/63 133/63 Pulse Oximetry 92 L 91 L 91 L 10/09/18 21:00 10/09/18 21:15 10/09/18 21:30 Temperature 99.0 F 99.0 F 99.0 F Pulse Rate 68 68 76 Respiratory Rate Blood Pressure 129/66 125/68 125/71 Pulse Oximetry 91 L 91 L 91 L 10/09/18 21:45 10/09/18 22:00 10/09/18 22:15 Temperature 99.0 F 99.0 F 99.0 F Pulse Rate 75 75 68 Respiratory Rate Blood Pressure 128/71 129/72 132/73 Pulse Oximetry 91 L 90 L 91 L 10/09/18 22:30 10/09/18 22:45 10/09/18 22:51 Temperature 99.0 F 99.0 F 99.0 F Pulse Rate 78 77 77 Respiratory Rate Blood Pressure 160/73 H 152/66 H 136/63 Pulse Oximetry 92 L 92 L 93 L 10/09/18 23:00 10/09/18 23:15 10/09/18 23:30 Temperature 99.0 F 99.0 F 99.0 F Pulse Rate 77 78 77 Respiratory Rate Blood Pressure 137/66 149/70 H 135/67 Pulse Oximetry 93 L 93 L 93 L 10/09/18 23:45 10/10/18 00:00 10/10/18 00:04 Temperature 99.0 F 99.1 F Pulse Rate 70 77 Respiratory Rate 12 Blood Pressure 123/63 123/65 Pulse Oximetry 92 L 92 L 92 L 10/10/18 00:15 10/10/18 00:30 10/10/18 00:45 Temperature 99.1 F 99.1 F 99.1 F Pulse Rate 78 77 76 Respiratory Rate Blood Pressure 139/70 141/63 H 137/63 Pulse Oximetry 93 L 92 L 93 L 10/10/18 01:00 10/10/18 01:15 10/10/18 01:30 Temperature 99.1 F Pulse Rate 77 76 75 Respiratory Rate Blood Pressure 125/67 127/66 121/64 Pulse Oximetry 92 L 92 L 93 L 10/10/18 01:45 10/10/18 02:00 10/10/18 02:15 Temperature Pulse Rate 75 70 88 Respiratory Rate Blood Pressure 136/67 169/77 H Pulse Oximetry 93 L 74 L 83 L 10/10/18 02:21 10/10/18 02:30 10/10/18 02:45 Temperature Pulse Rate 87 88 88 Respiratory Rate Blood Pressure 133/73 126/62 125/57 L Pulse Oximetry 85 L 89 L 90 L 10/10/18 03:00 10/10/18 03:15 10/10/18 03:30 Temperature Pulse Rate 87 86 85 Respiratory Rate Blood Pressure 117/61 117/59 L 116/72 Pulse Oximetry 91 L 91 L 90 L 10/10/18 03:45 10/10/18 04:00 10/10/18 04:03 Temperature 98.8 F Pulse Rate 85 85 Respiratory Rate 12 Blood Pressure 116/73 110/68 Pulse Oximetry 90 L 90 L 90 L 10/10/18 04:15 10/10/18 04:30 10/10/18 04:45 Temperature Pulse Rate 83 82 81 Respiratory Rate Blood Pressure 110/68 114/70 116/61 Pulse Oximetry 90 L 89 L 89 L 10/10/18 05:00 10/10/18 05:15 10/10/18 05:30 Temperature Pulse Rate 80 80 80 Respiratory Rate Blood Pressure 122/65 109/70 112/73 Pulse Oximetry 89 L 88 L 89 L 10/10/18 05:45 10/10/18 06:00 10/10/18 06:15 Temperature Pulse Rate 80 79 79 Respiratory Rate Blood Pressure 99/66 L 102/72 Pulse Oximetry 90 L 90 L 90 L 10/10/18 06:30 10/10/18 06:45 10/10/18 07:00 Temperature 98.6 F 98.6 F Pulse Rate 79 79 79 Respiratory Rate Blood Pressure Pulse Oximetry 91 L 90 L 90 L 10/10/18 07:15 10/10/18 07:30 10/10/18 07:41 Temperature 98.6 F 98.6 F Pulse Rate 79 79 Respiratory Rate 11 L Blood Pressure Pulse Oximetry 90 L 90 L 90 L 10/10/18 07:45 10/10/18 08:00 10/10/18 08:15 Temperature 98.6 F 98.6 F 98.6 F Pulse Rate 79 79 78 Respiratory Rate Blood Pressure Pulse Oximetry 89 L 89 L 88 L 10/10/18 08:30 10/10/18 08:45 10/10/18 09:00 Temperature 98.6 F 98.6 F 98.6 F Pulse Rate 78 78 78 Respiratory Rate Blood Pressure Pulse Oximetry 88 L 88 L 88 L 10/10/18 09:15 10/10/18 09:30 10/10/18 09:45 Temperature 98.6 F 98.4 F 98.4 F Pulse Rate 79 79 78 Respiratory Rate Blood Pressure Pulse Oximetry 88 L 88 L 88 L 10/10/18 10:00 10/10/18 10:15 10/10/18 10:30 Temperature 98.4 F 98.4 F Pulse Rate 77 77 77 Respiratory Rate Blood Pressure Pulse Oximetry 88 L 88 L 88 L 10/10/18 10:45 10/10/18 11:00 10/10/18 11:15 Temperature Pulse Rate 77 77 77 Respiratory Rate Blood Pressure Pulse Oximetry 88 L 88 L 88 L 10/10/18 11:16 10/10/18 11:30 10/10/18 11:45 Temperature Pulse Rate 77 77 Respiratory Rate 17 Blood Pressure Pulse Oximetry 88 L 88 L 88 L 10/10/18 12:00 10/10/18 12:15 10/10/18 12:30 Temperature 99.0 F Pulse Rate 77 78 77 Respiratory Rate Blood Pressure Pulse Oximetry 89 L 96 96 10/10/18 12:45 10/10/18 13:00 10/10/18 13:15 Temperature Pulse Rate 77 77 77 Respiratory Rate Blood Pressure Pulse Oximetry 95 94 L 94 L 10/10/18 13:30 10/10/18 13:45 10/10/18 14:00 Temperature Pulse Rate 77 76 76 Respiratory Rate Blood Pressure Pulse Oximetry 94 L 94 L 94 L 10/10/18 14:15 10/10/18 14:30 10/10/18 14:45 Temperature Pulse Rate 76 76 77 Respiratory Rate Blood Pressure Pulse Oximetry 94 L 93 L 93 L 10/10/18 15:00 10/10/18 15:15 10/10/18 15:30 Temperature Pulse Rate 77 78 78 Respiratory Rate Blood Pressure Pulse Oximetry 94 L 94 L 94 L 10/10/18 15:45 10/10/18 15:51 10/10/18 16:00 Temperature Pulse Rate 79 84 Respiratory Rate 14 Blood Pressure Pulse Oximetry 91 L 91 L 92 L 10/10/18 16:15 10/10/18 16:30 10/10/18 16:45 Temperature Pulse Rate 85 85 85 Respiratory Rate Blood Pressure Pulse Oximetry 91 L 92 L 91 L 10/10/18 17:00 10/10/18 17:15 10/10/18 17:30 Temperature Pulse Rate 84 86 87 Respiratory Rate Blood Pressure Pulse Oximetry 91 L 93 L 94 L 10/10/18 17:45 10/10/18 18:00 10/10/18 18:15 Temperature 99.0 F Pulse Rate 86 83 82 Respiratory Rate Blood Pressure Pulse Oximetry 94 L 93 L 93 L Intake & Output 10/09/18 10/10/18 10/10/18 18:59 06:59 18:59 Intake Total 755 / 755 815 / 815 855 / 855 Output Total 600 / 600 160 / 160 600 / 600 Balance 155 / 155 655 / 655 255 / 255 Weight 210.3 kg Intake: IV 755 / 755 755 / 755 855 / 855 Lasix Inj 100 MG In NS Inj 90 100 / 100 100 / 100 100 / 100 ML @ 10 mls/hr IV.CONT .Q10H [facility] Rx#:[id number] Diprivan 1000 mg/100 ml Inj 1, 200 / 200 100 / 100 200 / 200 000 mg In 100 ml @ 5 MCG/KG/MIN 5.34 mls/hr IV.CONT TITRATE PRN Rx#:[id number] Flexbumin 25% Inj 100 ML @ 60 100 / 100 100 / 100 mls/hr IV.SIG Q12H [facility] Rx#: [id number] Maxipime Inj 2,000 MG In NS Inj 100 / 100 100 / 100 100 / 100 100 ML @ 200 mls/hr IV.SIG Q12H [facility] Rx#:[id number] Levophed Inj 4 MG In NS Inj 246 250 / 250 ML @ 2 MCG/MIN 7.5 mls/hr IV. SIG TITRATE PRN Rx#:[id number] fentaNYL 10 mcg/mL Premix Drip 250 / 250 250 / 250 2,500 mcg In 250 ml @ 50 MCG/HR 5 mls/hr IV.SIG TITRATE PRN Rx #:[id number] Keppra Inj 500 MG In NS Inj 100 105 / 105 105 / 105 105 / 105 ML @ 400 mls/hr IV.SIG Q12H [facility] Rx#:[id number] Tube Irrigant 60 / 60 Output: Stool 100 / 100 Urine Amount (Catheter) 600 / 600 600 / 600 Indwelling Temp Sensing 600 / 600 600 / 600 Catheter Gastric Drainage 60 / 60 Oral Orogastric Tube 60 / 60 Other: Date of Last Bowel Movement 10/10/18 Narrative: GENERAL: Well-nourished, morbidly obese well-developed patient on ventilator. SKIN: Warm and dry. HEAD: Normocephalic. EYES: No scleral icterus. No injection or drainage. NECK: Supple, trachea midline. No JVD or lymphadenopathy. CARDIOVASCULAR: Regular rate and rhythm without murmurs, gallops, or rubs. RESPIRATORY: Breath sounds diminished at bases. GASTROINTESTINAL: Abdomen soft, non-tender, distended. EXTREMITIES: Massive upper extremity edema left arm is worse with blisters NEUROLOGICAL: Sedation on ventilator. Results - Lab Results 10/12/18 04:15 10/12/18 04:15 Most recent lab results ABG pH 7.31 (7.380-7.420) L 10/10/18 07:42 ABG pCO2 42 mmHg (38-42) 10/10/18 07:42 ABG pO2 68 mmHg (61-120) 10/10/18 07:42 ABG HCO3 21 mmol/L (22-26) L 10/10/18 07:42 Calcium 9.4 mg/dL (8.5-10.1) 10/10/18 05:15 Magnesium 2.2 mg/dL (1.5-2.5) 10/08/18 05:50 Assessment and Plan - Assessment (1) Intraparenchymal hemorrhage of brain Code(s): I61.9 - Nontraumatic intracerebral hemorrhage, unspecified Status: Acute (2) History of hypertension Code(s): Z86.79 - Personal history of other diseases of the circulatory system Status: Chronic (3) Type 2 diabetes mellitus Code(s): E11.9 - Type 2 diabetes mellitus without complications Status: Chronic (4) Morbid obesity Code(s): E66.01 - Morbid (severe) obesity due to excess calories Status: Chronic (5) Acute kidney injury Code(s): N17.9 - Acute kidney failure, unspecified Status: Acute - Plan Patient is in positive fluid balance and gain weight, he has upper extremity edema worse than the lower extremity edema, I will try albumin 25 g IV every 6 hourly and then use Bumex drip at 1 mg/h Check urine sodium, creatinine, UA and culture and sensitivity Ultrasound of the kidney did not reveal obstructive uropathy Avoid nephrotoxic agent I will hold blood pressure medication as blood pressure is on lower side And we are trying to diurese him with Bumex drip Patient did receive vancomycin followed level If conservative approach fails and his oxygen required remains high then we may try more aggressive care And hemodialysis can be tried. Discussed with Dr. Hermosillo
--- NOTE | 2018-10-10 19:18 | XR ---
EXAM DATE: 10/10/2018 7:14 PM EST AGE/SEX: 68 years / Male INDICATIONS: Respiratory failure. CLINICAL DATA: This is the patient's initial encounter. Patient reports that signs and symptoms have been present for 1 week and indicates a pain score of Nonresponsive. MEDICAL/SURGICAL HISTORY: Hypertension. diabetes . colon resection COMPARISON: [facility] [place], CHEST 1V SINGLE AP, 10/09/2018. . FINDINGS: The ET tube and NG tube are well placed. There is a right internal jugular central line in good posit ion. A pneumothorax is not seen. The heart size appears mildly enlarged. This increased density seen throughout much of the right chest with relative sparing of the right upper chest. There is increased density at the left mid and lower chest. There is silhouetting of the hemidiaphragms. Some degree of effusion especially on the right cannot be excluded. CONCLUSION: Bilateral areas of consolidation being worse on the right. Compared to the prior exam this process prince s worsened. Cardiomegaly. Tubes and lines in good position. Electronically signed by: Frederick Pepper MD 10/10/2018 7:16 PM EST
[2018-10-10] MEDS: Bumetanide Inj 25 MG/100 ML BAG IV.CONT SCH (20:07)
[2018-10-10] MEDS ORDERED: Sodium Chloride 0.9% 2 ML Flush PRN IV.FLUSH (20:47)
[2018-10-10] MEDS: Norepinephrine Inj 4 MG in Sodium Chlor 0.9% Inj 246 ML IV.SIG PRN (21:08)
[2018-10-10] MEDS: Sodium Chloride 0.9% 2 ML Flush BID IV.FLUSH SCH (21:27)
[2018-10-11] MEDS: Insulin NovoLOG Aspart Correctional Sugar Inj SQ SCH ×4 (00:28→17:41)
[2018-10-11] MEDS: Oral Hygiene Kit OROPHARYNG SCH ×4 (00:29→15:49)
[2018-10-11] MEDS: Albumin Human 25% Inj 100 ML IV.SIG SCH ×4 (01:29→18:10)
[2018-10-11] MEDS: Senna/Docusate Sodium 8.6/50 MG Tablet PO SCH ×3 (02:28→21:03)
[2018-10-11] MEDS: Propofol 1000 mg/100 ml Inj 1,000 MG/100 ML BOTTLE IV.CONT PRN ×7 (02:30→23:15)
[2018-10-11 05:36] LABS: Baso % (Auto) 0.6 % (0.0-2.0); Eos # (Auto) 0.1 th/mm3 (0.0-0.4); Eos % (Auto) 2.6 % (0.0-4.0); Hematocrit 32.7 % (39.0-51.0); Hemoglobin 10.4 gm/dL (13.0-17.0); Lymph # (Auto) 0.4 th/mm3 (1.0-4.8); Lymph % (Auto) 8.4 % (9.0-44.0); Mean Corpuscular Hemoglobin 28.1 pg (27.0-34.0); Mean Platelet Volume 8.9 fL (7.0-11.0); Mono # (Auto) 0.6 th/mm3 (0.0-0.9); Mono % (Auto) 12.4 % (0.0-8.0); Platelet Count 173 th/mm3 (150-450); Red Blood Count 3.72 mil/mm3 (4.50-5.90); Red Cell Distribution Width 16.1 % (11.6-17.2); White Blood Count 5.2 th/mm3 (4.0-11.0)
[2018-10-11 06:00] LABS: Calcium 9.4 mg/dL (8.5-10.1); Carbon Dioxide 21.1 meq/L (21.0-32.0); Potassium 4.4 meq/L (3.5-5.1); Uric Acid 9.3 mg/dl (2.6-7.2)
[2018-10-11 06:02] LABS: Vancomycin,Random 19.2 Comment
[2018-10-11 06:23] LABS: Creatinine,Urine Random 170 mg/dL (27-300); Sodium,Urine Random 13 meq/L
[2018-10-11 06:26] LABS: Bacteria,Urine Occasional /hpf; Bilirubin,Urine Negative (Negative); Clarity,Urine Cloudy (Clear); Color,Urine Amber (Yellw/Straw); Glucose,Urine (UA) Negative (Negative); Hyaline Casts,Urine INNUM /lpf (0-3); Leukocyte Esterase,Urine Negative (Negative); Mucus,Urine Many /lpf (Occasional); Nitrite,Urine Negative (Negative); Specific Gravity,Urine 1.016 (1.002-1.035); Squamous Epithelial Cell,Urine 6 /hpf (0-5)
[2018-10-11] MEDS: fentaNYL 10 mcg/mL Premix Drip 2,500 MCG/250 ML BAG IV.SIG PRN ×2 (07:28→23:15)
[2018-10-11] MEDS: EPOPROSTENOL NEB SCH ×2 (07:39→15:02)
[2018-10-11] MEDS: SODIUM CHLOR NEB SCH ×2 (07:39→15:02)
[2018-10-11] MEDS: Chlorhexidine 0.12% Oral Kit 15 ML UDC OROPHARYNG SCH ×2 (08:30→21:02)
[2018-10-11] MEDS: Famotidine PF Inj 20 MG/2 ML Vial IV.PUSH SCH ×2 (09:00→21:03)
[2018-10-11] MEDS: Sodium Chloride 0.9% 2 ML Flush BID IV.FLUSH SCH ×2 (09:03→21:03)
--- NOTE | 2018-10-11 09:09 | XR ---
EXAM DATE: 10/11/2018 9:03 AM EST AGE/SEX: 68 years / Male INDICATIONS: Respiratory failure. CLINICAL DATA: This is the patient's subsequent encounter. Patient reports that signs and symptoms h ave been present for 4 - 6 days and indicates a pain score of Nonresponsive. MEDICAL/SURGICAL HISTORY: Diabetes mellitus type II. Hypertension. Hyperlipidemia. Thyroid dise ase. Intraparenchymal hemorrhage. LLL Pneumonia. Total knee replacement, right. Colon resection. Col ostomy. COMPARISON: [facility], CHEST 1V SINGLE AP, 10/10/2018. . FINDINGS: 2 portable frontal views of the chest are blurred by motion artifact. Small bilateral pleural effusio ns are unchanged. Bilateral anomaly basilar intra-alveolar opacities are observed right greater the l eft. These are stable. An endotracheal tube tip is 5 cm from the ralph. Nasogastric tube tip courses off the inferior margin of the film. Right-sided central line noted. No pneumothorax. Heart is mildl y enlarged but stable. CONCLUSION: Unchanged exam. Electronically signed by: Arnie Borjas MD 10/11/2018 9:08 AM EST
--- NOTE | 2018-10-11 11:37 | P.PNPAL ---
Palliative care continues to follow along throughout hospitalization. Family seen in [facility] waiting area. , daughter, son, and multiple grandchildren present. Family remains resistant to palliative care interactions. Decline palliative care medical visit. Daughter denies any questions or concerns at this time as she has been previously updated on nephrology visit and received morning report from staff. reports cuffing machine operator was in to visit this morning and they are very appreciative for the clergy support. verbalizes family understands "there will be good days and bad days but right now is a good day and we are blessed". Offered emotional support through active listening. Goals remain aggressive. Family reports they've been told things are moving in the right direction and respiratory is going to begin working on lessening ventilator settings. Palliative care will remain available throughout hospitalization. Family confirms they have palliative care contact should they need it.
--- NOTE | 2018-10-11 12:02 | P.PNCC ---
Subjective Subjective Remarks/Hospital Course: Patient is a 68-year-old morbidly obese male with past medical history significant for hypertension, diabetes, dyslipidemia, morbid obesity, thyroid disease, history of colon resection and colostomy, who presented to the [facility] with left-sided headache and poorly controlled hypertension. Apparently he woke up with severe left-sided headache was moderately confused and family brought him to the emergency department. The patient did take aspirin for his headache prior to presentation. A stat CT of the head showed large 6.9 x 3.6 x 3.2 cm acute intraparenchymal hemorrhage in the right temporoparietal region with approximate blood volume of 40 mL. There was surrounding edema and 2-3 mm leftward midline shift. Neurosurgery Dr. Hills was contacted and patient was transferred to [place] [facility]. PT/INR/ platelet count was normal in the outside hospital. BUN was 43 creatinine was 2. I evaluated the patient in the ICU. Patient is awake but somnolent oriented only to person. He drifts to sleep while talking. His systolic blood pressure was 200 on arrival. Because of questionable airway protection and need for further imaging studies patient was intubated and placed on mechanical ventilation. Dr. Hills had been informed. I will start Cardene to control blood pressure, repeat stat CT head also CT angiogram of brain and neck will be performed. Also give 25 g of IV mannitol, start on 2% saline to keep sodium more than 150-155, also placed on Keppra for seizure prophylaxis. 10/04: Will start oral BP meds down NG tube and attempt to wean cardene. CKD persists as expected. Glucose swing expected. Keep intubated and sedated for now. 10/05: Better blood pressure control with by systolic and amlodipine restarted. Increased difficulty with oxygenation today, now requiring 100% FiO2 and 12 PEEP. Chest x-ray shows atelectasis involving the whole left lower lobe, cultures all negative for significant organism, no white blood cells. Will get repeat head CAT scan today. 10/06: Repeat head CT look good. Worsening difficulties with oxygenation related to the left lower lobe atelectasis. Converted to airway pressure release ventilation this morning. ICP continues to be very well controlled. 10/07: Lightening sedation today. ICP bolt has been removed. Oxygenation has improved. Continue airway pressure release ventilation. Renal function worse today, hydrate gently with isotonic saline and follow closely. 10/08: Continued difficulties with oxygenation related to preoperative lung injury from his pneumonia, body habitus, fluid overload associated with his chronic kidney disease. We will be forced to go back to airway pressure release ventilation because he de-recruited severely after converting to conventional ventilation yesterday despite PEEP of 18. 10/09: Starting to claw our way back to better oxygenation. He recruited severely on conventional ventilation despite markedly elevated PEEP. Hefty diuresis accomplished with Lasix drip however volume load from vancomycin and Cardene infusions makes it hard to get a significant reduction in total body water. This gentleman had pneumonia prior to his surgery and his persistent left lower lobe infiltrate impaired oxygenation early on. His chest x-ray still demonstrates consolidated areas in the left lower lung. 10/10: Increasing FiO2 requirement overnight. On 100% FiO2, AP RV mode mechanical ventilation this morning. Started on inhaled Flolan with which her O2 sats came up from high 80s to 93%. On Lasix drip however not really diuresing. BNP 57 on 10/09. 10/11: Remains sedated, orally intubated on mechanical ventilation. On inhaled Flolan. Started on Bumex drip by nephrology yesterday with significant increase in urine output. O2 sats 96% on 100% FiO2 APRV mode mechanical ventilation - Diagnosis (1) Intraparenchymal hemorrhage of brain (2) Midline shift of brain (3) Acute encephalopathy (4) Hypertensive emergency (5) LLL pneumonia (6) Acute kidney injury (7) History of hypertension (8) Type 2 diabetes mellitus (9) Dyslipidemia (10) Morbid obesity Objective Vital Signs / I&O: Vital Signs 10/10/18 12:00 10/10/18 12:15 10/10/18 12:30 Temperature 99.0 F Pulse Rate 77 78 77 Respiratory Rate Pulse Oximetry 89 L 96 96 10/10/18 12:45 10/10/18 13:00 10/10/18 13:15 Temperature Pulse Rate 77 77 77 Respiratory Rate Pulse Oximetry 95 94 L 94 L 10/10/18 13:30 10/10/18 13:45 10/10/18 14:00 Temperature Pulse Rate 77 76 76 Respiratory Rate Pulse Oximetry 94 L 94 L 94 L 10/10/18 14:15 10/10/18 14:30 10/10/18 14:45 Temperature Pulse Rate 76 76 77 Respiratory Rate Pulse Oximetry 94 L 93 L 93 L 10/10/18 15:00 10/10/18 15:15 10/10/18 15:30 Temperature Pulse Rate 77 78 78 Respiratory Rate Pulse Oximetry 94 L 94 L 94 L 10/10/18 15:45 10/10/18 15:51 10/10/18 16:00 Temperature Pulse Rate 79 84 Respiratory Rate 14 Pulse Oximetry 91 L 91 L 92 L 10/10/18 16:15 10/10/18 16:30 10/10/18 16:45 Temperature Pulse Rate 85 85 85 Respiratory Rate Pulse Oximetry 91 L 92 L 91 L 10/10/18 17:00 10/10/18 17:15 10/10/18 17:30 Temperature Pulse Rate 84 86 87 Respiratory Rate Pulse Oximetry 91 L 93 L 94 L 10/10/18 17:45 10/10/18 18:00 10/10/18 18:15 Temperature 99.0 F Pulse Rate 86 83 82 Respiratory Rate Pulse Oximetry 94 L 93 L 93 L 10/10/18 19:00 10/10/18 20:00 10/10/18 20:15 Temperature 98.9 F Pulse Rate 80 78 Respiratory Rate 11 L 11 L 11 L Pulse Oximetry 93 L 94 L 95 10/10/18 21:00 10/10/18 22:00 10/10/18 22:39 Temperature Pulse Rate 74 82 Respiratory Rate 11 L 11 L 11 L Pulse Oximetry 94 L 94 L 95 10/10/18 23:00 10/11/18 00:00 10/11/18 01:00 Temperature 99 F Pulse Rate 81 78 84 Respiratory Rate 11 L 11 L 11 L Pulse Oximetry 94 L 94 L 94 L 10/11/18 01:29 10/11/18 02:00 10/11/18 03:00 Temperature 99 F Pulse Rate 90 92 H Respiratory Rate 11 L 11 L 11 L Pulse Oximetry 94 L 95 93 L 10/11/18 04:00 10/11/18 04:09 10/11/18 05:00 Temperature Pulse Rate 88 88 Respiratory Rate 11 L 11 L 11 L Pulse Oximetry 93 L 93 L 95 10/11/18 05:51 10/11/18 06:00 10/11/18 07:00 Temperature 99.0 F Pulse Rate 81 76 85 Respiratory Rate 11 L 32 H Pulse Oximetry 95 95 10/11/18 07:47 10/11/18 08:00 10/11/18 09:00 Temperature 98.8 F 98.8 F Pulse Rate 87 82 Respiratory Rate 11 L 11 L 11 L Pulse Oximetry 92 L 92 L 96 10/11/18 10:00 10/11/18 10:15 10/11/18 10:30 Temperature 98.8 F 98.8 F 98.8 F Pulse Rate 82 81 80 Respiratory Rate 11 L 11 L 11 L Pulse Oximetry 96 95 96 10/11/18 10:45 Temperature 98.8 F Pulse Rate 79 Respiratory Rate 11 L Pulse Oximetry 96 Intake & Output 10/10/18 10/11/18 10/11/18 18:59 06:59 18:59 Intake Total 855 / 855 955 / 955 855 / 855 Output Total 600 / 600 1165 / 1165 Balance 255 / 255 -210 / -210 855 / 855 Weight 212 kg Intake: IV 855 / 855 955 / 955 855 / 855 Lasix Inj 100 MG In NS Inj 90 100 / 100 ML @ 10 mls/hr IV.CONT .Q10H ISABEL Rx#:[id number] Diprivan 1000 mg/100 ml Inj 1, 200 / 200 200 / 200 200 / 200 000 mg In 100 ml @ 5 MCG/KG/MIN 5.34 mls/hr IV.CONT TITRATE PRN Rx#:[id number] Flexbumin 25% Inj 100 ML @ 60 100 / 100 200 / 200 100 / 100 mls/hr IV.SIG Q6H ISABEL Rx#: [id number] Maxipime Inj 2,000 MG In NS Inj 100 / 100 100 / 100 100 / 100 100 ML @ 200 mls/hr IV.SIG Q12H ISABEL Rx#:[id number] Levophed Inj 4 MG In NS Inj 246 250 / 250 ML @ 2 MCG/MIN 7.5 mls/hr IV. SIG TITRATE PRN Rx#:[id number] fentaNYL 10 mcg/mL Premix Drip 250 / 250 250 / 250 2,500 mcg In 250 ml @ 50 MCG/HR 5 mls/hr IV.SIG TITRATE PRN Rx #:[id number] Keppra Inj 500 MG In NS Inj 100 105 / 105 105 / 105 105 / 105 ML @ 400 mls/hr IV.SIG Q12H ISABEL Rx#:[id number] Flolan (30,000 ng/mL) Neb 52.5 100 / 100 100 / 100 ML In NS Inj 47.5 ML @ 5 mls/hr NEB Q8H ISABEL Rx#:[id number] Oral 0 / 0 Output: Estimated Blood Loss 100 / 100 Urine Amount (Catheter) 600 / 600 900 / 900 Indwelling Temp Sensing 600 / 600 900 / 900 Catheter Stool Amount (Stoma) 50 / 50 Right Lower Abdomen 50 / 50 Gastric Drainage 60 / 60 Oral Orogastric Tube 60 / 60 Wound Drainage 55 / 55 # 1 Right Frontal CLARIBEL Drain 5 / 5 # 2 Right Frontal CLARIBEL Drain 50 / 50 Other: Date of Last Bowel Movement 10/11/18 Result Diagrams: 10/11/18 05:00 10/11/18 05:00 Imaging: Impressions Chest X-Ray 10/10/18 00:00 CONCLUSION: Bilateral areas of consolidation being worse on the right. Compared to the prior exam this process has worsened. Cardiomegaly. Tubes and lines in good position. Chest X-Ray 10/11/18 07:55 CONCLUSION: Unchanged exam. Objective Remarks: Narrative: GEN: Morbidly obese male, intubated, on mechanical ventilation. Generally edematous. HEENT: Scalp incision open to air, dry and clean. NECK: Supple. Orotracheal intubation. Orogastric tube in place LUNGS: On mechanical ventilation, AP RV mode, 100% FiO2, decreased basal bilateral breath sounds. Muffled sounds posteriorly both bases. Good chest wall movement. HEART: S1 and S2 normal, heart sounds distant. No JVD. ABDOMEN: Soft. Nontender. Obese. Well-healed vertical scar. Right lower quadrant colostomy bag in place with dark stool EXTREMITIES: No pedal edema. Knee repair scar left side. Limbs generally edematous. NEUROLOGIC: Intubated, sedated. Assessment and Plan - Problem List (1) Intraparenchymal hemorrhage of brain Code(s): I61.9 - Nontraumatic intracerebral hemorrhage, unspecified Status: Acute (2) Midline shift of brain Code(s): G93.9 - Disorder of brain, unspecified Status: Acute (3) Acute encephalopathy Code(s): G93.40 - Encephalopathy, unspecified Status: Acute (4) Hypertensive emergency Code(s): I16.1 - Hypertensive emergency Status: Acute (5) LLL pneumonia Code(s): J18.1 - Lobar pneumonia, unspecified organism Status: Acute (6) Acute kidney injury Code(s): N17.9 - Acute kidney failure, unspecified Status: Acute (7) History of hypertension Code(s): Z86.79 - Personal history of other diseases of the circulatory system Status: Chronic (8) Type 2 diabetes mellitus Code(s): E11.9 - Type 2 diabetes mellitus without complications Status: Chronic (9) Dyslipidemia Code(s): E78.5 - Hyperlipidemia, unspecified Status: Chronic (10) Morbid obesity Code(s): E66.01 - Morbid (severe) obesity due to excess calories Status: Chronic - Assessment and Plan Plan: NEURO: Acute right temporoparietal intraparenchymal hemorrhage Midline shift Acute encephalopathy -Propofol and fentanyl for sedation and ventilator synchrony after intubation -Repeat stat CT head without contrast, also CT angiogram of the brain and neck to rule out aneurysm -Keppra 500 mg IV every 12 hours -S/P crani and evacuation 10/03 -Repeat CAT scan of head with minimal edema and no shift 10/05 -Osmolality elevated nicely but renal function worse. -Off 2% saline, continue Bumex drip. RESP: Acute respiratory failure Left lower lobe pneumonia ARDS Bilateral effusions -Patient was intubated for airway protection -Ventilator bundle -DuoNeb every 6 hours scheduled and as needed -Sputum culture negative -Converted to airway pressure release ventilation -FiO2 of 100% on 10/10. Added inhaled Flolan. -Left lower lobe infiltrate has persisted, related to his pre-existing pneumonia before surgery CV: Hypertensive emergency Dyslipidemia -Cardene infusion as needed to keep systolic blood pressure less than 140 -Arterial line placement -IV labetalol as needed for SBP more than 140 -Bysystolic, hydralazine and amlodipine restarted down NG tube. -holding losartan due to rising creatinine GI: Morbid obesity History of colon resection, status post colostomy -Start Nepro tube feeds on 10/11 and advance to goal of 30 cc/h as tolerated - IV famotidine -Routine colostomy care Renal/: Acute kidney injury/ CKD -Monitor renal function closely. Place Mendieta catheter. -Being diuresed with Bumex drip. Not much response. BNP 57 on 10/09. I am not sure if fluid overload is his primary problem. -Consulted nephrology for his TARA/CKD and to see if fluid removal with hemodialysis will benefit respiratory status. ID: Left lower lobe pneumonia/atelectasis UTI -On antibiotics per ID. On IV cefepime. IV vancomycin stopped on 10/09 due to worsening creatinine. -All cultures negative so far. Repeat smith cultures ordered on 10/10. UA sent on 10/10 suggests UTI HEME: -Monitor CBC, coags ENDO: Type 2 diabetes Hypothyroidism -Electrolyte replacement per protocol -Sliding scale insulin PROPH: -Bilateral lower extremity SCDs/HIRAL. Chemical DVT prophylaxis contraindicated status post parenchymal brain bleed -IV famotidine LINES: -Utilize peripheral IVs, central line if needed Overall impression: Patient remains critically ill and pulmonary status is unstable. Persistent respiratory problems due to morbid obesity, pre-existing pneumonia, and supine position. Chronic kidney disease is hampering our attempts at fluid removal. Now again requiring airway pressure release ventilation for recruitment. He remains critically ill. Consulted palliative care to assist with deciding goals of therapy as respiratory status appears to be worsening. D/W Dr. Gasca from nephrology on 10/10 who was consulted to evaluate TARA/ CKD and need for HD for fluid removal. Family meeting held with palliative care and discuss current clinical status including severe acute respiratory failure. Discussed CODE STATUS which at this point remains full code. Explained patient at high risk for hemodynamic instability of respiratory status declines further. Also explained that patient may go into cardiac arrest is unable to maintain O2 sats despite maximal ventilatory support. Critical care time 50 minutes aside from procedures.
--- NOTE | 2018-10-11 12:03 | P.PNID ---
Subjective Remarks: Patient is unresponsive on the ventilator. Currently on 100% FiO2. RN reports no new issues. Afebrile. Sputum culture has no growth. This is a 68-year-old white male who was admitted to the hospital 10/03/2018 on transfer from [facility] with headache. The patient was noted to have an acute intraparenchymal hemorrhage in the right temporal region. He underwent surgery in the form of right posterior temporal craniotomy and evacuation of intracerebral hematoma. Because of the persistence of the lung infiltrates and continuation of ventilation with difficulty weaning off the ventilator, this consultation is requested for infectious disease evaluation. Past Medical History: PAST MEDICAL HISTORY: Hypertension, hyperlipidemia, diabetes mellitus. Total right knee replacement. Allergies/Adverse Reactions: Allergies clear tape,plastic tape Allergy (Severe, Uncoded 10/04/18 18:47) Blister Objective Vital Signs 10/10/18 12:00 10/10/18 12:15 10/10/18 12:30 Temperature 99.0 F Pulse Rate 77 78 77 Respiratory Rate Pulse Oximetry 89 L 96 96 10/10/18 12:45 10/10/18 13:00 10/10/18 13:15 Temperature Pulse Rate 77 77 77 Respiratory Rate Pulse Oximetry 95 94 L 94 L 10/10/18 13:30 10/10/18 13:45 10/10/18 14:00 Temperature Pulse Rate 77 76 76 Respiratory Rate Pulse Oximetry 94 L 94 L 94 L 10/10/18 14:15 10/10/18 14:30 10/10/18 14:45 Temperature Pulse Rate 76 76 77 Respiratory Rate Pulse Oximetry 94 L 93 L 93 L 10/10/18 15:00 10/10/18 15:15 10/10/18 15:30 Temperature Pulse Rate 77 78 78 Respiratory Rate Pulse Oximetry 94 L 94 L 94 L 10/10/18 15:45 10/10/18 15:51 10/10/18 16:00 Temperature Pulse Rate 79 84 Respiratory Rate 14 Pulse Oximetry 91 L 91 L 92 L 10/10/18 16:15 10/10/18 16:30 10/10/18 16:45 Temperature Pulse Rate 85 85 85 Respiratory Rate Pulse Oximetry 91 L 92 L 91 L 10/10/18 17:00 10/10/18 17:15 10/10/18 17:30 Temperature Pulse Rate 84 86 87 Respiratory Rate Pulse Oximetry 91 L 93 L 94 L 10/10/18 17:45 10/10/18 18:00 10/10/18 18:15 Temperature 99.0 F Pulse Rate 86 83 82 Respiratory Rate Pulse Oximetry 94 L 93 L 93 L 10/10/18 19:00 10/10/18 20:00 10/10/18 20:15 Temperature 98.9 F Pulse Rate 80 78 Respiratory Rate 11 L 11 L 11 L Pulse Oximetry 93 L 94 L 95 10/10/18 21:00 10/10/18 22:00 10/10/18 22:39 Temperature Pulse Rate 74 82 Respiratory Rate 11 L 11 L 11 L Pulse Oximetry 94 L 94 L 95 10/10/18 23:00 10/11/18 00:00 10/11/18 01:00 Temperature 99 F Pulse Rate 81 78 84 Respiratory Rate 11 L 11 L 11 L Pulse Oximetry 94 L 94 L 94 L 10/11/18 01:29 10/11/18 02:00 10/11/18 03:00 Temperature 99 F Pulse Rate 90 92 H Respiratory Rate 11 L 11 L 11 L Pulse Oximetry 94 L 95 93 L 10/11/18 04:00 10/11/18 04:09 10/11/18 05:00 Temperature Pulse Rate 88 88 Respiratory Rate 11 L 11 L 11 L Pulse Oximetry 93 L 93 L 95 10/11/18 05:51 10/11/18 06:00 10/11/18 07:00 Temperature 99.0 F Pulse Rate 81 76 85 Respiratory Rate 11 L 32 H Pulse Oximetry 95 95 10/11/18 07:47 10/11/18 08:00 10/11/18 09:00 Temperature 98.8 F 98.8 F Pulse Rate 87 82 Respiratory Rate 11 L 11 L 11 L Pulse Oximetry 92 L 92 L 96 10/11/18 10:00 10/11/18 10:15 10/11/18 10:30 Temperature 98.8 F 98.8 F 98.8 F Pulse Rate 82 81 80 Respiratory Rate 11 L 11 L 11 L Pulse Oximetry 96 95 96 10/11/18 10:45 Temperature 98.8 F Pulse Rate 79 Respiratory Rate 11 L Pulse Oximetry 96 Intake & Output 10/10/18 10/11/18 10/11/18 18:59 06:59 18:59 Intake Total 855 / 855 955 / 955 85 / 855 Output Total 600 / 600 1165 / 1165 Balance 255 / 255 -210 / -210 / 85 Weight 212 kg Intake: IV 855 / 855 955 / 955 / 85 Lasix Inj 100 MG In NS Inj 90 100 / 100 ML @ 10 mls/hr IV.CONT .Q10H ISABEL Rx#:[id number] Diprivan 1000 mg/100 ml Inj 1, 200 / 200 200 / 200 200 / 200 000 mg In 100 ml @ 5 MCG/KG/MIN 5.34 mls/hr IV.CONT TITRATE PRN Rx#:[id number] Flexbumin 25% Inj 100 ML @ 60 100 / 100 200 / 200 100 / 100 mls/hr IV.SIG Q6H ISABEL Rx#: [id number] Maxipime Inj 2,000 MG In NS Inj 100 / 100 100 / 100 100 / 100 100 ML @ 200 mls/hr IV.SIG Q12H ISABEL Rx#:[id number] Levophed Inj 4 MG In NS Inj 246 250 / 250 ML @ 2 MCG/MIN 7.5 mls/hr IV. SIG TITRATE PRN Rx#:[id number] fentaNYL 10 mcg/mL Premix Drip 250 / 250 250 / 250 2,500 mcg In 250 ml @ 50 MCG/HR 5 mls/hr IV.SIG TITRATE PRN Rx #:[id number] Keppra Inj 500 MG In NS Inj 100 105 / 105 105 / 105 105 / 105 ML @ 400 mls/hr IV.SIG Q12H ISABEL Rx#:[id number] Flolan (30,000 ng/mL) Neb 52.5 100 / 100 100 / 100 ML In NS Inj 47.5 ML @ 5 mls/hr NEB Q8H ISABEL Rx#:[id number] Oral 0 / 0 Output: Estimated Blood Loss 100 / 100 Urine Amount (Catheter) 600 / 600 900 / 900 Indwelling Temp Sensing 600 / 600 900 / 900 Catheter Stool Amount (Stoma) 50 / 50 Right Lower Abdomen 50 / 50 Gastric Drainage 60 / 60 Oral Orogastric Tube 60 / 60 Wound Drainage 55 / 55 # 1 Right Frontal CLARIBEL Drain 5 / 5 # 2 Right Frontal CLARIBEL Drain 50 / 50 Other: Date of Last Bowel Movement 10/11/18 10/09/18 09:00 Sputum - Endotracheal Gram Stain - Final 10/09/18 09:00 Sputum - Endotracheal Sputum Culture - Final No growth in 48 hours 10/11/18 05:00 Catheterized Urine Urine Culture - Pending 10/03/18 10:05 Blood - Peripheral Aerobic Blood Culture - Final No growth in 5 days 10/03/18 10:05 Blood - Peripheral Anaerobic Blood Culture - Final No growth in 5 days 10/03/18 10:10 Blood - Peripheral Aerobic Blood Culture - Final No growth in 5 days 10/03/18 10:10 Blood - Peripheral Anaerobic Blood Culture - Final No growth in 5 days Lab - Hematology Results 10/10/18 10/11/18 05:15 05:00 WBC 3.4 L 5.2 D RBC 3.65 L 3.72 L Hgb 10.2 L 10.4 L Hct 31.7 L 32.7 L MCV 87.0 88.0 MCH 28.1 28.1 MCHC 32.2 32.0 RDW 16.0 16.1 Plt Count 173 173 MPV 8.8 8.9 Neut % (Auto) 71.1 H 76.0 H Lymph % (Auto) 11.8 8.4 L Custer % (Auto) 11.3 H 12.4 H Eos % (Auto) 5.1 H 2.6 Baso % (Auto) 0.7 0.6 Neut # (Auto) 2.4 4.0 Lymph # (Auto) 0.4 L 0.4 L C[place] # (Auto) 0.4 0.6 Eos # (Auto) 0.2 0.1 Baso # (Auto) 0.0 0.0 WBC Differential . . Differential Comment Auto diff final Auto diff final Lab - Chemistry Results 10/09/18 10/09/18 10/09/18 17:41 17:50 17:50 Sodium 156 H* Potassium Chloride Carbon Dioxide Anion Gap BUN Creatinine Estimated GFR POC Glucose 144 H Random Glucose Uric Acid Calcium Phosphorus B-Natriuretic Peptide Procalcitonin 0.30 H 10/10/18 10/10/18 10/10/18 00:52 05:15 05:15 Sodium 156 H* Potassium 3.9 Chloride 122 H Carbon Dioxide 22.2 Anion Gap 12 BUN 69 H Creatinine 2.60 H Estimated GFR 25 L POC Glucose 153 H Random Glucose 148 H Uric Acid Calcium 9.4 Phosphorus B-Natriuretic Peptide 48 Procalcitonin 10/10/18 10/10/18 10/10/18 06:21 11:28 17:02 Sodium Potassium Chloride Carbon Dioxide Anion Gap BUN Creatinine Estimated GFR POC Glucose 146 H 130 H 162 H Random Glucose Uric Acid Calcium Phosphorus B-Natriuretic Peptide Procalcitonin 10/10/18 10/11/18 10/11/18 23:50 05:00 06:36 Sodium 154 H Potassium 4.4 Chloride 121 H Carbon Dioxide 21.1 Anion Gap 12 BUN 79 H Creatinine 3.10 H Estimated GFR 20 L POC Glucose 142 H 165 H Random Glucose 160 H Uric Acid 9.3 H Calcium 9.4 Phosphorus 8.0 H B-Natriuretic Peptide Procalcitonin 10/11/18 11:32 Sodium Potassium Chloride Carbon Dioxide Anion Gap BUN Creatinine Estimated GFR POC Glucose 150 H Random Glucose Uric Acid Calcium Phosphorus B-Natriuretic Peptide Procalcitonin Imaging: ITS Impressions Neck CTA 10/03/18 00:00 CONCLUSION: 1. The left vert originates directly from the arch. 2. Atherosclerotic plaquing at the carotid bifurcation but no hemodynamically significant carotid artery stenosis identified. 3. CTA of the brain pending. Head CTA 10/03/18 07:56 CONCLUSION: No acute chipewwa of Velasquez vascular findings . Abdomen/Bladder Ultrasound 10/04/18 00:00 CONCLUSION: No hydronephrosis Head CT 10/05/18 00:00 CONCLUSION: Satisfactory postop appearance . Chest X-Ray 10/11/18 07:55 CONCLUSION: Unchanged exam. Physical Exam: PHYSICAL EXAMINATION: GENERAL: Unresponsive on the ventilator. HEENT: Unable to fully assess. There is a dressing at the vertex of the head where the CLARIBEL drain was located. The area is dry. Conjunctivae have edema. Oropharynx is intubated. NECK: No adenopathy. LUNGS: Markedly diminished breath sounds. HEART: Regular S1, S2, without murmurs. ABDOMEN: Bowel sounds diminished, obese. EXTREMITIES: No clubbing or cyanosis. 2+ nonpitting edema. Multiple clear fluid-filled blisters at the left upper extremity. No erythema. SKIN: No diffuse rash. NEUROLOGIC: Unable to assess because the patient is unresponsive and intubated. PSYCHIATRIC: Unable to assess. Assessment and Plan - Plan IMPRESSION: 1. Pneumonia versus atelectasis in a patient with persistent infiltrates despite diuresis. Sputum culture has no growth. Chest x-ray shows probable pleural effusion. 2. Acute respiratory failure. 3. Intraparenchymal hematoma, status post intracranial pressure monitor and evacuation. RECOMMENDATIONS: 1. Continue vancomycin. 2. Continue cefepime. 3. Follow the sputum culture. 4. Monitor clinical response.
--- NOTE | 2018-10-11 13:21 | P.PNNP ---
Subjective Interval history: On ventilator, urine output picked up with Bumex drip 1.5 L and last shift 600 cc was emptied , FiO2 is 100% Physical Exam Vital signs: Vital Signs 10/10/18 13:30 10/10/18 13:45 10/10/18 14:00 Temperature Pulse Rate 77 76 76 Respiratory Rate Pulse Oximetry 94 L 94 L 94 L 10/10/18 14:15 10/10/18 14:30 10/10/18 14:45 Temperature Pulse Rate 76 76 77 Respiratory Rate Pulse Oximetry 94 L 93 L 93 L 10/10/18 15:00 10/10/18 15:15 10/10/18 15:30 Temperature Pulse Rate 77 78 78 Respiratory Rate Pulse Oximetry 94 L 94 L 94 L 10/10/18 15:45 10/10/18 15:51 10/10/18 16:00 Temperature Pulse Rate 79 84 Respiratory Rate 14 Pulse Oximetry 91 L 91 L 92 L 10/10/18 16:15 10/10/18 16:30 10/10/18 16:45 Temperature Pulse Rate 85 85 85 Respiratory Rate Pulse Oximetry 91 L 92 L 91 L 10/10/18 17:00 10/10/18 17:15 10/10/18 17:30 Temperature Pulse Rate 84 86 87 Respiratory Rate Pulse Oximetry 91 L 93 L 94 L 10/10/18 17:45 10/10/18 18:00 10/10/18 18:15 Temperature 99.0 F Pulse Rate 86 83 82 Respiratory Rate Pulse Oximetry 94 L 93 L 93 L 10/10/18 19:00 10/10/18 20:00 10/10/18 20:15 Temperature 98.9 F Pulse Rate 80 78 Respiratory Rate 11 L 11 L 11 L Pulse Oximetry 93 L 94 L 95 10/10/18 21:00 10/10/18 22:00 10/10/18 22:39 Temperature Pulse Rate 74 82 Respiratory Rate 11 L 11 L 11 L Pulse Oximetry 94 L 94 L 95 10/10/18 23:00 10/11/18 00:00 10/11/18 01:00 Temperature 99 F Pulse Rate 81 78 84 Respiratory Rate 11 L 11 L 11 L Pulse Oximetry 94 L 94 L 94 L 10/11/18 01:29 10/11/18 02:00 10/11/18 03:00 Temperature 99 F Pulse Rate 90 92 H Respiratory Rate 11 L 11 L 11 L Pulse Oximetry 94 L 95 93 L 10/11/18 04:00 10/11/18 04:09 10/11/18 05:00 Temperature Pulse Rate 88 88 Respiratory Rate 11 L 11 L 11 L Pulse Oximetry 93 L 93 L 95 10/11/18 05:51 10/11/18 06:00 10/11/18 07:00 Temperature 99.0 F Pulse Rate 81 76 85 Respiratory Rate 11 L 32 H Pulse Oximetry 95 95 10/11/18 07:47 10/11/18 08:00 10/11/18 09:00 Temperature 98.8 F 98.8 F Pulse Rate 87 82 Respiratory Rate 11 L 11 L 11 L Pulse Oximetry 92 L 92 L 96 10/11/18 10:00 10/11/18 10:15 10/11/18 10:30 Temperature 98.8 F 98.8 F 98.8 F Pulse Rate 82 81 80 Respiratory Rate 11 L 11 L 11 L Pulse Oximetry 96 95 96 10/11/18 10:45 10/11/18 11:00 10/11/18 12:00 Temperature 98.8 F 98.8 F 98.6 F Pulse Rate 79 80 81 Respiratory Rate 11 L 11 L Pulse Oximetry 96 97 97 10/11/18 12:44 10/11/18 13:00 Temperature 98.6 F Pulse Rate 78 Respiratory Rate 14 Pulse Oximetry 97 97 Intake & Output 10/10/18 10/11/18 10/11/18 18:59 06:59 18:59 Intake Total 855 / 855 955 / 955 865 / 865 Output Total 600 / 600 1165 / 1165 Balance 255 / 255 -210 / -210 865 / 865 Weight 212 kg Intake: IV 855 / 855 955 / 955 865 / 865 Lasix Inj 100 MG In NS Inj 90 100 / 100 ML @ 10 mls/hr IV.CONT .Q10H [facility] Rx#:[id number] Diprivan 1000 mg/100 ml Inj 1, 200 / 200 200 / 200 200 / 200 000 mg In 100 ml @ 5 MCG/KG/MIN 5.34 mls/hr IV.CONT TITRATE PRN Rx#:[id number] Flexbumin 25% Inj 100 ML @ 60 100 / 100 200 / 200 100 / 100 mls/hr IV.SIG Q6H [facility] Rx#: [id number] Maxipime Inj 2,000 MG In NS Inj 100 / 100 100 / 100 100 / 100 100 ML @ 200 mls/hr IV.SIG Q12H [facility] Rx#:[id number] Levophed Inj 4 MG In NS Inj 246 250 / 250 10 / 10 ML @ 2 MCG/MIN 7.5 mls/hr IV. SIG TITRATE PRN Rx#:[id number] fentaNYL 10 mcg/mL Premix Drip 250 / 250 250 / 250 2,500 mcg In 250 ml @ 50 MCG/HR 5 mls/hr IV.SIG TITRATE PRN Rx #:[id number] Keppra Inj 500 MG In NS Inj 100 105 / 105 105 / 105 105 / 105 ML @ 400 mls/hr IV.SIG Q12H [facility] Rx#:[id number] Flolan (30,000 ng/mL) Neb 52.5 100 / 100 100 / 100 ML In NS Inj 47.5 ML @ 5 mls/hr NEB Q8H [facility] Rx#:[id number] Oral 0 / 0 Output: Estimated Blood Loss 100 / 100 Urine Amount (Catheter) 600 / 600 900 / 900 Indwelling Temp Sensing 600 / 600 900 / 900 Catheter Stool Amount (Stoma) 50 / 50 Right Lower Abdomen 50 / 50 Gastric Drainage 60 / 60 Oral Orogastric Tube 60 / 60 Wound Drainage 55 / 55 # 1 Right Frontal CLARIBEL Drain 5 / 5 # 2 Right Frontal CLARIBEL Drain 50 / 50 Other: Date of Last Bowel Movement 10/11/18 Narrative: GENERAL: Well-nourished, morbidly obese well-developed patient on ventilator. SKIN: Warm and dry. HEAD: Normocephalic. EYES: No scleral icterus. No injection or drainage. NECK: Supple, trachea midline. No JVD or lymphadenopathy. CARDIOVASCULAR: Regular rate and rhythm without murmurs, gallops, or rubs. RESPIRATORY: Breath sounds diminished at bases. GASTROINTESTINAL: Abdomen soft, non-tender, distended. EXTREMITIES: Massive upper extremity edema left arm is worse with blisters NEUROLOGICAL: Sedation on ventilator. - Urinary Catheter Management Indwelling Temp Sensing Catheter Cath placed during this visit: yes Reason for continuing: Hourly intake/output Insertion date: 10/03/18 Insertion time: 08:10 Indwelling Urethral Catheter Cath placed during this visit: no Assessment and Plan - Assessment (1) Intraparenchymal hemorrhage of brain Code(s): I61.9 - Nontraumatic intracerebral hemorrhage, unspecified Status: Acute (2) History of hypertension Code(s): Z86.79 - Personal history of other diseases of the circulatory system Status: Chronic (3) Type 2 diabetes mellitus Code(s): E11.9 - Type 2 diabetes mellitus without complications Status: Chronic (4) Morbid obesity Code(s): E66.01 - Morbid (severe) obesity due to excess calories Status: Chronic (5) Acute kidney injury Code(s): N17.9 - Acute kidney failure, unspecified Status: Acute - Plan Patient is in positive fluid balance and gain weight, he has upper extremity edema worse than the lower extremity edema, And we are trying to diurese him with Bumex drip He has good response urine output increased creatinine slightly worse 3.1, uric acid is high and phosphorus 8 Indicating ATN Since he responded we will observe on diuresis today Patient did receive vancomycin followed level If conservative approach fails and his oxygen required remains high then we may try more aggressive care And hemodialysis can be tried. Discussed with Dr. Hermosillo
--- NOTE | 2018-10-11 17:20 | P.DIET ---
Nutritional Evaluation Type of nutrition evaluation: follow-up Screening comments: Pt NPO x 8 days. Trickle feeds finally started today. TFing recommendations originally provided on 10/06. Pt assessed per SCCM and ASPEN guidelines ofr critically ill pts with a BMI >50. Objective - Diagnosis Brain Bleed - Objective % IBW: 284 (IBW = 166#) Body Weight Used for Calculations: IBW (75.5 kg) Energy Needs - Lower Range (kCal/kg): 22 Energy Needs - Upper Range (kCal/kg): 25 Lower Limit kCal/kg (kCals): 1,661 Upper Limit kCal/kg (kCals): 1,888 Lower Limit Protein Factor (Grams per Kg): 2.0 Upper Limit Protein Factor (Grams per Kg): 2.5 Lower Protein Needs (Protein): 151 Upper Protein Needs (Protein): 189 Dietitian Reviewed in Medical Record: Curent medications, Intake & Output, Labs , Medical history Diet Order: NPO Assessment Assessment: Pt is intubated and sedated with high rate propofol. TF order is for Nepro @ 15 mls/hr. To meet needs with TF, recommend Vital High Protein @ 55 mls/hr goal to provide 1320 kcals, 116 gms protein and 1104 mls of free water. Also recommend the addition of Beneprotein 2 packs tid for an additional 32 gms of protein. Additional kcals will come from propofol (1.1 kcal/ml). Labs, wts and clinical course reviewed. Recommendations: Vital High Protein @ 55 mls/hr goal Beneprotein 2 packs tid Dietitian to Monitor: Lab values, Intake & Output, Tube feeding tolerance, Weight change, Medical course
[2018-10-11] MEDS: Bumetanide Inj 25 MG/100 ML BAG IV.CONT SCH (18:10)
[2018-10-12] MEDS: Insulin NovoLOG Aspart Correctional Sugar Inj SQ SCH ×4 (00:31→18:04)
[2018-10-12] MEDS: Oral Hygiene Kit OROPHARYNG SCH ×4 (00:32→16:46)
[2018-10-12] MEDS: Propofol 1000 mg/100 ml Inj 1,000 MG/100 ML BOTTLE IV.CONT PRN ×4 (02:15→12:58)
[2018-10-12 04:29] LABS: Baso % (Auto) 0.5 % (0.0-2.0); Eos # (Auto) 0.2 th/mm3 (0.0-0.4); Eos % (Auto) 4.3 % (0.0-4.0); Hematocrit 28.9 % (39.0-51.0); Hemoglobin 9.3 gm/dL (13.0-17.0); Lymph # (Auto) 0.3 th/mm3 (1.0-4.8); Lymph % (Auto) 8.8 % (9.0-44.0); Mean Corpuscular HGB Conc 32.1 % (32.0-36.0); Mean Corpuscular Hemoglobin 28.1 pg (27.0-34.0); Mean Corpuscular Volume 87.5 fL (80.0-100.0); Mean Platelet Volume 8.6 fL (7.0-11.0); Mono # (Auto) 0.5 th/mm3 (0.0-0.9); Mono % (Auto) 13.2 % (0.0-8.0); Neut # (Auto) 2.8 th/mm3 (1.8-7.7); Neut % (Auto) 73.2 % (16.0-70.0); Platelet Count 137 th/mm3 (150-450); Red Cell Distribution Width 16.1 % (11.6-17.2); White Blood Count 3.8 th/mm3 (4.0-11.0)
[2018-10-12 04:54] LABS: Calcium 9.7 mg/dL (8.5-10.1); Carbon Dioxide 20.6 meq/L (21.0-32.0); Potassium 3.7 meq/L (3.5-5.1)
[2018-10-12] MEDS: EPOPROSTENOL NEB SCH ×4 (05:03→20:44)
[2018-10-12] MEDS: SODIUM CHLOR NEB SCH ×4 (05:03→20:44)
[2018-10-12 05:59] LABS: ABG Base Excess -6.3 mmol/L (-2-2); ABG PCO2 50 mmHg (38-42); ABG PO2 84 mmHg (61-120)
--- NOTE | 2018-10-12 08:42 | XR ---
EXAM DATE: 10/12/2018 8:37 AM EST AGE/SEX: 68 years / Male INDICATIONS: Respiratory Failure. CLINICAL DATA: This is the patient's subsequent encounter. Patient reports that signs and symptoms h ave been present for 3 weeks and indicates a pain score of Nonresponsive. MEDICAL/SURGICAL HISTORY: . Diabetes mellitus type II. Hypertension. Hyperlipidemia. Thyroid di sease. Intraparenchymal hemorrhage. LLL Pneumonia. . Total knee replacement, right. Colon resection . Colostomy. COMPARISON: [facility] [place], CHEST 1V SINGLE AP, 10/11/2018. . FINDINGS: The ET tube, NG tube, right internal jugular central line are all well placed. The cardiac silhouette is enlarged. There is increased density seen throughout the mid and lower lungs with relative sparin g of the apices. There appears to be at least a mild right pleural effusion. CONCLUSION: Diffuse consolidation likely related to diffuse processes such as edema or diffuse infection. Cardiomegaly. Tubes and lines in good position. Electronically signed by: Frederick Pepper MD 10/12/2018 8:41 AM EST
[2018-10-12] MEDS: Chlorhexidine 0.12% Oral Kit 15 ML UDC OROPHARYNG SCH ×2 (09:07→23:08)
[2018-10-12] MEDS: Norepinephrine Inj 4 MG in Sodium Chlor 0.9% Inj 246 ML IV.SIG PRN ×2 (09:07→20:43)
[2018-10-12] MEDS: Sodium Chloride 0.9% 2 ML Flush BID IV.FLUSH SCH ×2 (09:07→23:08)
[2018-10-12] MEDS: Famotidine PF Inj 20 MG/2 ML Vial IV.PUSH SCH ×2 (09:19→21:00)
[2018-10-12] MEDS: Senna/Docusate Sodium 8.6/50 MG Tablet PO SCH ×2 (09:19→20:58)
--- NOTE | 2018-10-12 12:11 | P.PNID ---
Subjective Remarks: Patient is unresponsive on the ventilator. Currently on 100% FiO2. Failed attempts to decrease FiO2. Low grade fever. Sputum culture has no growth. This is a 68-year-old white male who was admitted to the hospital 10/03/2018 on transfer from [facility] with headache. The patient was noted to have an acute intraparenchymal hemorrhage in the right temporal region. He underwent surgery in the form of right posterior temporal craniotomy and evacuation of intracerebral hematoma. Because of the persistence of the lung infiltrates and continuation of ventilation with difficulty weaning off the ventilator, this consultation is requested for infectious disease evaluation. Past Medical History: PAST MEDICAL HISTORY: Hypertension, hyperlipidemia, diabetes mellitus. Total right knee replacement. Allergies/Adverse Reactions: Allergies clear tape,plastic tape Allergy (Severe, Uncoded 10/04/18 18:47) Blister Objective Vital Signs 10/11/18 12:44 10/11/18 13:00 10/11/18 14:00 Temperature 98.6 F 98.6 F Pulse Rate 78 79 Respiratory Rate 14 24 Pulse Oximetry 97 97 97 10/11/18 15:00 10/11/18 15:50 10/11/18 16:00 Temperature 98.6 F 98.6 F Pulse Rate 79 77 Respiratory Rate 11 L 11 L 11 L Pulse Oximetry 97 97 97 10/11/18 17:00 10/11/18 18:00 10/11/18 19:00 Temperature 98.6 F 98.6 F 98.4 F Pulse Rate 74 73 72 Respiratory Rate 11 L 11 L 11 L Pulse Oximetry 97 97 97 10/11/18 20:00 10/11/18 20:03 10/11/18 21:00 Temperature 98.4 F 98.4 F Pulse Rate 74 75 Respiratory Rate 11 L 11 L 12 Pulse Oximetry 96 96 96 10/11/18 22:00 10/11/18 23:00 10/12/18 00:00 Temperature 98.4 F 98.6 F 98.6 F Pulse Rate 76 77 75 Respiratory Rate 12 12 12 Pulse Oximetry 96 96 97 10/12/18 01:00 10/12/18 02:00 10/12/18 03:00 Temperature 98.6 F 98.4 F 98.4 F Pulse Rate 74 74 74 Respiratory Rate 12 12 12 Pulse Oximetry 97 97 97 10/12/18 03:39 10/12/18 04:00 10/12/18 05:00 Temperature 98.4 F 98.4 F Pulse Rate 75 76 Respiratory Rate 11 L 12 12 Pulse Oximetry 96 96 10/12/18 05:55 10/12/18 06:00 10/12/18 06:30 Temperature 98.4 F 98.4 F Pulse Rate 75 78 77 Respiratory Rate 12 12 Pulse Oximetry 91 L 92 L 10/12/18 06:45 10/12/18 07:00 10/12/18 07:15 Temperature 98.4 F 98.2 F 98.2 F Pulse Rate 76 76 78 Respiratory Rate 12 12 12 Pulse Oximetry 92 L 92 L 92 L 10/12/18 07:30 10/12/18 07:45 10/12/18 07:46 Temperature 98.2 F 98.2 F Pulse Rate 76 80 Respiratory Rate 12 12 12 Pulse Oximetry 92 L 91 L 91 L 10/12/18 08:00 10/12/18 08:15 10/12/18 08:30 Temperature 98.2 F 98.2 F 98.2 F Pulse Rate 82 84 84 Respiratory Rate 12 16 16 Pulse Oximetry 91 L 84 L 86 L 10/12/18 08:45 10/12/18 09:00 10/12/18 09:15 Temperature 98.2 F 98.2 F 98.2 F Pulse Rate 73 74 77 Respiratory Rate 13 13 13 Pulse Oximetry 89 L 93 L 93 L Intake & Output 10/11/18 10/12/18 10/12/18 18:59 06:59 18:59 Intake Total 1469 / 1469 1245 / 1245 100 / 100 Output Total 750 / 750 700 / 700 Balance 719 / 719 545 / 545 100 / 100 Weight 209.9 kg Intake: IV 1365 / 1365 1055 / 1055 100 / 100 Bumex Inj 25 mg In 100 ml @ 1 100 / 100 MG/HR 4 mls/hr IV.CONT .Q24H [facility] Rx#:[id number] Diprivan 1000 mg/100 ml Inj 1, 400 / 400 400 / 400 100 / 100 000 mg In 100 ml @ 5 MCG/KG/MIN 5.34 mls/hr IV.CONT TITRATE PRN Rx#:[id number] Flexbumin 25% Inj 100 ML @ 60 200 / 200 100 / 100 mls/hr IV.SIG Q6H [facility] Rx#: [id number] Maxipime Inj 2,000 MG In NS Inj 100 / 100 100 / 100 100 ML @ 200 mls/hr IV.SIG Q12H [facility] Rx#:[id number] Levophed Inj 4 MG In NS Inj 246 10 / 10 ML @ 2 MCG/MIN 7.5 mls/hr IV. SIG TITRATE PRN Rx#:[id number] fentaNYL 10 mcg/mL Premix Drip 250 / 250 250 / 250 2,500 mcg In 250 ml @ 50 MCG/HR 5 mls/hr IV.SIG TITRATE PRN Rx #:[id number] Keppra Inj 500 MG In NS Inj 100 105 / 105 105 / 105 ML @ 400 mls/hr IV.SIG Q12H [facility] Rx#:[id number] Flolan (30,000 ng/mL) Neb 52.5 200 / 200 100 / 100 ML In NS Inj 47.5 ML @ 5 mls/hr NEB Q8H [facility] Rx#:[id number] Tube Feeding 54 / 54 190 / 190 Tube Irrigant 50 / 50 Output: Urine Amount (Catheter) 750 / 750 650 / 650 Indwelling Temp Sensing 750 / 750 650 / 650 Catheter Stool Amount (Stoma) 0 / 0 50 / 50 Pre-Hospital: 50 / 50 Right Lower Abdomen 0 / 0 10/09/18 09:00 Sputum - Endotracheal Gram Stain - Final 10/09/18 09:00 Sputum - Endotracheal Sputum Culture - Final No growth in 48 hours 10/11/18 05:00 Catheterized Urine Urine Culture - Pending Lab - Hematology Results 10/11/18 10/12/18 05:00 04:15 WBC 5.2 D 3.8 L RBC 3.72 L 3.30 L Hgb 10.4 L 9.3 L Hct 32.7 L 28.9 L MCV 88.0 87.5 MCH 28.1 28.1 MCHC 32.0 32.1 RDW 16.1 16.1 Plt Count 173 137 L MPV 8.9 8.6 Prelim Diff (Auto) Slide review pending Neut % (Auto) 76.0 H 73.2 H Lymph % (Auto) 8.4 L 8.8 L [place] % (Auto) 12.4 H 13.2 H Eos % (Auto) 2.6 4.3 H Baso % (Auto) 0.6 0.5 Neut # (Auto) 4.0 2.8 Lymph # (Auto) 0.4 L 0.3 L [place] # (Auto) 0.6 0.5 Eos # (Auto) 0.1 0.2 Baso # (Auto) 0.0 0.0 WBC Differential . . Diff Scan Auto diff confirmed Differential Comment Auto diff final . Lab - Chemistry Results 10/10/18 10/10/18 10/10/18 05:15 17:02 23:50 Sodium Potassium Chloride Carbon Dioxide Anion Gap BUN Creatinine Estimated GFR POC Glucose 162 H 142 H Random Glucose Uric Acid Calcium Phosphorus B-Natriuretic Peptide 48 10/11/18 10/11/18 10/11/18 05:00 06:36 11:32 Sodium 154 H Potassium 4.4 Chloride 121 H Carbon Dioxide 21.1 Anion Gap 12 BUN 79 H Creatinine 3.10 H Estimated GFR 20 L POC Glucose 165 H 150 H Random Glucose 160 H Uric Acid 9.3 H Calcium 9.4 Phosphorus 8.0 H B-Natriuretic Peptide 10/11/18 10/11/18 10/12/18 17:22 23:43 04:15 Sodium 155 H Potassium 3.7 Chloride 123 H Carbon Dioxide 20.6 L Anion Gap 11 BUN 94 H Creatinine 3.21 H Estimated GFR 19 L POC Glucose 139 H 173 H Random Glucose 162 H Uric Acid Calcium 9.7 Phosphorus B-Natriuretic Peptide Imaging: ITS Impressions Neck CTA 10/03/18 00:00 CONCLUSION: 1. The left vert originates directly from the arch. 2. Atherosclerotic plaquing at the carotid bifurcation but no hemodynamically significant carotid artery stenosis identified. 3. CTA of the brain pending. Head CTA 10/03/18 07:56 CONCLUSION: No acute [place] of [place] vascular findings . Abdomen/Bladder Ultrasound 10/04/18 00:00 CONCLUSION: No hydronephrosis Head CT 10/05/18 00:00 CONCLUSION: Satisfactory postop appearance . Chest X-Ray 10/12/18 07:20 CONCLUSION: Diffuse consolidation likely related to diffuse processes such as edema or diffuse infection. Cardiomegaly. Tubes and lines in good position. Physical Exam: PHYSICAL EXAMINATION: GENERAL: Unresponsive on the ventilator. HEENT: Unable to fully assess. Conjunctivae have edema. Oropharynx is intubated. NECK: No adenopathy. LUNGS: Markedly diminished breath sounds. HEART: Regular S1, S2, without murmurs. ABDOMEN: Bowel sounds diminished, obese. EXTREMITIES: No clubbing or cyanosis. 2+ nonpitting edema. Multiple clear fluid-filled blisters at the left upper extremity. No erythema. SKIN: No diffuse rash. NEUROLOGIC: Unable to assess because the patient is unresponsive and intubated. PSYCHIATRIC: Unable to assess. Assessment and Plan - Plan IMPRESSION: 1. Pneumonia versus atelectasis in a patient with persistent infiltrates despite diuresis. Sputum culture has no growth. Chest x-ray shows probable pleural effusion. 2. Acute respiratory failure. 3. Intraparenchymal hematoma, status post intracranial pressure monitor and evacuation. RECOMMENDATIONS: 1. Continue vancomycin. 2. Continue cefepime. 3. Add Levaquin for atypical coverage. 4. monitor clinical response.
[2018-10-12] MEDS: Levofloxacin 250 mg Premix Inj 250 MG/50 ML PIGGYBACK IV.SIG SCH (12:58)
--- NOTE | 2018-10-12 13:38 | P.PNCC ---
Subjective Subjective Remarks/Hospital Course: Patient is a 68-year-old morbidly obese male with past medical history significant for hypertension, diabetes, dyslipidemia, morbid obesity, thyroid disease, history of colon resection and colostomy, who presented to the [facility] with left-sided headache and poorly controlled hypertension. Apparently he woke up with severe left-sided headache was moderately confused and family brought him to the emergency department. The patient did take aspirin for his headache prior to presentation. A stat CT of the head showed large 6.9 x 3.6 x 3.2 cm acute intraparenchymal hemorrhage in the right temporoparietal region with approximate blood volume of 40 mL. There was surrounding edema and 2-3 mm leftward midline shift. Neurosurgery Dr. Hills was contacted and patient was transferred to [facility]. PT/INR/ platelet count was normal in the outside hospital. BUN was 43 creatinine was 2. I evaluated the patient in the ICU. Patient is awake but somnolent oriented only to person. He drifts to sleep while talking. His systolic blood pressure was 200 on arrival. Because of questionable airway protection and need for further imaging studies patient was intubated and placed on mechanical ventilation. Dr. Hills had been informed. I will start Cardene to control blood pressure, repeat stat CT head also CT angiogram of brain and neck will be performed. Also give 25 g of IV mannitol, start on 2% saline to keep sodium more than 150-155, also placed on Keppra for seizure prophylaxis. 10/04: Will start oral BP meds down NG tube and attempt to wean cardene. CKD persists as expected. Glucose swing expected. Keep intubated and sedated for now. 10/05: Better blood pressure control with by systolic and amlodipine restarted. Increased difficulty with oxygenation today, now requiring 100% FiO2 and 12 PEEP. Chest x-ray shows atelectasis involving the whole left lower lobe, cultures all negative for significant organism, no white blood cells. Will get repeat head CAT scan today. 10/06: Repeat head CT look good. Worsening difficulties with oxygenation related to the left lower lobe atelectasis. Converted to airway pressure release ventilation this morning. ICP continues to be very well controlled. 10/07: Lightening sedation today. ICP bolt has been removed. Oxygenation has improved. Continue airway pressure release ventilation. Renal function worse today, hydrate gently with isotonic saline and follow closely. 10/08: Continued difficulties with oxygenation related to preoperative lung injury from his pneumonia, body habitus, fluid overload associated with his chronic kidney disease. We will be forced to go back to airway pressure release ventilation because he de-recruited severely after converting to conventional ventilation yesterday despite PEEP of 18. 10/09: Starting to claw our way back to better oxygenation. He recruited severely on conventional ventilation despite markedly elevated PEEP. Hefty diuresis accomplished with Lasix drip however volume load from vancomycin and Cardene infusions makes it hard to get a significant reduction in total body water. This gentleman had pneumonia prior to his surgery and his persistent left lower lobe infiltrate impaired oxygenation early on. His chest x-ray still demonstrates consolidated areas in the left lower lung. 10/10: Increasing FiO2 requirement overnight. On 100% FiO2, AP RV mode mechanical ventilation this morning. Started on inhaled Flolan with which her O2 sats came up from high 80s to 93%. On Lasix drip however not really diuresing. BNP 57 on 10/09. 10/11: Remains sedated, orally intubated on mechanical ventilation. On inhaled Flolan. Started on Bumex drip by nephrology yesterday with significant increase in urine output. O2 sats 96% on 100% FiO2 APRV mode mechanical ventilation 10/12: Remains sedated, orally intubated on mechanical ventilation. FiO2 back up to 100% on AP RV mode. Inhaled Flolan continues. Remains on Bumex drip. - Diagnosis (1) Intraparenchymal hemorrhage of brain (2) Midline shift of brain (3) Acute encephalopathy (4) Hypertensive emergency (5) LLL pneumonia (6) Acute kidney injury (7) History of hypertension (8) Type 2 diabetes mellitus (9) Dyslipidemia (10) Morbid obesity Objective Vital Signs / I&O: Vital Signs 10/11/18 14:00 10/11/18 15:00 10/11/18 15:50 Temperature 98.6 F 98.6 F Pulse Rate 79 79 Respiratory Rate 24 11 L 11 L Pulse Oximetry 97 97 97 10/11/18 16:00 10/11/18 17:00 10/11/18 18:00 Temperature 98.6 F 98.6 F 98.6 F Pulse Rate 77 74 73 Respiratory Rate 11 L 11 L 11 L Pulse Oximetry 97 97 97 10/11/18 19:00 10/11/18 20:00 10/11/18 20:03 Temperature 98.4 F 98.4 F Pulse Rate 72 74 Respiratory Rate 11 L 11 L 11 L Pulse Oximetry 97 96 96 10/11/18 21:00 10/11/18 22:00 10/11/18 23:00 Temperature 98.4 F 98.4 F 98.6 F Pulse Rate 75 76 77 Respiratory Rate 12 12 12 Pulse Oximetry 96 96 96 10/12/18 00:00 10/12/18 01:00 10/12/18 02:00 Temperature 98.6 F 98.6 F 98.4 F Pulse Rate 75 74 74 Respiratory Rate 12 12 12 Pulse Oximetry 97 97 97 10/12/18 03:00 10/12/18 03:39 10/12/18 04:00 Temperature 98.4 F 98.4 F Pulse Rate 74 75 Respiratory Rate 12 11 L 12 Pulse Oximetry 97 96 10/12/18 05:00 10/12/18 05:55 10/12/18 06:00 Temperature 98.4 F 98.4 F Pulse Rate 76 75 78 Respiratory Rate 12 12 Pulse Oximetry 96 91 L 10/12/18 06:30 10/12/18 06:45 10/12/18 07:00 Temperature 98.4 F 98.4 F 98.2 F Pulse Rate 77 76 76 Respiratory Rate 12 12 12 Pulse Oximetry 92 L 92 L 92 L 10/12/18 07:15 10/12/18 07:30 10/12/18 07:45 Temperature 98.2 F 98.2 F 98.2 F Pulse Rate 78 76 80 Respiratory Rate 12 12 12 Pulse Oximetry 92 L 92 L 91 L 10/12/18 07:46 10/12/18 08:00 10/12/18 08:15 Temperature 98.2 F 98.2 F Pulse Rate 82 84 Respiratory Rate 12 12 16 Pulse Oximetry 91 L 91 L 84 L 10/12/18 08:30 10/12/18 08:45 10/12/18 09:00 Temperature 98.2 F 98.2 F 98.2 F Pulse Rate 84 73 74 Respiratory Rate 16 13 13 Pulse Oximetry 86 L 89 L 93 L 10/12/18 09:15 10/12/18 09:30 10/12/18 09:45 Temperature 98.2 F 98.4 F 98.4 F Pulse Rate 77 79 74 Respiratory Rate 13 13 13 Pulse Oximetry 93 L 95 93 L 10/12/18 10:00 10/12/18 10:15 10/12/18 10:30 Temperature 98.4 F 98.4 F 98.6 F Pulse Rate 76 80 78 Respiratory Rate 13 13 12 Pulse Oximetry 95 95 95 10/12/18 10:45 10/12/18 11:00 10/12/18 11:15 Temperature 98.6 F 98.6 F 98.6 F Pulse Rate 78 79 78 Respiratory Rate 13 13 13 Pulse Oximetry 95 95 96 10/12/18 11:30 10/12/18 11:45 10/12/18 12:00 Temperature 98.6 F 98.8 F 98.8 F Pulse Rate 78 78 78 Respiratory Rate 13 13 13 Pulse Oximetry 96 96 97 10/12/18 12:15 10/12/18 12:30 10/12/18 12:45 Temperature 98.8 F 98.8 F 98.8 F Pulse Rate 77 79 78 Respiratory Rate 13 13 12 Pulse Oximetry 97 97 97 10/12/18 13:00 Temperature 98.8 F Pulse Rate 78 Respiratory Rate 13 Pulse Oximetry 97 Intake & Output 10/11/18 10/12/18 10/12/18 18:59 06:59 18:59 Intake Total 1469 / 1469 1245 / 1245 505 / 505 Output Total 750 / 750 700 / 700 Balance 719 / 719 545 / 545 505 / 505 Weight 209.9 kg Intake: IV 1365 / 1365 1055 / 1055 505 / 505 Bumex Inj 25 mg In 100 ml @ 1 100 / 100 MG/HR 4 mls/hr IV.CONT .Q24H [facility] Rx#:[id number] Diprivan 1000 mg/100 ml Inj 1, 400 / 400 400 / 400 200 / 200 000 mg In 100 ml @ 5 MCG/KG/MIN 5.34 mls/hr IV.CONT TITRATE PRN Rx#:[id number] Flexbumin 25% Inj 100 ML @ 60 200 / 200 100 / 100 mls/hr IV.SIG Q6H [facility] Rx#: [id number] Maxipime Inj 2,000 MG In NS Inj 100 / 100 100 / 100 100 / 100 100 ML @ 200 mls/hr IV.SIG Q12H [facility] Rx#:[id number] Levophed Inj 4 MG In NS Inj 246 10 / 10 ML @ 2 MCG/MIN 7.5 mls/hr IV. SIG TITRATE PRN Rx#:[id number] fentaNYL 10 mcg/mL Premix Drip 250 / 250 250 / 250 2,500 mcg In 250 ml @ 50 MCG/HR 5 mls/hr IV.SIG TITRATE PRN Rx #:[id number] Keppra Inj 500 MG In NS Inj 100 105 / 105 105 / 105 105 / 105 ML @ 400 mls/hr IV.SIG Q12H [facility] Rx#:[id number] Flolan (30,000 ng/mL) Neb 52.5 200 / 200 100 / 100 100 / 100 ML In NS Inj 47.5 ML @ 5 mls/hr NEB Q8H [facility] Rx#:[id number] Tube Feeding 54 / 54 190 / 190 Tube Irrigant 50 / 50 Output: Urine Amount (Catheter) 750 / 750 650 / 650 Indwelling Temp Sensing 750 / 750 650 / 650 Catheter Stool Amount (Stoma) 0 / 0 50 / 50 Pre-Hospital: 50 / 50 Right Lower Abdomen 0 / 0 Result Diagrams: 10/12/18 04:15 10/12/18 04:15 Objective Remarks: Narrative: GEN: Morbidly obese male, intubated, on mechanical ventilation. Generally edematous. HEENT: Scalp incision open to air, dry and clean. NECK: Supple. Orotracheal intubation. Orogastric tube in place LUNGS: On mechanical ventilation, APRV mode, 100% FiO2, decreased basal bilateral breath sounds. Muffled sounds posteriorly both bases. Good chest wall movement. HEART: S1 and S2 normal, heart sounds distant. No JVD. ABDOMEN: Soft. Nontender. Obese. Well-healed vertical scar. Right lower quadrant colostomy bag in place with dark stool EXTREMITIES: No pedal edema. Knee repair scar left side. Limbs generally edematous. NEUROLOGIC: Intubated, sedated. Assessment and Plan - Problem List (1) Intraparenchymal hemorrhage of brain Code(s): I61.9 - Nontraumatic intracerebral hemorrhage, unspecified Status: Acute (2) Midline shift of brain Code(s): G93.9 - Disorder of brain, unspecified Status: Acute (3) Acute encephalopathy Code(s): G93.40 - Encephalopathy, unspecified Status: Acute (4) Hypertensive emergency Code(s): I16.1 - Hypertensive emergency Status: Acute (5) LLL pneumonia Code(s): J18.1 - Lobar pneumonia, unspecified organism Status: Acute (6) Acute kidney injury Code(s): N17.9 - Acute kidney failure, unspecified Status: Acute (7) History of hypertension Code(s): Z86.79 - Personal history of other diseases of the circulatory system Status: Chronic (8) Type 2 diabetes mellitus Code(s): E11.9 - Type 2 diabetes mellitus without complications Status: Chronic (9) Dyslipidemia Code(s): E78.5 - Hyperlipidemia, unspecified Status: Chronic (10) Morbid obesity Code(s): E66.01 - Morbid (severe) obesity due to excess calories Status: Chronic - Assessment and Plan Plan: NEURO: Acute right temporoparietal intraparenchymal hemorrhage Midline shift Acute encephalopathy -Propofol and fentanyl for sedation and ventilator synchrony after intubation -Keppra 500 mg IV every 12 hours -S/P crani and evacuation 10/03 -Repeat CAT scan of head with minimal edema and no shift 10/05 -Osmolality elevated nicely but renal function worse. -Off 2% saline, continue Bumex drip. RESP: Acute respiratory failure Left lower lobe pneumonia ARDS Bilateral effusions -Patient was intubated for airway protection -Ventilator bundle -DuoNeb every 6 hours scheduled and as needed -Sputum culture negative -Converted to airway pressure release ventilation -FiO2 of 100% on 10/10. Added inhaled Flolan. -Left lower lobe infiltrate has persisted, related to his pre-existing pneumonia before surgery -Perform bedside ultrasound which showed small effusions bilaterally which do not appear too large to tap. CV: Hypertensive emergency Dyslipidemia -Off cardene -Arterial line placement -IV labetalol as needed for SBP more than 140 -Holding Bysystolic, hydralazine and amlodipine due to hypotension. -holding losartan due to rising creatinine -levophed for pressor support as needed. GI: Morbid obesity History of colon resection, status post colostomy -Start Nepro tube feeds on 10/11 and advance to goal of 30 cc/h as tolerated - IV famotidine -Routine colostomy care Renal/: Acute kidney injury/ CKD -Monitor renal function closely. Place Mendieta catheter. -Being diuresed with Bumex drip. Not much response. BNP 57 on 10/09. I am not sure if fluid overload is his primary problem. -Consulted nephrology for his TARA/CKD and to see if fluid removal with hemodialysis will benefit respiratory status. ID: Left lower lobe pneumonia/atelectasis UTI -On antibiotics per ID. On IV cefepime. IV vancomycin stopped on 10/09 due to worsening creatinine. -All cultures negative so far. Repeat smith cultures ordered on 10/10. UA sent on 10/10 suggests UTI HEME: -Monitor CBC, coags ENDO: Type 2 diabetes Hypothyroidism -Electrolyte replacement per protocol -Sliding scale insulin PROPH: -Bilateral lower extremity SCDs/HIRAL. Chemical DVT prophylaxis contraindicated status post parenchymal brain bleed -IV famotidine LINES: - RIJ central line Overall impression: Patient remains critically ill and pulmonary status is unstable. Persistent respiratory problems due to morbid obesity, pre-existing pneumonia, and supine position. Chronic kidney disease is hampering our attempts at fluid removal. Now again requiring airway pressure release ventilation for recruitment. He remains critically ill. Consulted palliative care to assist with deciding goals of therapy as respiratory status appears to be worsening. D/W Dr. Gasca from nephrology on 10/10 who was consulted to evaluate TARA/ CKD and need for HD for fluid removal. On 10/10 Family meeting held with palliative care and discuss current clinical status including severe acute respiratory failure. Discussed CODE STATUS which at this point remains full code. Explained patient at high risk for hemodynamic instability of respiratory status declines further. Also explained that patient may go into cardiac arrest is unable to maintain O2 sats despite maximal ventilatory support. 10/12: Updated family at bedside regarding plan of care and critical status and they voiced understanding and was agreeable with plan of care. Critical care time 40 minutes aside from procedures.
--- NOTE | 2018-10-12 13:57 | P.PNNS ---
Subjective Interval history: Pt sedated on Diprivan and Fentanyl drips. Sedation not being held secondary to his severe Respiratory failure and vent settings. <Mau Lopez - Last Filed: 10/12/18 13:52> Physical Exam Vital signs: Vital Signs 10/11/18 14:00 10/11/18 15:00 10/11/18 15:50 Temperature 98.6 F 98.6 F Pulse Rate 79 79 Respiratory Rate 24 11 L 11 L Pulse Oximetry 97 97 97 10/11/18 16:00 10/11/18 17:00 10/11/18 18:00 Temperature 98.6 F 98.6 F 98.6 F Pulse Rate 77 74 73 Respiratory Rate 11 L 11 L 11 L Pulse Oximetry 97 97 97 10/11/18 19:00 10/11/18 20:00 10/11/18 20:03 Temperature 98.4 F 98.4 F Pulse Rate 72 74 Respiratory Rate 11 L 11 L 11 L Pulse Oximetry 97 96 96 10/11/18 21:00 10/11/18 22:00 10/11/18 23:00 Temperature 98.4 F 98.4 F 98.6 F Pulse Rate 75 76 77 Respiratory Rate 12 12 12 Pulse Oximetry 96 96 96 10/12/18 00:00 10/12/18 01:00 10/12/18 02:00 Temperature 98.6 F 98.6 F 98.4 F Pulse Rate 75 74 74 Respiratory Rate 12 12 12 Pulse Oximetry 97 97 97 10/12/18 03:00 10/12/18 03:39 10/12/18 04:00 Temperature 98.4 F 98.4 F Pulse Rate 74 75 Respiratory Rate 12 11 L 12 Pulse Oximetry 97 96 10/12/18 05:00 10/12/18 05:55 10/12/18 06:00 Temperature 98.4 F 98.4 F Pulse Rate 76 75 78 Respiratory Rate 12 12 Pulse Oximetry 96 91 L 10/12/18 06:30 10/12/18 06:45 10/12/18 07:00 Temperature 98.4 F 98.4 F 98.2 F Pulse Rate 77 76 76 Respiratory Rate 12 12 12 Pulse Oximetry 92 L 92 L 92 L 10/12/18 07:15 10/12/18 07:30 10/12/18 07:45 Temperature 98.2 F 98.2 F 98.2 F Pulse Rate 78 76 80 Respiratory Rate 12 12 12 Pulse Oximetry 92 L 92 L 91 L 10/12/18 07:46 10/12/18 08:00 10/12/18 08:15 Temperature 98.2 F 98.2 F Pulse Rate 82 84 Respiratory Rate 12 12 16 Pulse Oximetry 91 L 91 L 84 L 10/12/18 08:30 10/12/18 08:45 10/12/18 09:00 Temperature 98.2 F 98.2 F 98.2 F Pulse Rate 84 73 74 Respiratory Rate 16 13 13 Pulse Oximetry 86 L 89 L 93 L 10/12/18 09:15 10/12/18 09:30 10/12/18 09:45 Temperature 98.2 F 98.4 F 98.4 F Pulse Rate 77 79 74 Respiratory Rate 13 13 13 Pulse Oximetry 93 L 95 93 L 10/12/18 10:00 10/12/18 10:15 10/12/18 10:30 Temperature 98.4 F 98.4 F 98.6 F Pulse Rate 76 80 78 Respiratory Rate 13 13 12 Pulse Oximetry 95 95 95 10/12/18 10:45 10/12/18 11:00 10/12/18 11:15 Temperature 98.6 F 98.6 F 98.6 F Pulse Rate 78 79 78 Respiratory Rate 13 13 13 Pulse Oximetry 95 95 96 10/12/18 11:30 10/12/18 11:45 10/12/18 12:00 Temperature 98.6 F 98.8 F 98.8 F Pulse Rate 78 78 78 Respiratory Rate 13 13 13 Pulse Oximetry 96 96 97 10/12/18 12:15 10/12/18 12:30 10/12/18 12:45 Temperature 98.8 F 98.8 F 98.8 F Pulse Rate 77 79 78 Respiratory Rate 13 13 12 Pulse Oximetry 97 97 97 10/12/18 13:00 Temperature 98.8 F Pulse Rate 78 Respiratory Rate 13 Pulse Oximetry 97 Intake & Output 10/11/18 10/12/18 10/12/18 18:59 06:59 18:59 Intake Total 1469 / 1469 1245 / 1245 505 / 505 Output Total 750 / 750 700 / 700 Balance 719 / 719 545 / 545 505 / 505 Weight 209.9 kg Intake: IV 1365 / 1365 1055 / 1055 505 / 505 Bumex Inj 25 mg In 100 ml @ 1 100 / 100 MG/HR 4 mls/hr IV.CONT .Q24H [facility] Rx#:[id number] Diprivan 1000 mg/100 ml Inj 1, 400 / 400 400 / 400 200 / 200 000 mg In 100 ml @ 5 MCG/KG/MIN 5.34 mls/hr IV.CONT TITRATE PRN Rx#:[id number] Flexbumin 25% Inj 100 ML @ 60 200 / 200 100 / 100 mls/hr IV.SIG Q6H [facility] Rx#: [id number] Maxipime Inj 2,000 MG In NS Inj 100 / 100 100 / 100 100 / 100 100 ML @ 200 mls/hr IV.SIG Q12H [facility] Rx#:[id number] Levophed Inj 4 MG In NS Inj 246 10 / 10 ML @ 2 MCG/MIN 7.5 mls/hr IV. SIG TITRATE PRN Rx#:[id number] fentaNYL 10 mcg/mL Premix Drip 250 / 250 250 / 250 2,500 mcg In 250 ml @ 50 MCG/HR 5 mls/hr IV.SIG TITRATE PRN Rx #:[id number] Keppra Inj 500 MG In NS Inj 100 105 / 105 105 / 105 105 / 105 ML @ 400 mls/hr IV.SIG Q12H [facility] Rx#:[id number] Flolan (30,000 ng/mL) Neb 52.5 200 / 200 100 / 100 100 / 100 ML In NS Inj 47.5 ML @ 5 mls/hr NEB Q8H [facility] Rx#:[id number] Tube Feeding 54 / 54 190 / 190 Tube Irrigant 50 / 50 Output: Urine Amount (Catheter) 750 / 750 650 / 650 Indwelling Temp Sensing 750 / 750 650 / 650 Catheter Stool Amount (Stoma) 0 / 0 50 / 50 Pre-Hospital: 50 / 50 Right Lower Abdomen 0 / 0 - Constitutional morbidly obese Comments: Sedated on Diprivan and Fentanyl drips. - Routine HEENT Exam Head: Absent: atraumatic (Right craniotomy incision clean and dry. No signs of infection.) Eye: Present: PERRL (Pupils 3mm bilaterally reactive bilaterally.) ENT: Absent: oropharynx clear (ET intubated.) - Routine Respiratory Exam Present: patient mechanically ventilated (APRV Biphasic. Rate 12. fiO2 100%. Pt on Flolan.), CTA bilaterally. Absent: respiratory distress, rhonchi, wheezes - Routine Cardiovascular Exam Present: RRR, S1, S2. Absent: murmur - Routine Abdominal Exam Present: soft, normoactive bowel sounds. Absent: distended, firm - Routine Skin Exam Absent: cyanosis, erythema Comments: Craniotomy site clean and dry without signs of infection. - Routine Neurological Exam Absent: alert (Pt sedated on Diprivan and Fentanyl drips. Sedation not held given his severe respiratory failure. Pupils 3mm bialterally reactive bilaterally. ) - Routine Psychiatric Exam Present: unable to assess - Urinary Catheter Management Indwelling Temp Sensing Catheter Cath placed during this visit: yes Reason for continuing: Hourly intake/output Insertion date: 10/03/18 Insertion time: 08:10 Indwelling Urethral Catheter Cath placed during this visit: no <Mau Lopez - Last Filed: 10/12/18 13:52> Vital signs: Vital Signs 10/14/18 21:30 10/14/18 21:45 10/14/18 22:00 Temperature 99.9 F H 99.9 F H 99.9 F H Pulse Rate 87 87 89 Respiratory Rate 15 15 15 Blood Pressure Pulse Oximetry 91 L 91 L 91 L 10/14/18 22:15 10/14/18 22:30 10/14/18 22:45 Temperature 100.0 F H 100.0 F H 100.2 F H Pulse Rate 87 89 86 Respiratory Rate 15 15 15 Blood Pressure Pulse Oximetry 91 L 91 L 91 L 10/14/18 23:00 10/14/18 23:05 10/14/18 23:15 Temperature 100.2 F H 100.2 F H 100.2 F H Pulse Rate 86 88 90 Respiratory Rate 15 15 15 Blood Pressure 126/61 Pulse Oximetry 92 L 94 L 92 L 10/14/18 23:30 10/14/18 23:34 10/14/18 23:45 Temperature 100.2 F H 100.2 F H Pulse Rate 90 91 H 92 H Respiratory Rate 15 15 15 Blood Pressure Pulse Oximetry 93 L 90 L 10/15/18 00:00 10/15/18 00:15 10/15/18 00:30 Temperature 100.4 F H 100.4 F H 100.4 F H Pulse Rate 92 H 96 H 92 H Respiratory Rate 15 15 15 Blood Pressure Pulse Oximetry 89 L 89 L 90 L 10/15/18 00:45 10/15/18 01:00 10/15/18 01:15 Temperature 100.4 F H 100.4 F H 100.6 F H Pulse Rate 96 H 96 H 95 H Respiratory Rate 15 15 15 Blood Pressure Pulse Oximetry 90 L 90 L 90 L 10/15/18 01:30 10/15/18 01:45 10/15/18 02:00 Temperature 100.6 F H 100.6 F H 100.6 F H Pulse Rate 95 H 93 H 89 Respiratory Rate 15 15 15 Blood Pressure Pulse Oximetry 90 L 90 L 90 L 10/15/18 02:15 10/15/18 02:30 10/15/18 02:45 Temperature 100.8 F H 100.8 F H 100.8 F H Pulse Rate 94 H 96 H 95 H Respiratory Rate 15 15 15 Blood Pressure Pulse Oximetry 91 L 91 L 90 L 10/15/18 03:00 10/15/18 03:15 10/15/18 03:19 Temperature 100.8 F H 100.8 F H Pulse Rate 96 H 95 H 95 H Respiratory Rate 15 15 14 Blood Pressure Pulse Oximetry 90 L 90 L 10/15/18 03:30 10/15/18 03:45 10/15/18 03:59 Temperature 100.9 F H 100.9 F H Pulse Rate 93 H 94 H Respiratory Rate 15 15 14 Blood Pressure Pulse Oximetry 90 L 90 L 92 L 10/15/18 04:00 10/15/18 04:15 10/15/18 04:30 Temperature 100.9 F H 100.9 F H 100.9 F H Pulse Rate 94 H 94 H 92 H Respiratory Rate 15 15 15 Blood Pressure Pulse Oximetry 90 L 90 L 91 L 10/15/18 04:45 10/15/18 05:00 10/15/18 05:15 Temperature 100.9 F H 101.1 F H 101.1 F H Pulse Rate 93 H 92 H 91 H Respiratory Rate 15 15 15 Blood Pressure Pulse Oximetry 90 L 90 L 90 L 10/15/18 05:30 10/15/18 05:45 10/15/18 06:00 Temperature 101.1 F H 101.1 F H 101.1 F H Pulse Rate 92 H 92 H 93 H Respiratory Rate 15 15 15 Blood Pressure Pulse Oximetry 91 L 91 L 88 L 10/15/18 06:15 10/15/18 06:30 10/15/18 06:45 Temperature 101.1 F H 101.1 F H 101.1 F H Pulse Rate 94 H 94 H 93 H Respiratory Rate 15 15 15 Blood Pressure Pulse Oximetry 91 L 91 L 91 L 10/15/18 07:00 10/15/18 07:15 10/15/18 07:30 Temperature 100.9 F H 100.9 F H 100.9 F H Pulse Rate 93 H 92 H 94 H Respiratory Rate 15 15 15 Blood Pressure Pulse Oximetry 90 L 90 L 90 L 10/15/18 07:45 10/15/18 08:00 10/15/18 08:12 Temperature 100.9 F H 100.9 F H Pulse Rate 94 H 90 93 H Respiratory Rate 15 15 14 Blood Pressure Pulse Oximetry 90 L 86 L 90 L 10/15/18 08:15 10/15/18 08:30 10/15/18 08:45 Temperature 100.9 F H 100.8 F H 100.8 F H Pulse Rate 92 H 94 H 93 H Respiratory Rate 15 15 15 Blood Pressure Pulse Oximetry 90 L 90 L 90 L 10/15/18 09:00 10/15/18 09:15 10/15/18 09:30 Temperature 100.8 F H 100.8 F H 100.8 F H Pulse Rate 92 H 91 H 91 H Respiratory Rate 15 15 21 Blood Pressure Pulse Oximetry 90 L 90 L 90 L 10/15/18 09:45 10/15/18 10:00 10/15/18 10:15 Temperature 100.8 F H 100.8 F H 100.8 F H Pulse Rate 92 H 91 H 92 H Respiratory Rate 15 15 15 Blood Pressure Pulse Oximetry 90 L 90 L 90 L 10/15/18 10:30 10/15/18 10:45 10/15/18 11:00 Temperature 100.8 F H 100.8 F H 100.8 F H Pulse Rate 91 H 92 H 92 H Respiratory Rate 15 15 15 Blood Pressure Pulse Oximetry 91 L 91 L 91 L 10/15/18 11:15 10/15/18 11:30 10/15/18 11:45 Temperature 100.8 F H 100.8 F H 100.6 F H Pulse Rate 92 H 92 H 90 Respiratory Rate 15 15 15 Blood Pressure Pulse Oximetry 91 L 90 L 90 L 10/15/18 12:00 10/15/18 12:15 10/15/18 12:30 Temperature 100.6 F H 100.6 F H 100.6 F H Pulse Rate 92 H 93 H 92 H Respiratory Rate 15 15 15 Blood Pressure Pulse Oximetry 89 L 90 L 90 L 10/15/18 12:45 10/15/18 13:00 10/15/18 13:15 Temperature 100.6 F H 100.6 F H 100.6 F H Pulse Rate 91 H 93 H 92 H Respiratory Rate 15 15 15 Blood Pressure Pulse Oximetry 90 L 89 L 89 L 10/15/18 13:30 10/15/18 13:45 10/15/18 14:00 Temperature 100.6 F H 100.6 F H 100.4 F H Pulse Rate 92 H 91 H 93 H Respiratory Rate 15 15 15 Blood Pressure Pulse Oximetry 89 L 89 L 89 L 10/15/18 14:15 10/15/18 14:30 10/15/18 14:45 Temperature 100.4 F H 100.4 F H 100.4 F H Pulse Rate 95 H 91 H 90 Respiratory Rate 15 15 15 Blood Pressure Pulse Oximetry 89 L 88 L 91 L 10/15/18 15:00 10/15/18 15:15 10/15/18 15:30 Temperature 100.4 F H 100.4 F H 100.4 F H Pulse Rate 91 H 87 82 Respiratory Rate 15 15 15 Blood Pressure Pulse Oximetry 91 L 88 L 90 L 10/15/18 15:45 10/15/18 16:00 10/15/18 16:15 Temperature 100.2 F H 100.2 F H 100.2 F H Pulse Rate 81 89 91 H Respiratory Rate 15 15 15 Blood Pressure Pulse Oximetry 91 L 89 L 88 L 10/15/18 16:30 10/15/18 16:45 10/15/18 17:00 Temperature 100.2 F H 100.2 F H 100.2 F H Pulse Rate 91 H 91 H 92 H Respiratory Rate 15 15 15 Blood Pressure Pulse Oximetry 87 L 86 L 88 L 10/15/18 17:15 10/15/18 17:30 10/15/18 17:35 Temperature 100.2 F H 100.0 F H Pulse Rate 92 H 88 94 H Respiratory Rate 15 15 14 Blood Pressure Pulse Oximetry 88 L 88 L 90 L 10/15/18 17:45 10/15/18 18:00 10/15/18 18:15 Temperature 100.0 F H 100.0 F H 100.0 F H Pulse Rate 91 H 91 H 90 Respiratory Rate 15 15 15 Blood Pressure Pulse Oximetry 90 L 90 L 90 L 10/15/18 19:30 Temperature Pulse Rate 88 Respiratory Rate 15 Blood Pressure Pulse Oximetry 90 L Intake & Output 10/15/18 10/15/18 10/16/18 06:59 18:59 06:59 Intake Total 2040 / 2040 2467 / 2467 100 / 100 Output Total 200 / 200 100 / 100 Balance 1840 / 1840 2367 / 2367 100 / 100 Weight 214.4 kg Intake: IV 1805 / 1805 2255 / 2255 100 / 100 DOBUTamine 250 MG/250 ML Premix 250 / 250 500 / 500 250 mg In 250 ml @ 2.5 MCG/KG/ MIN 32.055 mls/hr IV.CONT . Q7H48M [facility] Rx#:[id number] Versed Inj 100 mg In 100 ml @ 6 100 / 100 MG/HR 6 mls/hr IV.CONT TITRATE PRN Rx#:[id number] Pitressin Inj 40 UNIT In D5W 100 / 100 Inj 98 ML @ 0.01 UNITS/MIN 1.5 mls/hr IV.CONT TITRATE PRN Rx#: [id number] Flexbumin 25% Inj 100 ML @ 60 100 / 100 100 / 100 mls/hr IV.SIG Q12H [facility] Rx#: [id number] Maxipime Inj 2,000 MG In NS Inj 100 / 100 100 ML @ 200 mls/hr IV.SIG Q24H [facility] Rx#:[id number] Levophed Inj 4 MG In NS Inj 246 250 / 250 ML @ 2 MCG/MIN 7.5 mls/hr IV. SIG TITRATE PRN Rx#:[id number] Sodium Bicarbonate 8.4% Inj 150 1000 / 1000 1000 / 1000 MEQ In Sterile Water for Inj 850 ML @ 100 mls/hr IV.SIG . Q10H [facility] Rx#:[id number] fentaNYL 10 mcg/mL Premix Drip 250 / 250 2,500 mcg In 250 ml @ 50 MCG/HR 5 mls/hr IV.SIG TITRATE PRN Rx #:[id number] Keppra Inj 500 MG In NS Inj 100 105 / 105 105 / 105 ML @ 400 mls/hr IV.SIG Q12H [facility] Rx#:[id number] Flolan (30,000 ng/mL) Neb 52.5 100 / 100 100 / 100 ML In NS Inj 47.5 ML @ 5 mls/hr NEB Q8H [facility] Rx#:[id number] Tube Feeding 175 / 175 182 / 182 Water Bolus Amount 60 / 60 30 / 30 Output: Urine 100 / 100 Stool 100 / 100 Urine Amount (Catheter) 75 / 75 Indwelling Temp Sensing 75 / 75 Catheter Stool Amount (Stoma) Pre-Hospital: - Urinary Catheter Management Indwelling Temp Sensing Catheter Cath placed during this visit: no Indwelling Urethral Catheter Cath placed during this visit: no <Shivam Hills - Last Filed: 10/15/18 21:23> Assessment and Plan - Assessment (1) Intraparenchymal hemorrhage of brain Code(s): I61.9 - Nontraumatic intracerebral hemorrhage, unspecified Status: Acute (2) Midline shift of brain Code(s): G93.9 - Disorder of brain, unspecified Status: Acute (3) Acute encephalopathy Code(s): G93.40 - Encephalopathy, unspecified Status: Acute (4) Hypertensive emergency Code(s): I16.1 - Hypertensive emergency Status: Acute (5) History of hypertension Code(s): Z86.79 - Personal history of other diseases of the circulatory system Status: Chronic (6) Type 2 diabetes mellitus Code(s): E11.9 - Type 2 diabetes mellitus without complications Status: Chronic (7) Dyslipidemia Code(s): E78.5 - Hyperlipidemia, unspecified Status: Chronic (8) Morbid obesity Code(s): E66.01 - Morbid (severe) obesity due to excess calories Status: Chronic - Plan 68 year old male transferred for intraparenchymal hematoma, most likely due to hypertensive crisis CTA Brain negative for aneurysm or vascular malformation pt underwent emergent right posterior temporal craniotomy, evacuation of intracerebral hematoma, and placement of ICP monitor 10/03/18 Plan: Dr. Hills reviewed f/u CT Brain, dw family members today ICP monitor and CLARIBEL drains x 2 removed CLARIBEL drain site requiring placement of stitch due to CSF leaking- using sterile techniques single stitch placed on both CLARIBEL drain site using 4-0 silk suture. steri-strips placed over bolt site. cont sedation weaning as tolerated and f/u exam cont critical care mgt keppra for sz prophylaxis nonchemical dvt prophylaxis due to ICH 10/[address] Liu, patient fluid up/pulmonary but difficult to diurese neuro stable 10/09: cont sedation and vent weaning per critical care follow up neuro exam 10/10: no changes to neuro exam, sedated cont sedation and vent weaning per critical care ok for trach/PEG from NRS standpoint Discussed case with Dr. Hermosillo. <Mau Lopez - Last Filed: 10/12/18 13:52> - Assessment (1) Intraparenchymal hemorrhage of brain Code(s): I61.9 - Nontraumatic intracerebral hemorrhage, unspecified Status: Acute (2) Midline shift of brain Code(s): G93.9 - Disorder of brain, unspecified Status: Acute (3) Acute encephalopathy Code(s): G93.40 - Encephalopathy, unspecified Status: Acute (4) Hypertensive emergency Code(s): I16.1 - Hypertensive emergency Status: Acute (5) History of hypertension Code(s): Z86.79 - Personal history of other diseases of the circulatory system Status: Chronic (6) Type 2 diabetes mellitus Code(s): E11.9 - Type 2 diabetes mellitus without complications Status: Chronic (7) Dyslipidemia Code(s): E78.5 - Hyperlipidemia, unspecified Status: Chronic (8) Morbid obesity Code(s): E66.01 - Morbid (severe) obesity due to excess calories Status: Chronic <Shivam Hills - Last Filed: 10/15/18 21:23>
--- NOTE | 2018-10-12 15:13 | ECHRPT ---
Indication: Shortness of breath CONCLUSIONS The left ventricular systolic function is mildly reduced with an estimated ejection fraction in the range of 45- 50%. Wall thickness is measured at the upper limits of normal. Normal left ventricular size. BP: / HR: Rhythm: Sinus MEASUREMENTS (Male / Female) Normal Values Technical Quality:Very technically difficult study 2D ECHO LV Diastolic Diameter PLAX 5.1 cm 4.2 - 5.9 / 3.9 - 5.3 cm LV Systolic Diameter PLAX 4.2 cm IVS Diastolic Thickness 1.1 cm 0.6 - 1.0 / 0.6 - 0.9 cm LVPW Diastolic Thickness 1.1 cm 0.6 - 1.0 / 0.6 - 0.9 cm LV Relative Wall Thickness 0.5 FINDINGS LEFT VENTRICLE Only small portions of the left ventricle can be seen which has intact motion - cannot estimate over all function. Normal left ventricular size. RIGHT VENTRICLE Poorly visualized but suspect diminished RV function LEFT ATRIUM Not adequately visualized RIGHT ATRIUM The right atrium is not well visualized. ATRIAL SEPTUM The interatrial septum not well visualized. AORTA The aortic root and proximal ascending aorta are not well visualized. MITRAL VALVE The mitral valve is not well visualized. AORTIC VALVE The aortic valve is not well visualized. TRICUSPID VALVE The tricuspid valve is not well visualized. PULMONARY VALVE The pulmonary valve is not well visualized. VESSELS The inferior vena cava was not well visualized. PERICARDIUM No significant pericardial effusion suspected. Phillip Ash MD (Electronically Signed) Final Date:12 October 2018 15:11
--- NOTE | 2018-10-12 15:35 | P.PNNP ---
Subjective Interval history: Patient is on the ventilator, discussed with the family, status post neurosurgery evacuation of hematoma, patient remains on ventilator multiorgan failure, discussed with Dr. Hermosillo LV functions 40-45% Physical Exam Vital signs: Vital Signs 10/11/18 15:50 10/11/18 16:00 10/11/18 17:00 Temperature 98.6 F 98.6 F Pulse Rate 77 74 Respiratory Rate 11 L 11 L 11 L Pulse Oximetry 97 97 97 10/11/18 18:00 10/11/18 19:00 10/11/18 20:00 Temperature 98.6 F 98.4 F 98.4 F Pulse Rate 73 72 74 Respiratory Rate 11 L 11 L 11 L Pulse Oximetry 97 97 96 10/11/18 20:03 10/11/18 21:00 10/11/18 22:00 Temperature 98.4 F 98.4 F Pulse Rate 75 76 Respiratory Rate 11 L 12 12 Pulse Oximetry 96 96 96 10/11/18 23:00 10/12/18 00:00 10/12/18 01:00 Temperature 98.6 F 98.6 F 98.6 F Pulse Rate 77 75 74 Respiratory Rate 12 12 12 Pulse Oximetry 96 97 97 10/12/18 02:00 10/12/18 03:00 10/12/18 03:39 Temperature 98.4 F 98.4 F Pulse Rate 74 74 Respiratory Rate 12 12 11 L Pulse Oximetry 97 97 10/12/18 04:00 10/12/18 05:00 10/12/18 05:55 Temperature 98.4 F 98.4 F Pulse Rate 75 76 75 Respiratory Rate 12 12 Pulse Oximetry 96 96 10/12/18 06:00 10/12/18 06:30 10/12/18 06:45 Temperature 98.4 F 98.4 F 98.4 F Pulse Rate 78 77 76 Respiratory Rate 12 12 12 Pulse Oximetry 91 L 92 L 92 L 10/12/18 07:00 10/12/18 07:15 10/12/18 07:30 Temperature 98.2 F 98.2 F 98.2 F Pulse Rate 76 78 76 Respiratory Rate 12 12 12 Pulse Oximetry 92 L 92 L 92 L 10/12/18 07:45 10/12/18 07:46 10/12/18 08:00 Temperature 98.2 F 98.2 F Pulse Rate 80 82 Respiratory Rate 12 12 12 Pulse Oximetry 91 L 91 L 91 L 10/12/18 08:15 10/12/18 08:30 10/12/18 08:45 Temperature 98.2 F 98.2 F 98.2 F Pulse Rate 84 84 73 Respiratory Rate 16 16 13 Pulse Oximetry 84 L 86 L 89 L 10/12/18 09:00 10/12/18 09:15 10/12/18 09:30 Temperature 98.2 F 98.2 F 98.4 F Pulse Rate 74 77 79 Respiratory Rate 13 13 13 Pulse Oximetry 93 L 93 L 95 10/12/18 09:45 10/12/18 10:00 10/12/18 10:15 Temperature 98.4 F 98.4 F 98.4 F Pulse Rate 74 76 80 Respiratory Rate 13 13 13 Pulse Oximetry 93 L 95 95 10/12/18 10:30 10/12/18 10:45 10/12/18 11:00 Temperature 98.6 F 98.6 F 98.6 F Pulse Rate 78 78 79 Respiratory Rate 12 13 13 Pulse Oximetry 95 95 95 10/12/18 11:15 10/12/18 11:30 10/12/18 11:45 Temperature 98.6 F 98.6 F 98.8 F Pulse Rate 78 78 78 Respiratory Rate 13 13 13 Pulse Oximetry 96 96 96 10/12/18 12:00 10/12/18 12:15 10/12/18 12:30 Temperature 98.8 F 98.8 F 98.8 F Pulse Rate 78 77 79 Respiratory Rate 13 13 13 Pulse Oximetry 97 97 97 10/12/18 12:45 10/12/18 13:00 10/12/18 13:15 Temperature 98.8 F 98.8 F 98.8 F Pulse Rate 78 78 78 Respiratory Rate 12 13 13 Pulse Oximetry 97 97 97 10/12/18 13:30 10/12/18 13:45 10/12/18 14:00 Temperature 98.8 F 98.8 F 99.0 F Pulse Rate 79 79 79 Respiratory Rate 12 13 13 Pulse Oximetry 97 98 98 Intake & Output 10/11/18 10/12/18 10/12/18 18:59 06:59 18:59 Intake Total 1469 / 1469 1245 / 1245 505 / 505 Output Total 750 / 750 700 / 700 Balance 719 / 719 545 / 545 505 / 505 Weight 209.9 kg Intake: IV 1365 / 1365 1055 / 1055 505 / 505 Bumex Inj 25 mg In 100 ml @ 1 100 / 100 MG/HR 4 mls/hr IV.CONT .Q24H [facility] Rx#:[id number] Diprivan 1000 mg/100 ml Inj 1, 400 / 400 400 / 400 200 / 200 000 mg In 100 ml @ 5 MCG/KG/MIN 5.34 mls/hr IV.CONT TITRATE PRN Rx#:[id number] Flexbumin 25% Inj 100 ML @ 60 200 / 200 100 / 100 mls/hr IV.SIG Q6H [facility] Rx#: [id number] Maxipime Inj 2,000 MG In NS Inj 100 / 100 100 / 100 100 / 100 100 ML @ 200 mls/hr IV.SIG Q12H [facility] Rx#:[id number] Levophed Inj 4 MG In NS Inj 246 10 / 10 ML @ 2 MCG/MIN 7.5 mls/hr IV. SIG TITRATE PRN Rx#:[id number] fentaNYL 10 mcg/mL Premix Drip 250 / 250 250 / 250 2,500 mcg In 250 ml @ 50 MCG/HR 5 mls/hr IV.SIG TITRATE PRN Rx #:[id number] Keppra Inj 500 MG In NS Inj 100 105 / 105 105 / 105 105 / 105 ML @ 400 mls/hr IV.SIG Q12H [facility] Rx#:[id number] Flolan (30,000 ng/mL) Neb 52.5 200 / 200 100 / 100 100 / 100 ML In NS Inj 47.5 ML @ 5 mls/hr NEB Q8H [facility] Rx#:[id number] Tube Feeding 54 / 54 190 / 190 Tube Irrigant 50 / 50 Output: Urine Amount (Catheter) 750 / 750 650 / 650 Indwelling Temp Sensing 750 / 750 650 / 650 Catheter Stool Amount (Stoma) 0 / 0 50 / 50 Pre-Hospital: 50 / 50 Right Lower Abdomen 0 / 0 Narrative: GENERAL: Well-nourished, morbidly obese well-developed patient on ventilator. SKIN: Warm and dry. HEAD: Normocephalic. EYES: No scleral icterus. No injection or drainage. NECK: Supple, trachea midline. No JVD or lymphadenopathy. CARDIOVASCULAR: Regular rate and rhythm without murmurs, gallops, or rubs. RESPIRATORY: Breath sounds diminished at bases. GASTROINTESTINAL: Abdomen soft, non-tender, distended. Ostomy in place EXTREMITIES: Massive upper extremity edema left arm is worse with blisters NEUROLOGICAL: Sedation on ventilator. - Urinary Catheter Management Indwelling Temp Sensing Catheter Cath placed during this visit: yes Reason for continuing: Hourly intake/output Insertion date: 10/03/18 Insertion time: 08:10 Indwelling Urethral Catheter Cath placed during this visit: no Assessment and Plan - Assessment (1) Intraparenchymal hemorrhage of brain Code(s): I61.9 - Nontraumatic intracerebral hemorrhage, unspecified Status: Acute (2) History of hypertension Code(s): Z86.79 - Personal history of other diseases of the circulatory system Status: Chronic (3) Type 2 diabetes mellitus Code(s): E11.9 - Type 2 diabetes mellitus without complications Status: Chronic (4) Morbid obesity Code(s): E66.01 - Morbid (severe) obesity due to excess calories Status: Chronic (5) Acute kidney injury Code(s): N17.9 - Acute kidney failure, unspecified Status: Acute - Plan Patient is in positive fluid balance and gain weight, he has upper extremity edema worse than the lower extremity edema, And we are trying to diurese him with Bumex drip urine output 1.4 L, EF 40-45%, creatinine 3.21 He has good response urine output increased creatinine slightly worse 3.1, uric acid is high and phosphorus 8 Indicating ATN Since he responded we will observe on diuresis today, I will give Diuril 500 mg IV Patient did receive vancomycin followed level If conservative approach fails and his oxygen required remains high then we may try more aggressive care And hemodialysis can be tried. Discussed with Dr. Hermosillo
[2018-10-12] MEDS: fentaNYL 10 mcg/mL Premix Drip 2,500 MCG/250 ML BAG IV.SIG PRN (15:42)
[2018-10-12] MEDS: Chlorothiazide Inj 500 MG Vial IV.PUSH SCH (18:04)
[2018-10-12] MEDS: Bumetanide Inj 25 MG/100 ML BAG IV.CONT SCH (18:11)
[2018-10-12] MEDS: Acetaminophen 325 MG Tablet PO PRN (20:58)
[2018-10-13] MEDS: Oral Hygiene Kit OROPHARYNG SCH ×4 (02:06→16:41)
[2018-10-13] MEDS: Insulin NovoLOG Aspart Correctional Sugar Inj SQ SCH ×4 (02:06→18:06)
[2018-10-13] MEDS: SODIUM CHLOR NEB SCH ×4 (04:36→20:54)
[2018-10-13] MEDS: EPOPROSTENOL NEB SCH ×4 (04:36→20:54)
[2018-10-13 04:38] LABS: ABG PCO2 39 mmHg (38-42); ABG PO2 108 mmHg (61-120)
[2018-10-13 05:13] LABS: Hematocrit 33.5 % (39.0-51.0); Hemoglobin 10.7 gm/dL (13.0-17.0); Mean Corpuscular Volume 87.3 fL (80.0-100.0); Mean Platelet Volume 9.2 fL (7.0-11.0); Platelet Count 231 th/mm3 (150-450); Red Blood Count 3.84 mil/mm3 (4.50-5.90); Red Cell Distribution Width 16.2 % (11.6-17.2); White Blood Count 10.2 th/mm3 (4.0-11.0)
[2018-10-13 05:46] LABS: Calcium 9.7 mg/dL (8.5-10.1); Carbon Dioxide 17.6 meq/L (21.0-32.0); Potassium 4.5 meq/L (3.5-5.1)
[2018-10-13 07:32] LABS: Eosinophils 2 % (0-4); Lymphocytes 12 % (9-44); Metamyelocytes 3 % (0-1); Monocytes 9 % (0-8); Myelocytes 2 % (0-0); Tallied Nucleated RBC 6 (0-0)
[2018-10-13 07:33] LABS: Acanthocytes Occ; Platelet Estimate Normal (Normal); Platelet Morphology Clumped (Normal)
[2018-10-13] MEDS: fentaNYL 10 mcg/mL Premix Drip 2,500 MCG/250 ML BAG IV.SIG PRN (07:46)
[2018-10-13] MEDS: Chlorhexidine 0.12% Oral Kit 15 ML UDC OROPHARYNG SCH ×2 (07:47→20:13)
[2018-10-13] MEDS: Famotidine PF Inj 20 MG/2 ML Vial IV.PUSH SCH ×2 (09:18→20:11)
[2018-10-13] MEDS: Senna/Docusate Sodium 8.6/50 MG Tablet PO SCH ×2 (09:18→20:12)
[2018-10-13] MEDS: Chlorothiazide Inj 500 MG Vial IV.PUSH SCH (09:18)
[2018-10-13 09:49] LABS: ABG Base Excess -11.2 mmol/L (-2-2); ABG PCO2 40 mmHg (38-42); ABG PO2 123 mmHg (61-120)
[2018-10-13] MEDS ORDERED: Calcium Chloride Inj 1 GM/10 ML Syringe ONE ×2 (09:52→11:08)
[2018-10-13] MEDS ORDERED: Calcium Chloride Inj 2 GM in Dextrose 5% in Water Inj 100 ML IV.SIG ONE ×2 (10:05)
[2018-10-13] MEDS ORDERED: Magnesium Sulfate Inj 2 GM in Sodium Chlor 0.9% Inj 96 ML IV.SIG ONE (10:06)
--- NOTE | 2018-10-13 10:24 | P.PNCC ---
Subjective Subjective Remarks/Hospital Course: Patient is a 68-year-old morbidly obese male with past medical history significant for hypertension, diabetes, dyslipidemia, morbid obesity, thyroid disease, history of colon resection and colostomy, who presented to the [facility] with left-sided headache and poorly controlled hypertension. Apparently he woke up with severe left-sided headache was moderately confused and family brought him to the emergency department. The patient did take aspirin for his headache prior to presentation. A stat CT of the head showed large 6.9 x 3.6 x 3.2 cm acute intraparenchymal hemorrhage in the right temporoparietal region with approximate blood volume of 40 mL. There was surrounding edema and 2-3 mm leftward midline shift. Neurosurgery Dr. Hills was contacted and patient was transferred to [place] ICU. PT/INR/ platelet count was normal in the outside hospital. BUN was 43 creatinine was 2. I evaluated the patient in the ICU. Patient is awake but somnolent oriented only to person. He drifts to sleep while talking. His systolic blood pressure was 200 on arrival. Because of questionable airway protection and need for further imaging studies patient was intubated and placed on mechanical ventilation. Dr. Hills had been informed. I will start Cardene to control blood pressure, repeat stat CT head also CT angiogram of brain and neck will be performed. Also give 25 g of IV mannitol, start on 2% saline to keep sodium more than 150-155, also placed on Keppra for seizure prophylaxis. 10/04: Will start oral BP meds down NG tube and attempt to wean cardene. CKD persists as expected. Glucose swing expected. Keep intubated and sedated for now. 10/05: Better blood pressure control with by systolic and amlodipine restarted. Increased difficulty with oxygenation today, now requiring 100% FiO2 and 12 PEEP. Chest x-ray shows atelectasis involving the whole left lower lobe, cultures all negative for significant organism, no white blood cells. Will get repeat head CAT scan today. 10/06: Repeat head CT look good. Worsening difficulties with oxygenation related to the left lower lobe atelectasis. Converted to airway pressure release ventilation this morning. ICP continues to be very well controlled. 10/07: Lightening sedation today. ICP bolt has been removed. Oxygenation has improved. Continue airway pressure release ventilation. Renal function worse today, hydrate gently with isotonic saline and follow closely. 10/08: Continued difficulties with oxygenation related to preoperative lung injury from his pneumonia, body habitus, fluid overload associated with his chronic kidney disease. We will be forced to go back to airway pressure release ventilation because he de-recruited severely after converting to conventional ventilation yesterday despite PEEP of 18. 10/09: Starting to claw our way back to better oxygenation. He recruited severely on conventional ventilation despite markedly elevated PEEP. Hefty diuresis accomplished with Lasix drip however volume load from vancomycin and Cardene infusions makes it hard to get a significant reduction in total body water. This gentleman had pneumonia prior to his surgery and his persistent left lower lobe infiltrate impaired oxygenation early on. His chest x-ray still demonstrates consolidated areas in the left lower lung. 10/10: Increasing FiO2 requirement overnight. On 100% FiO2, AP RV mode mechanical ventilation this morning. Started on inhaled Flolan with which her O2 sats came up from high 80s to 93%. On Lasix drip however not really diuresing. BNP 57 on 10/09. 10/11: Remains sedated, orally intubated on mechanical ventilation. On inhaled Flolan. Started on Bumex drip by nephrology yesterday with significant increase in urine output. O2 sats 96% on 100% FiO2 APRV mode mechanical ventilation 10/12: Remains sedated, orally intubated on mechanical ventilation. FiO2 back up to 100% on AP RV mode. Inhaled Flolan continues. Remains on Bumex drip. 10/13: Remains sedated, orally intubated on mechanical ventilation. On inhaled Flolan. Remains on APRV mode, FiO2 down to 60%. On Bumex drip. Not really diuresing much. BNP has been normal. Worsening renal function now with metabolic acidosis. Patient is hypotensive on Levophed currently. Need to start renal replacement therapy after Vas-Cath placement as discussed with Dr. Gasca. Not much pleural fluid to tap on ultrasound done at bedside by myself yesterday. - Diagnosis (1) Intraparenchymal hemorrhage of brain (2) Midline shift of brain (3) Acute encephalopathy (4) Hypertensive emergency (5) LLL pneumonia (6) Acute kidney injury (7) History of hypertension (8) Type 2 diabetes mellitus (9) Dyslipidemia (10) Morbid obesity Objective Vital Signs / I&O: Vital Signs 10/12/18 10:15 10/12/18 10:30 10/12/18 10:45 Temperature 98.4 F 98.6 F 98.6 F Pulse Rate 80 78 78 Respiratory Rate 13 12 13 Pulse Oximetry 95 95 95 10/12/18 11:00 10/12/18 11:15 10/12/18 11:30 Temperature 98.6 F 98.6 F 98.6 F Pulse Rate 79 78 78 Respiratory Rate 13 13 13 Pulse Oximetry 95 96 96 10/12/18 11:45 10/12/18 12:00 10/12/18 12:15 Temperature 98.8 F 98.8 F 98.8 F Pulse Rate 78 78 77 Respiratory Rate 13 13 13 Pulse Oximetry 96 97 97 10/12/18 12:30 10/12/18 12:45 10/12/18 13:00 Temperature 98.8 F 98.8 F 98.8 F Pulse Rate 79 78 78 Respiratory Rate 13 12 13 Pulse Oximetry 97 97 97 10/12/18 13:15 10/12/18 13:30 10/12/18 13:45 Temperature 98.8 F 98.8 F 98.8 F Pulse Rate 78 79 79 Respiratory Rate 13 12 13 Pulse Oximetry 97 97 98 10/12/18 14:00 10/12/18 14:15 10/12/18 14:30 Temperature 99.0 F 99.0 F 99.0 F Pulse Rate 79 80 78 Respiratory Rate 13 13 13 Pulse Oximetry 98 98 97 10/12/18 14:45 10/12/18 15:00 10/12/18 15:15 Temperature 99.0 F 99.0 F 99.1 F Pulse Rate 75 77 76 Respiratory Rate 13 13 13 Pulse Oximetry 98 97 98 10/12/18 15:30 10/12/18 15:45 10/12/18 16:00 Temperature 98.8 F 99.1 F 99.1 F Pulse Rate 77 77 77 Respiratory Rate 13 13 13 Pulse Oximetry 97 97 97 10/12/18 16:15 10/12/18 16:30 10/12/18 16:45 Temperature 99.3 F 99.3 F 99.3 F Pulse Rate 78 78 78 Respiratory Rate 12 13 13 Pulse Oximetry 97 96 95 10/12/18 17:00 10/12/18 17:15 10/12/18 17:30 Temperature 99.5 F 99.5 F 99.5 F Pulse Rate 80 82 82 Respiratory Rate 13 13 13 Pulse Oximetry 95 96 96 10/12/18 17:45 10/12/18 17:58 10/12/18 18:00 Temperature 99.5 F 99.5 F Pulse Rate 82 81 83 Respiratory Rate 13 13 Pulse Oximetry 96 96 10/12/18 18:15 10/12/18 18:30 10/12/18 18:45 Temperature 99.7 F H 99.7 F H 99.7 F H Pulse Rate 85 85 88 Respiratory Rate 13 13 12 Pulse Oximetry 95 95 95 10/12/18 19:00 10/12/18 19:15 10/12/18 19:30 Temperature 99.7 F H 99.7 F H 99.9 F H Pulse Rate 88 87 85 Respiratory Rate 13 12 13 Pulse Oximetry 95 95 95 10/12/18 19:45 10/12/18 20:00 10/12/18 20:15 Temperature 99.9 F H 99.9 F H 99.9 F H Pulse Rate 82 77 77 Respiratory Rate 13 13 13 Pulse Oximetry 95 95 96 10/12/18 20:30 10/12/18 20:32 10/12/18 20:45 Temperature 99.9 F H 99.9 F H Pulse Rate 77 79 Respiratory Rate 13 12 13 Pulse Oximetry 96 95 96 10/12/18 21:00 10/12/18 21:15 10/12/18 21:30 Temperature 100.0 F H 100.0 F H 100.0 F H Pulse Rate 80 81 80 Respiratory Rate 13 13 13 Pulse Oximetry 96 96 96 10/12/18 21:45 10/12/18 22:00 10/12/18 22:15 Temperature 100.2 F H 100.2 F H 100.2 F H Pulse Rate 81 81 80 Respiratory Rate 13 13 13 Pulse Oximetry 96 96 95 10/12/18 22:30 10/12/18 22:45 10/12/18 23:00 Temperature 100.2 F H 100.2 F H 100.2 F H Pulse Rate 81 81 82 Respiratory Rate 13 13 13 Pulse Oximetry 95 94 L 92 L 10/12/18 23:15 10/12/18 23:28 10/12/18 23:30 Temperature 100.2 F H 100.2 F H Pulse Rate 82 81 Respiratory Rate 13 12 13 Pulse Oximetry 93 L 94 L 94 L 10/12/18 23:45 10/13/18 00:00 10/13/18 00:15 Temperature 100.2 F H 100.0 F H 100.2 F H Pulse Rate 82 82 82 Respiratory Rate 13 13 13 Pulse Oximetry 93 L 94 L 94 L 10/13/18 00:30 10/13/18 00:45 10/13/18 01:00 Temperature 100.0 F H 100.0 F H 100.2 F H Pulse Rate 82 82 82 Respiratory Rate 13 13 13 Pulse Oximetry 94 L 94 L 94 L 10/13/18 01:15 10/13/18 01:30 10/13/18 01:45 Temperature 100.2 F H 100.2 F H 100.2 F H Pulse Rate 82 82 81 Respiratory Rate 13 13 13 Pulse Oximetry 93 L 93 L 94 L 10/13/18 02:00 10/13/18 02:15 10/13/18 02:30 Temperature 100.2 F H 100.2 F H 100.2 F H Pulse Rate 82 82 82 Respiratory Rate 13 13 13 Pulse Oximetry 93 L 94 L 94 L 10/13/18 02:45 10/13/18 03:00 10/13/18 03:15 Temperature 100.2 F H 100.2 F H 100.2 F H Pulse Rate 82 81 80 Respiratory Rate 13 13 12 Pulse Oximetry 91 L 93 L 93 L 10/13/18 03:30 10/13/18 03:45 10/13/18 04:00 Temperature 100.2 F H 100.2 F H 100.2 F H Pulse Rate 81 81 81 Respiratory Rate 13 13 13 Pulse Oximetry 94 L 94 L 94 L 10/13/18 04:11 10/13/18 04:15 10/13/18 04:30 Temperature 100.2 F H 100.2 F H Pulse Rate 81 81 Respiratory Rate 12 13 13 Pulse Oximetry 94 L 94 L 94 L 10/13/18 04:45 10/13/18 05:00 10/13/18 05:15 Temperature 100.2 F H 100.2 F H 100.2 F H Pulse Rate 82 82 82 Respiratory Rate 13 13 13 Pulse Oximetry 94 L 94 L 92 L 10/13/18 05:30 10/13/18 05:45 10/13/18 06:00 Temperature 100.2 F H 100.2 F H 100.2 F H Pulse Rate 82 84 84 Respiratory Rate 13 13 13 Pulse Oximetry 92 L 92 L 93 L 10/13/18 06:15 10/13/18 06:30 10/13/18 06:45 Temperature 100.2 F H 100.2 F H 100.2 F H Pulse Rate 83 83 83 Respiratory Rate 13 13 13 Pulse Oximetry 93 L 93 L 93 L 10/13/18 07:00 10/13/18 07:15 10/13/18 07:27 Temperature 100.2 F H 100.2 F H Pulse Rate 83 83 84 Respiratory Rate 13 13 12 Pulse Oximetry 93 L 93 L 92 L 10/13/18 07:30 10/13/18 07:45 10/13/18 08:00 Temperature 100.2 F H 100.2 F H 100.2 F H Pulse Rate 82 84 86 Respiratory Rate 12 13 13 Pulse Oximetry 94 L 90 L 90 L Intake & Output 10/12/18 10/13/18 10/13/18 18:59 06:59 18:59 Intake Total 1094 / 1094 1105 / 1105 Output Total 225 / 225 550 / 550 Balance 869 / 869 555 / 555 Weight 96.8 kg Intake: IV 905 / 905 805 / 805 Bumex Inj 25 mg In 100 ml @ 1 100 / 100 MG/HR 4 mls/hr IV.CONT .Q24H ISABEL Rx#:[id number] Diprivan 1000 mg/100 ml Inj 1, 200 / 200 000 mg In 100 ml @ 5 MCG/KG/MIN 5.34 mls/hr IV.CONT TITRATE PRN Rx#:[id number] Maxipime Inj 2,000 MG In NS Inj 100 / 100 100 / 100 100 ML @ 200 mls/hr IV.SIG Q12H ISABEL Rx#:[id number] Levaquin 250 mg Premix Inj 250 50 / 50 mg In 50 ml @ 50 mls/hr IV.SIG Q48H ISABEL Rx#:[id number] Levophed Inj 4 MG In NS Inj 246 250 / 250 ML @ 2 MCG/MIN 7.5 mls/hr IV. SIG TITRATE PRN Rx#:[id number] fentaNYL 10 mcg/mL Premix Drip 250 / 250 250 / 250 2,500 mcg In 250 ml @ 50 MCG/HR 5 mls/hr IV.SIG TITRATE PRN Rx #:[id number] Keppra Inj 500 MG In NS Inj 100 105 / 105 105 / 105 ML @ 400 mls/hr IV.SIG Q12H ISABEL Rx#:[id number] Flolan (30,000 ng/mL) Neb 52.5 100 / 100 100 / 100 ML In NS Inj 47.5 ML @ 5 mls/hr NEB Q8H ISABEL Rx#:[id number] Oral 0 / 0 Tube Feeding 159 / 159 180 / 180 Tube Irrigant 30 / 30 Water Bolus Amount 120 / 120 Output: Stool 0 / 0 50 / 50 Urine Amount (Catheter) 225 / 225 500 / 500 Indwelling Temp Sensing 225 / 225 250 / 250 Catheter Indwelling Urethral Catheter 250 / 250 Other: Date of Last Bowel Movement 10/11/18 Result Diagrams: 10/13/18 05:00 10/13/18 05:00 Imaging: Impressions Chest X-Ray 10/12/18 07:20 CONCLUSION: Diffuse consolidation likely related to diffuse processes such as edema or diffuse infection. Cardiomegaly. Tubes and lines in good position. Objective Remarks: Narrative: GEN: Morbidly obese male, intubated, on mechanical ventilation. Generally edematous. HEENT: Scalp incision open to air, dry and clean. NECK: Supple. Orotracheal intubation. Orogastric tube in place LUNGS: On mechanical ventilation, APRV mode, 60% FiO2, decreased basal bilateral breath sounds. Muffled sounds posteriorly both bases. HEART: S1 and S2 normal, heart sounds distant. No JVD. ABDOMEN: Soft. Nontender. Obese. Well-healed vertical scar. Right lower quadrant colostomy bag in place with dark stool EXTREMITIES: Knee repair scar left side. Limbs generally edematous. NEUROLOGIC: Intubated, sedated. Assessment and Plan - Problem List (1) Intraparenchymal hemorrhage of brain Code(s): I61.9 - Nontraumatic intracerebral hemorrhage, unspecified Status: Acute (2) Midline shift of brain Code(s): G93.9 - Disorder of brain, unspecified Status: Acute (3) Acute encephalopathy Code(s): G93.40 - Encephalopathy, unspecified Status: Acute (4) Hypertensive emergency Code(s): I16.1 - Hypertensive emergency Status: Acute (5) LLL pneumonia Code(s): J18.1 - Lobar pneumonia, unspecified organism Status: Acute (6) Acute kidney injury Code(s): N17.9 - Acute kidney failure, unspecified Status: Acute (7) History of hypertension Code(s): Z86.79 - Personal history of other diseases of the circulatory system Status: Chronic (8) Type 2 diabetes mellitus Code(s): E11.9 - Type 2 diabetes mellitus without complications Status: Chronic (9) Dyslipidemia Code(s): E78.5 - Hyperlipidemia, unspecified Status: Chronic (10) Morbid obesity Code(s): E66.01 - Morbid (severe) obesity due to excess calories Status: Chronic - Assessment and Plan Plan: NEURO: Acute right temporoparietal intraparenchymal hemorrhage Midline shift Acute encephalopathy -Propofol and fentanyl for sedation and ventilator synchrony after intubation -Keppra 500 mg IV every 12 hours -S/P crani and evacuation 10/03 -Repeat CAT scan of head with minimal edema and no shift 10/05 -Osmolality elevated nicely but renal function worse. -Off 2% saline, continue Bumex drip. RESP: Acute respiratory failure Left lower lobe pneumonia ARDS Bilateral effusions -Patient was intubated for airway protection -Ventilator bundle -DuoNeb every 6 hours scheduled and as needed -Sputum culture negative -Converted to airway pressure release ventilation -FiO2 100% increased on 10/10. Added inhaled Flolan. FiO2 requirement decreased to 60% on 10/13 -Left lower lobe infiltrate has persisted, related to his pre-existing pneumonia before surgery -Perform bedside ultrasound on 10/12 which showed small effusions bilaterally which do not appear too large to tap. CV: Hypertensive emergency Dyslipidemia Hypotension -Off cardene -Arterial line placement -Holding Bysystolic, hydralazine and amlodipine due to hypotension. -holding losartan due to rising creatinine -Started on Levophed for pressor support 10/12. Added low-dose vasopressin . GI: Morbid obesity History of colon resection, status post colostomy -Started Nepro tube feeds on 10/11 and advance to goal of 30 cc/h as tolerated - IV famotidine -Routine colostomy care Renal/: Acute kidney injury/ CKD -Monitor renal function closely. Continue Mendieta catheter. -Being diuresed with Bumex drip. Not much response. BNP 57 on 10/09. I am not sure if fluid overload is his primary problem. -Consulted nephrology for his TARA/CKD, worsening BUN/creatinine and metabolic acidosis now. Plan to start renal replacement therapy on 10/[address] Gasca. Awaiting consent for Vas-Cath placement. ID: Left lower lobe pneumonia/atelectasis UTI -On antibiotics per ID. On IV cefepime. IV vancomycin stopped on 10/09 due to worsening creatinine. -All cultures negative so far. Repeat smith cultures ordered on 10/10. UA sent on 10/10 suggests UTI HEME: -Monitor CBC, coags ENDO: Type 2 diabetes Hypothyroidism -Electrolyte replacement per protocol -Sliding scale insulin PROPH: -Bilateral lower extremity SCDs/HIRAL. Chemical DVT prophylaxis contraindicated status post parenchymal brain bleed -IV famotidine LINES: - RIJ central line Overall impression: Patient remains critically ill and pulmonary status is unstable. Persistent respiratory problems due to morbid obesity, pre-existing pneumonia, and supine position. Chronic kidney disease is hampering our attempts at fluid removal. Now again requiring airway pressure release ventilation for recruitment. He remains critically ill. Consulted palliative care to assist with deciding goals of therapy as respiratory status appears to be worsening. D/W Dr. Gasca from nephrology on 10/10 who was consulted to evaluate TARA/ CKD and need for HD for fluid removal. On 10/10 Family meeting held with palliative care and discuss current clinical status including severe acute respiratory failure. Discussed CODE STATUS which at this point remains full code. Explained patient at high risk for hemodynamic instability of respiratory status declines further. Also explained that patient may go into cardiac arrest is unable to maintain O2 sats despite maximal ventilatory support. 10/12: Updated family at bedside regarding plan of care and critical status and they voiced understanding and was agreeable with plan of care. Palliative care has been following however family has not wanted to meet with them last few occasions. Remains full CODE STATUS at this time. I have previously discussed my concern that patient is at high risk for a cardiac arrest status, and given his cardiopulmonary status his prognosis extremely guarded at this time. Critical care time 40 minutes aside from procedures.
[2018-10-13] MEDS: Norepinephrine Inj 4 MG in Sodium Chlor 0.9% Inj 246 ML IV.SIG PRN ×2 (10:37→19:38)
[2018-10-13] MEDS: Sodium Chloride 0.9% 2 ML Flush BID IV.FLUSH SCH ×2 (10:40→20:12)
[2018-10-13 10:57] LABS: Magnesium 2.8 mg/dL (1.5-2.5)
[2018-10-13] MEDS ORDERED: Sodium Bicarbonate 8.4% Inj 150 MEQ in Water for Inj, Sterile 850 ML IV.CONT SCH (11:00)
[2018-10-13] MEDS ORDERED: Heparin 10,000 UNITS/10 ML Vial (for IV use) ONE (11:44)
[2018-10-13] MEDS ORDERED: Sodium Bicarbonate 8.4% Inj 50 MEQ/50 ML Syringe ONE (11:48)
[2018-10-13] MEDS: Vasopressin Inj 40 UNIT in Dextrose 5% in Water Inj 98 ML IV.CONT PRN ×2 (12:39)
--- NOTE | 2018-10-13 12:56 | P.PNID ---
Subjective Remarks: Patient is unresponsive on the ventilator. Currently on 100% FiO2. Failed attempts again to decrease FiO2. Low grade fever. Plan for dialysis today. vas cath placed. This is a 68-year-old white male who was admitted to the hospital 10/03/2018 on transfer from [facility] with headache. The patient was noted to have an acute intraparenchymal hemorrhage in the right temporal region. He underwent surgery in the form of right posterior temporal craniotomy and evacuation of intracerebral hematoma. Because of the persistence of the lung infiltrates and continuation of ventilation with difficulty weaning off the ventilator, this consultation is requested for infectious disease evaluation. Past Medical History: PAST MEDICAL HISTORY: Hypertension, hyperlipidemia, diabetes mellitus. Total right knee replacement. Allergies/Adverse Reactions: Allergies clear tape,plastic tape Allergy (Severe, Uncoded 10/04/18 18:47) Blister Objective Vital Signs 10/12/18 13:00 10/12/18 13:15 10/12/18 13:30 Temperature 98.8 F 98.8 F 98.8 F Pulse Rate 78 78 79 Respiratory Rate 13 13 12 Pulse Oximetry 97 97 97 10/12/18 13:45 10/12/18 14:00 10/12/18 14:15 Temperature 98.8 F 99.0 F 99.0 F Pulse Rate 79 79 80 Respiratory Rate 13 13 13 Pulse Oximetry 98 98 98 10/12/18 14:30 10/12/18 14:45 10/12/18 15:00 Temperature 99.0 F 99.0 F 99.0 F Pulse Rate 78 75 77 Respiratory Rate 13 13 13 Pulse Oximetry 97 98 97 10/12/18 15:15 10/12/18 15:30 10/12/18 15:45 Temperature 99.1 F 98.8 F 99.1 F Pulse Rate 76 77 77 Respiratory Rate 13 13 13 Pulse Oximetry 98 97 97 10/12/18 16:00 10/12/18 16:15 10/12/18 16:30 Temperature 99.1 F 99.3 F 99.3 F Pulse Rate 77 78 78 Respiratory Rate 13 12 13 Pulse Oximetry 97 97 96 10/12/18 16:45 10/12/18 17:00 10/12/18 17:15 Temperature 99.3 F 99.5 F 99.5 F Pulse Rate 78 80 82 Respiratory Rate 13 13 13 Pulse Oximetry 95 95 96 10/12/18 17:30 10/12/18 17:45 10/12/18 17:58 Temperature 99.5 F 99.5 F Pulse Rate 82 82 81 Respiratory Rate 13 13 Pulse Oximetry 96 96 10/12/18 18:00 10/12/18 18:15 10/12/18 18:30 Temperature 99.5 F 99.7 F H 99.7 F H Pulse Rate 83 85 85 Respiratory Rate 13 13 13 Pulse Oximetry 96 95 95 10/12/18 18:45 10/12/18 19:00 10/12/18 19:15 Temperature 99.7 F H 99.7 F H 99.7 F H Pulse Rate 88 88 87 Respiratory Rate 12 13 12 Pulse Oximetry 95 95 95 10/12/18 19:30 10/12/18 19:45 10/12/18 20:00 Temperature 99.9 F H 99.9 F H 99.9 F H Pulse Rate 85 82 77 Respiratory Rate 13 13 13 Pulse Oximetry 95 95 95 10/12/18 20:15 10/12/18 20:30 10/12/18 20:32 Temperature 99.9 F H 99.9 F H Pulse Rate 77 77 Respiratory Rate 13 13 12 Pulse Oximetry 96 96 95 10/12/18 20:45 10/12/18 21:00 10/12/18 21:15 Temperature 99.9 F H 100.0 F H 100.0 F H Pulse Rate 79 80 81 Respiratory Rate 13 13 13 Pulse Oximetry 96 96 96 10/12/18 21:30 10/12/18 21:45 10/12/18 22:00 Temperature 100.0 F H 100.2 F H 100.2 F H Pulse Rate 80 81 81 Respiratory Rate 13 13 13 Pulse Oximetry 96 96 96 10/12/18 22:15 10/12/18 22:30 10/12/18 22:45 Temperature 100.2 F H 100.2 F H 100.2 F H Pulse Rate 80 81 81 Respiratory Rate 13 13 13 Pulse Oximetry 95 95 94 L 10/12/18 23:00 10/12/18 23:15 10/12/18 23:28 Temperature 100.2 F H 100.2 F H Pulse Rate 82 82 Respiratory Rate 13 13 12 Pulse Oximetry 92 L 93 L 94 L 10/12/18 23:30 10/12/18 23:45 10/13/18 00:00 Temperature 100.2 F H 100.2 F H 100.0 F H Pulse Rate 81 82 82 Respiratory Rate 13 13 13 Pulse Oximetry 94 L 93 L 94 L 10/13/18 00:15 10/13/18 00:30 10/13/18 00:45 Temperature 100.2 F H 100.0 F H 100.0 F H Pulse Rate 82 82 82 Respiratory Rate 13 13 13 Pulse Oximetry 94 L 94 L 94 L 10/13/18 01:00 10/13/18 01:15 10/13/18 01:30 Temperature 100.2 F H 100.2 F H 100.2 F H Pulse Rate 82 82 82 Respiratory Rate 13 13 13 Pulse Oximetry 94 L 93 L 93 L 10/13/18 01:45 10/13/18 02:00 10/13/18 02:15 Temperature 100.2 F H 100.2 F H 100.2 F H Pulse Rate 81 82 82 Respiratory Rate 13 13 13 Pulse Oximetry 94 L 93 L 94 L 10/13/18 02:30 10/13/18 02:45 10/13/18 03:00 Temperature 100.2 F H 100.2 F H 100.2 F H Pulse Rate 82 82 81 Respiratory Rate 13 13 13 Pulse Oximetry 94 L 91 L 93 L 10/13/18 03:15 10/13/18 03:30 10/13/18 03:45 Temperature 100.2 F H 100.2 F H 100.2 F H Pulse Rate 80 81 81 Respiratory Rate 12 13 13 Pulse Oximetry 93 L 94 L 94 L 10/13/18 04:00 10/13/18 04:11 10/13/18 04:15 Temperature 100.2 F H 100.2 F H Pulse Rate 81 81 Respiratory Rate 13 12 13 Pulse Oximetry 94 L 94 L 94 L 10/13/18 04:30 10/13/18 04:45 10/13/18 05:00 Temperature 100.2 F H 100.2 F H 100.2 F H Pulse Rate 81 82 82 Respiratory Rate 13 13 13 Pulse Oximetry 94 L 94 L 94 L 10/13/18 05:15 10/13/18 05:30 10/13/18 05:45 Temperature 100.2 F H 100.2 F H 100.2 F H Pulse Rate 82 82 84 Respiratory Rate 13 13 13 Pulse Oximetry 92 L 92 L 92 L 10/13/18 06:00 10/13/18 06:15 10/13/18 06:30 Temperature 100.2 F H 100.2 F H 100.2 F H Pulse Rate 84 83 83 Respiratory Rate 13 13 13 Pulse Oximetry 93 L 93 L 93 L 10/13/18 06:45 10/13/18 07:00 10/13/18 07:15 Temperature 100.2 F H 100.2 F H 100.2 F H Pulse Rate 83 83 83 Respiratory Rate 13 13 13 Pulse Oximetry 93 L 93 L 93 L 10/13/18 07:27 10/13/18 07:30 10/13/18 07:45 Temperature 100.2 F H 100.2 F H Pulse Rate 84 82 84 Respiratory Rate 12 12 13 Pulse Oximetry 92 L 94 L 90 L 10/13/18 08:00 10/13/18 08:15 10/13/18 08:30 Temperature 100.2 F H 100.5 F H Pulse Rate 86 86 88 Respiratory Rate 18 13 13 Pulse Oximetry 90 L 92 L 89 L 10/13/18 08:45 10/13/18 09:00 10/13/18 09:15 Temperature Pulse Rate 88 90 90 Respiratory Rate 13 12 13 Pulse Oximetry 89 L 89 L 90 L 10/13/18 09:30 10/13/18 09:45 10/13/18 10:00 Temperature Pulse Rate 91 H 92 H 91 H Respiratory Rate 13 12 13 Pulse Oximetry 88 L 93 L 95 10/13/18 10:15 10/13/18 10:30 10/13/18 10:45 Temperature Pulse Rate 96 H 91 H 90 Respiratory Rate 13 12 13 Pulse Oximetry 96 96 95 10/13/18 11:00 10/13/18 11:15 10/13/18 11:30 Temperature Pulse Rate 90 89 92 H Respiratory Rate 13 13 13 Pulse Oximetry 94 L 94 L 93 L 10/13/18 11:45 10/13/18 12:05 Temperature Pulse Rate 90 Respiratory Rate 13 12 Pulse Oximetry 94 L 94 L Intake & Output 10/12/18 10/13/18 10/13/18 18:59 06:59 18:59 Intake Total 1094 / 1094 1105 / 1105 1715 / 1715 Output Total 225 / 225 550 / 550 Balance 869 / 869 555 / 555 1715 / 1715 Weight 96.8 kg Intake: IV 905 / 905 805 / 805 1715 / 1715 Bumex Inj 25 mg In 100 ml @ 1 100 / 100 MG/HR 4 mls/hr IV.CONT .Q24H [facility] Rx#:[id number] Diprivan 1000 mg/100 ml Inj 1, 200 / 200 100 / 100 000 mg In 100 ml @ 5 MCG/KG/MIN 5.34 mls/hr IV.CONT TITRATE PRN Rx#:[id number] Calcium Chloride Inj 2 GM In 60 / 60 D5W Inj 100 ML @ 120 mls/hr IV. SIG ONCE ONE Rx#:[id number] Maxipime Inj 2,000 MG In NS Inj 100 / 100 100 / 100 100 / 100 100 ML @ 200 mls/hr IV.SIG Q12H [facility] Rx#:[id number] Levaquin 250 mg Premix Inj 250 50 / 50 mg In 50 ml @ 50 mls/hr IV.SIG Q48H [facility] Rx#:[id number] Levophed Inj 4 MG In NS Inj 246 250 / 250 250 / 250 ML @ 2 MCG/MIN 7.5 mls/hr IV. SIG TITRATE PRN Rx#:[id number] fentaNYL 10 mcg/mL Premix Drip 250 / 250 250 / 250 2,500 mcg In 250 ml @ 50 MCG/HR 5 mls/hr IV.SIG TITRATE PRN Rx #:[id number] Keppra Inj 500 MG In NS Inj 100 105 / 105 105 / 105 105 / 105 ML @ 400 mls/hr IV.SIG Q12H [facility] Rx#:[id number] Flolan (30,000 ng/mL) Neb 52.5 100 / 100 100 / 100 100 / 100 ML In NS Inj 47.5 ML @ 5 mls/hr NEB Q8H [facility] Rx#:[id number] Oral 0 / 0 Tube Feeding 159 / 159 180 / 180 Tube Irrigant 30 / 30 Water Bolus Amount 120 / 120 Output: Stool 0 / 0 50 / 50 Urine Amount (Catheter) 225 / 225 500 / 500 Indwelling Temp Sensing 225 / 225 250 / 250 Catheter Indwelling Urethral Catheter 250 / 250 Other: Date of Last Bowel Movement 10/11/18 10/11/18 05:00 Catheterized Urine Urine Culture - Final No growth in 48 hours 10/09/18 09:00 Sputum - Endotracheal Gram Stain - Final 10/09/18 09:00 Sputum - Endotracheal Sputum Culture - Final No growth in 48 hours Lab - Hematology Results 10/12/18 10/13/18 04:15 05:00 WBC 3.8 L 10.2 RBC 3.30 L 3.84 L Hgb 9.3 L 10.7 L Hct 28.9 L 33.5 L MCV 87.5 87.3 MCH 28.1 28.0 MCHC 32.1 32.0 RDW 16.1 16.2 Plt Count 137 L 231 D MPV 8.6 9.2 Prelim Diff (Auto) Slide review pending Manual diff required Neut % (Auto) 73.2 H Lymph % (Auto) 8.8 L Crenshaw % (Auto) 13.2 H Eos % (Auto) 4.3 H Baso % (Auto) 0.5 Neut # (Auto) 2.8 Lymph # (Auto) 0.3 L [place]renshaw # (Auto) 0.5 Eos # (Auto) 0.2 Baso # (Auto) 0.0 WBC Differential . Manual diff final Diff Scan Auto diff confirmed Seg Neuts % (Manual) 66 Band Neuts % (Manual) 6 Lymphocytes % (Manual) 12 Monocytes % (Manual) 9 H Eosinophils % (Manual) 2 Metamyelocytes % (Man) 3 H Myelocytes % (Man) 2 H Abs Neuts (Manual) 7.9 H Nucleated RBCs/100 WBC 6 H Differential Comment . . Platelet Estimate Normal Platelet Morphology Clumped H Acanthocytes (Spur) Occ H Lab - Chemistry Results 10/11/18 10/11/18 10/12/18 17:22 23:43 04:15 Sodium 155 H Potassium 3.7 Chloride 123 H Carbon Dioxide 20.6 L Anion Gap 11 BUN 94 H Creatinine 3.21 H Estimated GFR 19 L POC Glucose 139 H 173 H Random Glucose 162 H Calcium 9.7 Magnesium 10/12/18 10/12/18 10/12/18 12:54 17:50 20:26 Sodium Potassium Chloride Carbon Dioxide Anion Gap BUN Creatinine Estimated GFR POC Glucose 179 H 182 H 188 H Random Glucose Calcium Magnesium 10/13/18 10/13/18 05:00 05:00 Sodium 153 H Potassium 4.5 D Chloride 120 H Carbon Dioxide 17.6 L Anion Gap 15 BUN 101 H Creatinine 4.26 H Estimated GFR 14 L POC Glucose Random Glucose 182 H Calcium 9.7 Magnesium 2.8 H Cancelled Imaging: ITS Impressions Neck CTA 10/03/18 00:00 CONCLUSION: 1. The left vert originates directly from the arch. 2. Atherosclerotic plaquing at the carotid bifurcation but no hemodynamically significant carotid artery stenosis identified. 3. CTA of the brain pending. Head CTA 10/03/18 07:56 CONCLUSION: No acute clark[place] of Velasquez vascular findings . Abdomen/Bladder Ultrasound 10/04/18 00:00 CONCLUSION: No hydronephrosis Head CT 10/05/18 00:00 CONCLUSION: Satisfactory postop appearance . Chest X-Ray 10/12/18 07:20 CONCLUSION: Diffuse consolidation likely related to diffuse processes such as edema or diffuse infection. Cardiomegaly. Tubes and lines in good position. Physical Exam: PHYSICAL EXAMINATION: GENERAL: Unresponsive on the ventilator. HEENT: Conjunctivae have edema. Oropharynx is intubated. NECK: No adenopathy. LUNGS: Markedly diminished breath sounds. HEART: Regular S1, S2, without murmurs. ABDOMEN: Bowel sounds diminished, obese. EXTREMITIES: No clubbing or cyanosis. 2+ nonpitting edema. SKIN: No diffuse rash. NEUROLOGIC: Unable to assess because the patient is unresponsive and intubated. PSYCHIATRIC: Unable to assess. Assessment and Plan - Plan IMPRESSION: 1. Pneumonia versus atelectasis in a patient with persistent infiltrates despite diuresis. Sputum culture has no growth. Chest x-ray shows probable pleural effusion. 2. Acute respiratory failure. 3. Intraparenchymal hematoma, status post intracranial pressure monitor and evacuation. 4. Fever is probably central. 5. Acute renal failure. RECOMMENDATIONS: 1. Continue vancomycin. 2. Continue cefepime. 3. Continue Levaquin for atypical coverage. 4. Monitor clinical response.
--- NOTE | 2018-10-13 13:08 | XR ---
EXAM DATE: 10/13/2018 1:04 PM EST AGE/SEX: 68 years / Male INDICATIONS: Central line placement. CLINICAL DATA: This is the patient's initial encounter. Patient reports that signs and symptoms have been present for 1 day and indicates a pain score of Nonresponsive. MEDICAL/SURGICAL HISTORY: . Diabetes mellitus type II. Hypertension. Hyperlipidemia. Thyroid di sease. Intraparenchymal hemorrhage. LLL Pneumonia. . Total knee replacement, right. Colon resection. Colostomy. COMPARISON: C, CHEST 1V SINGLE AP, 10/12/2018. . FINDINGS: Endotracheal tube tip is 8-9 cm above the ralph. Nasogastric tube descends into the lower chest. Rig ht neck central line descends into SVC. A left jugular line is present extending to the SVC. There is no evidence of pneumothorax. Diffuse bilateral pleural-parenchymal opacity may be slightly improved from yesterday. Visualized cardiac contours are stable. CONCLUSION: Central line good position. Electronically signed by: Frederick Kay MD 10/13/2018 1:06 PM EST
[2018-10-13] MEDS ORDERED: Sod Chloride 0.9% Inj 1,000 ML IV.CONT PRN (13:54)
[2018-10-13] MEDS ORDERED: Heparin 10,000 UNITS/10 ML Vial (for IV use) OTHER PRN ×2 (13:54)
[2018-10-13] MEDS ORDERED: Acetaminophen 325 MG Tablet PO PRN (13:54)
[2018-10-13] MEDS ORDERED: Albumin Human 25% Inj 100 ML IV.SIG PRN (13:54)
[2018-10-13] MEDS ORDERED: Sod Chloride 0.9% Inj 1,000 ML OTHER PRN ×2 (13:54)
[2018-10-13] MEDS ORDERED: Gelatin 12 MM/7 MM Topical Foam TOPICAL PRN (13:54)
--- NOTE | 2018-10-13 14:36 | P.PNNP ---
Subjective Interval history: Patient is on the ventilator started on hemodialysis seen during hemodialysis on vasopressor Physical Exam Vital signs: Vital Signs 10/12/18 14:45 10/12/18 15:00 10/12/18 15:15 Temperature 99.0 F 99.0 F 99.1 F Pulse Rate 75 77 76 Respiratory Rate 13 13 13 Pulse Oximetry 98 97 98 10/12/18 15:30 10/12/18 15:45 10/12/18 16:00 Temperature 98.8 F 99.1 F 99.1 F Pulse Rate 77 77 77 Respiratory Rate 13 13 13 Pulse Oximetry 97 97 97 10/12/18 16:15 10/12/18 16:30 10/12/18 16:45 Temperature 99.3 F 99.3 F 99.3 F Pulse Rate 78 78 78 Respiratory Rate 12 13 13 Pulse Oximetry 97 96 95 10/12/18 17:00 10/12/18 17:15 10/12/18 17:30 Temperature 99.5 F 99.5 F 99.5 F Pulse Rate 80 82 82 Respiratory Rate 13 13 13 Pulse Oximetry 95 96 96 10/12/18 17:45 10/12/18 17:58 10/12/18 18:00 Temperature 99.5 F 99.5 F Pulse Rate 82 81 83 Respiratory Rate 13 13 Pulse Oximetry 96 96 10/12/18 18:15 10/12/18 18:30 10/12/18 18:45 Temperature 99.7 F H 99.7 F H 99.7 F H Pulse Rate 85 85 88 Respiratory Rate 13 13 12 Pulse Oximetry 95 95 95 10/12/18 19:00 10/12/18 19:15 10/12/18 19:30 Temperature 99.7 F H 99.7 F H 99.9 F H Pulse Rate 88 87 85 Respiratory Rate 13 12 13 Pulse Oximetry 95 95 95 10/12/18 19:45 10/12/18 20:00 10/12/18 20:15 Temperature 99.9 F H 99.9 F H 99.9 F H Pulse Rate 82 77 77 Respiratory Rate 13 13 13 Pulse Oximetry 95 95 96 10/12/18 20:30 10/12/18 20:32 10/12/18 20:45 Temperature 99.9 F H 99.9 F H Pulse Rate 77 79 Respiratory Rate 13 12 13 Pulse Oximetry 96 95 96 10/12/18 21:00 10/12/18 21:15 10/12/18 21:30 Temperature 100.0 F H 100.0 F H 100.0 F H Pulse Rate 80 81 80 Respiratory Rate 13 13 13 Pulse Oximetry 96 96 96 10/12/18 21:45 10/12/18 22:00 10/12/18 22:15 Temperature 100.2 F H 100.2 F H 100.2 F H Pulse Rate 81 81 80 Respiratory Rate 13 13 13 Pulse Oximetry 96 96 95 10/12/18 22:30 10/12/18 22:45 10/12/18 23:00 Temperature 100.2 F H 100.2 F H 100.2 F H Pulse Rate 81 81 82 Respiratory Rate 13 13 13 Pulse Oximetry 95 94 L 92 L 10/12/18 23:15 10/12/18 23:28 10/12/18 23:30 Temperature 100.2 F H 100.2 F H Pulse Rate 82 81 Respiratory Rate 13 12 13 Pulse Oximetry 93 L 94 L 94 L 10/12/18 23:45 10/13/18 00:00 10/13/18 00:15 Temperature 100.2 F H 100.0 F H 100.2 F H Pulse Rate 82 82 82 Respiratory Rate 13 13 13 Pulse Oximetry 93 L 94 L 94 L 10/13/18 00:30 10/13/18 00:45 10/13/18 01:00 Temperature 100.0 F H 100.0 F H 100.2 F H Pulse Rate 82 82 82 Respiratory Rate 13 13 13 Pulse Oximetry 94 L 94 L 94 L 10/13/18 01:15 10/13/18 01:30 10/13/18 01:45 Temperature 100.2 F H 100.2 F H 100.2 F H Pulse Rate 82 82 81 Respiratory Rate 13 13 13 Pulse Oximetry 93 L 93 L 94 L 10/13/18 02:00 10/13/18 02:15 10/13/18 02:30 Temperature 100.2 F H 100.2 F H 100.2 F H Pulse Rate 82 82 82 Respiratory Rate 13 13 13 Pulse Oximetry 93 L 94 L 94 L 10/13/18 02:45 10/13/18 03:00 10/13/18 03:15 Temperature 100.2 F H 100.2 F H 100.2 F H Pulse Rate 82 81 80 Respiratory Rate 13 13 12 Pulse Oximetry 91 L 93 L 93 L 10/13/18 03:30 10/13/18 03:45 10/13/18 04:00 Temperature 100.2 F H 100.2 F H 100.2 F H Pulse Rate 81 81 81 Respiratory Rate 13 13 13 Pulse Oximetry 94 L 94 L 94 L 10/13/18 04:11 10/13/18 04:15 10/13/18 04:30 Temperature 100.2 F H 100.2 F H Pulse Rate 81 81 Respiratory Rate 12 13 13 Pulse Oximetry 94 L 94 L 94 L 10/13/18 04:45 10/13/18 05:00 10/13/18 05:15 Temperature 100.2 F H 100.2 F H 100.2 F H Pulse Rate 82 82 82 Respiratory Rate 13 13 13 Pulse Oximetry 94 L 94 L 92 L 10/13/18 05:30 10/13/18 05:45 10/13/18 06:00 Temperature 100.2 F H 100.2 F H 100.2 F H Pulse Rate 82 84 84 Respiratory Rate 13 13 13 Pulse Oximetry 92 L 92 L 93 L 10/13/18 06:15 10/13/18 06:30 10/13/18 06:45 Temperature 100.2 F H 100.2 F H 100.2 F H Pulse Rate 83 83 83 Respiratory Rate 13 13 13 Pulse Oximetry 93 L 93 L 93 L 10/13/18 07:00 10/13/18 07:15 10/13/18 07:27 Temperature 100.2 F H 100.2 F H Pulse Rate 83 83 84 Respiratory Rate 13 13 12 Pulse Oximetry 93 L 93 L 92 L 10/13/18 07:30 10/13/18 07:45 10/13/18 08:00 Temperature 100.2 F H 100.2 F H 100.2 F H Pulse Rate 82 84 86 Respiratory Rate 12 13 18 Pulse Oximetry 94 L 90 L 90 L 10/13/18 08:15 10/13/18 08:30 10/13/18 08:45 Temperature 100.5 F H Pulse Rate 86 88 88 Respiratory Rate 13 13 13 Pulse Oximetry 92 L 89 L 89 L 10/13/18 09:00 10/13/18 09:15 10/13/18 09:30 Temperature Pulse Rate 90 90 91 H Respiratory Rate 12 13 13 Pulse Oximetry 89 L 90 L 88 L 10/13/18 09:45 10/13/18 10:00 10/13/18 10:15 Temperature Pulse Rate 92 H 91 H 96 H Respiratory Rate 12 13 13 Pulse Oximetry 93 L 95 96 10/13/18 10:30 10/13/18 10:45 10/13/18 11:00 Temperature Pulse Rate 91 H 90 90 Respiratory Rate 12 13 13 Pulse Oximetry 96 95 94 L 10/13/18 11:15 10/13/18 11:30 10/13/18 11:45 Temperature Pulse Rate 89 92 H 90 Respiratory Rate 13 13 13 Pulse Oximetry 94 L 93 L 94 L 10/13/18 12:00 10/13/18 12:05 10/13/18 12:15 Temperature Pulse Rate 89 90 Respiratory Rate 13 12 12 Pulse Oximetry 91 L 94 L 94 L 10/13/18 12:30 10/13/18 12:45 10/13/18 13:00 Temperature 100.2 F H Pulse Rate 89 86 87 Respiratory Rate 13 13 17 Pulse Oximetry 95 95 94 L 10/13/18 13:15 10/13/18 13:30 10/13/18 13:45 Temperature 100.2 F H 100.4 F H 100.4 F H Pulse Rate 84 85 84 Respiratory Rate 14 13 13 Pulse Oximetry 95 95 95 10/13/18 14:00 Temperature 100.4 F H Pulse Rate 83 Respiratory Rate 12 Pulse Oximetry 95 Intake & Output 10/12/18 10/13/18 10/13/18 18:59 06:59 18:59 Intake Total 1094 / 1094 1105 / 1105 2074 Output Total 225 / 225 550 / 550 Balance 869 / 869 555 / 555 2074 Weight 96.8 kg Intake: IV 905 / 905 805 / 805 2074 Bumex Inj 25 mg In 100 ml @ 1 100 / 100 MG/HR 4 mls/hr IV.CONT .Q24H [facility] Rx#:[id number] Diprivan 1000 mg/100 ml Inj 1, 200 / 200 100 / 100 000 mg In 100 ml @ 5 MCG/KG/MIN 5.34 mls/hr IV.CONT TITRATE PRN Rx#:[id number] Calcium Chloride Inj 2 GM In 120 / 120 D5W Inj 100 ML @ 120 mls/hr IV. SIG ONCE ONE Rx#:[id number] Maxipime Inj 2,000 MG In NS Inj 100 / 100 100 / 100 100 / 100 100 ML @ 200 mls/hr IV.SIG Q12H [facility] Rx#:[id number] Levaquin 250 mg Premix Inj 250 50 / 50 mg In 50 ml @ 50 mls/hr IV.SIG Q48H [facility] Rx#:[id number] Magnesium Sulfate Inj 2 GM In 100 / 100 NS Inj 96 ML @ 50 mls/hr IV.SIG ONCE ONE Rx#:[id number] Levophed Inj 4 MG In NS Inj 246 250 / 250 250 / 250 ML @ 2 MCG/MIN 7.5 mls/hr IV. SIG TITRATE PRN Rx#:[id number] fentaNYL 10 mcg/mL Premix Drip 250 / 250 250 / 250 2,500 mcg In 250 ml @ 50 MCG/HR 5 mls/hr IV.SIG TITRATE PRN Rx #:[id number] Keppra Inj 500 MG In NS Inj 100 105 / 105 105 / 105 105 / 105 ML @ 400 mls/hr IV.SIG Q12H [facility] Rx#:[id number] Flolan (30,000 ng/mL) Neb 52.5 100 / 100 100 / 100 100 / 100 ML In NS Inj 47.5 ML @ 5 mls/hr NEB Q8H [facility] Rx#:[id number] Oral 0 / 0 Tube Feeding 159 / 159 180 / 180 Tube Irrigant 30 / 30 Water Bolus Amount 120 / 120 Output: Stool 0 / 0 50 / 50 Urine Amount (Catheter) 225 / 225 500 / 500 Indwelling Temp Sensing 225 / 225 250 / 250 Catheter Indwelling Urethral Catheter 250 / 250 Other: Date of Last Bowel Movement 10/11/18 Narrative: GENERAL: Well-nourished, morbidly obese well-developed patient on ventilator. SKIN: Warm and dry. HEAD: Normocephalic. EYES: No scleral icterus. No injection or drainage. NECK: Supple, trachea midline. No JVD or lymphadenopathy. CARDIOVASCULAR: Regular rate and rhythm without murmurs, gallops, or rubs. RESPIRATORY: Breath sounds diminished at bases. GASTROINTESTINAL: Abdomen soft, non-tender, distended. EXTREMITIES: Massive upper extremity edema left arm is worse with blisters NEUROLOGICAL: Sedation on ventilator. - Urinary Catheter Management Indwelling Temp Sensing Catheter Cath placed during this visit: yes Reason for continuing: Hourly intake/output Insertion date: 10/03/18 Insertion time: 08:10 Indwelling Urethral Catheter Cath placed during this visit: no Reason for continuing: Hourly intake/output Assessment and Plan - Assessment (1) Intraparenchymal hemorrhage of brain Code(s): I61.9 - Nontraumatic intracerebral hemorrhage, unspecified Status: Acute (2) History of hypertension Code(s): Z86.79 - Personal history of other diseases of the circulatory system Status: Chronic (3) Type 2 diabetes mellitus Code(s): E11.9 - Type 2 diabetes mellitus without complications Status: Chronic (4) Morbid obesity Code(s): E66.01 - Morbid (severe) obesity due to excess calories Status: Chronic (5) Acute kidney injury Code(s): N17.9 - Acute kidney failure, unspecified Status: Acute - Plan Patient is in positive fluid balance and gain weight, he has upper extremity edema worse than the lower extremity edema, tried on albumin 25 g IV every 6 hourly and then use Bumex drip at 1 mg/h During not to have him remain on ventilator creatinine is higher 4.2, sodium 153 Patient did not improve and discussed with Dr. Hermosillo that he will require hemodialysis, he was seen during hemodialysis as well tolerating fluid removal of 3.5 L . Stop Bumex drip/Diuril/bicarbonate
--- NOTE | 2018-10-13 15:25 | P.PCN ---
Date of procedure: 10/13/18 Pre-op diagnosis: ICH, acute respiratory failure on mechanical ventilation, TARA/ CKD Post-op diagnosis: same Procedure: Left IJ Vas-Cath placement with ultrasound guidance Informed consent: Obtained from family and documented in chart Anesthesia: 1% lidocaine for local infiltration anesthesia Site: Left internal jugular vein Ultrasound guidance : Dynamic ultrasound guidance used After sterile prepping and draping using 1% lidocaine for local infiltration anesthesia, left internal jugular vein was visualized using an ultrasound was finder and under direct visualization was cannulated using an introducer needle with dark nonpulsatile blood return. A Guidewire was passed through the introducer needle without any resistance and the needle was then removed. After making a skin neck and dilation of tract, a 20 cm dual lumen dialysis catheter was passed over the guidewire by modified seldinger's technique into the left internal jugular vein up to the 19 cm vicki and the guidewire was then removed. Good blood return obtained through both ports which were then flushed with saline and subsequently hep-locked. After suturing the catheter in place, a Bio- occlusive dressing with biopatch was applied to the site. Post procedure chest x -ray was ordered and reviewed with good placement of left IJ dialysis catheter with tip overlying SVC, no pneumothorax on postprocedure film. Patient tolerated the procedure well with no immediate complications noted. Estimated blood loss (mL): 2 Pathology: none sent Condition: critical Disposition: ICU
[2018-10-13 17:16] LABS: Bacteria,Urine Rare /hpf; Bilirubin,Urine Negative (Negative); Clarity,Urine Cloudy (Clear); Color,Urine Yellow (Yellw/Straw); Glucose,Urine (UA) Negative (Negative); Hyaline Casts,Urine 4 /lpf (0-3); Leukocyte Esterase,Urine Negative (Negative); Mucus,Urine Few /lpf (Occasional); Nitrite,Urine Negative (Negative); Specific Gravity,Urine 1.015 (1.002-1.035)
[2018-10-13 17:54] LABS: Hepatitis A IgM Antibody Nonreactive (Nonreactive); Hepatitits B Surface Antigen Nonreactive (Nonreactive)
[2018-10-13 18:21] LABS: ABG PCO2 38 mmHg (38-42); ABG PO2 188 mmHg (61-120)
[2018-10-13] MEDS: WATER FOR INJ IV.SIG SCH (18:58)
[2018-10-13] MEDS: STERILE IV.SIG SCH (18:58)
[2018-10-13] MEDS: SODIUM BICARBONATE IV.SIG SCH (18:58)
[2018-10-13] MEDS: Midazolam 100 MG/100 ML Inj 100 MG/100 ML BAG IV.CONT PRN (19:38)
[2018-10-13] MEDS: Acetaminophen 325 MG Tablet PO PRN (20:11)
[2018-10-13 22:59] LABS: ABG Base Excess -8.9 mmol/L (-2-2); ABG PCO2 41 mmHg (38-42); ABG PO2 196 mmHg (61-120)
[2018-10-14] MEDS: Oral Hygiene Kit OROPHARYNG SCH ×4 (00:17→15:57)
[2018-10-14] MEDS: Insulin NovoLOG Aspart Correctional Sugar Inj SQ SCH ×4 (00:17→18:54)
[2018-10-14] MEDS: fentaNYL 10 mcg/mL Premix Drip 2,500 MCG/250 ML BAG IV.SIG PRN ×2 (00:18→17:22)
[2018-10-14] MEDS: Vasopressin Inj 40 UNIT in Dextrose 5% in Water Inj 98 ML IV.CONT PRN ×4 (02:06→18:59)
[2018-10-14] MEDS: EPOPROSTENOL NEB SCH ×3 (04:51→23:24)
[2018-10-14] MEDS: SODIUM CHLOR NEB SCH ×3 (04:51→23:24)
[2018-10-14 05:29] LABS: Baso % (Auto) 0.5 % (0.0-2.0); Eos # (Auto) 0.1 th/mm3 (0.0-0.4); Hematocrit 30.5 % (39.0-51.0); Hemoglobin 9.8 gm/dL (13.0-17.0); Lymph # (Auto) 0.8 th/mm3 (1.0-4.8); Lymph % (Auto) 9.8 % (9.0-44.0); Mean Corpuscular Hemoglobin 28.2 pg (27.0-34.0); Mean Corpuscular Volume 88.1 fL (80.0-100.0); Mean Platelet Volume 9.1 fL (7.0-11.0); Mono # (Auto) 0.8 th/mm3 (0.0-0.9); Mono % (Auto) 9.8 % (0.0-8.0); Neut # (Auto) 6.3 th/mm3 (1.8-7.7); Neut % (Auto) 78.9 % (16.0-70.0); Platelet Count 173 th/mm3 (150-450); Red Blood Count 3.46 mil/mm3 (4.50-5.90); Red Cell Distribution Width 16.5 % (11.6-17.2)
[2018-10-14] MEDS: SODIUM BICARBONATE IV.SIG SCH (05:37)
[2018-10-14] MEDS: WATER FOR INJ IV.SIG SCH (05:37)
[2018-10-14] MEDS: STERILE IV.SIG SCH (05:37)
[2018-10-14] MEDS: Norepinephrine Inj 4 MG in Sodium Chlor 0.9% Inj 246 ML IV.SIG PRN ×2 (05:38→17:20)
[2018-10-14 05:40] LABS: Calcium 9.8 mg/dL (8.5-10.1); Carbon Dioxide 18.9 meq/L (21.0-32.0)
[2018-10-14 05:41] LABS: ABG Base Excess -8.7 mmol/L (-2-2); ABG PCO2 46 mmHg (38-42); ABG PO2 169 mmHg (61-120)
--- NOTE | 2018-10-14 07:59 | P.PNCC ---
Subjective Subjective Remarks/Hospital Course: Patient is a 68-year-old morbidly obese male with past medical history significant for hypertension, diabetes, dyslipidemia, morbid obesity, thyroid disease, history of colon resection and colostomy, who presented to the [facility] with left-sided headache and poorly controlled hypertension. Apparently he woke up with severe left-sided headache was moderately confused and family brought him to the emergency department. The patient did take aspirin for his headache prior to presentation. A stat CT of the head showed large 6.9 x 3.6 x 3.2 cm acute intraparenchymal hemorrhage in the right temporoparietal region with approximate blood volume of 40 mL. There was surrounding edema and 2-3 mm leftward midline shift. Neurosurgery Dr. Hills was contacted and patient was transferred to [place] ICU. PT/INR/ platelet count was normal in the outside hospital. BUN was 43 creatinine was 2. I evaluated the patient in the ICU. Patient is awake but somnolent oriented only to person. He drifts to sleep while talking. His systolic blood pressure was 200 on arrival. Because of questionable airway protection and need for further imaging studies patient was intubated and placed on mechanical ventilation. Dr. Hills had been informed. I will start Cardene to control blood pressure, repeat stat CT head also CT angiogram of brain and neck will be performed. Also give 25 g of IV mannitol, start on 2% saline to keep sodium more than 150-155, also placed on Keppra for seizure prophylaxis. 10/04: Will start oral BP meds down NG tube and attempt to wean cardene. CKD persists as expected. Glucose swing expected. Keep intubated and sedated for now. 10/05: Better blood pressure control with by systolic and amlodipine restarted. Increased difficulty with oxygenation today, now requiring 100% FiO2 and 12 PEEP. Chest x-ray shows atelectasis involving the whole left lower lobe, cultures all negative for significant organism, no white blood cells. Will get repeat head CAT scan today. 10/06: Repeat head CT look good. Worsening difficulties with oxygenation related to the left lower lobe atelectasis. Converted to airway pressure release ventilation this morning. ICP continues to be very well controlled. 10/07: Lightening sedation today. ICP bolt has been removed. Oxygenation has improved. Continue airway pressure release ventilation. Renal function worse today, hydrate gently with isotonic saline and follow closely. 10/08: Continued difficulties with oxygenation related to preoperative lung injury from his pneumonia, body habitus, fluid overload associated with his chronic kidney disease. We will be forced to go back to airway pressure release ventilation because he de-recruited severely after converting to conventional ventilation yesterday despite PEEP of 18. 10/09: Starting to claw our way back to better oxygenation. He recruited severely on conventional ventilation despite markedly elevated PEEP. Hefty diuresis accomplished with Lasix drip however volume load from vancomycin and Cardene infusions makes it hard to get a significant reduction in total body water. This gentleman had pneumonia prior to his surgery and his persistent left lower lobe infiltrate impaired oxygenation early on. His chest x-ray still demonstrates consolidated areas in the left lower lung. 10/10: Increasing FiO2 requirement overnight. On 100% FiO2, AP RV mode mechanical ventilation this morning. Started on inhaled Flolan with which her O2 sats came up from high 80s to 93%. On Lasix drip however not really diuresing. BNP 57 on 10/09. 10/11: Remains sedated, orally intubated on mechanical ventilation. On inhaled Flolan. Started on Bumex drip by nephrology yesterday with significant increase in urine output. O2 sats 96% on 100% FiO2 APRV mode mechanical ventilation 10/12: Remains sedated, orally intubated on mechanical ventilation. FiO2 back up to 100% on AP RV mode. Inhaled Flolan continues. Remains on Bumex drip. 10/13: Remains sedated, orally intubated on mechanical ventilation. On inhaled Flolan. Remains on APRV mode, FiO2 down to 60%. On Bumex drip. Not really diuresing much. BNP has been normal. Worsening renal function now with metabolic acidosis. Patient is hypotensive on Levophed currently. Need to start renal replacement therapy after Vas-Cath placement as discussed with Dr. Gasca. Not much pleural fluid to tap on ultrasound done at bedside by myself yesterday. 10/14: Patient is still struggling with renal failure. Oxygenation has improved modestly with inhaled prostacyclin but mean airway pressures remain considerably elevated to prevent de-recruitment. Right ventricular function depressed on echo. Will try dobutamine low dose to hopefully improve cardiac output. I clearly anticipate that we will need higher doses of norepinephrine from dobutamine vasodilation but the only way to get rid of his edema is to mobilize more peripheral fluid. - Diagnosis (1) Intraparenchymal hemorrhage of brain (2) Midline shift of brain (3) Acute encephalopathy (4) Hypertensive emergency (5) LLL pneumonia (6) Acute kidney injury (7) History of hypertension (8) Type 2 diabetes mellitus (9) Dyslipidemia (10) Morbid obesity Objective Vital Signs / I&O: Vital Signs 10/13/18 08:00 10/13/18 08:15 10/13/18 08:30 Temperature 100.2 F H 100.5 F H Pulse Rate 86 86 88 Respiratory Rate 18 13 13 Blood Pressure Pulse Oximetry 90 L 92 L 89 L 10/13/18 08:45 10/13/18 09:00 10/13/18 09:15 Temperature Pulse Rate 88 90 90 Respiratory Rate 13 12 13 Blood Pressure Pulse Oximetry 89 L 89 L 90 L 10/13/18 09:30 10/13/18 09:45 10/13/18 10:00 Temperature Pulse Rate 91 H 92 H 91 H Respiratory Rate 13 12 13 Blood Pressure Pulse Oximetry 88 L 93 L 95 10/13/18 10:15 10/13/18 10:30 10/13/18 10:45 Temperature Pulse Rate 96 H 91 H 90 Respiratory Rate 13 12 13 Blood Pressure Pulse Oximetry 96 96 95 10/13/18 11:00 10/13/18 11:15 10/13/18 11:30 Temperature Pulse Rate 90 89 92 H Respiratory Rate 13 13 13 Blood Pressure Pulse Oximetry 94 L 94 L 93 L 10/13/18 11:45 10/13/18 12:00 10/13/18 12:05 Temperature Pulse Rate 90 89 Respiratory Rate 13 13 12 Blood Pressure Pulse Oximetry 94 L 91 L 94 L 10/13/18 12:15 10/13/18 12:30 10/13/18 12:45 Temperature Pulse Rate 90 89 86 Respiratory Rate 12 13 13 Blood Pressure Pulse Oximetry 94 L 95 95 10/13/18 13:00 10/13/18 13:15 10/13/18 13:30 Temperature 100.2 F H 100.2 F H 100.4 F H Pulse Rate 87 84 85 Respiratory Rate 17 14 13 Blood Pressure Pulse Oximetry 94 L 95 95 10/13/18 13:45 10/13/18 14:00 10/13/18 14:15 Temperature 100.4 F H 100.4 F H 100.4 F H Pulse Rate 84 83 84 Respiratory Rate 13 12 13 Blood Pressure Pulse Oximetry 95 95 95 10/13/18 14:30 10/13/18 14:41 10/13/18 14:43 Temperature 100.4 F H Pulse Rate 86 87 Respiratory Rate 13 12 12 Blood Pressure Pulse Oximetry 94 L 93 L 10/13/18 14:45 10/13/18 15:00 10/13/18 15:15 Temperature 100.4 F H 100.4 F H 100.4 F H Pulse Rate 85 87 88 Respiratory Rate 13 12 13 Blood Pressure Pulse Oximetry 94 L 94 L 93 L 10/13/18 15:30 10/13/18 15:45 10/13/18 15:47 Temperature 100.6 F H 100.6 F H 100.6 F H Pulse Rate 88 89 88 Respiratory Rate 13 13 13 Blood Pressure 119/44 L Pulse Oximetry 93 L 94 L 94 L 10/13/18 16:00 10/13/18 16:15 10/13/18 16:25 Temperature 100.6 F H 100.6 F H 100.6 F H Pulse Rate 85 84 84 Respiratory Rate 13 13 12 Blood Pressure 148/65 H Pulse Oximetry 94 L 93 L 93 L 10/13/18 16:30 10/13/18 16:45 10/13/18 17:00 Temperature 100.6 F H 100.6 F H 100.6 F H Pulse Rate 85 85 88 Respiratory Rate 12 13 17 Blood Pressure Pulse Oximetry 93 L 94 L 89 L 10/13/18 17:15 10/13/18 17:30 10/13/18 17:45 Temperature 100.6 F H 100.8 F H 100.8 F H Pulse Rate 89 84 81 Respiratory Rate 13 13 13 Blood Pressure Pulse Oximetry 93 L 93 L 97 10/13/18 18:00 10/13/18 18:15 10/13/18 18:30 Temperature 100.8 F H 100.9 F H Pulse Rate 80 80 80 Respiratory Rate 13 13 13 Blood Pressure Pulse Oximetry 97 97 96 10/13/18 18:45 10/13/18 19:00 10/13/18 19:15 Temperature Pulse Rate 81 79 79 Respiratory Rate 13 13 17 Blood Pressure Pulse Oximetry 96 96 95 10/13/18 19:26 10/13/18 19:30 10/13/18 19:45 Temperature Pulse Rate 80 85 Respiratory Rate 12 13 13 Blood Pressure Pulse Oximetry 96 96 95 10/13/18 20:00 10/13/18 20:15 10/13/18 20:30 Temperature 100.9 F H Pulse Rate 84 84 84 Respiratory Rate 12 13 22 Blood Pressure Pulse Oximetry 95 95 95 10/13/18 20:45 10/13/18 21:00 10/13/18 21:15 Temperature Pulse Rate 84 84 86 Respiratory Rate 13 13 13 Blood Pressure Pulse Oximetry 91 L 93 L 96 10/13/18 21:30 10/13/18 21:45 10/13/18 22:00 Temperature 100.6 F H 100.6 F H Pulse Rate 85 84 84 Respiratory Rate 13 13 13 Blood Pressure Pulse Oximetry 96 96 96 10/13/18 22:15 10/13/18 22:30 10/13/18 22:45 Temperature Pulse Rate 83 83 83 Respiratory Rate 13 13 13 Blood Pressure Pulse Oximetry 96 96 95 10/13/18 23:00 10/13/18 23:15 10/13/18 23:17 Temperature 100.6 F H Pulse Rate 82 82 79 Respiratory Rate 13 13 13 Blood Pressure Pulse Oximetry 96 95 95 10/13/18 23:30 10/13/18 23:45 10/14/18 00:00 Temperature Pulse Rate 81 81 81 Respiratory Rate 13 13 13 Blood Pressure Pulse Oximetry 95 95 95 10/14/18 00:15 10/14/18 00:30 10/14/18 00:45 Temperature 100.4 F H 100.4 F H Pulse Rate 82 82 83 Respiratory Rate 13 12 13 Blood Pressure Pulse Oximetry 94 L 95 95 10/14/18 01:00 10/14/18 01:15 10/14/18 01:30 Temperature 100.4 F H Pulse Rate 83 83 83 Respiratory Rate 13 13 13 Blood Pressure Pulse Oximetry 95 95 95 10/14/18 01:45 10/14/18 02:00 10/14/18 02:15 Temperature 100.2 F H Pulse Rate 83 82 82 Respiratory Rate 13 12 17 Blood Pressure Pulse Oximetry 95 95 89 L 10/14/18 02:30 10/14/18 02:45 10/14/18 03:00 Temperature 100.0 F H Pulse Rate 80 80 79 Respiratory Rate 13 13 13 Blood Pressure Pulse Oximetry 95 91 L 94 L 10/14/18 03:15 10/14/18 03:30 10/14/18 03:45 Temperature 100.0 F H Pulse Rate 79 80 79 Respiratory Rate 13 13 13 Blood Pressure Pulse Oximetry 95 94 L 92 L 10/14/18 04:00 10/14/18 04:04 10/14/18 04:15 Temperature 99.9 F H Pulse Rate 79 78 77 Respiratory Rate 13 12 13 Blood Pressure Pulse Oximetry 94 L 38 L 94 L 10/14/18 04:30 10/14/18 04:45 10/14/18 05:00 Temperature 99.7 F H Pulse Rate 77 77 77 Respiratory Rate 13 13 13 Blood Pressure Pulse Oximetry 96 94 L 96 10/14/18 05:15 10/14/18 05:30 10/14/18 05:45 Temperature Pulse Rate 77 77 77 Respiratory Rate 13 13 12 Blood Pressure Pulse Oximetry 96 96 95 10/14/18 06:00 10/14/18 06:15 10/14/18 06:30 Temperature 99.5 F 99.5 F 99.5 F Pulse Rate 77 76 76 Respiratory Rate 13 13 12 Blood Pressure Pulse Oximetry 95 95 95 10/14/18 06:45 10/14/18 07:00 10/14/18 07:15 Temperature 99.5 F 99.5 F 99.3 F Pulse Rate 76 75 75 Respiratory Rate 13 13 13 Blood Pressure Pulse Oximetry 95 95 95 10/14/18 07:30 Temperature 99.3 F Pulse Rate 75 Respiratory Rate 13 Blood Pressure Pulse Oximetry 96 Intake & Output 10/13/18 10/14/18 10/14/18 18:59 06:59 18:59 Intake Total 2454 / 2454 2228 / 2228 Output Total 300 / 300 175 / 175 Balance 2154 / 2154 2052 / 2052 Weight 213.7 kg Intake: IV 2320 / 2320 1989 Bumex Inj 25 mg In 100 ml @ 1 80 / 80 MG/HR 4 mls/hr IV.CONT .Q24H [facility] Rx#:[id number] Diprivan 1000 mg/100 ml Inj 1, 100 / 100 000 mg In 100 ml @ 5 MCG/KG/MIN 5.34 mls/hr IV.CONT TITRATE PRN Rx#:[id number] Sodium Bicarbonate 8.4% Inj 150 165 / 165 MEQ In Sterile Water for Inj 850 ML @ 50 mls/hr IV.CONT . Q20H [facility] Rx#:[id number] Pitressin Inj 40 UNIT In D5W 100 / 100 Inj 98 ML @ 0.01 UNITS/MIN 1.5 mls/hr IV.CONT TITRATE PRN Rx#: [id number] Calcium Chloride Inj 2 GM In 120 / 120 D5W Inj 100 ML @ 120 mls/hr IV. SIG ONCE ONE Rx#:[id number] Maxipime Inj 2,000 MG In NS Inj 100 / 100 100 / 100 100 ML @ 200 mls/hr IV.SIG Q12H [facility] Rx#:[id number] Magnesium Sulfate Inj 2 GM In 100 / 100 NS Inj 96 ML @ 50 mls/hr IV.SIG ONCE ONE Rx#:[id number] Levophed Inj 4 MG In NS Inj 246 250 / 250 235 / 235 ML @ 2 MCG/MIN 7.5 mls/hr IV. SIG TITRATE PRN Rx#:[id number] Sodium Bicarbonate 8.4% Inj 150 1000 / 1000 MEQ In Sterile Water for Inj 1 ,000 ML @ 100 mls/hr IV.SIG . [id number] [facility] Rx#:[id number] fentaNYL 10 mcg/mL Premix Drip 250 / 250 2,500 mcg In 250 ml @ 50 MCG/HR 5 mls/hr IV.SIG TITRATE PRN Rx #:[id number] Keppra Inj 500 MG In NS Inj 100 105 / 105 105 / 105 ML @ 400 mls/hr IV.SIG Q12H [facility] Rx#:[id number] Flolan (30,000 ng/mL) Neb 52.5 100 / 100 200 / 200 ML In NS Inj 47.5 ML @ 5 mls/hr NEB Q8H [facility] Rx#:[id number] Oral 0 / 0 Tube Feeding 74 / 74 208 / 208 Tube Irrigant 30 / 30 Water Bolus Amount 60 / 60 Output: Stool 150 / 150 Urine Amount (Catheter) 150 / 150 150 / 150 Indwelling Temp Sensing 150 / 150 Catheter Indwelling Urethral Catheter 150 / 150 Stool Amount (Stoma) Pre-Hospital: Other: Date of Last Bowel Movement 10/13/18 Result Diagrams: 10/14/18 05:00 10/14/18 05:00 Objective Remarks: Narrative: GEN: Morbidly obese male, intubated, on mechanical ventilation. Generally edematous and swollen. HEENT: Scalp incision open to air, dry and clean. NECK: Supple. Orotracheal intubation. Orogastric tube in place. LUNGS: On mechanical ventilation, APRV mode, 60% FiO2, breath sounds reduced in both bases. HEART: S1 and S2 normal, heart sounds distant. Neck veins are full. ABDOMEN: Soft. Nontender. Obese. Well-healed vertical scar. Right lower quadrant colostomy bag in place with dark liquid stool EXTREMITIES: Knee repair scar left side. Limbs generally edematous 2+ NEUROLOGIC: Intubated, sedated. Breathes over the ventilator. Assessment and Plan - Problem List (1) Intraparenchymal hemorrhage of brain Code(s): I61.9 - Nontraumatic intracerebral hemorrhage, unspecified Status: Acute (2) Midline shift of brain Code(s): G93.9 - Disorder of brain, unspecified Status: Acute (3) Acute encephalopathy Code(s): G93.40 - Encephalopathy, unspecified Status: Acute (4) Hypertensive emergency Code(s): I16.1 - Hypertensive emergency Status: Acute (5) LLL pneumonia Code(s): J18.1 - Lobar pneumonia, unspecified organism Status: Acute (6) Acute kidney injury Code(s): N17.9 - Acute kidney failure, unspecified Status: Acute (7) History of hypertension Code(s): Z86.79 - Personal history of other diseases of the circulatory system Status: Chronic (8) Type 2 diabetes mellitus Code(s): E11.9 - Type 2 diabetes mellitus without complications Status: Chronic (9) Dyslipidemia Code(s): E78.5 - Hyperlipidemia, unspecified Status: Chronic (10) Morbid obesity Code(s): E66.01 - Morbid (severe) obesity due to excess calories Status: Chronic - Assessment and Plan Plan: NEURO: Acute right temporoparietal intraparenchymal hemorrhage Midline shift Acute encephalopathy -Propofol and fentanyl for sedation and ventilator synchrony after intubation -Keppra 500 mg IV every 12 hours -S/P crani and evacuation 10/03 -Repeat CAT scan of head with minimal edema and no shift 10/05 -Osmolality elevated nicely but renal function worse. -Off 2% saline, continue Bumex drip. RESP: Acute respiratory failure Left lower lobe pneumonia ARDS Bilateral effusions -Patient was intubated for airway protection -Ventilator bundle -DuoNeb every 6 hours scheduled and as needed -Sputum culture negative -Converted to airway pressure release ventilation -FiO2 100% increased on 10/10. Added inhaled Flolan. FiO2 requirement decreased to 60% on 10/13 -Left lower lobe infiltrate has persisted, related to his pre-existing pneumonia before surgery -Perform bedside ultrasound on 10/12 which showed small effusions bilaterally which do not appear too large to tap. CV: Hypertensive emergency Dyslipidemia Hypotension -Off cardene -Arterial line placement -Holding Bysystolic, hydralazine and amlodipine due to hypotension. -holding losartan due to rising creatinine -Started on Levophed for pressor support 10/12. Added low-dose vasopressin . GI: Morbid obesity History of colon resection, status post colostomy -Started Nepro tube feeds on 10/11 and advance to goal of 30 cc/h as tolerated - IV famotidine -Routine colostomy care Renal/: Acute kidney injury/ CKD -Monitor renal function closely. Continue Mendieta catheter. -Being diuresed with Bumex drip. Not much response. BNP 57 on 10/09. I am not sure if fluid overload is his primary problem. -Consulted nephrology for his TARA/CKD, worsening BUN/creatinine and metabolic acidosis now. Plan to start renal replacement therapy on 10/[address] Gasca. Awaiting consent for Vas-Cath placement. ID: Left lower lobe pneumonia/atelectasis UTI -On antibiotics per ID, cefepime. IV vancomycin stopped on 10/09 due to worsening creatinine. -All cultures negative so far. Repeat smith cultures ordered on 10/10. UA sent on 10/10 suggests UTI HEME: -Monitor CBC, coags ENDO: Type 2 diabetes Hypothyroidism -Electrolyte replacement per protocol -Sliding scale insulin PROPH: -Bilateral lower extremity SCDs/HIRAL. Chemical DVT prophylaxis contraindicated status post parenchymal brain bleed -IV famotidine LINES: - RIJ central line - HD cath Consulted palliative care to assist with deciding goals of therapy as respiratory status appears to be worsening. D/W Dr. Gasca from nephrology on 10/10 who was consulted to evaluate TARA/ CKD and need for HD for fluid removal. On 11/20 Family meeting held with palliative care and discuss current clinical status including severe acute respiratory failure. Discussed CODE STATUS which at this point remains full code. Explained patient at high risk for hemodynamic instability of respiratory status declines further. Also explained that patient may go into cardiac arrest is unable to maintain O2 sats despite maximal ventilatory support. 10/12: Updated family at bedside regarding plan of care and critical status and they voiced understanding and was agreeable with plan of care. Palliative care has been following however family has not wanted to meet with them last few occasions. Remains full CODE STATUS at this time. I have previously discussed my concern that patient is at high risk for a cardiac arrest status, and given his cardiopulmonary status his prognosis extremely guarded at this time. Overall impression: Patient remains critically ill and pulmonary status is unstable. Persistent respiratory problems due to morbid obesity, pre-existing pneumonia, and supine position. Chronic kidney disease is hampering our attempts at fluid removal. Now again requiring airway pressure release ventilation for recruitment. He remains critically ill and clinically deteriorating. Critical care 42 minutes aside from procedures
[2018-10-14] MEDS: DOBUTamine 250 MG/250 ML Premx 250 MG/250 ML BAG IV.CONT SCH ×3 (08:20→23:58)
[2018-10-14] MEDS: Sodium Chloride 0.9% 2 ML Flush BID IV.FLUSH SCH ×2 (09:38→20:03)
[2018-10-14] MEDS: Famotidine PF Inj 20 MG/2 ML Vial IV.PUSH SCH ×2 (09:38→20:02)
[2018-10-14] MEDS: Senna/Docusate Sodium 8.6/50 MG Tablet PO SCH ×2 (09:38→20:01)
[2018-10-14] MEDS: Chlorhexidine 0.12% Oral Kit 15 ML UDC OROPHARYNG SCH ×2 (09:38→20:04)
[2018-10-14 10:05] LABS: Lymphocytes 10 % (9-44); Metamyelocytes 1 % (0-1); Monocytes 1 % (0-8); Platelet Estimate Normal (Normal); Platelet Morphology Normal (Normal); Tallied Nucleated RBC 3 (0-0)
[2018-10-14] MEDS: Levofloxacin 250 mg Premix Inj 250 MG/50 ML PIGGYBACK IV.SIG SCH (12:39)
[2018-10-14] MEDS: Midazolam 100 MG/100 ML Inj 100 MG/100 ML BAG IV.CONT PRN (12:39)
--- NOTE | 2018-10-14 16:18 | P.PNNP ---
Subjective Interval history: Patient is a 68-year-old on ventilator, status post hematoma evacuation craniotomy started on hemodialysis yesterday, today is his second dialysis treatment Physical Exam Vital signs: Vital Signs 10/13/18 16:25 10/13/18 16:30 10/13/18 16:45 Temperature 100.6 F H 100.6 F H 100.6 F H Pulse Rate 84 85 85 Respiratory Rate 12 12 13 Blood Pressure 148/65 H Pulse Oximetry 93 L 93 L 94 L 10/13/18 17:00 10/13/18 17:15 10/13/18 17:30 Temperature 100.6 F H 100.6 F H 100.8 F H Pulse Rate 88 89 84 Respiratory Rate 17 13 13 Blood Pressure Pulse Oximetry 89 L 93 L 93 L 10/13/18 17:45 10/13/18 18:00 10/13/18 18:15 Temperature 100.8 F H 100.8 F H 100.9 F H Pulse Rate 81 80 80 Respiratory Rate 13 13 13 Blood Pressure Pulse Oximetry 97 97 97 10/13/18 18:30 10/13/18 18:45 10/13/18 19:00 Temperature Pulse Rate 80 81 79 Respiratory Rate 13 13 13 Blood Pressure Pulse Oximetry 96 96 96 10/13/18 19:15 10/13/18 19:26 10/13/18 19:30 Temperature Pulse Rate 79 80 Respiratory Rate 17 12 13 Blood Pressure Pulse Oximetry 95 96 96 10/13/18 19:45 10/13/18 20:00 10/13/18 20:15 Temperature 100.9 F H Pulse Rate 85 84 84 Respiratory Rate 13 12 13 Blood Pressure Pulse Oximetry 95 95 95 10/13/18 20:30 10/13/18 20:45 10/13/18 21:00 Temperature Pulse Rate 84 84 84 Respiratory Rate 22 13 13 Blood Pressure Pulse Oximetry 95 91 L 93 L 10/13/18 21:15 10/13/18 21:30 10/13/18 21:45 Temperature 100.6 F H Pulse Rate 86 85 84 Respiratory Rate 13 13 13 Blood Pressure Pulse Oximetry 96 96 96 10/13/18 22:00 10/13/18 22:15 10/13/18 22:30 Temperature 100.6 F H Pulse Rate 84 83 83 Respiratory Rate 13 13 13 Blood Pressure Pulse Oximetry 96 96 96 10/13/18 22:45 10/13/18 23:00 10/13/18 23:15 Temperature 100.6 F H Pulse Rate 83 82 82 Respiratory Rate 13 13 13 Blood Pressure Pulse Oximetry 95 96 95 10/13/18 23:17 10/13/18 23:30 10/13/18 23:45 Temperature Pulse Rate 79 81 81 Respiratory Rate 13 13 13 Blood Pressure Pulse Oximetry 95 95 95 10/14/18 00:00 10/14/18 00:15 10/14/18 00:30 Temperature 100.4 F H 100.4 F H Pulse Rate 81 82 82 Respiratory Rate 13 13 12 Blood Pressure Pulse Oximetry 95 94 L 95 10/14/18 00:45 10/14/18 01:00 10/14/18 01:15 Temperature 100.4 F H Pulse Rate 83 83 83 Respiratory Rate 13 13 13 Blood Pressure Pulse Oximetry 95 95 95 10/14/18 01:30 10/14/18 01:45 10/14/18 02:00 Temperature 100.2 F H Pulse Rate 83 83 82 Respiratory Rate 13 13 12 Blood Pressure Pulse Oximetry 95 95 95 10/14/18 02:15 10/14/18 02:30 10/14/18 02:45 Temperature Pulse Rate 82 80 80 Respiratory Rate 17 13 13 Blood Pressure Pulse Oximetry 89 L 95 91 L 10/14/18 03:00 10/14/18 03:15 10/14/18 03:30 Temperature 100.0 F H 100.0 F H Pulse Rate 79 79 80 Respiratory Rate 13 13 13 Blood Pressure Pulse Oximetry 94 L 95 94 L 10/14/18 03:45 10/14/18 04:00 10/14/18 04:04 Temperature 99.9 F H Pulse Rate 79 79 78 Respiratory Rate 13 13 12 Blood Pressure Pulse Oximetry 92 L 94 L 38 L 10/14/18 04:15 10/14/18 04:30 10/14/18 04:45 Temperature Pulse Rate 77 77 77 Respiratory Rate 13 13 13 Blood Pressure Pulse Oximetry 94 L 96 94 L 10/14/18 05:00 10/14/18 05:15 10/14/18 05:30 Temperature 99.7 F H Pulse Rate 77 77 77 Respiratory Rate 13 13 13 Blood Pressure Pulse Oximetry 96 96 96 10/14/18 05:45 10/14/18 06:00 10/14/18 06:15 Temperature 99.5 F 99.5 F Pulse Rate 77 77 76 Respiratory Rate 12 13 13 Blood Pressure Pulse Oximetry 95 95 95 10/14/18 06:30 10/14/18 06:45 10/14/18 07:00 Temperature 99.5 F 99.5 F 99.5 F Pulse Rate 76 76 75 Respiratory Rate 12 13 13 Blood Pressure Pulse Oximetry 95 95 95 10/14/18 07:15 10/14/18 07:30 10/14/18 07:45 Temperature 99.3 F 99.3 F 99.3 F Pulse Rate 75 75 75 Respiratory Rate 13 13 13 Blood Pressure Pulse Oximetry 95 96 95 10/14/18 07:54 10/14/18 08:00 10/14/18 08:09 Temperature 99.3 F 99.3 F Pulse Rate 74 74 74 Respiratory Rate 13 13 13 Blood Pressure 128/61 Pulse Oximetry 97 97 10/14/18 08:10 10/14/18 08:15 10/14/18 08:30 Temperature 99.3 F 99.1 F Pulse Rate 72 72 Respiratory Rate 13 13 Blood Pressure Pulse Oximetry 97 97 97 10/14/18 08:45 10/14/18 09:00 10/14/18 09:15 Temperature 99.1 F 99.1 F 99.1 F Pulse Rate 74 81 85 Respiratory Rate 13 13 13 Blood Pressure Pulse Oximetry 95 96 96 10/14/18 09:30 10/14/18 09:45 10/14/18 10:00 Temperature 99.1 F 99.1 F 99.1 F Pulse Rate 87 88 88 Respiratory Rate 13 13 13 Blood Pressure Pulse Oximetry 95 96 96 10/14/18 10:15 10/14/18 10:30 10/14/18 10:45 Temperature 99.1 F 99.1 F 99.1 F Pulse Rate 87 88 87 Respiratory Rate 13 13 13 Blood Pressure Pulse Oximetry 95 96 95 10/14/18 11:00 10/14/18 11:52 10/14/18 11:55 Temperature 99.1 F Pulse Rate 86 82 Respiratory Rate 13 13 13 Blood Pressure Pulse Oximetry 95 97 Intake & Output 10/13/18 10/14/18 10/14/18 18:59 06:59 18:59 Intake Total 2454 / 2454 2228 / 2228 605 / 605 Output Total 3800 / 3800 175 / 175 Balance -1346 / -1346 2052 / 2052 605 / 605 Weight 213.7 kg Intake: IV 2320 / 2320 1989 605 / 605 Bumex Inj 25 mg In 100 ml @ 1 80 / 80 MG/HR 4 mls/hr IV.CONT .Q24H [facility] Rx#:[id number] DOBUTamine 250 MG/250 ML Premix 250 / 250 250 mg In 250 ml @ 2.5 MCG/KG/ MIN 32.055 mls/hr IV.CONT . Q7H48M [facility] Rx#:[id number] Versed Inj 100 mg In 100 ml @ 6 100 / 100 MG/HR 6 mls/hr IV.CONT TITRATE PRN Rx#:[id number] Diprivan 1000 mg/100 ml Inj 1, 100 / 100 000 mg In 100 ml @ 5 MCG/KG/MIN 5.34 mls/hr IV.CONT TITRATE PRN Rx#:[id number] Sodium Bicarbonate 8.4% Inj 150 165 / 165 MEQ In Sterile Water for Inj 850 ML @ 50 mls/hr IV.CONT . Q20H [facility] Rx#:[id number] Pitressin Inj 40 UNIT In D5W 100 / 100 Inj 98 ML @ 0.01 UNITS/MIN 1.5 mls/hr IV.CONT TITRATE PRN Rx#: [id number] Calcium Chloride Inj 2 GM In 120 / 120 D5W Inj 100 ML @ 120 mls/hr IV. SIG ONCE ONE Rx#:[id number] Maxipime Inj 2,000 MG In NS Inj 100 / 100 100 / 100 100 ML @ 200 mls/hr IV.SIG Q12H [facility] Rx#:[id number] Levaquin 250 mg Premix Inj 250 50 / 50 mg In 50 ml @ 50 mls/hr IV.SIG Q48H [facility] Rx#:[id number] Magnesium Sulfate Inj 2 GM In 100 / 100 NS Inj 96 ML @ 50 mls/hr IV.SIG ONCE ONE Rx#:[id number] Levophed Inj 4 MG In NS Inj 246 250 / 250 235 / 235 ML @ 2 MCG/MIN 7.5 mls/hr IV. SIG TITRATE PRN Rx#:[id number] Sodium Bicarbonate 8.4% Inj 150 1000 / 1000 MEQ In Sterile Water for Inj 1 ,000 ML @ 100 mls/hr IV.SIG . [id number] [facility] Rx#:[id number] fentaNYL 10 mcg/mL Premix Drip 250 / 250 2,500 mcg In 250 ml @ 50 MCG/HR 5 mls/hr IV.SIG TITRATE PRN Rx #:[id number] Keppra Inj 500 MG In NS Inj 100 105 / 105 105 / 105 105 / 105 ML @ 400 mls/hr IV.SIG Q12H [facility] Rx#:[id number] Flolan (30,000 ng/mL) Neb 52.5 100 / 100 200 / 200 100 / 100 ML In NS Inj 47.5 ML @ 5 mls/hr NEB Q8H [facility] Rx#:[id number] Oral 0 / 0 Tube Feeding 74 / 74 208 / 208 Tube Irrigant 30 / 30 Water Bolus Amount 60 / 60 Output: Stool 150 / 150 Hemodialysis Amount 3500 / 3500 Urine Amount (Catheter) 150 / 150 150 / 150 Indwelling Temp Sensing 150 / 150 Catheter Indwelling Urethral Catheter 150 / 150 Stool Amount (Stoma) Pre-Hospital: Other: Date of Last Bowel Movement 10/13/18 Narrative: GENERAL: Well-nourished, morbidly obese well-developed patient on ventilator. SKIN: Warm and dry. HEAD: Normocephalic. EYES: No scleral icterus. No injection or drainage. NECK: Supple, trachea midline. No JVD or lymphadenopathy. CARDIOVASCULAR: Regular rate and rhythm without murmurs, gallops, or rubs. RESPIRATORY: Breath sounds diminished at bases. GASTROINTESTINAL: Abdomen soft, non-tender, distended. EXTREMITIES: Massive upper extremity edema left arm is worse with blisters NEUROLOGICAL: Sedation on ventilator. - Urinary Catheter Management Indwelling Temp Sensing Catheter Cath placed during this visit: yes Reason for continuing: Other continuation reason Insertion date: 10/03/18 Insertion time: 08:10 Indwelling Urethral Catheter Cath placed during this visit: no Reason for continuing: Hourly intake/output Assessment and Plan - Assessment (1) Intraparenchymal hemorrhage of brain Code(s): I61.9 - Nontraumatic intracerebral hemorrhage, unspecified Status: Acute (2) History of hypertension Code(s): Z86.79 - Personal history of other diseases of the circulatory system Status: Chronic (3) Type 2 diabetes mellitus Code(s): E11.9 - Type 2 diabetes mellitus without complications Status: Chronic (4) Morbid obesity Code(s): E66.01 - Morbid (severe) obesity due to excess calories Status: Chronic (5) Acute kidney injury Code(s): N17.9 - Acute kidney failure, unspecified Status: Acute - Plan Patient is in positive fluid balance and gain weight, he has upper extremity edema worse than the lower extremity edema, tried on albumin 25 g IV every 6 hourly and then use Bumex drip at 1 mg/h. This discontinued During not to have him remain on ventilator creatinine is higher 5.11 sodium 151 improved Patient is seen during hemodialysis again 4 L of planned and he is tolerating it well continue to do dialysis monitor intake and output Oxygen requirement has decreased with removal of fluid FiO2 45%
[2018-10-14 16:35] LABS: ABG Base Excess -7.3 mmol/L (-2-2); ABG PCO2 45 mmHg (38-42); ABG PO2 209 mmHg (61-120)
--- NOTE | 2018-10-14 17:10 | XR ---
EXAM DATE: 10/14/2018 5:01 PM EST AGE/SEX: 68 years / Male INDICATIONS: ET tube reposition. CLINICAL DATA: This is the patient's subsequent encounter. Patient reports that signs and symptoms h ave been present for 1 week and indicates a pain score of Nonresponsive. MEDICAL/SURGICAL HISTORY: . Diabetes mellitus type II. Hypertension. Hyperlipidemia. Thyroid di sease. Intraparenchymal hemorrhage. LLL Pneumonia. . . Total knee replacement, right. Colon resecti on. Colostomy. COMPARISON: [facility] [place], CHEST 1V SINGLE AP, 10/13/2018. . FINDINGS: ET tube is not well demonstrated. There STABLE bilateral IJ central lines. There is an NGT which is s een up to the inferior hemithorax. Diffuse bilateral pleural-parenchymal opacities involving the mid to lower lung zones unchanged from prior exam. Cardiomegaly mediastinal contours are stable with martin stinct central pulmonary vascularity. CONCLUSION: 1. New ET tube cannot be definitively visualized. 2. Remaining tubes and lines are grossly stable although the NG tube is now well demonstrated beyond the inferior chest. 3. Persistent bilateral mid to lower lung zone pleural-parenchymal opacities consistent with ARDS/pu lmonary edema versus diffuse infection. Electronically signed by: Steven Kolb MD 10/14/2018 5:09 PM EST
--- NOTE | 2018-10-14 17:13 | P.PNID ---
Subjective Remarks: Patient is unresponsive on the ventilator. Currently on 45% FiO2. Afebrile. Sputum culture has no growth. This is a 68-year-old white male who was admitted to the hospital 10/03/2018 on transfer from [facility] with headache. The patient was noted to have an acute intraparenchymal hemorrhage in the right temporal region. He underwent surgery in the form of right posterior temporal craniotomy and evacuation of intracerebral hematoma. Because of the persistence of the lung infiltrates and continuation of ventilation with difficulty weaning off the ventilator, this consultation is requested for infectious disease evaluation. Past Medical History: PAST MEDICAL HISTORY: Hypertension, hyperlipidemia, diabetes mellitus. Total right knee replacement. Allergies/Adverse Reactions: Allergies clear tape,plastic tape Allergy (Severe, Uncoded 10/04/18 18:47) Blister Objective Vital Signs 10/13/18 17:15 10/13/18 17:30 10/13/18 17:45 Temperature 100.6 F H 100.8 F H 100.8 F H Pulse Rate 89 84 81 Respiratory Rate 13 13 13 Blood Pressure Pulse Oximetry 93 L 93 L 97 10/13/18 18:00 10/13/18 18:15 10/13/18 18:30 Temperature 100.8 F H 100.9 F H Pulse Rate 80 80 80 Respiratory Rate 13 13 13 Blood Pressure Pulse Oximetry 97 97 96 10/13/18 18:45 10/13/18 19:00 10/13/18 19:15 Temperature Pulse Rate 81 79 79 Respiratory Rate 13 13 17 Blood Pressure Pulse Oximetry 96 96 95 10/13/18 19:26 10/13/18 19:30 10/13/18 19:45 Temperature Pulse Rate 80 85 Respiratory Rate 12 13 13 Blood Pressure Pulse Oximetry 96 96 95 10/13/18 20:00 10/13/18 20:15 10/13/18 20:30 Temperature 100.9 F H Pulse Rate 84 84 84 Respiratory Rate 12 13 22 Blood Pressure Pulse Oximetry 95 95 95 10/13/18 20:45 10/13/18 21:00 10/13/18 21:15 Temperature Pulse Rate 84 84 86 Respiratory Rate 13 13 13 Blood Pressure Pulse Oximetry 91 L 93 L 96 10/13/18 21:30 10/13/18 21:45 10/13/18 22:00 Temperature 100.6 F H 100.6 F H Pulse Rate 85 84 84 Respiratory Rate 13 13 13 Blood Pressure Pulse Oximetry 96 96 96 10/13/18 22:15 10/13/18 22:30 10/13/18 22:45 Temperature Pulse Rate 83 83 83 Respiratory Rate 13 13 13 Blood Pressure Pulse Oximetry 96 96 95 10/13/18 23:00 10/13/18 23:15 10/13/18 23:17 Temperature 100.6 F H Pulse Rate 82 82 79 Respiratory Rate 13 13 13 Blood Pressure Pulse Oximetry 96 95 95 10/13/18 23:30 10/13/18 23:45 10/14/18 00:00 Temperature Pulse Rate 81 81 81 Respiratory Rate 13 13 13 Blood Pressure Pulse Oximetry 95 95 95 10/14/18 00:15 10/14/18 00:30 10/14/18 00:45 Temperature 100.4 F H 100.4 F H Pulse Rate 82 82 83 Respiratory Rate 13 12 13 Blood Pressure Pulse Oximetry 94 L 95 95 10/14/18 01:00 10/14/18 01:15 10/14/18 01:30 Temperature 100.4 F H Pulse Rate 83 83 83 Respiratory Rate 13 13 13 Blood Pressure Pulse Oximetry 95 95 95 10/14/18 01:45 10/14/18 02:00 10/14/18 02:15 Temperature 100.2 F H Pulse Rate 83 82 82 Respiratory Rate 13 12 17 Blood Pressure Pulse Oximetry 95 95 89 L 10/14/18 02:30 10/14/18 02:45 10/14/18 03:00 Temperature 100.0 F H Pulse Rate 80 80 79 Respiratory Rate 13 13 13 Blood Pressure Pulse Oximetry 95 91 L 94 L 10/14/18 03:15 10/14/18 03:30 10/14/18 03:45 Temperature 100.0 F H Pulse Rate 79 80 79 Respiratory Rate 13 13 13 Blood Pressure Pulse Oximetry 95 94 L 92 L 10/14/18 04:00 10/14/18 04:04 10/14/18 04:15 Temperature 99.9 F H Pulse Rate 79 78 77 Respiratory Rate 13 12 13 Blood Pressure Pulse Oximetry 94 L 38 L 94 L 10/14/18 04:30 10/14/18 04:45 10/14/18 05:00 Temperature 99.7 F H Pulse Rate 77 77 77 Respiratory Rate 13 13 13 Blood Pressure Pulse Oximetry 96 94 L 96 10/14/18 05:15 10/14/18 05:30 10/14/18 05:45 Temperature Pulse Rate 77 77 77 Respiratory Rate 13 13 12 Blood Pressure Pulse Oximetry 96 96 95 10/14/18 06:00 10/14/18 06:15 10/14/18 06:30 Temperature 99.5 F 99.5 F 99.5 F Pulse Rate 77 76 76 Respiratory Rate 13 13 12 Blood Pressure Pulse Oximetry 95 95 95 10/14/18 06:45 10/14/18 07:00 10/14/18 07:15 Temperature 99.5 F 99.5 F 99.3 F Pulse Rate 76 75 75 Respiratory Rate 13 13 13 Blood Pressure Pulse Oximetry 95 95 95 10/14/18 07:30 10/14/18 07:45 10/14/18 07:54 Temperature 99.3 F 99.3 F 99.3 F Pulse Rate 75 75 74 Respiratory Rate 13 13 13 Blood Pressure 128/61 Pulse Oximetry 96 95 97 10/14/18 08:00 10/14/18 08:09 10/14/18 08:10 Temperature 99.3 F Pulse Rate 74 74 Respiratory Rate 13 13 Blood Pressure Pulse Oximetry 97 97 10/14/18 08:15 10/14/18 08:30 10/14/18 08:45 Temperature 99.3 F 99.1 F 99.1 F Pulse Rate 72 72 74 Respiratory Rate 13 13 13 Blood Pressure Pulse Oximetry 97 97 95 10/14/18 09:00 10/14/18 09:15 10/14/18 09:30 Temperature 99.1 F 99.1 F 99.1 F Pulse Rate 81 85 87 Respiratory Rate 13 13 13 Blood Pressure Pulse Oximetry 96 96 95 10/14/18 09:45 10/14/18 10:00 10/14/18 10:15 Temperature 99.1 F 99.1 F 99.1 F Pulse Rate 88 88 87 Respiratory Rate 13 13 13 Blood Pressure Pulse Oximetry 96 96 95 10/14/18 10:30 10/14/18 10:45 10/14/18 11:00 Temperature 99.1 F 99.1 F 99.1 F Pulse Rate 88 87 86 Respiratory Rate 13 13 13 Blood Pressure Pulse Oximetry 96 95 95 10/14/18 11:52 10/14/18 11:55 Temperature Pulse Rate 82 Respiratory Rate 13 13 Blood Pressure Pulse Oximetry 97 Intake & Output 10/13/18 10/14/18 10/14/18 18:59 06:59 18:59 Intake Total 2454 / 2454 2228 / 2228 605 / 605 Output Total 3800 / 3800 175 / 175 Balance -1346 / -1346 2052 / 2052 605 / 605 Weight 213.7 kg Intake: IV 2320 / 2320 1989 605 / 605 Bumex Inj 25 mg In 100 ml @ 1 80 / 80 MG/HR 4 mls/hr IV.CONT .Q24H [facility] Rx#:[id number] DOBUTamine 250 MG/250 ML Premix 250 / 250 250 mg In 250 ml @ 2.5 MCG/KG/ MIN 32.055 mls/hr IV.CONT . Q7H48M [facility] Rx#:[id number] Versed Inj 100 mg In 100 ml @ 6 100 / 100 MG/HR 6 mls/hr IV.CONT TITRATE PRN Rx#:[id number] Diprivan 1000 mg/100 ml Inj 1, 100 / 100 000 mg In 100 ml @ 5 MCG/KG/MIN 5.34 mls/hr IV.CONT TITRATE PRN Rx#:[id number] Sodium Bicarbonate 8.4% Inj 150 165 / 165 MEQ In Sterile Water for Inj 850 ML @ 50 mls/hr IV.CONT . Q20H [facility] Rx#:[id number] Pitressin Inj 40 UNIT In D5W 100 / 100 Inj 98 ML @ 0.01 UNITS/MIN 1.5 mls/hr IV.CONT TITRATE PRN Rx#: [id number] Calcium Chloride Inj 2 GM In 120 / 120 D5W Inj 100 ML @ 120 mls/hr IV. SIG ONCE ONE Rx#:[id number] Maxipime Inj 2,000 MG In NS Inj 100 / 100 100 / 100 100 ML @ 200 mls/hr IV.SIG Q12H [facility] Rx#:[id number] Levaquin 250 mg Premix Inj 250 50 / 50 mg In 50 ml @ 50 mls/hr IV.SIG Q48H [facility] Rx#:[id number] Magnesium Sulfate Inj 2 GM In 100 / 100 NS Inj 96 ML @ 50 mls/hr IV.SIG ONCE ONE Rx#:[id number] Levophed Inj 4 MG In NS Inj 246 250 / 250 235 / 235 ML @ 2 MCG/MIN 7.5 mls/hr IV. SIG TITRATE PRN Rx#:[id number] Sodium Bicarbonate 8.4% Inj 150 1000 / 1000 MEQ In Sterile Water for Inj 1 ,000 ML @ 100 mls/hr IV.SIG . [id number] [facility] Rx#:[id number] fentaNYL 10 mcg/mL Premix Drip 250 / 250 2,500 mcg In 250 ml @ 50 MCG/HR 5 mls/hr IV.SIG TITRATE PRN Rx #:[id number] Keppra Inj 500 MG In NS Inj 100 105 / 105 105 / 105 105 / 105 ML @ 400 mls/hr IV.SIG Q12H [facility] Rx#:[id number] Flolan (30,000 ng/mL) Neb 52.5 100 / 100 200 / 200 100 / 100 ML In NS Inj 47.5 ML @ 5 mls/hr NEB Q8H [facility] Rx#:[id number] Oral 0 / 0 Tube Feeding 74 / 74 208 / 208 Tube Irrigant 30 / 30 Water Bolus Amount 60 / 60 Output: Stool 150 / 150 Hemodialysis Amount 3500 / 3500 Urine Amount (Catheter) 150 / 150 150 / 150 Indwelling Temp Sensing 150 / 150 Catheter Indwelling Urethral Catheter 150 / 150 Stool Amount (Stoma) Pre-Hospital: Other: Date of Last Bowel Movement 10/13/18 10/13/18 16:15 Sputum - Endotracheal Gram Stain - Final 10/13/18 16:15 Sputum - Endotracheal Sputum Culture - Preliminary Light growth normal respiratory joselin at 24 hours 10/13/18 16:15 Clean Catch Urine Urine Culture - Preliminary No growth in 24 hours 10/13/18 18:31 Blood - Peripheral Aerobic Blood Culture - Preliminary No growth in 1 day 10/13/18 18:31 Blood - Peripheral Anaerobic Blood Culture - Preliminary No growth in 1 day 10/13/18 18:25 Blood - Peripheral Aerobic Blood Culture - Preliminary No growth in 1 day 10/13/18 18:25 Blood - Peripheral Anaerobic Blood Culture - Preliminary No growth in 1 day 10/11/18 05:00 Catheterized Urine Urine Culture - Final No growth in 48 hours Lab - Hematology Results 10/13/18 10/14/18 05:00 05:00 WBC 10.2 8.0 RBC 3.84 L 3.46 L Hgb 10.7 L 9.8 L Hct 33.5 L 30.5 L MCV 87.3 88.1 MCH 28.0 28.2 MCHC 32.0 32.0 RDW 16.2 16.5 Plt Count 231 D 173 MPV 9.2 9.1 Prelim Diff (Auto) Manual diff required Slide review pending Neut % (Auto) 78.9 H Lymph % (Auto) 9.8 Moffat % (Auto) 9.8 H Eos % (Auto) 1.0 Baso % (Auto) 0.5 Neut # (Auto) 6.3 Lymph # (Auto) 0.8 L Moffat # (Auto) 0.8 Eos # (Auto) 0.1 Baso # (Auto) 0.0 WBC Differential Manual diff final Manual diff final Seg Neuts % (Manual) 66 87 H Band Neuts % (Manual) 6 1 Lymphocytes % (Manual) 12 10 Monocytes % (Manual) 9 H 1 Eosinophils % (Manual) 2 Metamyelocytes % (Man) 3 H 1 Myelocytes % (Man) 2 H Abs Neuts (Manual) 7.9 H 7.1 Nucleated RBCs/100 WBC 6 H 3 H Differential Comment . . Platelet Estimate Normal Normal Platelet Morphology Clumped H Normal Acanthocytes (Spur) Occ H Lab - Chemistry Results 10/12/18 10/12/18 10/13/18 17:50 20:26 05:00 Sodium 153 H Potassium 4.5 D Chloride 120 H Carbon Dioxide 17.6 L Anion Gap 15 BUN 101 H Creatinine 4.26 H Estimated GFR 14 L POC Glucose 182 H 188 H Random Glucose 182 H Calcium 9.7 Magnesium 2.8 H 10/13/18 10/13/18 10/13/18 05:00 14:02 17:49 Sodium Potassium Chloride Carbon Dioxide Anion Gap BUN Creatinine Estimated GFR POC Glucose 187 H 197 H Random Glucose Calcium Magnesium Cancelled 10/13/18 10/14/18 23:59 05:00 Sodium 151 H Potassium 5.0 Chloride 115 H Carbon Dioxide 18.9 L Anion Gap 17 H BUN 109 H Creatinine 5.11 H Estimated GFR 11 L POC Glucose 222 H Random Glucose 244 H Calcium 9.8 Magnesium Imaging: ITS Impressions Neck CTA 10/03/18 00:00 CONCLUSION: 1. The left vert originates directly from the arch. 2. Atherosclerotic plaquing at the carotid bifurcation but no hemodynamically significant carotid artery stenosis identified. 3. CTA of the brain pending. Head CTA 10/03/18 07:56 CONCLUSION: No acute [place] vascular findings . Abdomen/Bladder Ultrasound 10/04/18 00:00 CONCLUSION: No hydronephrosis Head CT 10/05/18 00:00 CONCLUSION: Satisfactory postop appearance . Chest X-Ray 10/14/18 00:00 CONCLUSION: 1. New ET tube cannot be definitively visualized. 2. Remaining tubes and lines are grossly stable although the NG tube is now well demonstrated beyond the inferior chest. 3. Persistent bilateral mid to lower lung zone pleural-parenchymal opacities consistent with ARDS/pulmonary edema versus diffuse infection. Physical Exam: PHYSICAL EXAMINATION: GENERAL: Unresponsive on the ventilator. HEENT: Unable to fully assess. Conjunctivae have edema. Oropharynx is intubated. NECK: No adenopathy. LUNGS: Markedly diminished breath sounds. HEART: Regular S1, S2, without murmurs. ABDOMEN: Bowel sounds diminished, obese. EXTREMITIES: No clubbing or cyanosis. 2+ nonpitting edema. Multiple clear fluid-filled blisters at the left upper extremity. No erythema. SKIN: No diffuse rash. NEUROLOGIC: Unable to assess because the patient is unresponsive and intubated. PSYCHIATRIC: Unable to assess. Assessment and Plan - Plan IMPRESSION: 1. Pneumonia versus atelectasis in a patient with persistent infiltrates despite diuresis. Sputum culture has no growth. Chest x-ray shows probable pleural effusion. 2. Acute respiratory failure. 3. Intraparenchymal hematoma, status post intracranial pressure monitor and evacuation. RECOMMENDATIONS: 1. Continue vancomycin. 2. Continue cefepime. 3. Continue Levaquin. 4. Monitor clinical response.
[2018-10-14] MEDS: Albumin Human 25% Inj 100 ML IV.SIG SCH (17:25)
[2018-10-14] MEDS: Sodium Bicarbonate 8.4% Inj 150 MEQ in Water for Inj, Sterile 850 ML IV.SIG SCH (17:50)
[2018-10-14 23:50] LABS: Alanine Aminotransferase 325 U/L (12-78); Albumin 2.8 g/dL (3.4-5.0); Alkaline Phosphatase 61 U/L (45-117); Anion Gap 12 meq/L (5-15); Aspartate Aminotransferase 252 U/L (15-37); Blood Urea Nitrogen 104 mg/dL (7-18); Carbon Dioxide 23.7 meq/L (21.0-32.0); Chloride 111 meq/L (98-107); Glomerular Filtration Rate 12 mL/min (>89); Glucose,Random 262 mg/dL (74-106); Potassium 4.3 meq/L (3.5-5.1); Sodium 147 meq/L (136-145); Total Protein 5.8 g/dL (6.4-8.2)
[2018-10-15] MEDS: Oral Hygiene Kit OROPHARYNG SCH ×4 (00:19→18:56)
[2018-10-15] MEDS: Insulin NovoLOG Aspart Correctional Sugar Inj SQ SCH ×4 (00:29→18:56)
[2018-10-15] MEDS: Sodium Bicarbonate 8.4% Inj 150 MEQ in Water for Inj, Sterile 850 ML IV.SIG SCH ×2 (04:21→14:30)
[2018-10-15] MEDS: Norepinephrine Inj 4 MG in Sodium Chlor 0.9% Inj 246 ML IV.SIG PRN (05:02)
[2018-10-15 05:22] LABS: ABG Base Excess -3.2 mmol/L (-2-2); ABG PCO2 44 mmHg (38-42); ABG PO2 95 mmHg (61-120)
[2018-10-15] MEDS: EPOPROSTENOL NEB SCH ×3 (06:48→17:00)
[2018-10-15] MEDS: SODIUM CHLOR NEB SCH ×3 (06:48→17:00)
[2018-10-15] MEDS: Albumin Human 25% Inj 100 ML IV.SIG SCH ×2 (06:49→18:56)
[2018-10-15] MEDS: Midazolam 100 MG/100 ML Inj 100 MG/100 ML BAG IV.CONT PRN ×2 (07:01→23:43)
[2018-10-15] MEDS: DOBUTamine 250 MG/250 ML Premx 250 MG/250 ML BAG IV.CONT SCH ×3 (08:00→23:42)
[2018-10-15] MEDS: Sodium Chloride 0.9% 2 ML Flush BID IV.FLUSH SCH ×2 (08:44→21:11)
[2018-10-15] MEDS: Chlorhexidine 0.12% Oral Kit 15 ML UDC OROPHARYNG SCH ×2 (08:44→21:11)
[2018-10-15] MEDS: fentaNYL 10 mcg/mL Premix Drip 2,500 MCG/250 ML BAG IV.SIG PRN (08:45)
[2018-10-15] MEDS: Famotidine PF Inj 20 MG/2 ML Vial IV.PUSH SCH ×2 (08:48→21:11)
[2018-10-15] MEDS: Senna/Docusate Sodium 8.6/50 MG Tablet PO SCH ×2 (08:48→21:11)
--- NOTE | 2018-10-15 09:15 | P.PNCC ---
Subjective Subjective Remarks/Hospital Course: Patient is a 68-year-old morbidly obese male with past medical history significant for hypertension, diabetes, dyslipidemia, morbid obesity, thyroid disease, history of colon resection and colostomy, who presented to the [facility] with left-sided headache and poorly controlled hypertension. Apparently he woke up with severe left-sided headache was moderately confused and family brought him to the emergency department. The patient did take aspirin for his headache prior to presentation. A stat CT of the head showed large 6.9 x 3.6 x 3.2 cm acute intraparenchymal hemorrhage in the right temporoparietal region with approximate blood volume of 40 mL. There was surrounding edema and 2-3 mm leftward midline shift. Neurosurgery Dr. Hills was contacted and patient was transferred to [facility]. PT/INR/ platelet count was normal in the outside hospital. BUN was 43 creatinine was 2. I evaluated the patient in the ICU. Patient is awake but somnolent oriented only to person. He drifts to sleep while talking. His systolic blood pressure was 200 on arrival. Because of questionable airway protection and need for further imaging studies patient was intubated and placed on mechanical ventilation. Dr. Hills had been informed. I will start Cardene to control blood pressure, repeat stat CT head also CT angiogram of brain and neck will be performed. Also give 25 g of IV mannitol, start on 2% saline to keep sodium more than 150-155, also placed on Keppra for seizure prophylaxis. 10/04: Will start oral BP meds down NG tube and attempt to wean cardene. CKD persists as expected. Glucose swing expected. Keep intubated and sedated for now. 10/05: Better blood pressure control with by systolic and amlodipine restarted. Increased difficulty with oxygenation today, now requiring 100% FiO2 and 12 PEEP. Chest x-ray shows atelectasis involving the whole left lower lobe, cultures all negative for significant organism, no white blood cells. Will get repeat head CAT scan today. 10/06: Repeat head CT look good. Worsening difficulties with oxygenation related to the left lower lobe atelectasis. Converted to airway pressure release ventilation this morning. ICP continues to be very well controlled. 10/07: Lightening sedation today. ICP bolt has been removed. Oxygenation has improved. Continue airway pressure release ventilation. Renal function worse today, hydrate gently with isotonic saline and follow closely. 10/08: Continued difficulties with oxygenation related to preoperative lung injury from his pneumonia, body habitus, fluid overload associated with his chronic kidney disease. We will be forced to go back to airway pressure release ventilation because he de-recruited severely after converting to conventional ventilation yesterday despite PEEP of 18. 10/09: Starting to claw our way back to better oxygenation. He recruited severely on conventional ventilation despite markedly elevated PEEP. Hefty diuresis accomplished with Lasix drip however volume load from vancomycin and Cardene infusions makes it hard to get a significant reduction in total body water. This gentleman had pneumonia prior to his surgery and his persistent left lower lobe infiltrate impaired oxygenation early on. His chest x-ray still demonstrates consolidated areas in the left lower lung. 10/10: Increasing FiO2 requirement overnight. On 100% FiO2, AP RV mode mechanical ventilation this morning. Started on inhaled Flolan with which her O2 sats came up from high 80s to 93%. On Lasix drip however not really diuresing. BNP 57 on 10/09. 10/11: Remains sedated, orally intubated on mechanical ventilation. On inhaled Flolan. Started on Bumex drip by nephrology yesterday with significant increase in urine output. O2 sats 96% on 100% FiO2 APRV mode mechanical ventilation 10/12: Remains sedated, orally intubated on mechanical ventilation. FiO2 back up to 100% on AP RV mode. Inhaled Flolan continues. Remains on Bumex drip. 10/13: Remains sedated, orally intubated on mechanical ventilation. On inhaled Flolan. Remains on APRV mode, FiO2 down to 60%. On Bumex drip. Not really diuresing much. BNP has been normal. Worsening renal function now with metabolic acidosis. Patient is hypotensive on Levophed currently. Need to start renal replacement therapy after Vas-Cath placement as discussed with Dr. Gasca. Not much pleural fluid to tap on ultrasound done at bedside by myself yesterday. 10/14: Patient is still struggling with renal failure. Oxygenation has improved modestly with inhaled prostacyclin but mean airway pressures remain considerably elevated to prevent de-recruitment. Right ventricular function depressed on echo. Will try dobutamine low dose to hopefully improve cardiac output. I clearly anticipate that we will need higher doses of norepinephrine from dobutamine vasodilation but the only way to get rid of his edema is to mobilize more peripheral fluid. 10/15: Urine output minimal, less than 100%. We are stock at 60% oxygen and despite markedly elevated mean airway pressures do not seem to be L to make much progress past this point. Toes are pinker after instituting dobutamine but no other obvious improvement. After 12-day hospitalization he remains critically ill and his recovery is severely hampered by his chronic kidney disease and persistent pulmonary problems. - Diagnosis (1) Intraparenchymal hemorrhage of brain (2) Midline shift of brain (3) Acute encephalopathy (4) Hypertensive emergency (5) LLL pneumonia (6) Acute kidney injury (7) History of hypertension (8) Type 2 diabetes mellitus (9) Dyslipidemia (10) Morbid obesity Objective Vital Signs / I&O: Vital Signs 10/14/18 09:15 10/14/18 09:30 10/14/18 09:45 Temperature 99.1 F 99.1 F 99.1 F Pulse Rate 85 87 88 Respiratory Rate 13 13 13 Blood Pressure Pulse Oximetry 96 95 96 10/14/18 10:00 10/14/18 10:15 10/14/18 10:30 Temperature 99.1 F 99.1 F 99.1 F Pulse Rate 88 87 88 Respiratory Rate 13 13 13 Blood Pressure Pulse Oximetry 96 95 96 10/14/18 10:45 10/14/18 11:00 10/14/18 11:15 Temperature 99.1 F 99.1 F 99.1 F Pulse Rate 87 86 87 Respiratory Rate 13 13 13 Blood Pressure Pulse Oximetry 95 95 96 10/14/18 11:30 10/14/18 11:45 10/14/18 11:52 Temperature 99.1 F 99.1 F Pulse Rate 86 85 82 Respiratory Rate 13 13 13 Blood Pressure Pulse Oximetry 96 95 10/14/18 11:55 10/14/18 12:00 10/14/18 12:15 Temperature 99.1 F 99.1 F Pulse Rate 84 85 Respiratory Rate 13 13 13 Blood Pressure Pulse Oximetry 97 96 95 10/14/18 12:21 10/14/18 12:30 10/14/18 12:45 Temperature 99.1 F 99.1 F 99.1 F Pulse Rate 85 83 85 Respiratory Rate 13 13 13 Blood Pressure 144/68 H 164/71 H 175/66 H Pulse Oximetry 96 95 96 11/24/18 13:00 10/14/18 13:15 10/14/18 13:30 Temperature 99.1 F 99.1 F 99.1 F Pulse Rate 87 86 87 Respiratory Rate 13 13 13 Blood Pressure 116/51 L 124/61 134/70 Pulse Oximetry 96 90 L 94 L 10/14/18 13:45 10/14/18 14:00 10/14/18 14:15 Temperature 99.1 F 99.1 F 99.1 F Pulse Rate 86 90 89 Respiratory Rate 13 13 13 Blood Pressure 144/60 H 120/56 L Pulse Oximetry 94 L 90 L 94 L 10/14/18 14:27 10/14/18 14:30 10/14/18 14:45 Temperature 99.1 F 99.1 F 99.1 F Pulse Rate 85 85 86 Respiratory Rate 13 13 13 Blood Pressure 161/62 H Pulse Oximetry 95 96 96 10/14/18 15:00 10/14/18 15:15 10/14/18 15:30 Temperature 99.1 F 99.1 F 99.1 F Pulse Rate 86 90 90 Respiratory Rate 13 13 13 Blood Pressure Pulse Oximetry 95 90 L 91 L 10/14/18 15:45 10/14/18 16:00 10/14/18 16:15 Temperature 99.1 F 99.1 F 99.1 F Pulse Rate 93 H 87 88 Respiratory Rate 13 13 13 Blood Pressure Pulse Oximetry 90 L 87 L 88 L 10/14/18 16:30 10/14/18 16:45 10/14/18 17:00 Temperature 99.3 F 99.3 F 99.3 F Pulse Rate 86 89 82 Respiratory Rate 13 15 15 Blood Pressure Pulse Oximetry 95 91 L 91 L 10/14/18 17:15 10/14/18 17:26 10/14/18 17:30 Temperature 99.5 F 99.5 F Pulse Rate 85 86 Respiratory Rate 15 15 15 Blood Pressure Pulse Oximetry 90 L 92 L 89 L 10/14/18 17:33 10/14/18 17:45 10/14/18 18:00 Temperature 99.5 F Pulse Rate 87 86 85 Respiratory Rate 15 15 15 Blood Pressure Pulse Oximetry 90 L 90 L 10/14/18 18:15 10/14/18 18:30 10/14/18 18:45 Temperature 99.5 F 99.5 F 99.5 F Pulse Rate 86 87 86 Respiratory Rate 15 15 15 Blood Pressure Pulse Oximetry 90 L 90 L 89 L 10/14/18 19:00 10/14/18 19:15 10/14/18 19:30 Temperature 99.5 F 99.5 F 99.7 F H Pulse Rate 86 87 87 Respiratory Rate 15 15 15 Blood Pressure Pulse Oximetry 90 L 89 L 89 L 10/14/18 19:45 10/14/18 20:00 10/14/18 20:04 Temperature 99.7 F H 99.7 F H Pulse Rate 87 87 87 Respiratory Rate 15 15 15 Blood Pressure Pulse Oximetry 90 L 89 L 91 L 10/14/18 20:15 10/14/18 20:30 10/14/18 20:45 Temperature 99.7 F H 99.7 F H 99.7 F H Pulse Rate 88 89 Respiratory Rate 15 15 Blood Pressure 141/63 H Pulse Oximetry 90 L 90 L 90 L 10/14/18 21:00 10/14/18 21:15 10/14/18 21:30 Temperature 99.7 F H 99.7 F H 99.9 F H Pulse Rate 88 88 87 Respiratory Rate 15 15 15 Blood Pressure Pulse Oximetry 91 L 91 L 91 L 10/14/18 21:45 10/14/18 22:00 10/14/18 22:15 Temperature 99.9 F H 99.9 F H 100.0 F H Pulse Rate 87 89 87 Respiratory Rate 15 15 15 Blood Pressure Pulse Oximetry 91 L 91 L 91 L 10/14/18 22:30 10/14/18 22:45 10/14/18 23:00 Temperature 100.0 F H 100.2 F H 100.2 F H Pulse Rate 89 86 86 Respiratory Rate 15 15 15 Blood Pressure Pulse Oximetry 91 L 91 L 92 L 10/14/18 23:05 10/14/18 23:15 10/14/18 23:30 Temperature 100.2 F H 100.2 F H 100.2 F H Pulse Rate 88 90 90 Respiratory Rate 15 15 15 Blood Pressure 126/61 Pulse Oximetry 94 L 92 L 93 L 10/14/18 23:34 10/14/18 23:45 10/15/18 00:00 Temperature 100.2 F H 100.4 F H Pulse Rate 91 H 92 H 92 H Respiratory Rate 15 15 15 Blood Pressure Pulse Oximetry 90 L 89 L 10/15/18 00:15 10/15/18 00:30 10/15/18 00:45 Temperature 100.4 F H 100.4 F H 100.4 F H Pulse Rate 96 H 92 H 96 H Respiratory Rate 15 15 15 Blood Pressure Pulse Oximetry 89 L 90 L 90 L 10/15/18 01:00 10/15/18 01:15 10/15/18 01:30 Temperature 100.4 F H 100.6 F H 100.6 F H Pulse Rate 96 H 95 H 95 H Respiratory Rate 15 15 15 Blood Pressure Pulse Oximetry 90 L 90 L 90 L 10/15/18 01:45 10/15/18 02:00 10/15/18 02:15 Temperature 100.6 F H 100.6 F H 100.8 F H Pulse Rate 93 H 89 94 H Respiratory Rate 15 15 15 Blood Pressure Pulse Oximetry 90 L 90 L 91 L 10/15/18 02:30 10/15/18 02:45 10/15/18 03:00 Temperature 100.8 F H 100.8 F H 100.8 F H Pulse Rate 96 H 95 H 96 H Respiratory Rate 15 15 15 Blood Pressure Pulse Oximetry 91 L 90 L 90 L 10/15/18 03:15 10/15/18 03:19 10/15/18 03:30 Temperature 100.8 F H 100.9 F H Pulse Rate 95 H 95 H 93 H Respiratory Rate 15 14 15 Blood Pressure Pulse Oximetry 90 L 90 L 10/15/18 03:45 10/15/18 03:59 10/15/18 04:00 Temperature 100.9 F H 100.9 F H Pulse Rate 94 H 94 H Respiratory Rate 15 14 15 Blood Pressure Pulse Oximetry 90 L 92 L 90 L 10/15/18 04:15 10/15/18 04:30 10/15/18 04:45 Temperature 100.9 F H 100.9 F H 100.9 F H Pulse Rate 94 H 92 H 93 H Respiratory Rate 15 15 15 Blood Pressure Pulse Oximetry 90 L 91 L 90 L 10/15/18 05:00 10/15/18 05:15 10/15/18 05:30 Temperature 101.1 F H 101.1 F H 101.1 F H Pulse Rate 92 H 91 H 92 H Respiratory Rate 15 15 15 Blood Pressure Pulse Oximetry 90 L 90 L 91 L 10/15/18 05:45 10/15/18 06:00 10/15/18 08:12 Temperature 101.1 F H 101.1 F H Pulse Rate 92 H 93 H 93 H Respiratory Rate 15 15 14 Blood Pressure Pulse Oximetry 91 L 88 L 90 L Intake & Output 10/14/18 10/15/18 10/15/18 18:59 06:59 18:59 Intake Total 2658 / 2658 2040 / 2040 700 / 700 Output Total 150 / 150 200 / 200 Balance 2508 / 2508 1840 / 1840 700 / 700 Weight 214.4 kg Intake: IV 2455 / 2455 1805 / 1805 700 / 700 DOBUTamine 250 MG/250 ML Premix 250 / 250 250 / 250 250 / 250 250 mg In 250 ml @ 2.5 MCG/KG/ MIN 32.055 mls/hr IV.CONT . Q7H48M [facility] Rx#:[id number] Versed Inj 100 mg In 100 ml @ 6 100 / 100 100 / 100 MG/HR 6 mls/hr IV.CONT TITRATE PRN Rx#:[id number] Pitressin Inj 40 UNIT In D5W 100 / 100 Inj 98 ML @ 0.01 UNITS/MIN 1.5 mls/hr IV.CONT TITRATE PRN Rx#: [id number] Flexbumin 25% Inj 100 ML @ 60 100 / 100 100 / 100 mls/hr IV.SIG Q12H [facility] Rx#: [id number] Maxipime Inj 2,000 MG In NS Inj 100 / 100 100 ML @ 200 mls/hr IV.SIG Q24H [facility] Rx#:[id number] Levaquin 250 mg Premix Inj 250 50 / 50 mg In 50 ml @ 50 mls/hr IV.SIG Q48H [facility] Rx#:[id number] Levophed Inj 4 MG In NS Inj 246 250 / 250 250 / 250 ML @ 2 MCG/MIN 7.5 mls/hr IV. SIG TITRATE PRN Rx#:[id number] Sodium Bicarbonate 8.4% Inj 150 1150 / 1150 1000 / 1000 MEQ In Sterile Water for Inj 850 ML @ 100 mls/hr IV.SIG . Q10H [facility] Rx#:[id number] fentaNYL 10 mcg/mL Premix Drip 250 / 250 250 / 250 2,500 mcg In 250 ml @ 50 MCG/HR 5 mls/hr IV.SIG TITRATE PRN Rx #:[id number] Keppra Inj 500 MG In NS Inj 100 105 / 105 105 / 105 ML @ 400 mls/hr IV.SIG Q12H [facility] Rx#:[id number] Flolan (30,000 ng/mL) Neb 52.5 100 / 100 100 / 100 ML In NS Inj 47.5 ML @ 5 mls/hr NEB Q8H [facility] Rx#:[id number] Tube Feeding 173 / 173 175 / 175 Tube Irrigant 30 / 30 Water Bolus Amount 60 / 60 Output: Urine 100 / 100 Stool 100 / 100 Urine Amount (Catheter) 100 / 100 Indwelling Temp Sensing 100 / 100 Catheter Stool Amount (Stoma) 50 / 50 Pre-Hospital: 50 / 50 Result Diagrams: 10/14/18 05:00 10/14/18 23:10 Objective Remarks: Narrative: GEN: Morbidly obese male, intubated, on mechanical ventilation. Generally edematous and swollen. HEENT: Scalp incision open to air, dry and clean. NECK: Supple. Orotracheal intubation. Orogastric tube in place. LUNGS: On mechanical ventilation, APRV mode, 60% FiO2, breath sounds reduced in both bases. HEART: S1 and S2 normal, heart sounds distant. Neck veins are full. ABDOMEN: Soft. Nontender. Obese. Well-healed vertical scar. Right lower quadrant colostomy bag in place with dark liquid stool EXTREMITIES: Knee repair scar left side. Limbs generally edematous 2+, toes pink. NEUROLOGIC: Intubated, sedated. Does not breathe over the ventilator. Assessment and Plan - Problem List (1) Intraparenchymal hemorrhage of brain Code(s): I61.9 - Nontraumatic intracerebral hemorrhage, unspecified Status: Acute (2) Midline shift of brain Code(s): G93.9 - Disorder of brain, unspecified Status: Acute (3) Acute encephalopathy Code(s): G93.40 - Encephalopathy, unspecified Status: Acute (4) Hypertensive emergency Code(s): I16.1 - Hypertensive emergency Status: Acute (5) LLL pneumonia Code(s): J18.1 - Lobar pneumonia, unspecified organism Status: Acute (6) Acute kidney injury Code(s): N17.9 - Acute kidney failure, unspecified Status: Acute (7) History of hypertension Code(s): Z86.79 - Personal history of other diseases of the circulatory system Status: Chronic (8) Type 2 diabetes mellitus Code(s): E11.9 - Type 2 diabetes mellitus without complications Status: Chronic (9) Dyslipidemia Code(s): E78.5 - Hyperlipidemia, unspecified Status: Chronic (10) Morbid obesity Code(s): E66.01 - Morbid (severe) obesity due to excess calories Status: Chronic - Assessment and Plan Plan: NEURO: Acute right temporoparietal intraparenchymal hemorrhage Midline shift Acute encephalopathy -Propofol and fentanyl for sedation and ventilator synchrony after intubation -Keppra 500 mg IV every 12 hours -S/P crani and evacuation 10/03 -Repeat CAT scan of head with minimal edema and no shift 10/05 -Osmolality elevated nicely but renal function worse. -Off 2% saline. -Hemodialysis instituted, still markedly edematous and requiring vasopressor therapy RESP: Acute respiratory failure Left lower lobe pneumonia ARDS Bilateral effusions -Patient was intubated for airway protection -Ventilator bundle -DuoNeb every 6 hours scheduled and as needed -Sputum culture negative -Converted to airway pressure release ventilation -FiO2 100% increased on 10/10. Added inhaled Flolan. FiO2 requirement decreased to 60% on 10/13 -Left lower lobe infiltrate has persisted, related to his pre-existing pneumonia before surgery -Perform bedside ultrasound on 10/12 which showed small effusions bilaterally which do not appear too large to tap. -Cuff leak yesterday, endotracheal tube repositioned closer to the ralph with good seal. CV: Hypertensive emergency Dyslipidemia Hypotension -Off cardene -Arterial line placement -Holding Bysystolic, hydralazine and amlodipine due to hypotension. -holding losartan due to rising creatinine -Started on Levophed for pressor support 10/12. Added low-dose vasopressin . GI: Morbid obesity History of colon resection, status post colostomy -Started Nepro tube feeds on 10/11 and advance to goal of 30 cc/h as tolerated - IV famotidine -Routine colostomy care Renal/: Acute kidney injury/ CKD -Monitor renal function closely. Continue Mendieta catheter. -Being diuresed with Bumex drip. Not much response. BNP 57 on 10/09. I am not sure if fluid overload is his primary problem. -Consulted nephrology for his TARA/CKD, worsening BUN/creatinine and metabolic acidosis now. Plan to start renal replacement therapy on 10/[address] Gasca. Awaiting consent for Vas-Cath placement. ID: Left lower lobe pneumonia/atelectasis UTI -On antibiotics per ID, cefepime. IV vancomycin stopped on 10/09 due to worsening creatinine. -All cultures negative so far. Repeat smith cultures ordered on 10/10. UA sent on 10/10 suggests UTI HEME: -Monitor CBC, coags ENDO: Type 2 diabetes Hypothyroidism -Electrolyte replacement per protocol -Sliding scale insulin -Need to increase basal coverage due to persistent hyperglycemia PROPH: -Bilateral lower extremity SCDs/HIRAL. Chemical DVT prophylaxis contraindicated status post parenchymal brain bleed -IV famotidine LINES: - RIJ central line - HD cath Consulted palliative care to assist with deciding goals of therapy as respiratory status appears to be worsening. D/W Dr. Gasca from nephrology on 10/10 who was consulted to evaluate TARA/ CKD and need for HD for fluid removal. On 10/10 Family meeting held with palliative care and discuss current clinical status including severe acute respiratory failure. Discussed CODE STATUS which at this point remains full code. Explained patient at high risk for hemodynamic instability of respiratory status declines further. Also explained that patient may go into cardiac arrest is unable to maintain O2 sats despite maximal ventilatory support. 10/12: Updated family at bedside regarding plan of care and critical status and they voiced understanding and was agreeable with plan of care. Palliative care has been following however family has not wanted to meet with them last few occasions. Remains full CODE STATUS at this time. I have previously discussed my concern that patient is at high risk for a cardiac arrest status, and given his cardiopulmonary status his prognosis extremely guarded at this time. Overall impression: Patient remains critically ill and pulmonary status is unstable. Persistent respiratory problems due to morbid obesity, pre-existing pneumonia, and supine position. Chronic kidney disease is hampering our attempts at fluid removal. Now again requiring airway pressure release ventilation for recruitment. Hemodialysis is been instituted due to worsening kidney function. He remains critically ill and clinically deteriorating. Prognosis for recovery is now poor. Critical care 38 minutes aside from procedures
[2018-10-15] MEDS: Insulin Detemir Inj 1,000 UNIT/10 ML Vial SQ SCH ×2 (11:55→21:10)
[2018-10-15] MEDS: Vasopressin Inj 40 UNIT in Dextrose 5% in Water Inj 98 ML IV.CONT PRN ×2 (11:56)
--- NOTE | 2018-10-15 13:40 | P.PNNP ---
Subjective Interval history: Patient has been on ventilator FiO2 50%, status post intracranial hematoma evacuation with craniotomy Physical Exam Vital signs: Vital Signs 10/14/18 13:45 10/14/18 14:00 10/14/18 14:15 Temperature 99.1 F 99.1 F 99.1 F Pulse Rate 86 90 89 Respiratory Rate 13 13 13 Blood Pressure 144/60 H 120/56 L Pulse Oximetry 94 L 90 L 94 L 10/14/18 14:27 10/14/18 14:30 10/14/18 14:45 Temperature 99.1 F 99.1 F 99.1 F Pulse Rate 85 85 86 Respiratory Rate 13 13 13 Blood Pressure 161/62 H Pulse Oximetry 95 96 96 10/14/18 15:00 10/14/18 15:15 10/14/18 15:30 Temperature 99.1 F 99.1 F 99.1 F Pulse Rate 86 90 90 Respiratory Rate 13 13 13 Blood Pressure Pulse Oximetry 95 90 L 91 L 10/14/18 15:45 10/14/18 16:00 10/14/18 16:15 Temperature 99.1 F 99.1 F 99.1 F Pulse Rate 93 H 87 88 Respiratory Rate 13 13 13 Blood Pressure Pulse Oximetry 90 L 87 L 88 L 10/14/18 16:30 10/14/18 16:45 10/14/18 17:00 Temperature 99.3 F 99.3 F 99.3 F Pulse Rate 86 89 82 Respiratory Rate 13 15 15 Blood Pressure Pulse Oximetry 95 91 L 91 L 10/14/18 17:15 10/14/18 17:26 10/14/18 17:30 Temperature 99.5 F 99.5 F Pulse Rate 85 86 Respiratory Rate 15 15 15 Blood Pressure Pulse Oximetry 90 L 92 L 89 L 10/14/18 17:33 10/14/18 17:45 10/14/18 18:00 Temperature 99.5 F Pulse Rate 87 86 85 Respiratory Rate 15 15 15 Blood Pressure Pulse Oximetry 90 L 90 L 10/14/18 18:15 10/14/18 18:30 10/14/18 18:45 Temperature 99.5 F 99.5 F 99.5 F Pulse Rate 86 87 86 Respiratory Rate 15 15 15 Blood Pressure Pulse Oximetry 90 L 90 L 89 L 10/14/18 19:00 10/14/18 19:15 10/14/18 19:30 Temperature 99.5 F 99.5 F 99.7 F H Pulse Rate 86 87 87 Respiratory Rate 15 15 15 Blood Pressure Pulse Oximetry 90 L 89 L 89 L 10/14/18 19:45 10/14/18 20:00 10/14/18 20:04 Temperature 99.7 F H 99.7 F H Pulse Rate 87 87 87 Respiratory Rate 15 15 15 Blood Pressure Pulse Oximetry 90 L 89 L 91 L 10/14/18 20:15 10/14/18 20:30 10/14/18 20:45 Temperature 99.7 F H 99.7 F H 99.7 F H Pulse Rate 88 89 Respiratory Rate 15 15 Blood Pressure 141/63 H Pulse Oximetry 90 L 90 L 90 L 10/14/18 21:00 10/14/18 21:15 10/14/18 21:30 Temperature 99.7 F H 99.7 F H 99.9 F H Pulse Rate 88 88 87 Respiratory Rate 15 15 15 Blood Pressure Pulse Oximetry 91 L 91 L 91 L 10/14/18 21:45 10/14/18 22:00 10/14/18 22:15 Temperature 99.9 F H 99.9 F H 100.0 F H Pulse Rate 87 89 87 Respiratory Rate 15 15 15 Blood Pressure Pulse Oximetry 91 L 91 L 91 L 10/14/18 22:30 10/14/18 22:45 10/14/18 23:00 Temperature 100.0 F H 100.2 F H 100.2 F H Pulse Rate 89 86 86 Respiratory Rate 15 15 15 Blood Pressure Pulse Oximetry 91 L 91 L 92 L 10/14/18 23:05 10/14/18 23:15 10/14/18 23:30 Temperature 100.2 F H 100.2 F H 100.2 F H Pulse Rate 88 90 90 Respiratory Rate 15 15 15 Blood Pressure 126/61 Pulse Oximetry 94 L 92 L 93 L 10/14/18 23:34 10/14/18 23:45 10/15/18 00:00 Temperature 100.2 F H 100.4 F H Pulse Rate 91 H 92 H 92 H Respiratory Rate 15 15 15 Blood Pressure Pulse Oximetry 90 L 89 L 10/15/18 00:15 10/15/18 00:30 10/15/18 00:45 Temperature 100.4 F H 100.4 F H 100.4 F H Pulse Rate 96 H 92 H 96 H Respiratory Rate 15 15 15 Blood Pressure Pulse Oximetry 89 L 90 L 90 L 10/15/18 01:00 10/15/18 01:15 10/15/18 01:30 Temperature 100.4 F H 100.6 F H 100.6 F H Pulse Rate 96 H 95 H 95 H Respiratory Rate 15 15 15 Blood Pressure Pulse Oximetry 90 L 90 L 90 L 10/15/18 01:45 10/15/18 02:00 10/15/18 02:15 Temperature 100.6 F H 100.6 F H 100.8 F H Pulse Rate 93 H 89 94 H Respiratory Rate 15 15 15 Blood Pressure Pulse Oximetry 90 L 90 L 91 L 10/15/18 02:30 10/15/18 02:45 10/15/18 03:00 Temperature 100.8 F H 100.8 F H 100.8 F H Pulse Rate 96 H 95 H 96 H Respiratory Rate 15 15 15 Blood Pressure Pulse Oximetry 91 L 90 L 90 L 10/15/18 03:15 10/15/18 03:19 10/15/18 03:30 Temperature 100.8 F H 100.9 F H Pulse Rate 95 H 95 H 93 H Respiratory Rate 15 14 15 Blood Pressure Pulse Oximetry 90 L 90 L 10/15/18 03:45 10/15/18 03:59 10/15/18 04:00 Temperature 100.9 F H 100.9 F H Pulse Rate 94 H 94 H Respiratory Rate 15 14 15 Blood Pressure Pulse Oximetry 90 L 92 L 90 L 10/15/18 04:15 10/15/18 04:30 10/15/18 04:45 Temperature 100.9 F H 100.9 F H 100.9 F H Pulse Rate 94 H 92 H 93 H Respiratory Rate 15 15 15 Blood Pressure Pulse Oximetry 90 L 91 L 90 L 10/15/18 05:00 10/15/18 05:15 10/15/18 05:30 Temperature 101.1 F H 101.1 F H 101.1 F H Pulse Rate 92 H 91 H 92 H Respiratory Rate 15 15 15 Blood Pressure Pulse Oximetry 90 L 90 L 91 L 10/15/18 05:45 10/15/18 06:00 10/15/18 06:15 Temperature 101.1 F H 101.1 F H 101.1 F H Pulse Rate 92 H 93 H 94 H Respiratory Rate 15 15 15 Blood Pressure Pulse Oximetry 91 L 88 L 91 L 10/15/18 06:30 10/15/18 06:45 10/15/18 07:00 Temperature 101.1 F H 101.1 F H 100.9 F H Pulse Rate 94 H 93 H 93 H Respiratory Rate 15 15 15 Blood Pressure Pulse Oximetry 91 L 91 L 90 L 10/15/18 07:15 10/15/18 07:30 10/15/18 07:45 Temperature 100.9 F H 100.9 F H 100.9 F H Pulse Rate 92 H 94 H 94 H Respiratory Rate 15 15 15 Blood Pressure Pulse Oximetry 90 L 90 L 90 L 10/15/18 08:00 10/15/18 08:12 10/15/18 08:15 Temperature 100.9 F H 100.9 F H Pulse Rate 90 93 H 92 H Respiratory Rate 15 14 15 Blood Pressure Pulse Oximetry 86 L 90 L 90 L 10/15/18 08:30 10/15/18 08:45 10/15/18 09:00 Temperature 100.8 F H 100.8 F H 100.8 F H Pulse Rate 94 H 93 H 92 H Respiratory Rate 15 15 15 Blood Pressure Pulse Oximetry 90 L 90 L 90 L 10/15/18 09:15 10/15/18 09:30 10/15/18 09:45 Temperature 100.8 F H 100.8 F H 100.8 F H Pulse Rate 91 H 91 H 92 H Respiratory Rate 15 21 15 Blood Pressure Pulse Oximetry 90 L 90 L 90 L 10/15/18 10:00 10/15/18 10:15 10/15/18 10:30 Temperature 100.8 F H 100.8 F H 100.8 F H Pulse Rate 91 H 92 H 91 H Respiratory Rate 15 15 15 Blood Pressure Pulse Oximetry 90 L 90 L 91 L 10/15/18 10:45 10/15/18 11:00 10/15/18 11:15 Temperature 100.8 F H 100.8 F H 100.8 F H Pulse Rate 92 H 92 H 92 H Respiratory Rate 15 15 15 Blood Pressure Pulse Oximetry 91 L 91 L 91 L 10/15/18 11:30 10/15/18 11:45 10/15/18 12:00 Temperature 100.8 F H 100.6 F H 100.6 F H Pulse Rate 92 H 90 92 H Respiratory Rate 15 15 15 Blood Pressure Pulse Oximetry 90 L 90 L 89 L 10/15/18 12:15 Temperature 100.6 F H Pulse Rate 93 H Respiratory Rate 15 Blood Pressure Pulse Oximetry 90 L Intake & Output 10/14/18 10/15/18 10/15/18 18:59 06:59 18:59 Intake Total 2658 / 2658 2040 / 2040 905 / 905 Output Total 150 / 150 200 / 200 Balance 2508 / 2508 1840 / 1840 905 / 905 Weight 214.4 kg Intake: IV 2455 / 2455 1805 / 1805 905 / 905 DOBUTamine 250 MG/250 ML Premix 250 / 250 250 / 250 250 / 250 250 mg In 250 ml @ 2.5 MCG/KG/ MIN 32.055 mls/hr IV.CONT . Q7H48M [facility] Rx#:[id number] Versed Inj 100 mg In 100 ml @ 6 100 / 100 100 / 100 MG/HR 6 mls/hr IV.CONT TITRATE PRN Rx#:[id number] Pitressin Inj 40 UNIT In D5W 100 / 100 100 / 100 Inj 98 ML @ 0.01 UNITS/MIN 1.5 mls/hr IV.CONT TITRATE PRN Rx#: [id number] Flexbumin 25% Inj 100 ML @ 60 100 / 100 100 / 100 mls/hr IV.SIG Q12H [facility] Rx#: [id number] Maxipime Inj 2,000 MG In NS Inj 100 / 100 100 ML @ 200 mls/hr IV.SIG Q24H [facility] Rx#:[id number] Levaquin 250 mg Premix Inj 250 50 / 50 mg In 50 ml @ 50 mls/hr IV.SIG Q48H [facility] Rx#:[id number] Levophed Inj 4 MG In NS Inj 246 250 / 250 250 / 250 ML @ 2 MCG/MIN 7.5 mls/hr IV. SIG TITRATE PRN Rx#:[id number] Sodium Bicarbonate 8.4% Inj 150 1150 / 1150 1000 / 1000 MEQ In Sterile Water for Inj 850 ML @ 100 mls/hr IV.SIG . Q10H [facility] Rx#:[id number] fentaNYL 10 mcg/mL Premix Drip 250 / 250 250 / 250 2,500 mcg In 250 ml @ 50 MCG/HR 5 mls/hr IV.SIG TITRATE PRN Rx #:[id number] Keppra Inj 500 MG In NS Inj 100 105 / 105 105 / 105 105 / 105 ML @ 400 mls/hr IV.SIG Q12H [facility] Rx#:[id number] Flolan (30,000 ng/mL) Neb 52.5 100 / 100 100 / 100 ML In NS Inj 47.5 ML @ 5 mls/hr NEB Q8H [facility] Rx#:[id number] Tube Feeding 173 / 173 175 / 175 Tube Irrigant 30 / 30 Water Bolus Amount 60 / 60 Output: Urine 100 / 100 Stool 100 / 100 Urine Amount (Catheter) 100 / 100 Indwelling Temp Sensing 100 / 100 Catheter Stool Amount (Stoma) 50 / 50 Pre-Hospital: 50 50 Narrative: GENERAL: Well-nourished, morbidly obese well-developed patient on ventilator. SKIN: Warm and dry. HEAD: Normocephalic. EYES: No scleral icterus. No injection or drainage. NECK: Supple, trachea midline. No JVD or lymphadenopathy. CARDIOVASCULAR: S1-S2 irregular. RESPIRATORY: Breath sounds diminished at bases. GASTROINTESTINAL: Abdomen soft, non-tender, distended. EXTREMITIES: Massive upper extremity edema left arm is worse with blisters NEUROLOGICAL: Sedation on ventilator. - Urinary Catheter Management Indwelling Temp Sensing Catheter Cath placed during this visit: yes Reason for continuing: Hourly intake/output Insertion date: 10/03/18 Insertion time: 08:10 Indwelling Urethral Catheter Cath placed during this visit: no Reason for continuing: Hourly intake/output Assessment and Plan - Assessment (1) Intraparenchymal hemorrhage of brain Code(s): I61.9 - Nontraumatic intracerebral hemorrhage, unspecified Status: Acute (2) History of hypertension Code(s): Z86.79 - Personal history of other diseases of the circulatory system Status: Chronic (3) Type 2 diabetes mellitus Code(s): E11.9 - Type 2 diabetes mellitus without complications Status: Chronic (4) Morbid obesity Code(s): E66.01 - Morbid (severe) obesity due to excess calories Status: Chronic (5) Acute kidney injury Code(s): N17.9 - Acute kidney failure, unspecified Status: Acute - Plan Patient sodium improved to 147, creatinine decline, vent setting FiO2 50% Patient on hemodialysis 2 sessions have been done next session is due tomorrow Lasix 80 mg IV ordered to increase urine output Monitor intake and output Continue to do dialysis as needed Creatinine decreased to 4.94 UF 4 L stable
[2018-10-16] MEDS: Sodium Bicarbonate 8.4% Inj 150 MEQ in Water for Inj, Sterile 850 ML IV.SIG SCH ×3 (00:35→20:51)
[2018-10-16] MEDS: Oral Hygiene Kit OROPHARYNG SCH ×4 (01:02→16:19)
[2018-10-16] MEDS: Insulin NovoLOG Aspart Correctional Sugar Inj SQ SCH ×4 (01:02→18:33)
[2018-10-16] MEDS: Vasopressin Inj 40 UNIT in Dextrose 5% in Water Inj 98 ML IV.CONT PRN ×2 (05:10)
[2018-10-16] MEDS: EPOPROSTENOL NEB SCH ×3 (05:10→23:32)
[2018-10-16] MEDS: SODIUM CHLOR NEB SCH ×3 (05:10→23:32)
[2018-10-16] MEDS: Albumin Human 25% Inj 100 ML IV.SIG SCH ×3 (05:12→10:48)
[2018-10-16] MEDS: fentaNYL 10 mcg/mL Premix Drip 2,500 MCG/250 ML BAG IV.SIG PRN (06:48)
[2018-10-16] MEDS: DOBUTamine 250 MG/250 ML Premx 250 MG/250 ML BAG IV.CONT SCH ×3 (08:06→23:32)
[2018-10-16] MEDS: Sodium Chloride 0.9% 2 ML Flush BID IV.FLUSH SCH ×2 (08:07→20:49)
[2018-10-16] MEDS: Chlorhexidine 0.12% Oral Kit 15 ML UDC OROPHARYNG SCH ×2 (08:07→20:51)
[2018-10-16] MEDS: Senna/Docusate Sodium 8.6/50 MG Tablet PO SCH ×2 (08:07→20:49)
[2018-10-16] MEDS: Insulin Detemir Inj 1,000 UNIT/10 ML Vial SQ SCH ×2 (08:13→20:50)
[2018-10-16] MEDS: Famotidine PF Inj 20 MG/2 ML Vial IV.PUSH SCH ×2 (08:14→20:48)
[2018-10-16] MEDS: Norepinephrine Inj 4 MG in Sodium Chlor 0.9% Inj 246 ML IV.SIG PRN ×2 (10:15→23:33)
--- NOTE | 2018-10-16 11:32 | P.PNNS ---
Subjective Interval history: no improvement neurologically, remains intubated Physical Exam Vital signs: Vital Signs 10/15/18 11:30 10/15/18 11:45 10/15/18 12:00 Temperature 100.8 F H 100.6 F H 100.6 F H Pulse Rate 92 H 90 92 H Respiratory Rate 15 15 15 Pulse Oximetry 90 L 90 L 89 L 10/15/18 12:15 10/15/18 12:30 10/15/18 12:45 Temperature 100.6 F H 100.6 F H 100.6 F H Pulse Rate 93 H 92 H 91 H Respiratory Rate 15 15 15 Pulse Oximetry 90 L 90 L 90 L 10/15/18 13:00 10/15/18 13:15 10/15/18 13:30 Temperature 100.6 F H 100.6 F H 100.6 F H Pulse Rate 93 H 92 H 92 H Respiratory Rate 15 15 15 Pulse Oximetry 89 L 89 L 89 L 10/15/18 13:45 10/15/18 14:00 10/15/18 14:15 Temperature 100.6 F H 100.4 F H 100.4 F H Pulse Rate 91 H 93 H 95 H Respiratory Rate 15 15 15 Pulse Oximetry 89 L 89 L 89 L 10/15/18 14:30 10/15/18 14:45 10/15/18 15:00 Temperature 100.4 F H 100.4 F H 100.4 F H Pulse Rate 91 H 90 91 H Respiratory Rate 15 15 15 Pulse Oximetry 88 L 91 L 91 L 10/15/18 15:15 10/15/18 15:30 10/15/18 15:45 Temperature 100.4 F H 100.4 F H 100.2 F H Pulse Rate 87 82 81 Respiratory Rate 15 15 15 Pulse Oximetry 88 L 90 L 91 L 10/15/18 16:00 10/15/18 16:15 10/15/18 16:30 Temperature 100.2 F H 100.2 F H 100.2 F H Pulse Rate 89 91 H 91 H Respiratory Rate 15 15 15 Pulse Oximetry 89 L 88 L 87 L 10/15/18 16:45 10/15/18 17:00 10/15/18 17:15 Temperature 100.2 F H 100.2 F H 100.2 F H Pulse Rate 91 H 92 H 92 H Respiratory Rate 15 15 15 Pulse Oximetry 86 L 88 L 88 L 10/15/18 17:30 10/15/18 17:35 10/15/18 17:45 Temperature 100.0 F H 100.0 F H Pulse Rate 88 94 H 91 H Respiratory Rate 15 14 15 Pulse Oximetry 88 L 90 L 90 L 10/15/18 18:00 10/15/18 18:15 10/15/18 19:00 Temperature 100.0 F H 100.0 F H 99.9 F H Pulse Rate 91 H 90 89 Respiratory Rate 15 15 15 Pulse Oximetry 90 L 90 L 90 L 10/15/18 19:15 10/15/18 19:30 10/15/18 19:45 Temperature 99.9 F H 99.9 F H 99.9 F H Pulse Rate 87 87 87 Respiratory Rate 15 15 15 Pulse Oximetry 91 L 91 L 90 L 10/15/18 20:00 10/15/18 20:15 10/15/18 20:30 Temperature 99.9 F H 99.7 F H 99.7 F H Pulse Rate 88 89 88 Respiratory Rate 15 15 15 Pulse Oximetry 90 L 90 L 89 L 10/15/18 20:45 10/15/18 21:00 10/15/18 21:15 Temperature 99.7 F H 99.7 F H 99.7 F H Pulse Rate 85 86 89 Respiratory Rate 15 15 15 Pulse Oximetry 91 L 94 L 91 L 10/15/18 21:30 10/15/18 21:45 10/15/18 22:00 Temperature 99.7 F H 99.7 F H 99.5 F Pulse Rate 90 86 87 Respiratory Rate 15 15 15 Pulse Oximetry 91 L 92 L 91 L 10/15/18 22:15 10/15/18 22:30 10/15/18 22:45 Temperature 99.5 F 99.5 F 99.5 F Pulse Rate 84 84 84 Respiratory Rate 15 15 15 Pulse Oximetry 91 L 92 L 92 L 10/15/18 23:00 10/15/18 23:15 10/15/18 23:30 Temperature 99.5 F 99.3 F 99.3 F Pulse Rate 84 84 83 Respiratory Rate 15 15 15 Pulse Oximetry 93 L 93 L 93 L 10/15/18 23:45 10/16/18 00:00 10/16/18 00:03 Temperature 99.3 F 99.3 F Pulse Rate 85 85 84 Respiratory Rate 15 15 14 Pulse Oximetry 92 L 92 L 10/16/18 00:15 10/16/18 00:30 10/16/18 00:45 Temperature 99.3 F 99.3 F 99.1 F Pulse Rate 84 84 85 Respiratory Rate 15 15 15 Pulse Oximetry 92 L 93 L 92 L 10/16/18 01:00 10/16/18 01:01 10/16/18 01:15 Temperature 99.1 F 99.1 F Pulse Rate 84 83 Respiratory Rate 15 14 15 Pulse Oximetry 92 L 93 L 92 L 10/16/18 01:30 10/16/18 01:45 10/16/18 02:00 Temperature 99.1 F 99.1 F 99.1 F Pulse Rate 83 83 83 Respiratory Rate 15 15 15 Pulse Oximetry 92 L 93 L 93 L 10/16/18 02:15 10/16/18 02:30 10/16/18 02:45 Temperature 99.1 F 99.1 F 99.1 F Pulse Rate 83 83 82 Respiratory Rate 15 15 15 Pulse Oximetry 93 L 93 L 93 L 10/16/18 03:00 10/16/18 03:04 10/16/18 03:15 Temperature 99.1 F 99.1 F Pulse Rate 82 83 84 Respiratory Rate 15 14 15 Pulse Oximetry 93 L 91 L 10/16/18 03:30 10/16/18 03:45 10/16/18 04:00 Temperature 99.1 F 99.1 F 99.0 F Pulse Rate 83 83 83 Respiratory Rate 15 15 15 Pulse Oximetry 91 L 92 L 91 L 10/16/18 04:01 10/16/18 04:15 10/16/18 04:30 Temperature 99.0 F 99.0 F Pulse Rate 83 83 Respiratory Rate 15 15 15 Pulse Oximetry 92 L 91 L 91 L 10/16/18 04:45 10/16/18 05:00 10/16/18 05:15 Temperature 99.0 F 99.0 F 99.0 F Pulse Rate 83 82 82 Respiratory Rate 15 15 15 Pulse Oximetry 92 L 93 L 94 L 10/16/18 05:30 10/16/18 05:45 10/16/18 06:00 Temperature 99.0 F 98.8 F 98.8 F Pulse Rate 82 80 81 Respiratory Rate 15 15 15 Pulse Oximetry 92 L 93 L 93 L 10/16/18 06:15 10/16/18 06:30 10/16/18 06:45 Temperature 98.8 F 98.8 F 98.8 F Pulse Rate 81 81 81 Respiratory Rate 15 15 15 Pulse Oximetry 93 L 92 L 93 L 10/16/18 07:00 10/16/18 07:15 10/16/18 07:23 Temperature 98.8 F 98.6 F Pulse Rate 81 81 82 Respiratory Rate 15 15 15 Pulse Oximetry 92 L 92 L 92 L 10/16/18 07:30 10/16/18 07:45 10/16/18 08:00 Temperature 98.6 F 98.6 F 98.6 F Pulse Rate 81 80 77 Respiratory Rate 15 15 15 Pulse Oximetry 92 L 91 L 92 L 10/16/18 08:15 10/16/18 08:30 10/16/18 08:45 Temperature 98.6 F 98.6 F 98.6 F Pulse Rate 81 82 82 Respiratory Rate 15 15 15 Pulse Oximetry 91 L 90 L 90 L 10/16/18 09:00 10/16/18 09:15 10/16/18 09:30 Temperature 98.6 F 98.6 F 98.6 F Pulse Rate 83 82 82 Respiratory Rate 15 15 15 Pulse Oximetry 90 L 90 L 91 L 10/16/18 09:45 10/16/18 10:00 10/16/18 11:01 Temperature 98.6 F 98.6 F Pulse Rate 84 79 90 Respiratory Rate 15 15 15 Pulse Oximetry 91 L 91 L 92 L Intake & Output 10/15/18 10/16/18 10/16/18 18:59 06:59 18:59 Intake Total 2467 / 2467 2536 / 2536 555 / 555 Output Total 100 / 100 200 / 200 Balance 2367 / 2367 2336 / 2336 555 / 555 Weight 217.8 kg Intake: IV 2255 / 2255 2355 / 2355 555 / 555 DOBUTamine 250 MG/250 ML Premix 500 / 500 250 / 250 250 / 250 250 mg In 250 ml @ 2.5 MCG/KG/ MIN 32.055 mls/hr IV.CONT . Q7H48M [facility] Rx#:[id number] Versed Inj 100 mg In 100 ml @ 6 100 / 100 100 / 100 MG/HR 6 mls/hr IV.CONT TITRATE PRN Rx#:[id number] Pitressin Inj 40 UNIT In D5W 100 / 100 100 / 100 Inj 98 ML @ 0.01 UNITS/MIN 1.5 mls/hr IV.CONT TITRATE PRN Rx#: [id number] Flexbumin 25% Inj 100 ML @ 60 100 / 100 100 / 100 200 / 200 mls/hr IV.SIG Q12H [facility] Rx#: [id number] Maxipime Inj 2,000 MG In NS Inj 100 / 100 100 ML @ 200 mls/hr IV.SIG Q24H [facility] Rx#:[id number] Levophed Inj 4 MG In NS Inj 246 250 / 250 ML @ 2 MCG/MIN 7.5 mls/hr IV. SIG TITRATE PRN Rx#:[id number] Sodium Bicarbonate 8.4% Inj 150 1000 / 1000 1000 / 1000 MEQ In Sterile Water for Inj 850 ML @ 100 mls/hr IV.SIG . Q10H [facility] Rx#:[id number] fentaNYL 10 mcg/mL Premix Drip 250 / 250 250 / 250 2,500 mcg In 250 ml @ 50 MCG/HR 5 mls/hr IV.SIG TITRATE PRN Rx #:[id number] Keppra Inj 500 MG In NS Inj 100 105 / 105 105 / 105 105 / 105 ML @ 400 mls/hr IV.SIG Q12H [facility] Rx#:[id number] Flolan (30,000 ng/mL) Neb 52.5 100 / 100 100 / 100 ML In NS Inj 47.5 ML @ 5 mls/hr NEB Q8H [facility] Rx#:[id number] Tube Feeding 182 / 182 161 / 161 Tube Irrigant 20 / 20 Water Bolus Amount 30 / 30 Output: Urine Amount (Catheter) 75 / 75 100 / 100 Indwelling Temp Sensing 75 / 75 100 / 100 Catheter Stool Amount (Stoma) 25 / 25 100 / 100 Pre-Hospital: 25 / 25 100 / 100 Narrative: Intubated does not open eyes, not following commands pupils equal minimal response to feet pain stimuli right crani wound healing well - Urinary Catheter Management Indwelling Temp Sensing Catheter Cath placed during this visit: yes Reason for continuing: Other continuation reason Insertion date: 10/03/18 Insertion time: 08:10 Indwelling Urethral Catheter Cath placed during this visit: no Reason for continuing: Hourly intake/output Assessment and Plan - Plan 68 year old male transferred for intraparenchymal hematoma, most likely due to hypertensive crisis CTA Brain negative for aneurysm or vascular malformation pt underwent emergent right posterior temporal craniotomy, evacuation of intracerebral hematoma, and placement of ICP monitor 10/03/18 Plan: Dr. Hills reviewed f/u CT Brain, dw family members today ICP monitor and CLARIBEL drains x 2 removed CLARIBEL drain site requiring placement of stitch due to CSF leaking- using sterile techniques single stitch placed on both CLARIBEL drain site using 4-0 silk suture. steri-strips placed over bolt site. cont sedation weaning as tolerated and f/u exam [facility] nonchemical dvt prophylaxis due to ICH 10/[address] Liu, patient fluid up/pulmonary but difficult to diurese neuro stable 10/09: cont sedation and vent weaning per critical care follow up neuro exam 10/10: no changes to neuro exam, sedated cont sedation and vent weaning per critical care ok for trach/PEG from NRS standpoint Discussed case with Dr. Hermosillo. 10/16: Dr. Hills dw Dr. Liu - remains critically due to persistent pulmonary problems and requirement for HD cont neuro checks and follow up exam dc scalp darlin
--- NOTE | 2018-10-16 12:30 | P.PNID ---
Subjective Remarks: Patient remains unresponsive on the ventilator. Currently on 70% FiO2. Dialysis in progress. Afebrile. This is a 68-year-old white male who was admitted to the hospital 10/03/2018 on transfer from [facility] with headache. The patient was noted to have an acute intraparenchymal hemorrhage in the right temporal region. He underwent surgery in the form of right posterior temporal craniotomy and evacuation of intracerebral hematoma. Because of the persistence of the lung infiltrates and continuation of ventilation with difficulty weaning off the ventilator, this consultation is requested for infectious disease evaluation. Past Medical History: PAST MEDICAL HISTORY: Hypertension, hyperlipidemia, diabetes mellitus. Total right knee replacement. Allergies/Adverse Reactions: Allergies clear tape,plastic tape Allergy (Severe, Uncoded 10/04/18 18:47) Blister Objective Vital Signs 10/15/18 12:30 10/15/18 12:45 10/15/18 13:00 Temperature 100.6 F H 100.6 F H 100.6 F H Pulse Rate 92 H 91 H 93 H Respiratory Rate 15 15 15 Pulse Oximetry 90 L 90 L 89 L 10/15/18 13:15 10/15/18 13:30 10/15/18 13:45 Temperature 100.6 F H 100.6 F H 100.6 F H Pulse Rate 92 H 92 H 91 H Respiratory Rate 15 15 15 Pulse Oximetry 89 L 89 L 89 L 10/15/18 14:00 10/15/18 14:15 10/15/18 14:30 Temperature 100.4 F H 100.4 F H 100.4 F H Pulse Rate 93 H 95 H 91 H Respiratory Rate 15 15 15 Pulse Oximetry 89 L 89 L 88 L 10/15/18 14:45 10/15/18 15:00 10/15/18 15:15 Temperature 100.4 F H 100.4 F H 100.4 F H Pulse Rate 90 91 H 87 Respiratory Rate 15 15 15 Pulse Oximetry 91 L 91 L 88 L 10/15/18 15:30 10/15/18 15:45 10/15/18 16:00 Temperature 100.4 F H 100.2 F H 100.2 F H Pulse Rate 82 81 89 Respiratory Rate 15 15 15 Pulse Oximetry 90 L 91 L 89 L 10/15/18 16:15 10/15/18 16:30 11/25/18 16:45 Temperature 100.2 F H 100.2 F H 100.2 F H Pulse Rate 91 H 91 H 91 H Respiratory Rate 15 15 15 Pulse Oximetry 88 L 87 L 86 L 10/15/18 17:00 10/15/18 17:15 10/15/18 17:30 Temperature 100.2 F H 100.2 F H 100.0 F H Pulse Rate 92 H 92 H 88 Respiratory Rate 15 15 15 Pulse Oximetry 88 L 88 L 88 L 10/15/18 17:35 10/15/18 17:45 10/15/18 18:00 Temperature 100.0 F H 100.0 F H Pulse Rate 94 H 91 H 91 H Respiratory Rate 14 15 15 Pulse Oximetry 90 L 90 L 90 L 10/15/18 18:15 10/15/18 19:00 10/15/18 19:15 Temperature 100.0 F H 99.9 F H 99.9 F H Pulse Rate 90 89 87 Respiratory Rate 15 15 15 Pulse Oximetry 90 L 90 L 91 L 10/15/18 19:30 10/15/18 19:45 10/15/18 20:00 Temperature 99.9 F H 99.9 F H 99.9 F H Pulse Rate 87 87 88 Respiratory Rate 15 15 15 Pulse Oximetry 91 L 90 L 90 L 10/15/18 20:15 10/15/18 20:30 10/15/18 20:45 Temperature 99.7 F H 99.7 F H 99.7 F H Pulse Rate 89 88 85 Respiratory Rate 15 15 15 Pulse Oximetry 90 L 89 L 91 L 10/15/18 21:00 10/15/18 21:15 10/15/18 21:30 Temperature 99.7 F H 99.7 F H 99.7 F H Pulse Rate 86 89 90 Respiratory Rate 15 15 15 Pulse Oximetry 94 L 91 L 91 L 10/15/18 21:45 10/15/18 22:00 10/15/18 22:15 Temperature 99.7 F H 99.5 F 99.5 F Pulse Rate 86 87 84 Respiratory Rate 15 15 15 Pulse Oximetry 92 L 91 L 91 L 10/15/18 22:30 10/15/18 22:45 10/15/18 23:00 Temperature 99.5 F 99.5 F 99.5 F Pulse Rate 84 84 84 Respiratory Rate 15 15 15 Pulse Oximetry 92 L 92 L 93 L 11/25/18 23:15 10/15/18 23:30 10/15/18 23:45 Temperature 99.3 F 99.3 F 99.3 F Pulse Rate 84 83 85 Respiratory Rate 15 15 15 Pulse Oximetry 93 L 93 L 92 L 10/16/18 00:00 10/16/18 00:03 10/16/18 00:15 Temperature 99.3 F 99.3 F Pulse Rate 85 84 84 Respiratory Rate 15 14 15 Pulse Oximetry 92 L 92 L 10/16/18 00:30 10/16/18 00:45 10/16/18 01:00 Temperature 99.3 F 99.1 F 99.1 F Pulse Rate 84 85 84 Respiratory Rate 15 15 15 Pulse Oximetry 93 L 92 L 92 L 10/16/18 01:01 10/16/18 01:15 10/16/18 01:30 Temperature 99.1 F 99.1 F Pulse Rate 83 83 Respiratory Rate 14 15 15 Pulse Oximetry 93 L 92 L 92 L 10/16/18 01:45 10/16/18 02:00 10/16/18 02:15 Temperature 99.1 F 99.1 F 99.1 F Pulse Rate 83 83 83 Respiratory Rate 15 15 15 Pulse Oximetry 93 L 93 L 93 L 10/16/18 02:30 10/16/18 02:45 10/16/18 03:00 Temperature 99.1 F 99.1 F 99.1 F Pulse Rate 83 82 82 Respiratory Rate 15 15 15 Pulse Oximetry 93 L 93 L 93 L 10/16/18 03:04 10/16/18 03:15 10/16/18 03:30 Temperature 99.1 F 99.1 F Pulse Rate 83 84 83 Respiratory Rate 14 15 15 Pulse Oximetry 91 L 91 L 10/16/18 03:45 10/16/18 04:00 10/16/18 04:01 Temperature 99.1 F 99.0 F Pulse Rate 83 83 Respiratory Rate 15 15 15 Pulse Oximetry 92 L 91 L 92 L 10/16/18 04:15 10/16/18 04:30 10/16/18 04:45 Temperature 99.0 F 99.0 F 99.0 F Pulse Rate 83 83 83 Respiratory Rate 15 15 15 Pulse Oximetry 91 L 91 L 92 L 10/16/18 05:00 10/16/18 05:15 10/16/18 05:30 Temperature 99.0 F 99.0 F 99.0 F Pulse Rate 82 82 82 Respiratory Rate 15 15 15 Pulse Oximetry 93 L 94 L 92 L 10/16/18 05:45 10/16/18 06:00 10/16/18 06:15 Temperature 98.8 F 98.8 F 98.8 F Pulse Rate 80 81 81 Respiratory Rate 15 15 15 Pulse Oximetry 93 L 93 L 93 L 10/16/18 06:30 10/16/18 06:45 10/16/18 07:00 Temperature 98.8 F 98.8 F 98.8 F Pulse Rate 81 81 81 Respiratory Rate 15 15 15 Pulse Oximetry 92 L 93 L 92 L 10/16/18 07:15 10/16/18 07:23 10/16/18 07:30 Temperature 98.6 F 98.6 F Pulse Rate 81 82 81 Respiratory Rate 15 15 15 Pulse Oximetry 92 L 92 L 92 L 10/16/18 07:45 10/16/18 08:00 10/16/18 08:15 Temperature 98.6 F 98.6 F 98.6 F Pulse Rate 80 77 81 Respiratory Rate 15 15 15 Pulse Oximetry 91 L 92 L 91 L 10/16/18 08:30 10/16/18 08:45 10/16/18 09:00 Temperature 98.6 F 98.6 F 98.6 F Pulse Rate 82 82 83 Respiratory Rate 15 15 15 Pulse Oximetry 90 L 90 L 90 L 10/16/18 09:15 10/16/18 09:30 10/16/18 09:45 Temperature 98.6 F 98.6 F 98.6 F Pulse Rate 82 82 84 Respiratory Rate 15 15 15 Pulse Oximetry 90 L 91 L 91 L 10/16/18 10:00 10/16/18 11:01 Temperature 98.6 F Pulse Rate 79 90 Respiratory Rate 15 15 Pulse Oximetry 91 L 92 L Intake & Output 10/15/18 10/16/18 10/16/18 18:59 06:59 18:59 Intake Total 2467 / 2467 2536 / 2536 555 / 555 Output Total 100 / 100 200 / 200 Balance 2367 / 2367 2336 / 2336 555 / 555 Weight 217.8 kg Intake: IV 2255 / 2255 2355 / 2355 555 / 555 DOBUTamine 250 MG/250 ML Premix 500 / 500 250 / 250 250 / 250 250 mg In 250 ml @ 2.5 MCG/KG/ MIN 32.055 mls/hr IV.CONT . Q7H48M [facility] Rx#:[id number] Versed Inj 100 mg In 100 ml @ 6 100 / 100 100 / 100 MG/HR 6 mls/hr IV.CONT TITRATE PRN Rx#:[id number] Pitressin Inj 40 UNIT In D5W 100 / 100 100 / 100 Inj 98 ML @ 0.01 UNITS/MIN 1.5 mls/hr IV.CONT TITRATE PRN Rx#: [id number] Flexbumin 25% Inj 100 ML @ 60 100 / 100 100 / 100 200 / 200 mls/hr IV.SIG Q12H [facility] Rx#: [id number] Maxipime Inj 2,000 MG In NS Inj 100 / 100 100 ML @ 200 mls/hr IV.SIG Q24H [facility] Rx#:[id number] Levophed Inj 4 MG In NS Inj 246 250 / 250 ML @ 2 MCG/MIN 7.5 mls/hr IV. SIG TITRATE PRN Rx#:[id number] Sodium Bicarbonate 8.4% Inj 150 1000 / 1000 1000 / 1000 MEQ In Sterile Water for Inj 850 ML @ 100 mls/hr IV.SIG . Q10H [facility] Rx#:[id number] fentaNYL 10 mcg/mL Premix Drip 250 / 250 250 / 250 2,500 mcg In 250 ml @ 50 MCG/HR 5 mls/hr IV.SIG TITRATE PRN Rx #:[id number] Keppra Inj 500 MG In NS Inj 100 105 / 105 105 / 105 105 / 105 ML @ 400 mls/hr IV.SIG Q12H [facility] Rx#:[id number] Flolan (30,000 ng/mL) Neb 52.5 100 / 100 100 / 100 ML In NS Inj 47.5 ML @ 5 mls/hr NEB Q8H [facility] Rx#:[id number] Tube Feeding 182 / 182 161 / 161 Tube Irrigant 20 / 20 Water Bolus Amount 30 / 30 Output: Urine Amount (Catheter) 75 / 75 100 / 100 Indwelling Temp Sensing 75 / 75 100 / 100 Catheter Stool Amount (Stoma) 25 / 100 / 100 Pre-Hospital: / 100 / 100 10/13/18 18:31 Blood - Peripheral Aerobic Blood Culture - Preliminary No growth in 3 days 10/13/18 18:31 Blood - Peripheral Anaerobic Blood Culture - Preliminary No growth in 3 days 10/13/18 18:25 Blood - Peripheral Aerobic Blood Culture - Preliminary No growth in 3 days 10/13/18 18:25 Blood - Peripheral Anaerobic Blood Culture - Preliminary No growth in 3 days 10/13/18 16:15 Sputum - Endotracheal Gram Stain - Final 10/13/18 16:15 Sputum - Endotracheal Sputum Culture - Final Light growth normal respiratory joselin 10/13/18 16:15 Clean Catch Urine Urine Culture - Final No growth in 48 hours 10/11/18 05:00 Catheterized Urine Urine Culture - Final No growth in 48 hours Lab - Chemistry Results 10/14/18 10/14/18 10/14/18 18:53 23:10 23:10 Sodium 147 H Potassium 4.3 Chloride 111 H Carbon Dioxide 23.7 Anion Gap 12 BUN 104 H Creatinine 4.94 H Estimated GFR 12 L POC Glucose 297 H Random Glucose 262 H Calcium 9.0 D Magnesium 2.8 H Total Bilirubin 1.0 AST 252 H ALT 325 H Alkaline Phosphatase 61 Total Protein 5.8 L Albumin 2.8 L 10/15/18 10/15/18 10/15/18 06:52 12:39 18:50 Sodium Potassium Chloride Carbon Dioxide Anion Gap BUN Creatinine Estimated GFR POC Glucose 307 H 304 H 299 H Random Glucose Calcium Magnesium Total Bilirubin AST ALT Alkaline Phosphatase Total Protein Albumin 10/15/18 10/16/18 10/16/18 20:10 00:55 06:42 Sodium Potassium Chloride Carbon Dioxide Anion Gap BUN Creatinine Estimated GFR POC Glucose 299 H 296 H 380 H Random Glucose Calcium Magnesium Total Bilirubin AST ALT Alkaline Phosphatase Total Protein Albumin 10/16/18 06:44 Sodium Potassium Chloride Carbon Dioxide Anion Gap BUN Creatinine Estimated GFR POC Glucose 244 H Random Glucose Calcium Magnesium Total Bilirubin AST ALT Alkaline Phosphatase Total Protein Albumin Imaging: ITS Impressions Neck CTA 10/03/18 00:00 CONCLUSION: 1. The left vert originates directly from the arch. 2. Atherosclerotic plaquing at the carotid bifurcation but no hemodynamically significant carotid artery stenosis identified. 3. CTA of the brain pending. Head CTA 10/03/18 07:56 CONCLUSION: No acute [place] of [place] vascular findings . Abdomen/Bladder Ultrasound 10/04/18 00:00 CONCLUSION: No hydronephrosis Head CT 10/05/18 00:00 CONCLUSION: Satisfactory postop appearance . Chest X-Ray 10/14/18 00:00 CONCLUSION: 1. New ET tube cannot be definitively visualized. 2. Remaining tubes and lines are grossly stable although the NG tube is now well demonstrated beyond the inferior chest. 3. Persistent bilateral mid to lower lung zone pleural-parenchymal opacities consistent with ARDS/pulmonary edema versus diffuse infection. Physical Exam: PHYSICAL EXAMINATION: GENERAL: Unresponsive on the ventilator. HEENT: Unable to fully assess. Conjunctivae have edema. Oropharynx is intubated. NECK: No adenopathy. LUNGS: Decreased breath sounds HEART: Regular S1, S2, without murmurs. ABDOMEN: Bowel sounds diminished, obese. EXTREMITIES: No clubbing or cyanosis. 2+ nonpitting edema. SKIN: No diffuse rash. NEUROLOGIC: Unable to assess because the patient is unresponsive and intubated. PSYCHIATRIC: Unable to assess. Assessment and Plan - Plan IMPRESSION: 1. Pneumonia versus atelectasis in a patient with persistent infiltrates despite diuresis. Sputum culture has no growth. Chest x-ray shows probable pleural effusion. 2. Acute respiratory failure. 3. Intraparenchymal hematoma, status post intracranial pressure monitor and evacuation. RECOMMENDATIONS: 1. Continue vancomycin. 2. Continue cefepime. 3. Continue Levaquin. 4. Monitor clinical response.
[2018-10-16] MEDS: Levofloxacin 250 mg Premix Inj 250 MG/50 ML PIGGYBACK IV.SIG SCH (12:54)
--- NOTE | 2018-10-16 14:12 | P.PNCC ---
Subjective Subjective Remarks/Hospital Course: Patient is a 68-year-old morbidly obese male with past medical history significant for hypertension, diabetes, dyslipidemia, morbid obesity, thyroid disease, history of colon resection and colostomy, who presented to the [facility] with left-sided headache and poorly controlled hypertension. Apparently he woke up with severe left-sided headache was moderately confused and family brought him to the emergency department. The patient did take aspirin for his headache prior to presentation. A stat CT of the head showed large 6.9 x 3.6 x 3.2 cm acute intraparenchymal hemorrhage in the right temporoparietal region with approximate blood volume of 40 mL. There was surrounding edema and 2-3 mm leftward midline shift. Neurosurgery Dr. Hills was contacted and patient was transferred to [facility]. PT/INR/ platelet count was normal in the outside hospital. BUN was 43 creatinine was 2. I evaluated the patient in the ICU. Patient is awake but somnolent oriented only to person. He drifts to sleep while talking. His systolic blood pressure was 200 on arrival. Because of questionable airway protection and need for further imaging studies patient was intubated and placed on mechanical ventilation. Dr. Hills had been informed. I will start Cardene to control blood pressure, repeat stat CT head also CT angiogram of brain and neck will be performed. Also give 25 g of IV mannitol, start on 2% saline to keep sodium more than 150-155, also placed on Keppra for seizure prophylaxis. 10/04: Will start oral BP meds down NG tube and attempt to wean cardene. CKD persists as expected. Glucose swing expected. Keep intubated and sedated for now. 10/05: Better blood pressure control with by systolic and amlodipine restarted. Increased difficulty with oxygenation today, now requiring 100% FiO2 and 12 PEEP. Chest x-ray shows atelectasis involving the whole left lower lobe, cultures all negative for significant organism, no white blood cells. Will get repeat head CAT scan today. 10/06: Repeat head CT look good. Worsening difficulties with oxygenation related to the left lower lobe atelectasis. Converted to airway pressure release ventilation this morning. ICP continues to be very well controlled. 10/07: Lightening sedation today. ICP bolt has been removed. Oxygenation has improved. Continue airway pressure release ventilation. Renal function worse today, hydrate gently with isotonic saline and follow closely. 10/08: Continued difficulties with oxygenation related to preoperative lung injury from his pneumonia, body habitus, fluid overload associated with his chronic kidney disease. We will be forced to go back to airway pressure release ventilation because he de-recruited severely after converting to conventional ventilation yesterday despite PEEP of 18. 10/09: Starting to claw our way back to better oxygenation. He recruited severely on conventional ventilation despite markedly elevated PEEP. Hefty diuresis accomplished with Lasix drip however volume load from vancomycin and Cardene infusions makes it hard to get a significant reduction in total body water. This gentleman had pneumonia prior to his surgery and his persistent left lower lobe infiltrate impaired oxygenation early on. His chest x-ray still demonstrates consolidated areas in the left lower lung. 10/10: Increasing FiO2 requirement overnight. On 100% FiO2, AP RV mode mechanical ventilation this morning. Started on inhaled Flolan with which her O2 sats came up from high 80s to 93%. On Lasix drip however not really diuresing. BNP 57 on 10/09. 10/11: Remains sedated, orally intubated on mechanical ventilation. On inhaled Flolan. Started on Bumex drip by nephrology yesterday with significant increase in urine output. O2 sats 96% on 100% FiO2 APRV mode mechanical ventilation 10/12: Remains sedated, orally intubated on mechanical ventilation. FiO2 back up to 100% on AP RV mode. Inhaled Flolan continues. Remains on Bumex drip. 10/13: Remains sedated, orally intubated on mechanical ventilation. On inhaled Flolan. Remains on APRV mode, FiO2 down to 60%. On Bumex drip. Not really diuresing much. BNP has been normal. Worsening renal function now with metabolic acidosis. Patient is hypotensive on Levophed currently. Need to start renal replacement therapy after Vas-Cath placement as discussed with Dr. Gasca. Not much pleural fluid to tap on ultrasound done at bedside by myself yesterday. 10/14: Patient is still struggling with renal failure. Oxygenation has improved modestly with inhaled prostacyclin but mean airway pressures remain considerably elevated to prevent de-recruitment. Right ventricular function depressed on echo. Will try dobutamine low dose to hopefully improve cardiac output. I clearly anticipate that we will need higher doses of norepinephrine from dobutamine vasodilation but the only way to get rid of his edema is to mobilize more peripheral fluid. 10/15: Urine output minimal, less than 100%. We are stuck at 60% oxygen and despite markedly elevated mean airway pressures do not seem to be L to make much progress past this point. Toes are pinker after instituting dobutamine but no other obvious improvement. After 12-day hospitalization he remains critically ill and his recovery is severely hampered by his chronic kidney disease and persistent pulmonary problems. 10/16: Now requiring markedly elevated oxygen concentration consistent with the worsening radiographic picture. His and daughter understand that the confluence of dysfunction involving the lungs, heart, and kidneys make survival for this gentleman impossible. We are losing ground and continue to requiring increasing vasopressor support and respiratory support. - Diagnosis (1) Intraparenchymal hemorrhage of brain (2) Midline shift of brain (3) Acute encephalopathy (4) Hypertensive emergency (5) LLL pneumonia (6) Acute kidney injury (7) History of hypertension (8) Type 2 diabetes mellitus (9) Dyslipidemia (10) Morbid obesity Objective Vital Signs / I&O: Vital Signs 10/15/18 14:15 10/15/18 14:30 10/15/18 14:45 Temperature 100.4 F H 100.4 F H 100.4 F H Pulse Rate 95 H 91 H 90 Respiratory Rate 15 15 15 Pulse Oximetry 89 L 88 L 91 L 10/15/18 15:00 10/15/18 15:15 10/15/18 15:30 Temperature 100.4 F H 100.4 F H 100.4 F H Pulse Rate 91 H 87 82 Respiratory Rate 15 15 15 Pulse Oximetry 91 L 88 L 90 L 10/15/18 15:45 10/15/18 16:00 10/15/18 16:15 Temperature 100.2 F H 100.2 F H 100.2 F H Pulse Rate 81 89 91 H Respiratory Rate 15 15 15 Pulse Oximetry 91 L 89 L 88 L 10/15/18 16:30 10/15/18 16:45 10/15/18 17:00 Temperature 100.2 F H 100.2 F H 100.2 F H Pulse Rate 91 H 91 H 92 H Respiratory Rate 15 15 15 Pulse Oximetry 87 L 86 L 88 L 10/15/18 17:15 10/15/18 17:30 10/15/18 17:35 Temperature 100.2 F H 100.0 F H Pulse Rate 92 H 88 94 H Respiratory Rate 15 15 14 Pulse Oximetry 88 L 88 L 90 L 10/15/18 17:45 10/15/18 18:00 10/15/18 18:15 Temperature 100.0 F H 100.0 F H 100.0 F H Pulse Rate 91 H 91 H 90 Respiratory Rate 15 15 15 Pulse Oximetry 90 L 90 L 90 L 10/15/18 19:00 10/15/18 19:15 10/15/18 19:30 Temperature 99.9 F H 99.9 F H 99.9 F H Pulse Rate 89 87 87 Respiratory Rate 15 15 15 Pulse Oximetry 90 L 91 L 91 L 10/15/18 19:45 10/15/18 20:00 10/15/18 20:15 Temperature 99.9 F H 99.9 F H 99.7 F H Pulse Rate 87 88 89 Respiratory Rate 15 15 15 Pulse Oximetry 90 L 90 L 90 L 10/15/18 20:30 10/15/18 20:45 10/15/18 21:00 Temperature 99.7 F H 99.7 F H 99.7 F H Pulse Rate 88 85 86 Respiratory Rate 15 15 15 Pulse Oximetry 89 L 91 L 94 L 10/15/18 21:15 10/15/18 21:30 10/15/18 21:45 Temperature 99.7 F H 99.7 F H 99.7 F H Pulse Rate 89 90 86 Respiratory Rate 15 15 15 Pulse Oximetry 91 L 91 L 92 L 10/15/18 22:00 10/15/18 22:15 10/15/18 22:30 Temperature 99.5 F 99.5 F 99.5 F Pulse Rate 87 84 84 Respiratory Rate 15 15 15 Pulse Oximetry 91 L 91 L 92 L 10/15/18 22:45 10/15/18 23:00 10/15/18 23:15 Temperature 99.5 F 99.5 F 99.3 F Pulse Rate 84 84 84 Respiratory Rate 15 15 15 Pulse Oximetry 92 L 93 L 93 L 10/15/18 23:30 10/15/18 23:45 10/16/18 00:00 Temperature 99.3 F 99.3 F 99.3 F Pulse Rate 83 85 85 Respiratory Rate 15 15 15 Pulse Oximetry 93 L 92 L 92 L 10/16/18 00:03 11/26/18 00:15 10/16/18 00:30 Temperature 99.3 F 99.3 F Pulse Rate 84 84 84 Respiratory Rate 14 15 15 Pulse Oximetry 92 L 93 L 10/16/18 00:45 10/16/18 01:00 10/16/18 01:01 Temperature 99.1 F 99.1 F Pulse Rate 85 84 Respiratory Rate 15 15 14 Pulse Oximetry 92 L 92 L 93 L 10/16/18 01:15 10/16/18 01:30 10/16/18 01:45 Temperature 99.1 F 99.1 F 99.1 F Pulse Rate 83 83 83 Respiratory Rate 15 15 15 Pulse Oximetry 92 L 92 L 93 L 10/16/18 02:00 10/16/18 02:15 10/16/18 02:30 Temperature 99.1 F 99.1 F 99.1 F Pulse Rate 83 83 83 Respiratory Rate 15 15 15 Pulse Oximetry 93 L 93 L 93 L 10/16/18 02:45 10/16/18 03:00 10/16/18 03:04 Temperature 99.1 F 99.1 F Pulse Rate 82 82 83 Respiratory Rate 15 15 14 Pulse Oximetry 93 L 93 L 10/16/18 03:15 10/16/18 03:30 10/16/18 03:45 Temperature 99.1 F 99.1 F 99.1 F Pulse Rate 84 83 83 Respiratory Rate 15 15 15 Pulse Oximetry 91 L 91 L 92 L 10/16/18 04:00 10/16/18 04:01 10/16/18 04:15 Temperature 99.0 F 99.0 F Pulse Rate 83 83 Respiratory Rate 15 15 15 Pulse Oximetry 91 L 92 L 91 L 10/16/18 04:30 10/16/18 04:45 10/16/18 05:00 Temperature 99.0 F 99.0 F 99.0 F Pulse Rate 83 83 82 Respiratory Rate 15 15 15 Pulse Oximetry 91 L 92 L 93 L 10/16/18 05:15 10/16/18 05:30 10/16/18 05:45 Temperature 99.0 F 99.0 F 98.8 F Pulse Rate 82 82 80 Respiratory Rate 15 15 15 Pulse Oximetry 94 L 92 L 93 L 10/16/18 06:00 10/16/18 06:15 10/16/18 06:30 Temperature 98.8 F 98.8 F 98.8 F Pulse Rate 81 81 81 Respiratory Rate 15 15 15 Pulse Oximetry 93 L 93 L 92 L 10/16/18 06:45 10/16/18 07:00 10/16/18 07:15 Temperature 98.8 F 98.8 F 98.6 F Pulse Rate 81 81 81 Respiratory Rate 15 15 15 Pulse Oximetry 93 L 92 L 92 L 10/16/18 07:23 10/16/18 07:30 10/16/18 07:45 Temperature 98.6 F 98.6 F Pulse Rate 82 81 80 Respiratory Rate 15 15 15 Pulse Oximetry 92 L 92 L 91 L 10/16/18 08:00 10/16/18 08:15 10/16/18 08:30 Temperature 98.6 F 98.6 F 98.6 F Pulse Rate 77 81 82 Respiratory Rate 15 15 15 Pulse Oximetry 92 L 91 L 90 L 10/16/18 08:45 10/16/18 09:00 10/16/18 09:15 Temperature 98.6 F 98.6 F 98.6 F Pulse Rate 82 83 82 Respiratory Rate 15 15 15 Pulse Oximetry 90 L 90 L 90 L 10/16/18 09:30 10/16/18 09:45 10/16/18 10:00 Temperature 98.6 F 98.6 F 98.6 F Pulse Rate 82 84 79 Respiratory Rate 15 15 15 Pulse Oximetry 91 L 91 L 91 L 10/16/18 10:15 10/16/18 10:30 10/16/18 10:45 Temperature 98.6 F 98.6 F 98.6 F Pulse Rate 81 86 86 Respiratory Rate 15 15 15 Pulse Oximetry 91 L 92 L 92 L 10/16/18 11:00 10/16/18 11:01 10/16/18 11:15 Temperature 98.6 F 98.6 F Pulse Rate 86 90 87 Respiratory Rate 15 15 15 Pulse Oximetry 92 L 92 L 91 L 10/16/18 11:30 10/16/18 11:45 10/16/18 12:00 Temperature 98.6 F 98.6 F 98.6 F Pulse Rate 87 89 86 Respiratory Rate 15 15 15 Pulse Oximetry 92 L 92 L 92 L 10/16/18 12:15 10/16/18 12:30 Temperature 98.4 F 98.4 F Pulse Rate 85 84 Respiratory Rate 15 15 Pulse Oximetry 92 L 91 L Intake & Output 10/15/18 10/16/18 10/16/18 18:59 06:59 18:59 Intake Total 2467 / 2467 2536 / 2536 1705 / 1705 Output Total 100 / 100 200 / 200 2700 / 2700 Balance 2367 / 2367 2336 / 2336 -995 / -995 Weight 217.8 kg Intake: IV 2255 / 2255 2355 / 2355 1705 / 1705 DOBUTamine 250 MG/250 ML Premix 500 / 500 250 / 250 250 / 250 250 mg In 250 ml @ 2.5 MCG/KG/ MIN 32.055 mls/hr IV.CONT . Q7H48M [facility] Rx#:[id number] Versed Inj 100 mg In 100 ml @ 6 100 / 100 100 / 100 MG/HR 6 mls/hr IV.CONT TITRATE PRN Rx#:[id number] Pitressin Inj 40 UNIT In D5W 100 / 100 100 / 100 Inj 98 ML @ 0.01 UNITS/MIN 1.5 mls/hr IV.CONT TITRATE PRN Rx#: [id number] Flexbumin 25% Inj 100 ML @ 60 100 / 100 100 / 100 300 / 300 mls/hr IV.SIG Q12H [facility] Rx#: [id number] Maxipime Inj 2,000 MG In NS Inj 100 / 100 100 ML @ 200 mls/hr IV.SIG Q24H [facility] Rx#:[id number] Levophed Inj 4 MG In NS Inj 246 250 / 250 ML @ 2 MCG/MIN 7.5 mls/hr IV. SIG TITRATE PRN Rx#:[id number] Sodium Bicarbonate 8.4% Inj 150 1000 / 1000 1000 / 1000 950 / 950 MEQ In Sterile Water for Inj 850 ML @ 100 mls/hr IV.SIG . Q10H [facility] Rx#:[id number] fentaNYL 10 mcg/mL Premix Drip 250 / 250 250 / 250 2,500 mcg In 250 ml @ 50 MCG/HR 5 mls/hr IV.SIG TITRATE PRN Rx #:[id number] Keppra Inj 500 MG In NS Inj 100 105 / 105 105 / 105 105 / 105 ML @ 400 mls/hr IV.SIG Q12H [facility] Rx#:[id number] Flolan (30,000 ng/mL) Neb 52.5 100 / 100 100 / 100 100 / 100 ML In NS Inj 47.5 ML @ 5 mls/hr NEB Q8H [facility] Rx#:[id number] Tube Feeding 182 / 182 161 / 161 Tube Irrigant 20 / 20 Water Bolus Amount 30 / 30 Output: Hemodialysis Amount 2700 / 2700 Urine Amount (Catheter) 75 / 75 100 / 100 Indwelling Temp Sensing 75 / 75 100 / 100 Catheter Stool Amount (Stoma) 100 / 100 Pre-Hospital: 100 / 100 Result Diagrams: 10/14/18 05:00 10/14/18 23:10 Objective Remarks: Narrative: GEN: Morbidly obese male, intubated, on mechanical ventilation. Remains generally edematous and swollen. HEENT: Scalp incision open to air, dry and clean. Healing. NECK: Supple. Orotracheal intubation. Orogastric tube in place. LUNGS: On mechanical ventilation, APRV mode, pressure high 38, 80% FiO2, breath sounds reduced in both bases. HEART: S1 and S2 normal, heart sounds distant. Neck veins are full. ABDOMEN: Soft. Nontender. Obese. Well-healed vertical scar. Right lower quadrant colostomy bag in place with dark liquid stool EXTREMITIES: Knee repair scar left side. Limbs generally edematous 2+, toes pink. NEUROLOGIC: Intubated, sedated. Does not breathe over the ventilator. Withdraws right foot and hand to stimulation Assessment and Plan - Problem List (1) Intraparenchymal hemorrhage of brain Code(s): I61.9 - Nontraumatic intracerebral hemorrhage, unspecified Status: Acute (2) Midline shift of brain Code(s): G93.9 - Disorder of brain, unspecified Status: Acute (3) Acute encephalopathy Code(s): G93.40 - Encephalopathy, unspecified Status: Acute (4) Hypertensive emergency Code(s): I16.1 - Hypertensive emergency Status: Acute (5) LLL pneumonia Code(s): J18.1 - Lobar pneumonia, unspecified organism Status: Acute (6) Acute kidney injury Code(s): N17.9 - Acute kidney failure, unspecified Status: Acute (7) History of hypertension Code(s): Z86.79 - Personal history of other diseases of the circulatory system Status: Chronic (8) Type 2 diabetes mellitus Code(s): E11.9 - Type 2 diabetes mellitus without complications Status: Chronic (9) Dyslipidemia Code(s): E78.5 - Hyperlipidemia, unspecified Status: Chronic (10) Morbid obesity Code(s): E66.01 - Morbid (severe) obesity due to excess calories Status: Chronic - Assessment and Plan Plan: NEURO: Acute right temporoparietal intraparenchymal hemorrhage Midline shift Acute encephalopathy -Propofol and fentanyl for sedation and ventilator synchrony after intubation -Keppra 500 mg IV every 12 hours -S/P crani and evacuation 10/03 -Repeat CAT scan of head with minimal edema and no shift 10/05 -Osmolality elevated nicely but renal function worse. -Off 2% saline. -Hemodialysis instituted, still markedly edematous and requiring vasopressor therapy RESP: Acute respiratory failure Left lower lobe pneumonia ARDS Bilateral effusions -Patient was intubated for airway protection -Ventilator bundle -DuoNeb every 6 hours scheduled and as needed -Sputum culture negative -Converted to airway pressure release ventilation -FiO2 100% increased on 10/10. Added inhaled Flolan. FiO2 requirement decreased to 60% on 10/13 -Left lower lobe infiltrate has persisted, related to his pre-existing pneumonia before surgery -Perform bedside ultrasound on 10/12 which showed small effusions bilaterally which do not appear too large to tap. -Cuff leak yesterday, endotracheal tube repositioned closer to the ralph with good seal. CV: Hypertensive emergency Dyslipidemia Hypotension -Off cardene -Arterial line placement -Holding Bysystolic, hydralazine and amlodipine due to hypotension. -holding losartan due to rising creatinine -Started on Levophed for pressor support 10/12. Added low-dose vasopressin . GI: Morbid obesity History of colon resection, status post colostomy -Started Nepro tube feeds on 10/11 and advance to goal of 30 cc/h as tolerated - IV famotidine -Routine colostomy care Renal/: Acute kidney injury/ CKD -Monitor renal function closely. Continue Mendieta catheter. -Being diuresed with Bumex drip. Not much response. BNP 57 on 10/09. I am not sure if fluid overload is his primary problem. -Consulted nephrology for his TARA/CKD, worsening BUN/creatinine and metabolic acidosis now. Plan to start renal replacement therapy on 10/[address] Gasca. Vas-Cath placed for hemodialysis. ID: Left lower lobe pneumonia/atelectasis UTI -On antibiotics per ID, cefepime. IV vancomycin stopped on 10/09 due to worsening creatinine. -All cultures negative so far. Repeat smith cultures ordered on 10/10. UA sent on 10/10 suggests UTI HEME: -Monitor CBC, coags ENDO: Type 2 diabetes Hypothyroidism -Electrolyte replacement per protocol -Sliding scale insulin -Need to increase basal coverage due to persistent hyperglycemia PROPH: -Bilateral lower extremity SCDs/HIRAL. Chemical DVT prophylaxis contraindicated status post parenchymal brain bleed -IV famotidine LINES: - RIJ central line - HD cath Consulted palliative care to assist with deciding goals of therapy as respiratory status appears to be worsening. D/W Dr. Gasca from nephrology on 10/10 who was consulted to evaluate TARA/ CKD and need for HD for fluid removal. On 10/10 Family meeting held with palliative care and discuss current clinical status including severe acute respiratory failure. Discussed CODE STATUS which at this point remains full code. Explained patient at high risk for hemodynamic instability of respiratory status declines further. Also explained that patient may go into cardiac arrest is unable to maintain O2 sats despite maximal ventilatory support. 10/12: Updated family at bedside regarding plan of care and critical status and they voiced understanding and was agreeable with plan of care. Palliative care has been following however family has not wanted to meet with them last few occasions. Remains full CODE STATUS at this time. I have previously discussed my concern that patient is at high risk for a cardiac arrest arrest, and given his cardiopulmonary status his prognosis extremely guarded at this time. Lengthy discussion with and daughter 10/15. I have informed them that I do not think he can survive this disease process. Overall impression: Patient remains critically ill and pulmonary status is unstable. Persistent respiratory problems due to morbid obesity, pre-existing pneumonia, and supine position. Chronic kidney disease is hampering our attempts at fluid removal. Now again requiring airway pressure release ventilation for recruitment. Hemodialysis is been instituted due to worsening kidney function. He remains critically ill and clinically deteriorating. Over the past 12 days he is generally progressed backward and prognosis for recovery is now poor. Critical care 42 minutes aside from procedures
--- NOTE | 2018-10-16 17:29 | P.PNNP ---
Subjective Interval history: Is intubated he has dialysis earlier, FiO2 is 100% On vasopressor Physical Exam Vital signs: Vital Signs 10/15/18 17:30 10/15/18 17:35 10/15/18 17:45 Temperature 100.0 F H 100.0 F H Pulse Rate 88 94 H 91 H Respiratory Rate 15 14 15 Pulse Oximetry 88 L 90 L 90 L 10/15/18 18:00 10/15/18 18:15 10/15/18 19:00 Temperature 100.0 F H 100.0 F H 99.9 F H Pulse Rate 91 H 90 89 Respiratory Rate 15 15 15 Pulse Oximetry 90 L 90 L 90 L 10/15/18 19:15 10/15/18 19:30 10/15/18 19:45 Temperature 99.9 F H 99.9 F H 99.9 F H Pulse Rate 87 87 87 Respiratory Rate 15 15 15 Pulse Oximetry 91 L 91 L 90 L 10/15/18 20:00 10/15/18 20:15 10/15/18 20:30 Temperature 99.9 F H 99.7 F H 99.7 F H Pulse Rate 88 89 88 Respiratory Rate 15 15 15 Pulse Oximetry 90 L 90 L 89 L 10/15/18 20:45 10/15/18 21:00 10/15/18 21:15 Temperature 99.7 F H 99.7 F H 99.7 F H Pulse Rate 85 86 89 Respiratory Rate 15 15 15 Pulse Oximetry 91 L 94 L 91 L 10/15/18 21:30 10/15/18 21:45 10/15/18 22:00 Temperature 99.7 F H 99.7 F H 99.5 F Pulse Rate 90 86 87 Respiratory Rate 15 15 15 Pulse Oximetry 91 L 92 L 91 L 10/15/18 22:15 10/15/18 22:30 10/15/18 22:45 Temperature 99.5 F 99.5 F 99.5 F Pulse Rate 84 84 84 Respiratory Rate 15 15 15 Pulse Oximetry 91 L 92 L 92 L 10/15/18 23:00 10/15/18 23:15 10/15/18 23:30 Temperature 99.5 F 99.3 F 99.3 F Pulse Rate 84 84 83 Respiratory Rate 15 15 15 Pulse Oximetry 93 L 93 L 93 L 10/15/18 23:45 10/16/18 00:00 10/16/18 00:03 Temperature 99.3 F 99.3 F Pulse Rate 85 85 84 Respiratory Rate 15 15 14 Pulse Oximetry 92 L 92 L 10/16/18 00:15 10/16/18 00:30 10/16/18 00:45 Temperature 99.3 F 99.3 F 99.1 F Pulse Rate 84 84 85 Respiratory Rate 15 15 15 Pulse Oximetry 92 L 93 L 92 L 10/16/18 01:00 10/16/18 01:01 10/16/18 01:15 Temperature 99.1 F 99.1 F Pulse Rate 84 83 Respiratory Rate 15 14 15 Pulse Oximetry 92 L 93 L 92 L 10/16/18 01:30 10/16/18 01:45 10/16/18 02:00 Temperature 99.1 F 99.1 F 99.1 F Pulse Rate 83 83 83 Respiratory Rate 15 15 15 Pulse Oximetry 92 L 93 L 93 L 10/16/18 02:15 10/16/18 02:30 10/16/18 02:45 Temperature 99.1 F 99.1 F 99.1 F Pulse Rate 83 83 82 Respiratory Rate 15 15 15 Pulse Oximetry 93 L 93 L 93 L 10/16/18 03:00 10/16/18 03:04 10/16/18 03:15 Temperature 99.1 F 99.1 F Pulse Rate 82 83 84 Respiratory Rate 15 14 15 Pulse Oximetry 93 L 91 L 10/16/18 03:30 10/16/18 03:45 10/16/18 04:00 Temperature 99.1 F 99.1 F 99.0 F Pulse Rate 83 83 83 Respiratory Rate 15 15 15 Pulse Oximetry 91 L 92 L 91 L 10/16/18 04:01 10/16/18 04:15 10/16/18 04:30 Temperature 99.0 F 99.0 F Pulse Rate 83 83 Respiratory Rate 15 15 15 Pulse Oximetry 92 L 91 L 91 L 10/16/18 04:45 10/16/18 05:00 10/16/18 05:15 Temperature 99.0 F 99.0 F 99.0 F Pulse Rate 83 82 82 Respiratory Rate 15 15 15 Pulse Oximetry 92 L 93 L 94 L 10/16/18 05:30 10/16/18 05:45 10/16/18 06:00 Temperature 99.0 F 98.8 F 98.8 F Pulse Rate 82 80 81 Respiratory Rate 15 15 15 Pulse Oximetry 92 L 93 L 93 L 10/16/18 06:15 10/16/18 06:30 10/16/18 06:45 Temperature 98.8 F 98.8 F 98.8 F Pulse Rate 81 81 81 Respiratory Rate 15 15 15 Pulse Oximetry 93 L 92 L 93 L 10/16/18 07:00 10/16/18 07:15 10/16/18 07:23 Temperature 98.8 F 98.6 F Pulse Rate 81 81 82 Respiratory Rate 15 15 15 Pulse Oximetry 92 L 92 L 92 L 10/16/18 07:30 10/16/18 07:45 10/16/18 08:00 Temperature 98.6 F 98.6 F 98.6 F Pulse Rate 81 80 77 Respiratory Rate 15 15 15 Pulse Oximetry 92 L 91 L 92 L 10/16/18 08:15 10/16/18 08:30 10/16/18 08:45 Temperature 98.6 F 98.6 F 98.6 F Pulse Rate 81 82 82 Respiratory Rate 15 15 15 Pulse Oximetry 91 L 90 L 90 L 10/16/18 09:00 10/16/18 09:15 10/16/18 09:30 Temperature 98.6 F 98.6 F 98.6 F Pulse Rate 83 82 82 Respiratory Rate 15 15 15 Pulse Oximetry 90 L 90 L 91 L 10/16/18 09:45 10/16/18 10:00 10/16/18 10:15 Temperature 98.6 F 98.6 F 98.6 F Pulse Rate 84 79 81 Respiratory Rate 15 15 15 Pulse Oximetry 91 L 91 L 91 L 10/16/18 10:30 10/16/18 10:45 10/16/18 11:00 Temperature 98.6 F 98.6 F 98.6 F Pulse Rate 86 86 86 Respiratory Rate 15 15 15 Pulse Oximetry 92 L 92 L 92 L 10/16/18 11:01 10/16/18 11:15 10/16/18 11:30 Temperature 98.6 F 98.6 F Pulse Rate 90 87 87 Respiratory Rate 15 15 15 Pulse Oximetry 92 L 91 L 92 L 10/16/18 11:45 10/16/18 12:00 10/16/18 12:15 Temperature 98.6 F 98.6 F 98.4 F Pulse Rate 89 86 85 Respiratory Rate 15 15 15 Pulse Oximetry 92 L 92 L 92 L 10/16/18 12:30 10/16/18 12:45 10/16/18 13:00 Temperature 98.4 F 98.4 F 98.2 F Pulse Rate 84 82 82 Respiratory Rate 15 15 15 Pulse Oximetry 91 L 91 L 91 L 10/16/18 13:15 10/16/18 13:30 10/16/18 13:45 Temperature 98.1 F 98.1 F 98.1 F Pulse Rate 82 84 84 Respiratory Rate 15 19 15 Pulse Oximetry 89 L 87 L 87 L 10/16/18 14:00 10/16/18 14:15 10/16/18 14:30 Temperature 98.1 F 98.1 F 98.2 F Pulse Rate 86 85 85 Respiratory Rate 15 19 15 Pulse Oximetry 88 L 88 L 87 L 10/16/18 14:45 10/16/18 15:00 10/16/18 15:15 Temperature 98.2 F 98.2 F 98.2 F Pulse Rate 86 86 88 Respiratory Rate 15 15 15 Pulse Oximetry 88 L 88 L 87 L 10/16/18 15:30 10/16/18 15:43 10/16/18 15:45 Temperature 98.2 F 98.2 F Pulse Rate 85 94 H 90 Respiratory Rate 15 15 15 Pulse Oximetry 88 L 89 L 10/16/18 16:00 Temperature 98.2 F Pulse Rate 90 Respiratory Rate 15 Pulse Oximetry 93 L Intake & Output 10/15/18 10/16/18 10/16/18 18:59 06:59 18:59 Intake Total 2467 / 2467 2536 / 2536 2004 Output Total 100 / 100 200 / 200 2700 / 2700 Balance 2367 / 2367 2336 / 2336 -695 / -695 Weight 217.8 kg Intake: IV 2255 / 2255 2355 / 2355 2004 DOBUTamine 250 MG/250 ML Premix 500 / 500 250 / 250 500 / 500 250 mg In 250 ml @ 2.5 MCG/KG/ MIN 32.055 mls/hr IV.CONT . Q7H48M [facility] Rx#:[id number] Versed Inj 100 mg In 100 ml @ 6 100 / 100 100 / 100 MG/HR 6 mls/hr IV.CONT TITRATE PRN Rx#:[id number] Pitressin Inj 40 UNIT In D5W 100 / 100 100 / 100 Inj 98 ML @ 0.01 UNITS/MIN 1.5 mls/hr IV.CONT TITRATE PRN Rx#: [id number] Flexbumin 25% Inj 100 ML @ 60 100 / 100 100 / 100 300 / 300 mls/hr IV.SIG Q12H [facility] Rx#: [id number] Maxipime Inj 2,000 MG In NS Inj 100 / 100 100 ML @ 200 mls/hr IV.SIG Q24H [facility] Rx#:[id number] Levaquin 250 mg Premix Inj 250 50 / 50 mg In 50 ml @ 50 mls/hr IV.SIG Q48H [facility] Rx#:[id number] Levophed Inj 4 MG In NS Inj 246 250 / 250 ML @ 2 MCG/MIN 7.5 mls/hr IV. SIG TITRATE PRN Rx#:[id number] Sodium Bicarbonate 8.4% Inj 150 1000 / 1000 1000 / 1000 950 / 950 MEQ In Sterile Water for Inj 850 ML @ 100 mls/hr IV.SIG . Q10H [facility] Rx#:[id number] fentaNYL 10 mcg/mL Premix Drip 250 / 250 250 / 250 2,500 mcg In 250 ml @ 50 MCG/HR 5 mls/hr IV.SIG TITRATE PRN Rx #:[id number] Keppra Inj 500 MG In NS Inj 100 105 / 105 105 / 105 105 / 105 ML @ 400 mls/hr IV.SIG Q12H [facility] Rx#:[id number] Flolan (30,000 ng/mL) Neb 52.5 100 / 100 100 / 100 100 / 100 ML In NS Inj 47.5 ML @ 5 mls/hr NEB Q8H [facility] Rx#:[id number] Tube Feeding 182 / 182 161 / 161 Tube Irrigant 20 / 20 Water Bolus Amount 30 / 30 Output: Hemodialysis Amount 2700 / 2700 Urine Amount (Catheter) 75 / 75 100 / 100 Indwelling Temp Sensing 75 / 75 100 / 100 Catheter Stool Amount (Stoma) / 100 / 100 Pre-Hospital: 100 / 100 Narrative: GENERAL: Well-nourished, well-developed intubated patient. SKIN: Warm and dry. HEAD: Normocephalic. EYES: No scleral icterus. No injection or drainage. NECK: Supple, trachea midline. No JVD or lymphadenopathy. CARDIOVASCULAR: irregular rate and rhythm without murmurs, gallops, or rubs. RESPIRATORY: Breath sounds on the right diminished at bases GASTROINTESTINAL: Abdomen soft, distended. EXTREMITIES: 2-3+ upper extremity edema NEUROLOGICAL: Cranial incision healing remains unresponsive - Urinary Catheter Management Indwelling Temp Sensing Catheter Cath placed during this visit: yes Reason for continuing: Other continuation reason Insertion date: 10/03/18 Insertion time: 08:10 Indwelling Urethral Catheter Cath placed during this visit: no Reason for continuing: Hourly intake/output Assessment and Plan - Assessment (1) Intraparenchymal hemorrhage of brain Code(s): I61.9 - Nontraumatic intracerebral hemorrhage, unspecified Status: Acute (2) History of hypertension Code(s): Z86.79 - Personal history of other diseases of the circulatory system Status: Chronic (3) Type 2 diabetes mellitus Code(s): E11.9 - Type 2 diabetes mellitus without complications Status: Chronic (4) Morbid obesity Code(s): E66.01 - Morbid (severe) obesity due to excess calories Status: Chronic (5) Acute kidney injury Code(s): N17.9 - Acute kidney failure, unspecified Status: Acute - Plan Patient sodium improved , creatinine decline, vent setting FiO2 100% Patient on hemodialysis done earlier 2.7 L Creatinine remains elevated Next hemodialysis tomorrow as he is on higher oxygen level remains on vasopressor/dobutamine
[2018-10-16 19:50] VITALS: RESP 15
[2018-10-16] MEDS: Midazolam 100 MG/100 ML Inj 100 MG/100 ML BAG IV.CONT PRN (19:50)
[2018-10-17] MEDS: fentaNYL Citrate Inj 100 MCG/2 ML Ampul IV.PUSH PRN ×2 (01:06→01:18)
[2018-10-17] MEDS: Insulin NovoLOG Aspart Correctional Sugar Inj SQ SCH (01:31)
[2018-10-17] MEDS: Oral Hygiene Kit OROPHARYNG SCH (01:33)
[2018-10-17 01:47] VITALS: BP 92/70; O2SAT 79
[2018-10-17 01:50] VITALS: PULSE 104; TEMP 98.6
[2018-10-17] MEDS ORDERED: Hyoscyamine Inj 0.5 MG/ML Ampul IV.PUSH PRN (02:15)
[2018-10-17] MEDS ORDERED: Morphine Sulfate Inj 8 MG/ML Vial IV.PUSH ONE (02:15)
--- NOTE | 2018-10-17 06:51 | P.PNCC ---
Critical Care Event Note Code activated: No Narrative: Patient had refractory hypoxia despite efforts at recruitment. Was already on maximized settings of APRV. I discussed with his . She presented to the bedside and states she wishes to change CODE STATUS to DO NOT RESUSCITATE. She desire transition to comfort measures. Patient is not capacitated for medical decision-making and has declined despite aggressive therapy. His condition is terminal. Dr. Kimball has also signed exhibits indicating patient has end-stage condition. Patient was provided comfort meds and extubated. He at 02: 49 while his and daughter were at bedside. Critical care time: less than 30 mins
--- NOTE | 2018-10-17 14:59 | P.DS ---
Date of admission: 10/03/18 07:05 Primary care physician: UNKNOWN Attending physician on discharge: Jareth Liu Brief History from admission: Patient is a 68-year-old morbidly obese male with past medical history significant for hypertension, diabetes, dyslipidemia, morbid obesity, thyroid disease, history of colon resection and colostomy, who presented to the [facility] with left-sided headache and poorly controlled hypertension. Apparently he woke up with severe left-sided headache was moderately confused and family brought him to the emergency department. The patient did take aspirin for his headache prior to presentation. A stat CT of the head showed large 6.9 x 3.6 x 3.2 cm acute intraparenchymal hemorrhage in the right temporoparietal region with approximate blood volume of 40 mL. There was surrounding edema and 2-3 mm leftward midline shift. Neurosurgery Dr. Hills was contacted and patient was transferred to [facility]. PT/INR/ platelet count was normal in the outside hospital. BUN was 43 creatinine was 2. I evaluated the patient in the ICU. Patient is awake but somnolent oriented only to person. He drifts to sleep while talking. His systolic blood pressure was 200 on arrival. Because of questionable airway protection and need for further imaging studies patient was intubated and placed on mechanical ventilation. Dr. Hills had been informed. I will start Cardene to control blood pressure, repeat stat CT head also CT angiogram of brain and neck will be performed. Also give 25 g of IV mannitol, start on 2% saline to keep sodium more than 150-155, also placed on Keppra for seizure prophylaxis Patient update on day of discharge: Patient had refractory hypoxia despite efforts at recruitment. Was already on maximized settings of APRV. I discussed with his . She presented to the bedside and states she wishes to change CODE STATUS to DO NOT RESUSCITATE. She desire transition to comfort measures. Patient is not capacitated for medical decision-making and has declined despite aggressive therapy. His condition is terminal. Dr. Kimball has also signed exhibits indicating patient has end-stage condition. Patient was provided comfort meds and extubated. He at 02: 49 while his and daughter were at bedside. DS: Diagnosis - Discharge Diagnosis (1) Intraparenchymal hemorrhage of brain Status: Acute (2) Acute respiratory distress syndrome (ARDS) Status: Acute (3) Acute hypoxemic respiratory failure Status: Acute (4) Midline shift of brain Status: Acute (5) Acute encephalopathy Status: Acute (6) Hypertensive emergency Status: Acute (7) LLL pneumonia Status: Acute (8) Acute kidney injury Status: Acute (9) History of hypertension Status: Chronic (10) Type 2 diabetes mellitus Status: Chronic (11) Dyslipidemia Status: Chronic (12) Morbid obesity Status: Chronic (13) Acute kidney injury (nontraumatic) Status: Acute (14) Right heart failure Status: Acute DS: Summary Hospital Course: Patient is a 68-year-old morbidly obese male with past medical history significant for hypertension, diabetes, dyslipidemia, morbid obesity, thyroid disease, history of colon resection and colostomy, who presented to the [facility] with left-sided headache and poorly controlled hypertension. Apparently he woke up with severe left-sided headache was moderately confused and family brought him to the emergency department. The patient did take aspirin for his headache prior to presentation. A stat CT of the head showed large 6.9 x 3.6 x 3.2 cm acute intraparenchymal hemorrhage in the right temporoparietal region with approximate blood volume of 40 mL. There was surrounding edema and 2-3 mm leftward midline shift. Neurosurgery Dr. Hills was contacted and patient was transferred to [facility] ICU. PT/INR/ platelet count was normal in the outside hospital. BUN was 43 creatinine was 2. I evaluated the patient in the ICU. Patient is awake but somnolent oriented only to person. He drifts to sleep while talking. His systolic blood pressure was 200 on arrival. Because of questionable airway protection and need for further imaging studies patient was intubated and placed on mechanical ventilation. Dr. Hills had been informed. I will start Cardene to control blood pressure, repeat stat CT head also CT angiogram of brain and neck will be performed. Also give 25 g of IV mannitol, start on 2% saline to keep sodium more than 150-155, also placed on Keppra for seizure prophylaxis. 10/04: Will start oral BP meds down NG tube and attempt to wean cardene. CKD persists as expected. Glucose swing expected. Keep intubated and sedated for now. 10/05: Better blood pressure control with by systolic and amlodipine restarted. Increased difficulty with oxygenation today, now requiring 100% FiO2 and 12 PEEP. Chest x-ray shows atelectasis involving the whole left lower lobe, cultures all negative for significant organism, no white blood cells. Will get repeat head CAT scan today. 10/06: Repeat head CT look good. Worsening difficulties with oxygenation related to the left lower lobe atelectasis. Converted to airway pressure release ventilation this morning. ICP continues to be very well controlled. 10/07: Lightening sedation today. ICP bolt has been removed. Oxygenation has improved. Continue airway pressure release ventilation. Renal function worse today, hydrate gently with isotonic saline and follow closely. 10/08: Continued difficulties with oxygenation related to preoperative lung injury from his pneumonia, body habitus, fluid overload associated with his chronic kidney disease. We will be forced to go back to airway pressure release ventilation because he de-recruited severely after converting to conventional ventilation yesterday despite PEEP of 18. 10/09: Starting to claw our way back to better oxygenation. He recruited severely on conventional ventilation despite markedly elevated PEEP. Hefty diuresis accomplished with Lasix drip however volume load from vancomycin and Cardene infusions makes it hard to get a significant reduction in total body water. This gentleman had pneumonia prior to his surgery and his persistent left lower lobe infiltrate impaired oxygenation early on. His chest x-ray still demonstrates consolidated areas in the left lower lung. 10/10: Increasing FiO2 requirement overnight. On 100% FiO2, AP RV mode mechanical ventilation this morning. Started on inhaled Flolan with which her O2 sats came up from high 80s to 93%. On Lasix drip however not really diuresing. BNP 57 on 10/09. 10/11: Remains sedated, orally intubated on mechanical ventilation. On inhaled Flolan. Started on Bumex drip by nephrology yesterday with significant increase in urine output. O2 sats 96% on 100% FiO2 APRV mode mechanical ventilation 10/12: Remains sedated, orally intubated on mechanical ventilation. FiO2 back up to 100% on APRV mode. Inhaled Flolan continues. Remains on Bumex drip. 10/13: Remains sedated, orally intubated on mechanical ventilation. On inhaled Flolan. Remains on APRV mode, FiO2 down to 60%. On Bumex drip. Not really diuresing much. BNP has been normal. Worsening renal function now with metabolic acidosis. Patient is hypotensive on Levophed currently. Need to start renal replacement therapy after Vas-Cath placement as discussed with Dr. Gasca. Not much pleural fluid to tap on ultrasound done at bedside by myself yesterday. 10/14: Patient is still struggling with renal failure. Oxygenation has improved modestly with inhaled prostacyclin but mean airway pressures remain considerably elevated to prevent de-recruitment. Right ventricular function depressed on echo. Will try dobutamine low dose to hopefully improve cardiac output. I clearly anticipate that we will need higher doses of norepinephrine from dobutamine vasodilation but the only way to get rid of his edema is to mobilize more peripheral fluid. 10/15: Urine output minimal, less than 100%. We are stuck at 60% oxygen and despite markedly elevated mean airway pressures do not seem to be L to make much progress past this point. Toes are pinker after instituting dobutamine but no other obvious improvement. After 12-day hospitalization he remains critically ill and his recovery is severely hampered by his chronic kidney disease and persistent pulmonary problems. 10/16: Now requiring markedly elevated oxygen concentration consistent with the worsening radiographic picture. His and daughter understand that the confluence of dysfunction involving the lungs, heart, and kidneys make survival for this gentleman impossible. We are losing ground and continue to requiring increasing vasopressor support and respiratory support. - Time Spent with Patient Total time spent providing and/or coordinating discharge services: Greater than 30 minutes - Quality: VTE Deep Vein Thrombosis/Pulmonary Embolism Present on Admission: No Exam Vital signs: Vital Signs 10/16/18 14:45 10/16/18 15:00 10/16/18 15:15 Temperature 98.2 F 98.2 F 98.2 F Pulse Rate 86 86 88 Respiratory Rate 15 15 15 Blood Pressure Pulse Oximetry 88 L 88 L 87 L 10/16/18 15:30 10/16/18 15:43 10/16/18 15:45 Temperature 98.2 F 98.2 F Pulse Rate 85 94 H 90 Respiratory Rate 15 15 15 Blood Pressure Pulse Oximetry 88 L 89 L 10/16/18 16:00 10/16/18 16:15 10/16/18 16:30 Temperature 98.2 F 98.2 F 98.2 F Pulse Rate 90 90 91 H Respiratory Rate 15 15 15 Blood Pressure Pulse Oximetry 93 L 93 L 94 L 10/16/18 16:45 10/16/18 17:00 10/16/18 17:15 Temperature 98.4 F 98.4 F 98.4 F Pulse Rate 93 H 94 H 93 H Respiratory Rate 15 15 15 Blood Pressure Pulse Oximetry 94 L 94 L 94 L 10/16/18 17:30 10/16/18 17:45 10/16/18 17:57 Temperature 98.4 F 98.4 F Pulse Rate 94 H 94 H 93 H Respiratory Rate 15 15 Blood Pressure Pulse Oximetry 95 92 L 10/16/18 18:00 10/16/18 18:15 10/16/18 18:30 Temperature 98.4 F 98.4 F 98.4 F Pulse Rate 95 H 94 H 93 H Respiratory Rate 15 15 15 Blood Pressure Pulse Oximetry 94 L 94 L 93 L 10/16/18 18:45 10/16/18 19:00 10/16/18 19:15 Temperature 98.4 F 98.4 F 98.4 F Pulse Rate 94 H 93 H 92 H Respiratory Rate 15 15 15 Blood Pressure 99/68 L Pulse Oximetry 93 L 93 L 93 L 10/16/18 19:30 10/16/18 19:32 10/16/18 19:35 Temperature 98.4 F Pulse Rate 91 H 92 H Respiratory Rate 15 14 14 Blood Pressure Pulse Oximetry 93 L 93 L 10/16/18 19:45 10/16/18 20:00 10/16/18 20:15 Temperature 98.4 F 98.4 F 98.4 F Pulse Rate 95 H 96 H 95 H Respiratory Rate 15 15 15 Blood Pressure Pulse Oximetry 93 L 93 L 94 L 10/16/18 20:30 10/16/18 20:45 10/16/18 21:00 Temperature 98.4 F 98.4 F 98.4 F Pulse Rate 94 H 93 H 91 H Respiratory Rate 15 15 15 Blood Pressure Pulse Oximetry 94 L 94 L 94 L 10/16/18 21:15 10/16/18 21:30 10/16/18 21:45 Temperature 98.4 F 98.6 F 98.6 F Pulse Rate 90 90 91 H Respiratory Rate 15 15 15 Blood Pressure Pulse Oximetry 95 94 L 94 L 10/16/18 22:00 10/16/18 22:15 10/16/18 22:30 Temperature 98.6 F 98.6 F 98.6 F Pulse Rate 91 H 92 H 92 H Respiratory Rate 15 15 15 Blood Pressure 100/68 Pulse Oximetry 94 L 93 L 91 L 10/16/18 22:45 10/16/18 23:00 10/16/18 23:15 Temperature 98.6 F 98.6 F 98.6 F Pulse Rate 95 H 95 H 94 H Respiratory Rate 15 15 15 Blood Pressure 102/63 Pulse Oximetry 89 L 88 L 90 L 10/16/18 23:19 10/16/18 23:21 10/16/18 23:30 Temperature 98.6 F Pulse Rate 93 H 93 H Respiratory Rate 14 15 15 Blood Pressure Pulse Oximetry 90 L 90 L 10/16/18 23:45 10/17/18 00:00 10/17/18 00:15 Temperature 98.6 F 98.6 F 98.6 F Pulse Rate 94 H 94 H 95 H Respiratory Rate 15 15 15 Blood Pressure 92/70 L Pulse Oximetry 91 L 91 L 91 L 10/17/18 00:30 10/17/18 00:45 10/17/18 01:00 Temperature 98.6 F 98.6 F 98.6 F Pulse Rate 96 H 96 H 98 H Respiratory Rate 15 15 15 Blood Pressure Pulse Oximetry 90 L 86 L 80 L 10/17/18 01:15 10/17/18 01:30 10/17/18 01:45 Temperature 98.6 F 98.6 F 98.6 F Pulse Rate 101 H 105 H 104 H Respiratory Rate 15 15 15 Blood Pressure Pulse Oximetry 80 L 79 L 79 L Intake & Output 10/16/18 10/17/18 10/17/18 18:59 06:59 18:59 Intake Total 2186 / 2186 1600 / 1600 Output Total 2900 / 2900 Balance -714 / -714 1600 / 1600 Intake: IV 2004 1600 / 1600 DOBUTamine 250 MG/250 ML Premix 500 / 500 250 / 250 250 mg In 250 ml @ 2.5 MCG/KG/ MIN 32.055 mls/hr IV.CONT . Q7H48M [facility] Rx#:[id number] Versed Inj 100 mg In 100 ml @ 6 100 / 100 MG/HR 6 mls/hr IV.CONT TITRATE PRN Rx#:[id number] Flexbumin 25% Inj 100 ML @ 60 300 / 300 mls/hr IV.SIG Q12H [facility] Rx#: [id number] Levaquin 250 mg Premix Inj 250 50 / 50 mg In 50 ml @ 50 mls/hr IV.SIG Q48H [facility] Rx#:[id number] Levophed Inj 4 MG In NS Inj 246 250 / 250 ML @ 2 MCG/MIN 7.5 mls/hr IV. SIG TITRATE PRN Rx#:[id number] Sodium Bicarbonate 8.4% Inj 150 950 / 950 1000 / 1000 MEQ In Sterile Water for Inj 850 ML @ 100 mls/hr IV.SIG . Q10H [facility] Rx#:[id number] Keppra Inj 500 MG In NS Inj 100 105 / 105 ML @ 400 mls/hr IV.SIG Q12H [facility] Rx#:[id number] Flolan (30,000 ng/mL) Neb 52.5 100 / 100 ML In NS Inj 47.5 ML @ 5 mls/hr NEB Q8H [facility] Rx#:[id number] Tube Feeding 181 / 181 Output: Hemodialysis Amount 2700 / 2700 Urine Amount (Catheter) 50 / 50 Indwelling Temp Sensing 50 / 50 Catheter Stool Amount (Stoma) 150 / 150 Pre-Hospital: 150 / 150 Other: Date of Last Bowel Movement 10/16/18 Narrative: Results Procedures completed during hospitalization: Intubation and mechanical ventilation Craniotomy and evacuation of intraparenchymal blood clot Labs on day of discharge: Labs from last 24 hours 10/17/18 00:48 POC Glucose 276 H Preliminary micro results at discharge 10/13/18 18:31 Aerobic Blood Culture - Preliminary Blood - Peripheral No growth in 4 days Anaerobic Blood Culture - Preliminary No growth in 4 days 10/13/18 18:25 Aerobic Blood Culture - Preliminary Blood - Peripheral No growth in 4 days Anaerobic Blood Culture - Preliminary No growth in 4 days - Impressions ITS Impressions Neck CTA 10/03/18 00:00 CONCLUSION: 1. The left vert originates directly from the arch. 2. Atherosclerotic plaquing at the carotid bifurcation but no hemodynamically significant carotid artery stenosis identified. 3. CTA of the brain pending. Head CTA 10/03/18 07:56 CONCLUSION: No acute [place] vascular findings . Abdomen/Bladder Ultrasound 10/04/18 00:00 CONCLUSION: No hydronephrosis Head CT 10/05/18 00:00 CONCLUSION: Satisfactory postop appearance . Chest X-Ray 10/14/18 00:00 CONCLUSION: 1. New ET tube cannot be definitively visualized. 2. Remaining tubes and lines are grossly stable although the NG tube is now well demonstrated beyond the inferior chest. 3. Persistent bilateral mid to lower lung zone pleural-parenchymal opacities consistent with ARDS/pulmonary edema versus diffuse infection. Discharge Plan - Discharge Disposition Patient Disposition: 20 - Discharge Details Date/Time: 10/17/18 02:49 - Physicians Team Primary Care Provider: UNKNOWN, Attending Provider: Adi Serrano Other Providers: Shivam Hills MD ; Varun Ayala MD ; Elzbieta Baeza MD ; [facility] ; Reena Gasca MD - Rxs /Orders / Referrals /Forms Prescriptions: No Action amlodipine 10 mg Tablet 10 mg PO DAILY aspirin 81 mg Tablet,Chewable 81 mg PO DAILY escitalopram oxalate [Lexapro] 10 mg Tablet 10 mg PO DAILY febuxostat [Uloric] 40 mg Tablet 40 mg PO DAILY fenofibrate 120 mg Tablet 120 mg PO DAILY glipizide 10 mg Tablet 10 mg BID insulin degludec [Tresiba FlexTouch U-100] 100 unit/mL (3 mL) Insulin Pen 48 units subcut DAILY irbesartan-hydrochlorothiazide 300-12.5 mg Tablet 1 tab PO DAILY lorazepam 0.5 mg Tablet 0.5 mg PO BID PRN (Reason: Anxiety) nebivolol [Bystolic] 10 mg Tablet 10 mg PO DAILY pioglitazone 15 mg Tablet 15 mg PO DAILY sitagliptin [Januvia] 50 mg Tablet 50 mg PO DAILY Synthroid 2 tab 112 mcg PO DAILY Referrals: UNKNOWN, [Primary Care Provider] - See Instructions
== END 2018-10-17 04:17 | disposition expired ==
LOC: N03 07:05
PROVIDERS: ADMIT Internal Medicine Critical Care Medicine; ATTEND Internal Medicine Critical Care Medicine